=== PATIENT | male | born 1955 | race Caucasian/White ===

== ENCOUNTER 2016-09-08 13:13 | Inpatient (IN) | payer OTHER ==
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
[2016-09-08 14:57] LABS: BASOPHIL 0.8 % (0-2.0); EOSINOPHIL 4.4 % (0-4.5); MCH 27.4 pg (25.7-33.7); MCHC 32.4 g/dl (32.0-35.9); MEAN CELL VOLUME 84.4 fl (80-96); MEAN PLT VOLUME 7.7 fl (7.5-11.1); NEUTROPHILS 69.4 % (42.8-82.8); PLATELET COUNT 231 K/MM3 (134-434); RDW 14.5 % (11.9-15.9); WHITE BLOOD COUNT 7.8 K/mm3 (4.0-10.0)
--- NOTE | 2016-09-08 15:03 | EKG ---
Test Reason : Blood Pressure : / mmHG Vent. Rate : 082 BPM Atrial Rate : 082 BPM P-R Int : 184 ms QRS Dur : 090 ms QT Int : 390 ms P-R-T Axes : 076 000 042 degrees QTc Int : 455 ms NORMAL SINUS RHYTHM NONSPECIFIC T WAVE ABNORMALITY ABNORMAL ECG WHEN COMPARED WITH ECG OF 16-AUG-2015 14:34, NO SIGNIFICANT CHANGE WAS FOUND Confirmed by LEX SIEGEL MD ([id number]) on 09/08/2016 3:02:57 PM Referred By: Confirmed By:LEX SIEGEL MD
[2016-09-08 15:19] LABS: ALBUMIN 2.9 g/dl (3.4-5.0); ANION GAP 10 (8-16); BILIRUBIN,TOTAL 0.4 mg/dL (0.2-1.0); CALCIUM 8.4 mg/dL (8.5-10.1); CO2 29 mmol/L (21-32); COCKROFT - GAULT 139.99; CREATININE 0.9 mg/dL (0.7-1.3); MAGNESIUM 1.9 mg/dL (1.8-2.4); PHOSPHOROUS 4.5 mg/dL (2.5-4.9); SGOT/AST 43 U/L (15-37); SGPT/ALT 66 U/L (12-78); TOT PROT 5.4 g/dl (6.4-8.2)
[2016-09-08 15:23] LABS: ALK PHOS 87 U/L (45-117); TROPONIN I 0.03 ng/ml (0.00-0.05)
[2016-09-08 15:26] LABS: GLUCOSE,RANDOM 353 mg/dL (74-106)
[2016-09-08 15:27] LABS: INR 1.08 (0.82-1.09); PROTHROMBIN TIME (PATIENT) 11.9 SEC (9.98-11.88)
[2016-09-08 15:30] LABS: ACTIVATED PTT 31.8 SECONDS (26.9-34.4)
[2016-09-08] MEDS ORDERED: INSULIN REGULAR HUMAN 100 UNITS/ML *VIAL IVPUSH ONE (15:43)
[2016-09-08] MEDS ORDERED: INSULIN REGULAR HUMAN 100 UNITS/ML *VIAL ONE (15:59)
[2016-09-08] MEDS ORDERED: ASPIRIN 81 MG CHEWABLE TABLETS PO ONE (16:01)
[2016-09-08] MEDS ORDERED: ASPIRIN 81 MG CHEWABLE TABLETS ONE (16:17)
[2016-09-08] MEDS ORDERED: ACETAMINOPHEN 325 MG TABLET (FP) PO PRN (17:21)
[2016-09-08] MEDS ORDERED: ALPRAZolam 0.25 MG TABLET PO PRN (17:21)
[2016-09-08] MEDS ORDERED: MECLIZINE HCL 25 MG TABLET (FP) PO PRN (17:21)
[2016-09-08] MEDS: INSULIN SLIDING SCALE (NOVOLOG) 1 VIAL SQ SCH (18:35)
[2016-09-08] MEDS ORDERED: INSULIN (NOVOLOG) ASPART 100 UNITS/ML 10ML VIAL ONE (18:36)
[2016-09-08] MEDS ORDERED: ACETAMINOPHEN 325 MG TABLET (FP) ONE (18:38)
[2016-09-08] MEDS ORDERED: METHOCARBAMOL 500 MG TABLET ONE (20:31)
[2016-09-08] MEDS: METHOCARBAMOL 500 MG TABLET PO SCH ×2 (20:35→22:50)
[2016-09-08 21:00] LABS: TROPONIN I 0.04 ng/ml (0.00-0.05)
[2016-09-08] MEDS: MIRTAZAPINE 15 MG TABLET (FP) PO SCH (22:50)
[2016-09-08] MEDS: CARVEDILOL 12.5 MG TABLET (FP) PO SCH (22:50)
[2016-09-08] MEDS: SENNOSIDES 8.6MG TABLET (FP) PO SCH (22:50)
[2016-09-08] MEDS: METHADONE HCL 5 MG TABLET PO SCH (22:50)
[2016-09-08] MEDS: OLANZapine 5 MG TABLET PO SCH (22:50)
[2016-09-08] MEDS: ROSUVASTATIN CA 20 MG TABLET (FP) PO SCH (22:50)
[2016-09-08] MEDS: INSULIN DETEMIR 100 UNITS/ML MDV SQ SCH (22:58)
--- NOTE | 2016-09-08 23:39 | HP ---
Admitting History and Physical - Primary Care Physician PCP: Carlos Ybarra - Admission Chief Complaint: CHEST PAIN/UNCONTROLLED DM WITH HYPERGLYCEMIA/SEVERE ANXIETY AND DEPRESSION History of Present Illness: The patient is a 61 year old male with a significant past medical history of HTN , HLD, CAD, paroxysmal atrial fibrillation, CHF, COPD, anxiety disorder, former polysubstance abuse (alcohol, cocaine, marijuana) who presents to the Emergency Department with SOB. The patient was sent by PCP today. He reports that ambulating exacerbates his SOB. He states that his SOB is intermittent and usually lasts for several minutes before resolving. Patient reports that his episodes of SOB occur at rest and with exertion. He also reports his symptoms are persistently worsening. He reports associated lower extremity edema. He also reports that he had a last cardiac workup several weeks ago but does not know the results. He denies recent illnesses. He denies chest pain. He denies fever, chills, cough, vomiting, diarrhea. PCP: Dr. Carlos Ybarra History Source: Patient - Past Medical History Cardiovascular: Yes: CAD, HTN, Hyperlipdemia, [place] Gastrointestinal: Yes: Constipation Psych: Yes: Anxiety, Depression Musculoskeletal: Yes: Other (chronic left knee pain) Endocrine: Yes: Diabetes Mellitus - Past Surgical History Past Surgical History: Yes: Cholecystectomy - Smoking History Smoking history: Never smoked Have you smoked in the past 12 months: No Aproximately how many cigarettes per day: 0 If you are a former smoker, when did you quit?: 2011 - Alcohol/Substance Use Hx Alcohol Use: Yes (none x years) - Social History ADL: Independent Home Medications - Allergies Allergies/Adverse Reactions: Allergies Allergy/AdvReac Type Severity Reaction Status Date / Time tetracycline [Tetracycline] Allergy Intermediate chest pain Verified 09/08/16 13 :24 - Home Medications Home Medications: Ambulatory Orders Aspirin [Aspirin EC] 81 mg PO DAILY 08/16/15 Carvedilol [Coreg -] 12.5 mg PO BID 08/16/15 Duloxetine HCl [Cymbalta -] 60 mg PO DAILY 08/16/15 Ergocalciferol [Drisdol -] 50,000 unit PO Q7D@1000 08/16/15 Gabapentin 600 mg PO BID 08/16/15 Insulin Aspart Prot/Insuln Asp [Novolog Mix 70-30 Flexpen Syrn] 25 unit SQ BIDAC 08/16/15 Insulin Glargine,Hum.rec.anlog [Lantus Solostar PEN (NF)] 60 units SQ HS Losartan Potassium [Cozaar -] 50 mg PO DAILY 08/16/15 Mirtazapine [Remeron -] 30 mg PO HS 08/16/15 Olanzapine [Zyprexa -] 20 mg PO AM 08/16/15 Rosuvastatin Calcium [Crestor] 10 mg PO HS 08/16/15 Sennosides [Senna] 8.6 mg PO PRN 08/16/15 Docusate Sodium [Colace -] 100 mg PO BID 01/30/16 Methocarbamol [Robaxin -] 750 mg PO BID 01/30/16 Methadone [Dolophine -] 5 - 10 mg PO TID #120 tablet MDD 5 08/18/16 Alprazolam [Xanax] 0.25 mg PO BID 09/08/16 Insulin Pump/Infus. Set/Meter [Accu-Chek Combo System] 1 each MC AC 09/08/16 Meclizine HCl 25 mg PO DAILY 09/08/16 Family Disease History - Family Disease History Family Disease History: Heart Disease: Father, Mother, Respiratory: Mother Review of Systems - Review of Systems Constitutional: reports: Weakness Eyes: reports: No Symptoms HENT: reports: No Symptoms Cardiovascular: reports: Chest Pain, Palpitations, Shortness of Breath Respiratory: reports: No Symptoms Gastrointestinal: reports: No Symptoms Genitourinary: reports: No Symptoms Musculoskeletal: reports: No Symptoms Integumentary: reports: No Symptoms Neurological: reports: No Symptoms Endocrine: reports: Increased Thirst, Other Hematology/Lymphatic: reports: No Symptoms Psychiatric: reports: Altered Sleep Pattern, Anxiety, Depression Physical Examination Vital Signs: Vital Signs Temperature 97.7 F 09/08/16 18:00 Pulse Rate 80 09/08/16 18:00 Respiratory Rate 20 09/08/16 18:00 Blood Pressure 121/72 09/08/16 18:00 O2 Sat by Pulse Oximetry (%) 93 L 09/08/16 18:00 Constitutional: Yes: Moderate Distress Eyes: Yes: WNL HENT: Yes: WNL Neck: Yes: WNL Cardiovascular: Yes: WNL, Other Respiratory: Yes: WNL Gastrointestinal: Yes: WNL Renal/: Yes: WNL Musculoskeletal: Yes: WNL Extremities: Yes: WNL Edema: No Peripheral Pulses WNL: Yes Integumentary: Yes: WNL Wound/Incision: Yes: Clean/Dry Neurological: Yes: WNL ...Motor Strength: WNL Psychiatric: Yes: Agitated Imaging - Results Chest X-ray: Report Reviewed Problem List - Problems (1) Shortness of breath Code(s): R06.02 - SHORTNESS OF BREATH (2) Spell of dizziness Code(s): R42 - DIZZINESS AND GIDDINESS (4) Anxiety Code(s): F41.9 - ANXIETY DISORDER, UNSPECIFIED (5) Chronic pain Code(s): G89.29 - OTHER CHRONIC PAIN (6) DM Diabetes mellitus type 2 Code(s): E11.9 - TYPE 2 DIABETES MELLITUS WITHOUT COMPLICATIONS (7) Diabetes mellitus with insulin therapy Code(s): E11.9 - TYPE 2 DIABETES MELLITUS WITHOUT COMPLICATIONS Z79.4 - 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
[2016-09-09] MEDS ORDERED: CARVEDILOL 12.5 MG TABLET (FP) ONE (01:52)
[2016-09-09] MEDS ORDERED: OLANZapine 10 MG TABLET ONE (01:52)
[2016-09-09] MEDS ORDERED: METHADONE HCL 10 MG TABLET ONE (01:54)
[2016-09-09] MEDS: INSULIN SLIDING SCALE (NOVOLOG) 1 VIAL SQ SCH ×5 (02:04→23:01)
[2016-09-09] MEDS ORDERED: INSULIN DETEMIR 100 UNITS/ML MDV SQ ONE (02:32)
[2016-09-09] MEDS: INSULIN (NOVOLOG MIX 70/30) 100 UNITS/ML MDV SQ SCH ×2 (06:53→17:06)
[2016-09-09 07:16] VITALS: BMI 38.9
[2016-09-09 08:35] LABS: BASOPHIL 1.3 % (0-2.0); MCH 27.8 pg (25.7-33.7); MCHC 33.3 g/dl (32.0-35.9); MEAN CELL VOLUME 83.6 fl (80-96); MEAN PLT VOLUME 7.3 fl (7.5-11.1); NEUTROPHILS 68.9 % (42.8-82.8); PLATELET COUNT 234 K/MM3 (134-434); RDW 14.6 % (11.9-15.9); WHITE BLOOD COUNT 8.7 K/mm3 (4.0-10.0)
[2016-09-09 09:08] LABS: ANION GAP 7 (8-16); BILIRUBIN,TOTAL 0.4 mg/dL (0.2-1.0); CO2 32 mmol/L (21-32); COCKROFT - GAULT 156.61; CREATININE 0.8 mg/dL (0.7-1.3); GLUCOSE,RANDOM 225 mg/dL (74-106); SGOT/AST 42 U/L (15-37); SGPT/ALT 65 U/L (12-78); TOT PROT 5.7 g/dl (6.4-8.2)
[2016-09-09 09:11] LABS: ALK PHOS 89 U/L (45-117); TROPONIN I 0.03 ng/ml (0.00-0.05)
--- NOTE | 2016-09-09 09:15 | PN ---
Progress Note (short form) - Note Progress Note: IMP: Chronic systolic CHF secondary to ischemic CM with acute exacerbation CAD DM Palpitations REC: IV Lasix Tele Echo
[2016-09-09] MEDS ORDERED: PT OWN MED DRAWER 7, Y5N ONE ×2 (09:50→23:10)
[2016-09-09] MEDS ORDERED: DULoxetine HCL 30 MG CAPSULE.DR (FP) PO SCH (10:00)
[2016-09-09] MEDS: METHADONE HCL 5 MG TABLET PO SCH ×2 (10:11→22:58)
[2016-09-09] MEDS: LOSARTAN POTASSIUM 50 MG TABLET (FP) PO SCH (10:11)
[2016-09-09] MEDS: FUROSEMIDE 40 MG/4 ML INJECTABLE VIAL IVPUSH SCH (10:12)
[2016-09-09] MEDS: ASPIRIN COATED 81 MG TABLET.EC PO SCH (10:12)
[2016-09-09] MEDS: CARVEDILOL 12.5 MG TABLET (FP) PO SCH ×2 (10:12→22:59)
--- NOTE | 2016-09-09 10:57 | CONS ---
DATE OF CONSULTATION: 09/09/2016 REQUESTING PHYSICIAN: Carlos Ybarra MD REASON FOR CONSULTATION: Congestive heart failure. CHIEF COMPLAINT: Shortness of breath and palpitations. HISTORY OF PRESENT ILLNESS: The patient is a 61-year-old male, my office patient, with coronary artery disease and chronic ischemic cardiomyopathy with chronic systolic CHF and moderately reduced LV systolic function with ejection fraction of approximately 40% to 45%. Patient was admitted due to palpitations and increasing shortness of breath and bilateral lower extremity edema. He states that he has not been taking Lasix at home. He denies chest pain, syncope. He has had PND symptoms. He states that his weight may have been going up, but he has not been checking it recently. He denies fever, chills, or cough. PAST MEDICAL HISTORY: Includes coronary disease with a catheterization several years ago showing a totally occluded RPL, medical therapy, nuclear stress test February of 2015 with no significant ischemia. He also has chronic systolic CHF, methadone dependence, insulin-dependent diabetes, depression, and previous history of polysubstance abuse. ALLERGIES: He is allergic to TETRACYCLINE. ACTIVE MEDICATIONS: Currently include Tylenol 650 p.o. q.6 p.r.n., Xanax 0.25 p.o. q.8 p.r.n., aspirin 81 daily, carvedilol 12.5 b.i.d., Cymbalta 60 mg daily, Lasix 40 mg IV daily, Insulin both Levemir and NovoLog, Cozaar 50 mg daily, Antivert 25 p.o. t.i.d. p.r.n., methadone 5 mg p.o. b.i.d., Robaxin, Remeron, Zyprexa, Crestor 20 at bedtime. FAMILY HISTORY: Noncontributory. SOCIAL HISTORY: Former smoker with mild COPD. PHYSICAL EXAMINATION: Vital signs: Afebrile, temperature 97.7, pulse 78, blood pressure 128/82, O2 saturation 93% on room air, 97% on 2 L. Neck: No JVD. Heart: S1, S2, regular. Chest: Bibasilar rales. Abdomen: Mildly distended, nontender. Extremities: 1+ bilateral pitting edema. CHEST X-RAY: Cardiomegaly. No significant effusions. EKG: Sinus rhythm with non-specific ST changes. Telemetry has shown normal sinus rhythm. LABORATORIES: White count 8.7, hematocrit 39, platelets 234. INR 1.08. Potassium 4.2, sodium 140, BUN 11, creatinine 0.8, A1c 10.6, magnesium 1.9, AST 42, ALT 65, CK 93, 97, 73. Troponin negative x3 sets. BNP 213. IMPRESSION: 1. Chronic systolic congestive heart failure secondary to ischemic cardiomyopathy, moderate left ventricular dysfunction with mild exacerbation. 2. Palpitations. 3. Diabetes. 4. Methadone dependence. PLAN: 1. Continue telemetry to rule out arrhythmia. 2. Echocardiogram to reassess LV function. 3. IV Lasix. 4. Daily electrolytes, maintain potassium and magnesium at normal levels with repletion as needed. Will follow. NANETTE FLORES M.D. [id number]
[2016-09-09] MEDS: METHOCARBAMOL 500 MG TABLET PO SCH ×2 (11:41→22:58)
[2016-09-09] MEDS: Methylnaltrexone Bromide 12 MG/0.6 ML KIT SQ SCH (17:16)
--- NOTE | 2016-09-09 21:53 | PN ---
Progress Note, Physician Chief Complaint: AWAKE ALERT STILL SOB WITH CHEST PAIN ON AND OFF - Current Medication List Current Medications: Active Medications Acetaminophen (Tylenol -) 650 mg PO Q6H PRN PRN Reason: FEVER OR PAIN Alprazolam (Xanax -) 0.25 mg PO Q8H PRN PRN Reason: ANXIETY Aspirin (Ecotrin -) 81 mg PO DAILY [facility] Last Admin: 09/09/16 10:12 Dose: 81 mg Carvedilol (Coreg -) 12.5 mg PO BID [facility] Last Admin: 09/09/16 10:12 Dose: 12.5 mg Duloxetine HCl (Cymbalta -) 60 mg PO DAILY [facility] Last Admin: 09/09/16 10:12 Dose: 60 mg Furosemide (Lasix Injection -) 40 mg IVPUSH DAILY [facility] Last Admin: 09/09/16 10:12 Dose: 40 mg Insulin Aspart (Novolog Vial Sliding Scale -) 1 vial SQ ACHS [facility] PRN Reason: Protocol Last Admin: 09/09/16 16:56 Dose: Not Given Insulin Aspart (Novolog Mix 70/30 Vial) 30 units SQ BIDAC [facility] Last Admin: 09/09/16 17:06 Dose: 30 units Insulin Detemir (Levemir Vial) 60 units SQ HS [facility] Last Admin: 09/08/16 22:58 Dose: 60 unit Losartan Potassium (Cozaar -) 50 mg PO DAILY [facility] Last Admin: 09/09/16 10:11 Dose: 50 mg Meclizine HCl (Antivert -) 25 mg PO TID PRN PRN Reason: VERTIGO Methadone HCl (Dolophine -) 5 mg PO BID [facility] Last Admin: 09/09/16 10:11 Dose: 5 mg Methocarbamol (Robaxin -) 750 mg PO BID [facility] Last Admin: 09/09/16 11:41 Dose: 750 mg Methylnaltrexone [place] (Relistor -) 8 mg SQ DAILY [facility] Last Admin: 09/09/16 17:16 Dose: 8 mg Mirtazapine (Remeron -) 30 mg PO HS [facility] Last Admin: 09/08/16 22:50 Dose: 30 mg Olanzapine (Zyprexa -) 15 mg PO HS [facility] Last Admin: 09/08/16 22:50 Dose: 15 mg Rosuvastatin Calcium (Crestor -) 20 mg PO HS [facility] Last Admin: 09/08/16 22:50 Dose: 20 mg Senna (Senna -) 1 tab PO HS [facility] Last Admin: 09/08/16 22:50 Dose: 1 tab - Objective Vital Signs: Vital Signs Temperature 97.8 F 09/09/16 18:00 Pulse Rate 79 09/09/16 18:00 Respiratory Rate 18 09/09/16 18:00 Blood Pressure 120/62 09/09/16 18:00 O2 Sat by Pulse Oximetry (%) 94 L 09/09/16 09:00 Constitutional: Yes: Mild Distress Eyes: Yes: WNL HENT: Yes: WNL Neck: Yes: WNL Cardiovascular: Yes: WNL Respiratory: Yes: Rales Gastrointestinal: Yes: WNL ...Rectal Exam: Yes: WNL Genitourinary: Yes: WNL Musculoskeletal: Yes: Muscle Weakness Extremities: Yes: WNL Edema: Yes Edema: LLE: 1+, RLE: 1+ Peripheral Pulses WNL: Yes Integumentary: Yes: WNL Wound/Incision: Yes: Clean/Dry Neurological: Yes: WNL ...Motor Strength: WNL Psychiatric: Yes: Other Labs: CBC, BMP 09/09/16 08:20 09/09/16 08:20 INR, PTT INR 1.08 (0.82-1.09) 09/08/16 14:05 Problem List - Problems (1) Shortness of breath Code(s): R06.02 - SHORTNESS OF BREATH (2) Spell of dizziness Code(s): R42 - DIZZINESS AND GIDDINESS (4) Anxiety Code(s): F41.9 - ANXIETY DISORDER, UNSPECIFIED (5) Chronic pain Code(s): G89.29 - OTHER CHRONIC PAIN (6) DM Diabetes mellitus type 2 Code(s): E11.9 - TYPE 2 DIABETES MELLITUS WITHOUT COMPLICATIONS (7) Diabetes mellitus with insulin therapy Code(s): E11.9 - TYPE 2 DIABETES MELLITUS WITHOUT COMPLICATIONS Z79.4 - SPECIFICATION MANAGER (CURRENT) USE OF INSULIN (8) Obesity (BMI 30-39.9) Code(s): E66.9 - OBESITY, UNSPECIFIED (9) Uncontrolled blood glucose Code(s): R73.09 - OTHER ABNORMAL GLUCOSE Assessment/Plan TELEMETRY MONITORING ENDOCRINE AND CARDIOLOGY CONSULT DIETARY EVAL FOR NON-COMPLIANT DIABETIC PSYCHIATRY EVAL FOR SEVERE DEPRESSION AND ANXIETY SUPPORT AND EDUCATION FOR DM/CAD CHF DIASTOLIC VS SYSTOLIC FAILURE LASIX IV LIPID AND A1C PANEL
[2016-09-09] MEDS: OLANZapine 5 MG TABLET PO SCH (22:57)
[2016-09-09] MEDS: MIRTAZAPINE 15 MG TABLET (FP) PO SCH (22:58)
[2016-09-09] MEDS: ROSUVASTATIN CA 20 MG TABLET (FP) PO SCH (23:00)
[2016-09-09] MEDS: INSULIN DETEMIR 100 UNITS/ML MDV SQ SCH (23:00)
[2016-09-09] MEDS: SENNOSIDES 8.6MG TABLET (FP) PO SCH (23:01)
--- NOTE | 2016-09-10 00:21 | CONSULT ---
Consult Consult Specialty:: endocrine Referred by:: rachel garcia Reason for Consultation:: iddm uncontrolled - History of Present Illness Chief Complaint: high sugar levels History of Present Illness: 61 y male pmh iddm,htn,substance abuse,admitted with cp has history, hyperglycemia,diabetic nerve pain,labile blood sugars,blurred vision,headache , easily fatigued unable to lose weight ,difficulty sticking with diet and compliance to diabetic diet,denies hypoglycemia - History Source History Provided By: Patient - Past Medical History Cardio/Vascular: Yes: CAD, HTN, Hyperlipdemia, [place] Gastrointestinal: Yes: Constipation Psych: Yes: Anxiety, Depression Musculoskeletal: Yes: Other (chronic left knee pain) Endocrine: Yes: Diabetes Mellitus - Past Surgical History Past Surgical History: Yes: Cholecystectomy - Alcohol/Substance Use Hx Alcohol Use: No - Smoking History Smoking history: Former smoker Have you smoked in the past 12 months: No Aproximately how many cigarettes per day: 0 If you are a former smoker, when did you quit?: 2011 - Social History Usual Living Arrangement: With Parent ADL: Independent Home Medications - Allergies Allergies/Adverse Reactions: Allergies Allergy/AdvReac Type Severity Reaction Status Date / Time tetracycline [Tetracycline] Allergy Intermediate chest pain Verified 09/08/16 13 :24 - Home Medications Home Medications: Ambulatory Orders Aspirin [Aspirin EC] 81 mg PO DAILY 08/16/15 Carvedilol [Coreg -] 12.5 mg PO BID 08/16/15 Duloxetine HCl [Cymbalta -] 60 mg PO DAILY 08/16/15 Ergocalciferol [Drisdol -] 50,000 unit PO Q7D@1000 08/16/15 Gabapentin 600 mg PO BID 08/16/15 Insulin Aspart Prot/Insuln Asp [Novolog Mix 70-30 Flexpen Syrn] 25 unit SQ BIDAC 08/16/15 Insulin Glargine,Hum.rec.anlog [Lantus Solostar PEN (NF)] 60 units SQ HS Losartan Potassium [Cozaar -] 50 mg PO DAILY 08/16/15 Mirtazapine [Remeron -] 30 mg PO HS 08/16/15 Olanzapine [Zyprexa -] 20 mg PO AM 08/16/15 Rosuvastatin Calcium [Crestor] 10 mg PO HS 08/16/15 Sennosides [Senna] 8.6 mg PO PRN 08/16/15 Docusate Sodium [Colace -] 100 mg PO BID 01/30/16 Methocarbamol [Robaxin -] 750 mg PO BID 01/30/16 Methadone [Dolophine -] 5 - 10 mg PO TID #120 tablet MDD 5 08/18/16 Alprazolam [Xanax] 0.25 mg PO BID 09/08/16 Insulin Pump/Infus. Set/Meter [Accu-Chek Combo System] 1 each [facility] 09/08/16 Meclizine HCl 25 mg PO DAILY 09/08/16 Family Disease History - Family Disease History Family Disease History: Heart Disease: Father, Mother, Respiratory: Mother Review of Systems - Review of Systems Constitutional: reports: Lethargy, Weakness Eyes: reports: Blurred Vision HENT: reports: No Symptoms Neck: reports: No Symptoms Cardiovascular: reports: Palpitations, Shortness of Breath Respiratory: reports: Exercise Intolerance, SOB on Exertion Gastrointestinal: reports: No Symptoms Genitourinary: reports: No Symptoms Breasts: reports: No Symptoms Reported Musculoskeletal: reports: Muscle Pain, Muscle Cramps, Muscle Weakness Neurological: reports: Numbness, Weakness Endocrine: reports: Unexplained Weight Gain Psychiatric: reports: Anxiety Physical Exam Vital Signs: Vital Signs Temperature 97.6 F 09/09/16 22:54 Pulse Rate 83 09/09/16 22:54 Respiratory Rate 16 09/09/16 22:54 Blood Pressure 117/65 09/09/16 22:54 O2 Sat by Pulse Oximetry (%) 94 L 09/09/16 09:00 Constitutional: Yes: Anxious Eyes: Yes: EOM Intact HENT: Yes: Normocephalic Neck: Yes: Trachea Midline Cardiovascular: Yes: Regular Rate and Rhythm Respiratory: Yes: CTA Bilaterally Gastrointestinal: Yes: Normal Bowel Sounds ...Rectal Exam: Yes: Deferred Renal/: Yes: WNL Breast(s): Yes: WNL Musculoskeletal: Yes: Muscle Weakness Extremities: Yes: WNL Edema: Yes Edema: LLE: Trace, RLE: Trace Integumentary: Yes: WNL Neurological: Yes: Alert, Oriented Labs: CBC, BMP 09/09/16 08:20 09/09/16 08:20 Assessment/Plan Current Active Problems iddm neuropathy angina htn hyperlipidemia Shortness of breath (Acute) Uncontrolled blood glucose (Acute) Abnormal Lab Results 09/09/16 09/09/16 09/09/16 08:20 08:20 08:20 MPV 7.3 L Eosinophils % 5.0 H Anion Gap 7 L Random Glucose 225 H D Hemoglobin A1c % 10.6 H D AST 42 H Total Protein 5.7 L Albumin 3.0 L Laboratory Results - last 24 hr 09/08/16 09/09/16 09/09/16 18:32 05:02 08:20 WBC 8.7 RBC 4.71 Hgb 13.1 Hct 39.3 MCV 83.6 MCHC 33.3 RDW 14.6 Plt Count 234 MPV 7.3 L Neutrophils % 68.9 Lymphocytes % 17.6 Monocytes % 7.2 Eosinophils % 5.0 H Basophils % 1.3 Sodium Potassium Chloride Carbon Dioxide Anion Gap BUN Creatinine Creat Clearance w eGFR POC Glucometer > 400 262 Random Glucose Hemoglobin A1c % Calcium Total Bilirubin AST ALT Alkaline Phosphatase Creatine Kinase Troponin I Total Protein Albumin 09/09/16 09/09/16 09/09/16 08:20 08:20 11:26 WBC RBC Hgb Hct MCV MCHC RDW Plt Count MPV Neutrophils % Lymphocytes % Monocytes % Eosinophils % Basophils % Sodium 140 Potassium 4.2 Chloride 101 Carbon Dioxide 32 Anion Gap 7 L BUN 11 Creatinine 0.8 Creat Clearance w eGFR > 60 POC Glucometer 254 Random Glucose 225 H D Hemoglobin A1c % 10.6 H D Calcium 9.0 Total Bilirubin 0.4 AST 42 H ALT 65 Alkaline Phosphatase 89 Creatine Kinase 73 Troponin I 0.03 Total Protein 5.7 L Albumin 3.0 L 09/09/16 09/09/16 16:12 22:36 WBC RBC Hgb Hct MCV MCHC RDW Plt Count MPV Neutrophils % Lymphocytes % Monocytes % Eosinophils % Basophils % Sodium Potassium Chloride Carbon Dioxide Anion Gap BUN Creatinine Creat Clearance w eGFR POC Glucometer 197 314 Random Glucose Hemoglobin A1c % Calcium Total Bilirubin AST ALT Alkaline Phosphatase Creatine Kinase Troponin I Total Protein Albumin plan: Current Medications Generic Name Dose Route Start Last Admin Trade Name Freq PRN Reason Stop Dose Admin Acetaminophen 650 mg 09/08/16 17:21 Tylenol - PO Q6H PRN FEVER OR PAIN Alprazolam 0.25 mg 09/08/16 17:21 Xanax - PO Q8H PRN ANXIETY Aspirin 81 mg 09/09/16 10:00 09/09/16 10:12 Ecotrin - PO 81 mg DAILY [facility] Administration Carvedilol 12.5 mg 09/08/16 22:00 09/09/16 22:59 Coreg - PO 12.5 mg BID [facility] Administration Duloxetine HCl 60 mg 09/09/16 10:00 09/09/16 10:12 Cymbalta - PO 60 mg DAILY [facility] Administration Furosemide 40 mg 09/09/16 10:00 09/09/16 10:12 Lasix Injection - IVPUSH 40 mg DAILY [facility] Administration Insulin Aspart 1 vial 09/08/16 22:00 09/09/16 23:01 Novolog Vial Sliding Scale - SQ 6 units ACHS [facility] Administration Protocol Insulin Aspart 30 units 09/09/16 07:00 09/09/16 17:06 Novolog Mix 70/30 Vial SQ 30 units BIDAC [facility] Administration Insulin Detemir 60 units 09/08/16 22:00 09/09/16 23:00 Levemir Vial SQ 60 unit HS [facility] Administration Losartan Potassium 50 mg 09/09/16 10:00 09/09/16 10:11 Cozaar - PO 50 mg DAILY [facility] Administration Meclizine HCl 25 mg 09/08/16 17:21 Antivert - PO TID PRN [facility] Methadone HCl 5 mg 09/08/16 22:00 09/09/16 22:58 Dolophine - PO 5 mg BID [facility] Administration Methocarbamol 750 mg 09/08/16 22:00 09/09/16 22:58 Robaxin - PO 750 mg BID [facility] Administration Methylnaltrexone [place] 8 mg 09/09/16 16:45 09/09/16 17:16 Relistor - SQ 8 mg DAILY [facility] Administration Mirtazapine 30 mg 09/08/16 22:00 09/09/16 22:58 Remeron - PO 30 mg HS [facility] Administration Olanzapine 15 mg 09/08/16 22:00 09/09/16 22:57 Zyprexa - PO 15 mg HS [facility] Administration Rosuvastatin Calcium 20 mg 09/08/16 22:00 09/09/16 23:00 Crestor - PO 20 mg HS [facility] Administration Senna 1 tab 09/08/16 22:00 09/09/16 23:01 Senna - PO Not Given HS [facility] nutrition consult reinforce diet plan
[2016-09-10] MEDS: INSULIN SLIDING SCALE (NOVOLOG) 1 VIAL SQ SCH ×4 (06:22→22:16)
[2016-09-10] MEDS: INSULIN (NOVOLOG MIX 70/30) 100 UNITS/ML MDV SQ SCH ×2 (06:22→16:54)
[2016-09-10] MEDS ORDERED: INSULIN (NOVOLOG MIX 70/30) 100 UNITS/ML MDV SQ ONE (07:00)
[2016-09-10] MEDS ORDERED: INSULIN (NOVOLOG) ASPART 100 UNITS/ML 10ML VIAL ONE (07:01)
[2016-09-10 08:22] LABS: CALCIUM 9.2 mg/dL (8.5-10.1)
[2016-09-10 08:27] LABS: COCKROFT - GAULT 178.98; CREATININE 0.7 mg/dL (0.7-1.3); MAGNESIUM 1.9 mg/dL (1.8-2.4)
--- NOTE | 2016-09-10 08:41 | PN ---
Progress Note, Physician Chief Complaint: Tele: NSR w/ rare VPCs - Current Medication List Current Medications: Active Medications Acetaminophen (Tylenol -) 650 mg PO Q6H PRN PRN Reason: FEVER OR PAIN Alprazolam (Xanax -) 0.25 mg PO Q8H PRN PRN Reason: ANXIETY Aspirin (Ecotrin -) 81 mg PO DAILY [facility] Last Admin: 09/09/16 10:12 Dose: 81 mg Carvedilol (Coreg -) 12.5 mg PO BID [facility] Last Admin: 09/09/16 22:59 Dose: 12.5 mg Duloxetine HCl (Cymbalta -) 60 mg PO DAILY [facility] Last Admin: 09/09/16 10:12 Dose: 60 mg Furosemide (Lasix Injection -) 40 mg IVPUSH DAILY [facility] Last Admin: 09/09/16 10:12 Dose: 40 mg Insulin Aspart (Novolog Vial Sliding Scale -) 1 vial SQ ACHS [facility] PRN Reason: Protocol Last Admin: 09/10/16 06:22 Dose: 2 units Insulin Aspart (Novolog Mix 70/30 Vial) 30 units SQ BIDAC [facility] Last Admin: 09/10/16 06:22 Dose: 30 units Insulin Detemir (Levemir Vial) 60 units SQ HS [facility] Last Admin: 09/09/16 23:00 Dose: 60 unit Losartan Potassium (Cozaar -) 50 mg PO DAILY [facility] Last Admin: 09/09/16 10:11 Dose: 50 mg Meclizine HCl (Antivert -) 25 mg PO TID PRN PRN Reason: VERTIGO Methadone HCl (Dolophine -) 5 mg PO BID [facility] Last Admin: 09/09/16 22:58 Dose: 5 mg Methocarbamol (Robaxin -) 750 mg PO BID [facility] Last Admin: 09/09/16 22:58 Dose: 750 mg Methylnaltrexone [place] (Relistor -) 8 mg SQ DAILY [facility] Last Admin: 09/09/16 17:16 Dose: 8 mg Mirtazapine (Remeron -) 30 mg PO HS [facility] Last Admin: 09/09/16 22:58 Dose: 30 mg Olanzapine (Zyprexa -) 15 mg PO HS [facility] Last Admin: 09/09/16 22:57 Dose: 15 mg Rosuvastatin Calcium (Crestor -) 20 mg PO HS [facility] Last Admin: 09/09/16 23:00 Dose: 20 mg Senna (Senna -) 1 tab PO HS [facility] Last Admin: 09/09/16 23:01 Dose: Not Given - Objective Vital Signs: Vital Signs Temperature 97.7 F 09/10/16 06:00 Pulse Rate 75 09/10/16 06:00 Respiratory Rate 16 09/10/16 06:00 Blood Pressure 121/70 09/10/16 06:00 O2 Sat by Pulse Oximetry (%) 94 L 09/09/16 21:00 Constitutional: Yes: No Distress, Calm Eyes: Yes: Conjunctiva Clear Cardiovascular: Yes: Regular Rate and Rhythm Respiratory: Yes: CTA Bilaterally (no rales) Gastrointestinal: Yes: Soft, Abdomen, Obese Edema: No Neurological: Yes: Alert, Oriented ...Motor Strength: WNL Psychiatric: Yes: WNL Labs: CBC, BMP 09/09/16 08:20 09/10/16 07:00 INR, PTT INR 1.08 (0.82-1.09) 09/08/16 14:05 Laboratory Tests 09/09/16 09/10/16 08:20 07:00 WBC 8.7 Hgb 13.1 Plt Count 234 Potassium 4.4 Creatinine 0.7 - ....Imaging EKG: Image Reviewed Other: Image Reviewed (Echo TDS, could not assess LVEF) Assessment/Plan Chronic systolic CHF secondary to ischemic CM with acute exacerbation, now improved CAD DM Palpitations with no significant arrhythmias on telemetry REC: Can switch to PO Lasix Persantine MIBI today: expect either inferior ischemia or fixed inferior defect (has known T.O. RPL)-- if no other significant ischemic territories, can be discharged later today with close outpatient f/u.
--- NOTE | 2016-09-10 09:25 | CON.PSY ---
Psychiatry Consult Chief Complaint: IU have been deoressed for a long time. Nothing works for me. Symptoms: reports: Depressed Mood, Anhedonia - Previous Psychiatric Treatment Outpatient: Less than 6 mos ago Inpatient: One prior admission - Previous Substance Abuse Treatment Outpatient: More than 6 mos ago - Reason for Previous Treatment Reason for Previous Treatment: Major Depression, Alcohol Abuse, Heroin or Other Narcotics - Current Medications Current Medications: Active Medications Acetaminophen (Tylenol -) 650 mg PO Q6H PRN PRN Reason: FEVER OR PAIN Alprazolam (Xanax -) 0.25 mg PO Q8H PRN PRN Reason: ANXIETY Aspirin (Ecotrin -) 81 mg PO DAILY [facility] Last Admin: 09/09/16 10:12 Dose: 81 mg Carvedilol (Coreg -) 12.5 mg PO BID [facility] Last Admin: 09/09/16 22:59 Dose: 12.5 mg Duloxetine HCl (Cymbalta -) 60 mg PO DAILY [facility] Furosemide (Lasix Injection -) 40 mg IVPUSH DAILY [facility] Last Admin: 09/09/16 10:12 Dose: 40 mg Dipyridamole 50 mg/ Dextrose 50 mls @ 750 mls/hr IVPB ONCE ONE Stop: 09/10/16 10:03 Insulin Aspart (Novolog Vial Sliding Scale -) 1 vial SQ ACHS [facility] PRN Reason: Protocol Last Admin: 09/10/16 06:22 Dose: 2 units Insulin Aspart (Novolog Mix 70/30 Vial) 30 units SQ BIDAC [facility] Last Admin: 09/10/16 06:22 Dose: 30 units Insulin Detemir (Levemir Vial) 60 units SQ HS [facility] Last Admin: 09/09/16 23:00 Dose: 60 unit Losartan Potassium (Cozaar -) 50 mg PO DAILY [facility] Last Admin: 09/09/16 10:11 Dose: 50 mg Meclizine HCl (Antivert -) 25 mg PO TID PRN PRN Reason: VERTIGO Methadone HCl (Dolophine -) 5 mg PO BID [facility] Last Admin: 09/09/16 22:58 Dose: 5 mg Methocarbamol (Robaxin -) 750 mg PO BID [facility] Last Admin: 09/09/16 22:58 Dose: 750 mg Methylnaltrexone [place] (Relistor -) 8 mg SQ DAILY [facility] Last Admin: 09/09/16 17:16 Dose: 8 mg Mirtazapine (Remeron -) 30 mg PO [facility] Last Admin: 09/09/16 22:58 Dose: 30 mg Olanzapine (Zyprexa -) 15 mg PO [facility] Last Admin: 09/09/16 22:57 Dose: 15 mg Rosuvastatin Calcium (Crestor -) 20 mg PO [facility] Last Admin: 09/09/16 23:00 Dose: 20 mg Senna (Senna -) 1 tab PO [facility] Last Admin: 09/09/16 23:01 Dose: Not Given - Allergies Allergies: Allergies Allergy/AdvReac Type Severity Reaction Status Date / Time tetracycline [Tetracycline] Allergy Intermediate chest pain Verified 09/08/16 13 :24 - Current Living Status Usual Living Arrangement: With Parent - Current Mental Status Evaluation Appearance: Disheveled Attitude: Cooperative - Affect Affect: Constrictive Appropriateness: Appropriate to Content - Mood Mood: Depressed - Speech/Language Expressive: Coherent - Psychomotor Activity Psychomotor Activity: Slowed - Thought Process Thought Process: Intact - Thought Content Hallucinations: Absent Delusions: Absent - Self Perception Self Perception: No Impairment - Cognition Attention: Alert Orientation: Time Memory, Immediate Recall: Intact Memory, Short Term: 3/3 Memory, Remote with Promptin/3 - Concentration Serial Sevens Intact: No Simple Calculations Intact: No - Abstraction Proverb Interpretation: Intact Judgement: Intact - Insight Insight: Intact - Impulse Control Impulse Control: Good Control - Suicidal Ideation Suicidal Ideation: No - Homicidal Ideation Homicidal Ideation: No Assessment/Plan INCREASE [id number] 90 MG PO OD.
[2016-09-10] MEDS ORDERED: DULoxetine HCL 60 MG CAPSULE.DR PO SCH (10:00)
[2016-09-10] MEDS ORDERED: DULoxetine HCL 30 MG CAPSULE.DR (FP) PO ONE (10:00)
[2016-09-10] MEDS ORDERED: DIPYRIDAMOLE STRESS TEST 50 MG in DEXTROSE 5%-WATER - 40 ML IVPB ONE (10:00)
[2016-09-10] MEDS ORDERED: DULoxetine HCL 30 MG CAPSULE.DR (FP) PO SCH (10:00)
--- NOTE | 2016-09-10 11:10 | PN ---
Progress Note, Physician Chief Complaint: NUCLEAR STUDY TODAY DISCUSSED WITH CARDIOLOGY KNOWN EXISTING CAD - Current Medication List Current Medications: Active Medications Acetaminophen (Tylenol -) 650 mg PO Q6H PRN PRN Reason: FEVER OR PAIN Alprazolam (Xanax -) 0.25 mg PO Q8H PRN PRN Reason: ANXIETY Aspirin (Ecotrin -) 81 mg PO DAILY [facility] Last Admin: 09/09/16 10:12 Dose: 81 mg Carvedilol (Coreg -) 12.5 mg PO BID [facility] Last Admin: 09/09/16 22:59 Dose: 12.5 mg Duloxetine HCl (Cymbalta -) 90 mg PO DAILY [facility] Furosemide (Lasix Injection -) 40 mg IVPUSH DAILY [facility] Last Admin: 09/09/16 10:12 Dose: 40 mg Insulin Aspart (Novolog Vial Sliding Scale -) 1 vial SQ ACHS [facility] PRN Reason: Protocol Last Admin: 09/10/16 06:22 Dose: 2 units Insulin Aspart (Novolog Mix 70/30 Vial) 30 units SQ BIDAC [facility] Last Admin: 09/10/16 06:22 Dose: 30 units Insulin Detemir (Levemir Vial) 60 units SQ HS [facility] Last Admin: 09/09/16 23:00 Dose: 60 unit Losartan Potassium (Cozaar -) 50 mg PO DAILY [facility] Last Admin: 09/09/16 10:11 Dose: 50 mg Meclizine HCl (Antivert -) 25 mg PO TID PRN PRN Reason: VERTIGO Methadone HCl (Dolophine -) 5 mg PO BID [facility] Last Admin: 09/09/16 22:58 Dose: 5 mg Methocarbamol (Robaxin -) 750 mg PO BID [facility] Last Admin: 09/09/16 22:58 Dose: 750 mg Methylnaltrexone [place] (Relistor -) 8 mg SQ DAILY [facility] Last Admin: 09/09/16 17:16 Dose: 8 mg Mirtazapine (Remeron -) 30 mg PO HS [facility] Last Admin: 09/09/16 22:58 Dose: 30 mg Olanzapine (Zyprexa -) 15 mg PO HS [facility] Last Admin: 09/09/16 22:57 Dose: 15 mg Rosuvastatin Calcium (Crestor -) 20 mg PO HS [facility] Last Admin: 09/09/16 23:00 Dose: 20 mg Senna (Senna -) 1 tab PO HS [facility] Last Admin: 09/09/16 23:01 Dose: Not Given - Objective Vital Signs: Vital Signs Temperature 97.7 F 09/10/16 06:00 Pulse Rate 75 09/10/16 06:00 Respiratory Rate 16 09/10/16 06:00 Blood Pressure 121/70 09/10/16 06:00 O2 Sat by Pulse Oximetry (%) 94 L 09/09/16 21:00 Constitutional: Yes: Mild Distress Eyes: Yes: WNL HENT: Yes: WNL Neck: Yes: WNL Cardiovascular: Yes: Murmur Respiratory: Yes: WNL Gastrointestinal: Yes: WNL Genitourinary: Yes: WNL Musculoskeletal: Yes: Muscle Weakness Extremities: Yes: WNL Edema: Yes Edema: LLE: Trace, RLE: Trace Peripheral Pulses WNL: Yes Integumentary: Yes: WNL Wound/Incision: Yes: Clean/Dry Neurological: Yes: WNL ...Motor Strength: WNL Psychiatric: Yes: WNL, Agitated, Other Labs: CBC, BMP 09/09/16 08:20 09/10/16 07:00 INR, PTT INR 1.08 (0.82-1.09) 09/08/16 14:05 Problem List - Problems (1) Shortness of breath Code(s): R06.02 - SHORTNESS OF BREATH (2) Spell of dizziness Code(s): R42 - DIZZINESS AND GIDDINESS (4) Anxiety Code(s): F41.9 - ANXIETY DISORDER, UNSPECIFIED (5) Chronic pain Code(s): G89.29 - OTHER CHRONIC PAIN (6) DM Diabetes mellitus type 2 Code(s): E11.9 - TYPE 2 DIABETES MELLITUS WITHOUT COMPLICATIONS (7) Diabetes mellitus with insulin therapy Code(s): E11.9 - TYPE 2 DIABETES MELLITUS WITHOUT COMPLICATIONS 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
[2016-09-10] MEDS ORDERED: AMINOPHYLLINE 250 MG/10 ML VIAL ONE (12:39)
[2016-09-10] MEDS: ASPIRIN COATED 81 MG TABLET.EC PO SCH (13:27)
[2016-09-10] MEDS: METHOCARBAMOL 500 MG TABLET PO SCH ×2 (13:27→22:15)
[2016-09-10] MEDS: CARVEDILOL 12.5 MG TABLET (FP) PO SCH ×2 (13:27→22:16)
[2016-09-10] MEDS: METHADONE HCL 5 MG TABLET PO SCH ×2 (13:27→22:15)
[2016-09-10] MEDS: LOSARTAN POTASSIUM 50 MG TABLET (FP) PO SCH (13:27)
[2016-09-10] MEDS: FUROSEMIDE 40 MG/4 ML INJECTABLE VIAL IVPUSH SCH (13:28)
[2016-09-10] MEDS: Methylnaltrexone Bromide 12 MG/0.6 ML KIT SQ SCH (13:33)
[2016-09-10] MEDS ORDERED: PT OWN MED DRAWER 7, Y5N ONE ×2 (15:59→21:53)
[2016-09-10] MEDS: OLANZapine 5 MG TABLET PO SCH (22:14)
[2016-09-10] MEDS: MIRTAZAPINE 15 MG TABLET (FP) PO SCH (22:15)
[2016-09-10] MEDS: ROSUVASTATIN CA 20 MG TABLET (FP) PO SCH (22:15)
[2016-09-10] MEDS: INSULIN DETEMIR 100 UNITS/ML MDV SQ SCH (22:16)
[2016-09-10] MEDS: SENNOSIDES 8.6MG TABLET (FP) PO SCH (22:16)
[2016-09-10] MEDS ORDERED: INSULIN (NOVOLOG MIX 70/30) 100 UNITS/ML MDV SQ SCH (22:50)
[2016-09-11 06:14] VITALS: PULSE 67
[2016-09-11] MEDS: INSULIN SLIDING SCALE (NOVOLOG) 1 VIAL SQ SCH (06:19)
--- NOTE | 2016-09-11 08:06 | DS ---
Physical Examination Vital Signs: Vital Signs Temperature 97.8 F 09/11/16 06:00 Pulse Rate 67 09/11/16 06:00 Respiratory Rate 18 09/11/16 06:00 Blood Pressure 113/57 09/11/16 06:00 O2 Sat by Pulse Oximetry (%) 94 L 09/10/16 22:00 Constitutional: Yes: No Distress Eyes: Yes: WNL HENT: Yes: WNL Neck: Yes: WNL Cardiovascular: Yes: WNL Respiratory: Yes: WNL Gastrointestinal: Yes: WNL Renal/: Yes: WNL Musculoskeletal: Yes: WNL Extremities: Yes: WNL Edema: No Peripheral Pulses WNL: Yes Integumentary: Yes: WNL Wound/Incision: Yes: Clean/Dry ...Motor Strength: WNL Psychiatric: Yes: WNL Labs: CBC, BMP 09/09/16 08:20 09/10/16 07:00 Discharge Summary Reason For Visit: SHORTNESS OF BREATH Current Active Problems Shortness of breath (Acute) Uncontrolled blood glucose (Acute) Procedures: Principal: stress test Other Procedures: echo Hospital Course: admitted for acute decompensated chf, angina, worsening depression, stress test shows defect ischemia, monitor as outpatient with cardiology - Instructions Diet, Activity, Other Instructions: ada/strict bgm control discussed, Referrals: Carlos Ybarra MD [Primary Care Provider] - Disposition: VNS/HOME HEALTH CARE - Home Medications Comprehensive Discharge Medication List: Ambulatory Orders Aspirin [Aspirin EC] 81 mg PO DAILY 08/16/15 Carvedilol [Coreg -] 12.5 mg PO BID 08/16/15 Duloxetine HCl [Cymbalta -] 60 mg PO DAILY 08/16/15 Ergocalciferol [Drisdol -] 50,000 unit PO Q7D@1000 08/16/15 Gabapentin 600 mg PO BID 08/16/15 Insulin Aspart Prot/Insuln Asp [Novolog Mix 70-30 Flexpen Syrn] 25 unit SQ BIDAC 08/16/15 Insulin Glargine,Hum.rec.anlog [Lantus Solostar PEN (NF)] 60 units SQ HS Losartan Potassium [Cozaar -] 50 mg PO DAILY 08/16/15 Mirtazapine [Remeron -] 30 mg PO HS 08/16/15 Olanzapine [Zyprexa -] 20 mg PO AM 08/16/15 Rosuvastatin Calcium [Crestor] 10 mg PO HS 08/16/15 Sennosides [Senna] 8.6 mg PO PRN 08/16/15 Docusate Sodium [Colace -] 100 mg PO BID 01/30/16 Methocarbamol [Robaxin -] 750 mg PO BID 01/30/16 Methadone [Dolophine -] 5 - 10 mg PO TID #120 tablet [facility] 5 08/18/16 Alprazolam [Xanax] 0.25 mg PO BID 09/08/16 Insulin Pump/Infus. Set/Meter [Accu-Chek Combo System] 1 each [facility] 09/08/16 Meclizine HCl 25 mg PO DAILY 09/08/16
--- NOTE | 2016-09-11 09:12 | PN ---
Progress Note, Physician Chief Complaint: TELE: NSR w/ frequent APCs History of Present Illness: stress result noted - Current Medication List Current Medications: Active Medications Acetaminophen (Tylenol -) 650 mg PO Q6H PRN PRN Reason: FEVER OR PAIN Alprazolam (Xanax -) 0.25 mg PO Q8H PRN PRN Reason: ANXIETY Aspirin (Ecotrin -) 81 mg PO DAILY [facility] Last Admin: 09/10/16 13:27 Dose: 81 mg Carvedilol (Coreg -) 12.5 mg PO BID [facility] Last Admin: 09/10/16 22:16 Dose: 12.5 mg Duloxetine HCl (Cymbalta -) 90 mg PO DAILY [facility] Furosemide (Lasix Injection -) 40 mg IVPUSH DAILY [facility] Last Admin: 09/10/16 13:28 Dose: 40 mg Insulin Aspart (Novolog Vial Sliding Scale -) 1 vial SQ ACHS [facility] PRN Reason: Protocol Last Admin: 09/11/16 06:19 Dose: 2 units Insulin Aspart (Novolog Mix 70/30 Vial) 36 units SQ BIDAC [facility] Last Admin: 09/11/16 06:19 Dose: 36 units Insulin Detemir (Levemir Vial) 60 units SQ HS [facility] Last Admin: 09/10/16 22:16 Dose: 60 unit Losartan Potassium (Cozaar -) 50 mg PO DAILY [facility] Last Admin: 09/10/16 13:27 Dose: 50 mg Meclizine HCl (Antivert -) 25 mg PO TID PRN PRN Reason: VERTIGO Methadone HCl (Dolophine -) 5 mg PO BID [facility] Last Admin: 09/10/16 22:15 Dose: 5 mg Methocarbamol (Robaxin -) 750 mg PO BID [facility] Last Admin: 09/10/16 22:15 Dose: 750 mg Methylnaltrexone [place] (Relistor -) 8 mg SQ DAILY [facility] Last Admin: 09/10/16 13:33 Dose: Not Given Mirtazapine (Remeron -) 30 mg PO HS [facility] Last Admin: 09/10/16 22:15 Dose: 30 mg Olanzapine (Zyprexa -) 15 mg PO HS [facility] Last Admin: 09/10/16 22:14 Dose: 15 mg Rosuvastatin Calcium (Crestor -) 20 mg PO HS [facility] Last Admin: 09/10/16 22:15 Dose: 20 mg Senna (Senna -) 1 tab PO HS [facility] Last Admin: 09/10/16 22:16 Dose: 1 tab - Objective Vital Signs: Vital Signs Temperature 97.8 F 09/11/16 06:00 Pulse Rate 67 09/11/16 06:00 Respiratory Rate 18 09/11/16 06:00 Blood Pressure 113/57 09/11/16 06:00 O2 Sat by Pulse Oximetry (%) 94 L 09/10/16 22:00 Constitutional: Yes: No Distress Eyes: Yes: Conjunctiva Clear Cardiovascular: Yes: Regular Rate and Rhythm Respiratory: Yes: CTA Bilaterally Gastrointestinal: Yes: Soft, Abdomen, Obese Edema: No Neurological: Yes: Alert, Oriented Labs: CBC, BMP 09/09/16 08:20 09/10/16 07:00 INR, PTT INR 1.08 (0.82-1.09) 09/08/16 14:05 - ....Imaging EKG: Image Reviewed Assessment/Plan Assessment/Plan Chronic systolic CHF secondary to ischemic CM with acute exacerbation, now improved CAD DM Palpitations with no significant arrhythmias on telemetry REC: stress test shows mild inferior ischemia in territory where he has known, chronic total occlusion. Plan is for medical Rx. Would discharge on PO Lasix with close outpatient f/u with PMD and with me in 1- 2 weeks Above d/w patient.
[2016-09-11] MEDS ORDERED: PT OWN MED DRAWER 7, Y5N ONE (09:29)
[2016-09-11] MEDS: FUROSEMIDE 40 MG/4 ML INJECTABLE VIAL IVPUSH SCH (09:41)
[2016-09-11] MEDS: METHADONE HCL 5 MG TABLET PO SCH (09:45)
[2016-09-11] MEDS: LOSARTAN POTASSIUM 50 MG TABLET (FP) PO SCH (09:46)
[2016-09-11] MEDS: METHOCARBAMOL 500 MG TABLET PO SCH (09:46)
[2016-09-11] MEDS: CARVEDILOL 12.5 MG TABLET (FP) PO SCH (09:46)
[2016-09-11] MEDS: ASPIRIN COATED 81 MG TABLET.EC PO SCH (09:46)
[2016-09-11] MEDS: Methylnaltrexone Bromide 12 MG/0.6 ML KIT SQ SCH (09:47)
[2016-09-11] MEDS ORDERED: FUROSEMIDE 40 MG TABLET (FP) PO SCH (10:00)
[2016-09-11] MEDS ORDERED: DULoxetine HCL 30 MG CAPSULE.DR (FP) PO SCH (10:00)
[2016-09-11 10:20] VITALS: BP 115/66; TEMP 98
== END 2016-09-11 11:01 | disposition home health service (06) | DRG 194 ==
LOC: JER 13:13 → JERBED 16:03 → J4S 09-09 04:50
PROVIDERS: ADMIT Family Medicine; ATTEND Family Medicine
DX: I11.0 Hypertensive heart disease with heart failure (principal); I50.23 Acute on chronic systolic (congestive) heart failure; E78.5 Hyperlipidemia, unspecified; F41.9 Anxiety disorder, unspecified; I48.0 Paroxysmal atrial fibrillation; E11.65 Type 2 diabetes mellitus with hyperglycemia; Z96.41 Presence of insulin pump (external) (internal); F32.9 Major depressive disorder, single episode, unspecified; E66.9 Obesity, unspecified; Z68.39 Body mass index [BMI] 39.0-39.9, adult; Z71.3 Dietary counseling and surveillance; I25.5 Ischemic cardiomyopathy; Z87.891 Personal history of nicotine dependence; E11.40 Type 2 diabetes mellitus with diabetic neuropathy, unspecified; Z79.4 Long term (current) use of insulin; I25.119 Atherosclerotic heart disease of native coronary artery with unspecified angina pectoris; Z91.11 Patient's noncompliance with dietary regimen; Z98.61 Coronary angioplasty status; Z87.898 Personal history of other specified conditions
CPT/HCPCS: 36415; 71010-TC; 78452-TC; 80048; 80053; 82550; 83036; 83735; 83880; 84100; 84484; 85025; 85610; 85730; 93005; 93010; 93017; 93306-TC; 99285-25; A9502; J1245

== ENCOUNTER 2020-02-07 19:02 | Inpatient (IN) | payer OTHER ==
--- NOTE | 2020-02-07 19:30 | PDOC ---
Rapid Medical Evaluation Time Seen by Provider: 02/07/20 19:29 Medical Evaluation: Allergies Allergy/AdvReac Type Severity Reaction Status Date / Time tetracycline [Tetracycline] Allergy Intermediate chest pain Verified 09/08/16 13:24 02/07/20 19:29 I have performed a brief in-person evaluation of this patient The patient presents with a chief complaint of: worsening SOB x several weeks, ran out of his losartan 1 week ago but reports taking all other meds. No CP, LE edema, cough, n/v/f/c. H/o HTN, DM, CHF and COPD, not on oxygen Cards: Dr Max PMD: Dr Ybarra Pertinent physical exam findings:Tachy to 108, BP 154/106, NAD I have ordered the following:ekg, cxr, labs The patient will proceed to the ED for further evaluation 02/07/20 19:40 Discharge Disposition - Diagnosis SOB (shortness of breath) - Referrals - Patient Instructions - Post Discharge Activity
[2020-02-07 19:46] VITALS: BMI 39.1
--- OUTSIDE RECORDS SUMMARY | 2020-02-07 19:54 | XMS ---
:1955 Author Organization [facility] Support Name Relationship Address Phone NA Unavailable Unavailable Unavailable UE Unavailable Unavailable Unavailable MARTHA ALMA STACEY [address] [place] [id number] Re-disclosure Warning The records that you are about to access may contain information from federally- assisted alcohol or drug abuse programs. If such information is present, then the following federally mandated warning applies: This information has been disclosed to you from records protected by federal confidentiality rules (42 CFR part 2). The federal rules prohibit you from making any further disclosure of this information unless further disclosure is expressly permitted by the written consent of the person to whom it pertains or as otherwise permitted by 42 CFR part 2. A general authorization for the release of medical or other information is NOT sufficient for this purpose. The Federal rules restrict any use of the information to criminally investigate or prosecute any alcohol or drug abuse patient.The records that you are about to access may contain highly sensitive health information, the redisclosure of which is protected by Article 27-F of the [facility] Public Health law. If you continue you may haveaccess to information: Regarding HIV / AIDS; Provided by facilities licensed or operated by the [facility] Office of Mental Health; or Provided by the [facility] Office for People With Developmental Disabilities. If such information is present, then the following [facility] mandated warning applies: This information has been disclosed to you from confidential records which are protected by state law. State law prohibits you from making any further disclosure of this information without the specific written consent of the person to whom it pertains, or as otherwise permitted by law. Any unauthorized further disclosure in violation of state law may result in a fine or long-term sentence or both. A general authorization for the release of medical or other information is NOT sufficient authorization for further disclosure. Encounters Encounter Providers Location Date Indications Data Source(s ) 08/24/2016 12:00:00 [facility] Insurance Providers Payer name Policy type Policy ID Covered Covered green party's Policy P doni / Coverage green party ID relationship to Floyd Inf ormation type floyd SEBASTIEN [id number] [address] [facility] NON CAP
--- NOTE | 2020-02-07 21:15 | PDOC ---
History of Present Illness - General Chief Complaint: Shortness of Breath Stated Complaint: SHORTNESS OF BREATH Time Seen by Provider: 02/07/20 19:29 - History of Present Illness Initial Comments: Dank Roberts is a 64 y/o male with PMH significant for HTN, HLD, CAD, paroxysmal a-fib, CHF, COPD, anxiety, former polysubstance user (ETOH, marijuana, cocaine), presenting with shortness of breath. Reports that this started approximately 1 week ago. Reports that he breathes comfortably at rest but has worsening shortness of breath with minimal exertion. No chest pain. No back pain. No abdominal pain. No fever/chills. No lower extremity swelling. No urinary or stool symptoms. Past History - Medical History Allergies/Adverse Reactions: Allergies Allergy/AdvReac Type Severity Reaction Status Date / Time tetracycline [Tetracycline] Allergy Intermediate chest pain Verified 09/08/16 13:24 Home Medications: Ambulatory Orders Aspirin [Aspirin EC] 81 mg PO DAILY 08/16/15 Ergocalciferol [Vitamin D2] 50,000 unit PO Q7D@1000 08/16/15 Gabapentin 600 mg PO BID 08/16/15 Acetaminophen [Tylenol .Regular Strength -] 650 mg PO Q6H PRN #0 tablet 09/11/16 Carvedilol [Coreg -] 12.5 mg PO BID tablet 09/11/16 Losartan Potassium [Cozaar -] 50 mg PO DAILY tablet 09/11/16 Rosuvastatin [Crestor -] 20 mg PO HS tablet 09/11/16 Duloxetine HCl [Cymbalta -] 60 mg PO DAILY 01/02/17 Furosemide [Lasix -] 40 mg PO DAILY 01/02/17 Insulin Glargine,Hum.rec.anlog [Basaglar Kwikpen U-100] 0 unit SQ AM 01/02/17 Insulin Glargine,Hum.rec.anlog [Basaglar Kwikpen U-100] 80 unit SQ HS 01/02/17 Olanzapine [Zyprexa -] 10 mg PO HS 01/02/17 Anemia: No Asthma: No Cancer: No Cardiac Disorders: Yes ([place] 2004 , CAD) CVA: No COPD: Yes CHF: No Dementia: No Diabetes: Yes (on insulin pump) Dialysis: No GI Disorders: No Disorders: No HTN: Yes Hypercholesterolemia: Yes Liver Disease: No Psychiatric Problems: Yes (Anxiety) Seizures: No Thyroid Disease: No - Surgical History Abdominal Surgery: Yes (Hernia repair x3) Appendectomy: Yes Cardiac Surgery: Yes (CARDIAC CATH) Cholecystectomy: Yes GI Surgery: Yes (Cholicystectomy) Orthopedic Surgery: Yes (knee torn meniscus and ACL repair 2004, 2005) - Immunization History Immunization Up to Date: No - Psycho-Social/Smoking History Smoking Status: No Smoking History: Never smoked Have you smoked in the past 12 months: No Number of Cigarettes Smoked Daily: 0 If you are a former smoker, when did you quit?: 2011 'Breaking Loose' booklet given: 10/16/11 - Substance Abuse Hx (Audit-C & DAST Scrn) How often the patient has a drink containing alcohol: Never Score: In Men: 4 or > Positive; In Women: 3 or > Positive: 0 Screen Result (Pos requires Nsg. Audit-10AR): Negative Review of Systems - Review of Systems Comments:: GENERAL/CONSTITUTIONAL: No fever or chills. No weakness._ HEAD, EYES, EARS, NOSE AND THROAT: No change in vision. No change in hearing. No sore throat._ CARDIOVASCULAR: No chest pain. Reports shortness of breath. RESPIRATORY: Denies cough, hemoptysis_ GASTROINTESTINAL: No nausea, vomiting, diarrhea or constipation._ GENITOURINARY: No dysuria, frequency, or change in urination._ MUSCULOSKELETAL: No joint or muscle swelling or pain. No neck or back pain._ SKIN: No rash_ NEUROLOGIC: No headache, vertigo, loss of consciousness, or change in strength/sensation._ ENDOCRINE: No increased thirst. No abnormal weight change_ HEMATOLOGIC/LYMPHATIC: No anemia, easy bleeding, or history of blood clots._ ALLERGIC/IMMUNOLOGIC: No hives or skin allergy._ *Physical Exam - Vital Signs Last Vital Signs Temp Pulse Resp BP Pulse Ox 98.9 F 109 H 20 154/106 H 95 02/07/20 19:31 02/07/20 19:31 02/07/20 19:31 02/07/20 19:31 02/07/20 19:31 - Physical Exam GENERAL: Awake, alert, and oriented to person/place/time, in no acute distress_ HEAD: No signs of trauma, normocephalic, atraumatic _ EYES: PERRLA, EOMI, sclera anicteric, conjunctiva clear_ ENT: Hearing grossly normal, nares patent, oropharynx clear without exudates. No uvular deviation. Moist mucosa_ NECK: Normal ROM, supple, no lymphadenopathy, JVD, or masses_ LUNGS: No distress, speaks in full sentences. Minimal, diffuse wheezes in bilateral lung naranjo. No rales, rhonchi, crackles. HEART: Regular rate and rhythm, normal S1 and S2, no murmurs appreciated, peripheral pulses normal and equal bilaterally._ ABDOMEN: Soft, nontender, normoactive bowel sounds. No guarding, no rebound. No masses_ EXTREMITIES: Normal inspection, Normal range of motion. No lower extremity pitting edema bilaterally. No clubbing or cyanosis_ NEUROLOGICAL: Cranial nerves II through XII grossly intact. Normal speech, normal gait, no focal sensorimotor deficits _ SKIN: Warm, Dry, normal turgor, no rashes or lesions noted_ ED Treatment Course - LABORATORY CBC & Chemistry Diagram: 02/08/20 05:30 02/08/20 05:30 Medical Decision Making - Medical Decision Making 02/07/20 21:14 64M with multiple comorbidities presenting today with shortness of breath on minimal exertion over the past week. DDx includes COPD exacerbation vs less likely CHF exacerbation (given no crackles, BLE edema, volume overload) vs PNA. -cbc, cmp -ekg, trop, cxr -bnp -coags -ua, ucx 02/07/20 21:54 EKG shows 112 bpm, sinus tachycardia with 1st degree AV block, no axis deviation, NC 214, QTc 453, no ST elevation/depression. Prior EKG 08/2016 reviewed. 02/07/20 23:27 CXR negative for acute intrathoracic pathology. No significant interval change compared to prior. 02/08/20 01:08 Labs reviewed. Laboratory Last Values WBC 12.8 K/mm3 (4.0-10.0) H 02/07/20 22:10 RBC 5.42 M/mm3 (4.00-5.60) 02/07/20 22:10 Hgb 14.5 GM/dL (11.7-16.9) 02/07/20 22:10 Hct 44.6 % (35.4-49) 02/07/20 22:10 MCV 82.2 fl (80-96) 02/07/20 22:10 MCH 26.8 pg (25.7-33.7) 02/07/20 22:10 MCHC 32.6 g/dl (32.0-35.9) 02/07/20 22:10 RDW 15.7 % (11.9-15.9) 02/07/20 22:10 Plt Count 275 K/MM3 (134-434) 02/07/20 22:10 MPV 7.6 fl (7.5-11.1) 02/07/20 22:10 Absolute Neuts (auto) 10.4 K/mm3 (1.5-8.0) H 02/07/20 22:10 Neutrophils % 81.3 % (42.8-82.8) 02/07/20 22:10 Lymphocytes % 9.2 % (8-40) D 02/07/20 22:10 Monocytes % 5.2 % (3.8-10.2) 02/07/20 22:10 Eosinophils % 3.1 % (0-4.5) 02/07/20 22:10 Basophils % 1.2 % (0-2.0) 02/07/20 22:10 Nucleated RBC % 0 % (0-0) 02/07/20 22:10 PT with INR 11.90 SEC (9.7-13.0) 02/07/20 23:20 INR 1.01 (0.83-1.09) 02/07/20 23:20 PTT (Actin FS) 28.5 SECONDS (25.2-36.5) 02/07/20 23:20 Sodium 140 mmol/L (136-145) 02/07/20 22:10 Potassium 4.3 mmol/L (3.5-5.1) 02/07/20 22:10 Chloride 105 mmol/L (98-107) 02/07/20 22:10 Carbon Dioxide 28 mmol/L (21-32) 02/07/20 22:10 Anion Gap 7 MMOL/L (8-16) L 02/07/20 22:10 BUN 10.1 mg/dL (7-18) 02/07/20 22:10 Creatinine 0.9 mg/dL (0.55-1.3) 02/07/20 22:10 Est GFR (CKD-EPI)AfAm 104.98 02/07/20 22:10 Est GFR (CKD-EPI)NonAf 90.58 02/07/20 22:10 Random Glucose 197 mg/dL (74-106) H 02/07/20 22:10 Calcium 8.7 mg/dL (8.5-10.1) 02/07/20 22:10 Total Bilirubin 0.8 mg/dL (0.2-1) 02/07/20 22:10 AST 19 U/L (15-37) 02/07/20 22:10 ALT 40 U/L (13-61) 02/07/20 22:10 Alkaline Phosphatase 116 U/L (45-117) 02/07/20 22:10 Creatine Kinase 45 U/L (26-308) 02/07/20 22:10 Troponin I 0.05 ng/ml (0.00-0.05) 02/07/20 22:10 B-Natriuretic Peptide 544.0 pg/ml (5-125) H 02/07/20 22:10 Total Protein 6.3 g/dl (6.4-8.2) L 02/07/20 22:10 Albumin 3.4 g/dl (3.4-5.0) 02/07/20 22:10 Urine Color Dk yellow 02/07/20 23:13 Urine Appearance Clear 02/07/20 23:13 Urine pH 5.0 (5.0-8.0) 02/07/20 23:13 Ur Specific [place] 1.025 (1.010-1.035) 02/07/20 23:13 Urine Protein 2+ (NEGATIVE) H 02/07/20 23:13 Urine Glucose (UA) 3+ (NEGATIVE) H 02/07/20 23:13 Urine Ketones Negative (NEGATIVE) 02/07/20 23:13 Urine Blood Negative (NEGATIVE) 02/07/20 23:13 Urine Nitrite Negative (NEGATIVE) 02/07/20 23:13 Urine Bilirubin Negative (NEGATIVE) 02/07/20 23:13 Urine Urobilinogen 1.0 mg/dL (0.2-1.0) 02/07/20 23:13 Ur Leukocyte Esterase Negative (NEGATIVE) 02/07/20 23:13 Urine RBC (Auto) 8 /uL (0-23.9) 02/07/20 23:13 Urine Casts (Auto) 12 /uL (0-3.1) 02/07/20 23:13 U Epithel Cells (Auto) 34 /uL (0-25.1) 02/07/20 23:13 Urine Bacteria (Auto) 8 /uL (0-1359) 02/07/20 23:13 Pt reassessed. Reports that he still feels short of breath on exertion after MDI. Plan to admit for COPD vs CHF exacerbation. 02/08/20 01:51 D/w Dr. Nuñez who accepts the patient for admission. Discharge - Discharge Information Problems reviewed: Yes Clinical Impression/Diagnosis: SOB (shortness of breath), COPD exacerbation Condition: Stable - Admission Yes - Follow up/Referral - Patient Discharge Instructions - Post Discharge Activity
--- NOTE | 2020-02-07 22:21 | PDOC ---
Documentation entered by Trenton Hilton SCRIBE, acting as scribe for Suzan Ac MD. Suzan Ac MD: This documentation has been prepared by the Emre sales Angel, SCRIBE, under my direction and personally reviewed by me in its entirety. I confirm that the documentation accurately reflects all work, treatment, procedures, and medical decision making performed by me. Attending Attestation - Resident Resident Name: Salvatore Dumont - ED Attending Attestation I have performed the following: I have examined & evaluated the patient, The case was reviewed & discussed with the resident, I agree w/resident's findings & plan, Exceptions are as noted - HPI HPI: 02/07/20 22:27 The patient is a 64 year old obese male with a significant past medical history of HTN, congestive heart failure, chronic pain, coronary artery disease, IDDM, and hypercholesterolemia who presents to the ED with 2 weeks of SOB. The patient notes suffering from obstructive sleep apnea. The patient denies nausea, vomit ing, weight gain, chest pain or fever/chills. PCP: Competitive Shopper: 02/07/20 22:33 - Physicial Exam PE: 02/07/20 22:24 head ncat neck supple Neuro Alert and oriented x3 ,ambulatory Lungs: Decreased breath sounds. No rales or wheezing Abdomen: Protuberant non tender belly cvs Tachycardic Skin: No abscess or vesicles extremities no pitting edema 02/07/20 23:18 - Medical Decision Making 02/07/20 23:32 64 yo male p/w exertional dyspnea for several weeks troponin 0.05 bnp about 500 02/08/20 01:54 ADMIT for dypnea Discharge - Discharge Information Problems reviewed: Yes Clinical Impression/Diagnosis: SOB (shortness of breath), COPD exacerbation Condition: Stable - Follow up/Referral Referrals: Carlos Ybarra MD [Primary Care Provider] - - Patient Discharge Instructions - Post Discharge Activity
[2020-02-07 22:22] LABS: BASO % 1.2 % (0-2.0); EOS % 3.1 % (0-4.5); HEMATOCRIT 44.6 % (35.4-49); HEMOGLOBIN 14.5 GM/dL (11.7-16.9); LYMPH % 9.2 % (8-40); MCH 26.8 pg (25.7-33.7); MCHC 32.6 g/dl (32.0-35.9); MEAN CELL VOLUME 82.2 fl (80-96); MEAN PLT VOLUME 7.6 fl (7.5-11.1); MONO % 5.2 % (3.8-10.2); NEUT % 81.3 % (42.8-82.8); PLATELET COUNT 275 K/MM3 (134-434); RBC 5.42 M/mm3 (4.00-5.60); RDW 15.7 % (11.9-15.9); WHITE BLOOD COUNT 12.8 K/mm3 (4.0-10.0)
[2020-02-07 22:52] LABS: ALBUMIN 3.4 g/dl (3.4-5.0); BILIRUBIN,TOTAL 0.8 mg/dL (0.2-1); BLOOD UREA NITROGEN 10.1 mg/dL (7-18); CALCIUM 8.7 mg/dL (8.5-10.1); CREATININE 0.9 mg/dL (0.55-1.3); POTASSIUM 4.3 mmol/L (3.5-5.1); TOT PROT 6.3 g/dl (6.4-8.2)
[2020-02-07] MEDS ORDERED: ALBUTEROL SO4 HFA INHALER IH ONE ×2 (23:34→23:38)
[2020-02-07 23:52] LABS: INR 1.01 (0.83-1.09); PROTHROMBIN TIME (PATIENT) 11.9 SEC (9.7-13.0)
[2020-02-07 23:54] LABS: ACTIVATED PTT 28.5 SECONDS (25.2-36.5)
[2020-02-08 00:15] LABS: EPI CELLS 34 /uL (0-25.1); HYALINE CASTS 12 /uL (0-3.1); URINE APPEARANCE CLEAR; URINE BACTERIA 8 /uL (0-1359); URINE BILIRUBIN NEGATIVE (NEGATIVE); URINE COLOR DK YELLOW; URINE GLUCOSE (UA) 3+ (NEGATIVE); URINE KETONE NEGATIVE (NEGATIVE); URINE LEUK ESTERASE NEGATIVE (NEGATIVE); URINE NITRITE NEGATIVE (NEGATIVE); URINE PROTEIN 2+ (NEGATIVE); URINE RBC 8 /uL (0-23.9)
--- NOTE | 2020-02-08 01:46 | PN ---
Teaching Attending Note Name of Resident: Pari Nuñez ATTENDING PHYSICIAN STATEMENT I saw and evaluated the patient. I reviewed the resident's note and discussed the case with the resident. I agree with the resident's findings and plan as documented. SUBJECTIVE: Patient is a 61 year old man with a PMH of Insulin-treated DM, Anxiety disorder, Chronic pain syndrome, Hernia repair, Obstructive sleep apnea, Cholecystectomy, HTN, HLD, CAD, [place] (2003), Paroxysmal atrial fibrillation, HFrEF, COPD and Remote polysubstance abuse (alcohol, cocaine, marijuana) who presents to the ER with complaint of SOB for several weeks. SOB is worse with exertion. States he ran out of his Losartan 1 week ago but reports taking all other medications. Patient denies chest pain, abdominal pain, headache, palpitations, dizziness, fever, chills, nausea, vomiting, diarrhea, constipation, dysuria, frequency, urgency, melena, hematochezia or hematuria. Former smoker. Denies alcohol, tobacco or illicit drug use. No sick contacts or recent travels. Family history - father from CVA/[place] and mother has dementia and lives in a halfway. OBJECTIVE: Alert Vital Signs Period Temp Pulse Resp BP Sys/Irwin Pulse Ox Last 24 Hr 98.9 F 109 20 154/106 95 HEENT: No Jaundice, eye redness or discharge, PERRLA, EOMI. Normocephalic, atraumatic. External ears are normal and hearing is grossly intact. No nasal discharge. Neck: Supple, nontender. No palpable adenopathy or thyromegaly. No JVD Chest: Good effort. Diminished breath sounds. Clear to percussion. Heart: Regular. No S3, rub or murmur Abdomen: Not distended, soft, nontender and no HSM. No rebound or guarding. Normal bowel sounds. Ext: Peripheral pulses intact. No leg edema. Skin: Warm and dry. No petechiae, rash or ecchymosis. Neuro: Alert. Oriented x3. CN 2-12 grossly intact. Sensation grossly intact in all four extremities and DTR are symmetric. Psych: Appropriate mood and affect. Good insight. Home Medications Medication Instructions Recorded Aspirin [Aspirin EC] 81 mg PO DAILY 08/16/15 Ergocalciferol [Vitamin D2] 50,000 unit PO Q7D@1000 08/16/15 Gabapentin 600 mg PO BID 08/16/15 Olanzapine [Zyprexa -] 20 mg PO AM 08/16/15 Docusate Sodium [Colace -] 100 mg PO BID 01/30/16 Acetaminophen [Tylenol .Regular 650 mg PO Q6H PRN #0 tablet 09/11/16 Strength -] Carvedilol [Coreg -] 12.5 mg PO BID tablet 09/11/16 Losartan Potassium [Cozaar -] 50 mg PO DAILY tablet 09/11/16 Rosuvastatin [Crestor -] 20 mg PO HS tablet 09/11/16 Sennosides [Senna -] 1 tab PO HS tablet 09/11/16 Duloxetine HCl [Cymbalta -] 60 mg PO DAILY 01/02/17 Furosemide [Lasix -] 40 mg PO DAILY 01/02/17 Insulin Glargine,Hum.rec.anlog 44 unit SQ AM 01/02/17 [Basaglar Kwikpen U-100] Insulin Glargine,Hum.rec.anlog 74 unit SQ HS 01/02/17 [Basaglar Kwikpen U-100] Isosorbide Mononitrate [Isosorbide 30 mg PO DAILY 01/02/17 Mononitrate ER] Mirtazapine [Remeron -] 15 mg PO DAILY 01/02/17 Olanzapine [Zyprexa -] 5 mg PO HS 01/02/17 Buprenorphine/Naloxone [Suboxone 1 combo SL DAILY #7 packet MDD 1 04/22/17 2Mg/0.5MG Sl Film -] Abnormal Lab Results 02/07/20 02/07/20 02/07/20 22:10 22:10 23:13 WBC 12.8 H Absolute Neuts (auto) 10.4 H Anion Gap 7 L Random Glucose 197 H B-Natriuretic Peptide 544.0 H Total Protein 6.3 L Urine Protein 2+ H Urine Glucose (UA) 3+ H Current Medications Generic Name Dose Route Start Last Admin Trade Name Freq PRN Reason Stop Dose Admin Enoxaparin Sodium 40 mg 02/08/20 10:00 Lovenox - SQ DAILY ROGERS ASSESSMENT AND PLAN: 1. CHF exacerbation - Possibly with superimposed effects of obstructive sleep apnea/COPD. CXR shows cardiomegaly with increased interstitial markings. EKG shows sinus tachycardia at 112/minute, 1o AV block and QTc [address]-T wave changes. Initial troponin is negative. Will avoid drugs that may prolong QTc. Nuclear stress test from 09/16/2018 showed mild inferior ischemia with LVEF of 49%. ECHO from 09/09/2016 was described as technically difficult with grossly normal LV size but LVEF could not be evaluated. Stress test from 09/08/2016 showed moderately sized mild intensity inferior wall ischemia with LVEF of 46%. Will admit to telemetry, trend troponin, treat with IV Lasix, get ECHO, restrict dietary salt intake, monitor renal function, monitor and replete electrolytes, get daily weight and consult Cardiology/Pulmonary. Unclear why he is not on anticoagulation for paroxysmal Afib - his [id number] score is 4. Will treat with Duoneb PRN, nasal cannula oxygen PRN, Symbicort, Azithromycin 500 mg IV QD and monitor peak flow. Viral testing for COVID-19 ordered and patient placed on airborne, droplet and contact isolation. Will continue comprehensive care for all of patients comorbid conditions. 2. DM For now, we will hold the home diabetes drugs and implement sliding scale insulin regimen. Provide comprehensive diabetes care with patient teaching and counseling about the importance of adherence to prescribed diabetes regimen, euglycemia, eye care and foot care. 3. Obesity Counseled on the risks associated with obesity. Will provide patient all the necessary assistance, counseling and positive reinforcement to facilitate weight loss. Consult development eng. 4. Uncontrolled hypertension Will restart suitable outpatient antihypertensive drugs when clinically appropriate. Subsequently, will revise regimen to ensure [id number] excellent BP control. Patient counseled on the injurious effects of uncontrolled hypertension. Nonpharmacologic measures to control hypertension like weight loss, salt restriction and exercise stressed. Importance of adherence to treatment regimen and attainment of normotension emphasized. 5. DVT prophylaxis - Lovenox 40 mg SQ q 24 hours. 6. Advance directives - Full code
--- OUTSIDE RECORDS SUMMARY | 2020-02-08 02:22 | XMS ---
:1955 Author Organization [facility] Support Name Relationship Address Phone UE, UNEMPLOYED Unavailable Unavailable Unavailable FREDERICK [place] [address] NA Unavailable Unavailable Unavailable UE Unavailable Unavailable Unavailable ALMA THOMAS MOTHER [address] [place] [address] Re-disclosure Warning The records that you are [...] by Article 27-F of the [facility] Public Health law. If you continue you may haveaccess to information: Regarding HIV / AIDS; Provided by facilities licensed or operated by the [facility] Office of Mental Health; or Provided by the [facility] Office for People With Developmental Disabilities. If such information is present, then the following [facility] mandated warning applies: This information has been [...] law may result in a fine or senior living sentence or both. A general authorization for the release of medical or other information is NOT sufficient authorization for further disclosure. Encounters Encounter Providers Location Date Indications Data Source(s ) 08/24/2016 12:00:00 [facility] Insurance Providers Payer name Policy type Policy ID Covered Covered democrat's Policy P doni / Coverage democrat ID relationship to Cash Inf ormation type cash SEBASTIEN [id number] [facility] NON CAP
[2020-02-08] MEDS ORDERED: FUROSEMIDE 40 MG/4 ML INJECTABLE VIAL IVPUSH ONE (04:10)
[2020-02-08] MEDS ORDERED: ALBUTEROL SO4 2.5/IPRATROPIUM 0.5 INH SOL 3 ML VIAL.NEB. NEB PRN (05:03)
[2020-02-08] MEDS ORDERED: FUROSEMIDE 40 MG/4 ML INJECTABLE VIAL ONE (05:10)
--- NOTE | 2020-02-08 05:21 | HP ---
CHIEF COMPLAINT: I am so short of breath PCP: Dr. Ybarra HISTORY OF PRESENT ILLNESS: 64yo M with PMHx of HTN, HLD, CAD, afib (without AC), CHF, COPD, DM, and generalized anxiety disorder who presents with 2-3 weeks of worsening SOB on exertion. Symptoms started approx 2-3 weeks ago, where patient noticed that it became difficult to even walk to the bathroom or kitchen. He said that SOB on exertion was the only symptoms he noticed, denied orthopnea or paroxysmal nocturnal dyspnea. Endorsed mild "chest aches" in the L chest without radiation. Patient also endorsed sadness and depression, which was worsened by his mother being transferred into a [facility]. Denied NVD, constipation, dysuria, polyuria, chills, fevers, runny nose. Patient endorsed medication compliance but ran out of his losartan about a week ago. ER course was notable for: (1) BP 154/106, P 109, WBC 12.8, and BNP 544 (2) CXR showing generalized haziness (3) Chadsvasc score 4. 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 Home: lived with mother, now lives alone with cat since mother transferred to [facility] Allergies tetracycline [Tetracycline] Allergy (Intermediate, Verified 09/08/16 13:24) chest pain HOME MEDICATIONS: Home Medications Medication Instructions Recorded Aspirin [Aspirin EC] 81 mg PO DAILY 08/16/15 Ergocalciferol [Vitamin D2] 50,000 unit PO Q7D@1000 08/16/15 Gabapentin 600 mg PO BID 08/16/15 Olanzapine [Zyprexa -] 20 mg PO AM 08/16/15 Docusate Sodium [Colace -] 100 mg PO BID 01/30/16 Acetaminophen [Tylenol .Regular 650 mg PO Q6H PRN #0 tablet 09/11/16 Strength -] Carvedilol [Coreg -] 12.5 mg PO BID tablet 09/11/16 Losartan Potassium [Cozaar -] 50 mg PO DAILY tablet 09/11/16 Rosuvastatin [Crestor -] 20 mg PO HS tablet 09/11/16 Sennosides [Senna -] 1 tab PO HS tablet 09/11/16 Duloxetine HCl [Cymbalta -] 60 mg PO DAILY 01/02/17 Furosemide [Lasix -] 40 mg PO DAILY 01/02/17 Insulin Glargine,Hum.rec.anlog 44 unit SQ AM 01/02/17 [Basaglar Kwikpen U-100] Insulin Glargine,Hum.rec.anlog 74 unit SQ HS 01/02/17 [Basaglar Kwikpen U-100] Isosorbide Mononitrate [Isosorbide 30 mg PO DAILY 01/02/17 Mononitrate ER] Mirtazapine [Remeron -] 15 mg PO DAILY 01/02/17 Olanzapine [Zyprexa -] 5 mg PO HS 01/02/17 Buprenorphine/Naloxone [Suboxone 1 combo SL DAILY #7 packet MDD 1 04/22/17 2Mg/0.5MG Sl Film -] REVIEW OF SYSTEMS as per HPI PHYSICAL EXAMINATION Vital Signs - 24 hr 02/07/20 19:31 Temperature 98.9 F Pulse Rate 109 H Respiratory 20 Rate Blood Pressure 154/106 H O2 Sat by Pulse 95 Oximetry (%) GENERAL: M, appears stated age, obese body habitus, AAOx4 showing no signs of acute distress HEAD: Normal with no signs of trauma EYES: PERRL, direct and consensual pupillary reflexes intact bilaterally, extraocular movements intact bilaterally, white sclera EARS, NOSE, THROAT: dry mucous membranes. NECK: No lymphadenopathy noted LUNGS: CTAB. No wheezes appreciated HEART: irregularly irregular, normal S1 and S2 without murmur ABDOMEN: Soft, nontender, protuberant, normoactive bowel sounds EXTREMITIES: 2+ radial and dorsalis pedis pulses, warm to touch bilaterally, nontender to palpation, no peripheral edema appreciated, no active lesions or ulcers noted on feet bilaterally including interdigital web spaces NEUROLOGICAL: Cranial nerves II-XII grossly intact. Normal speech with sym metricalfacial movements. Sensation intact bilaterally PSYCHIATRIC: Cooperative and interactive, responds appropriately. Good eye contact. sad/depressed mood, euthymic affect not fully congruent with stated mood SKIN: no rashes or lesions noted Laboratory Results - last 24 hr 02/07/20 02/07/20 02/07/20 22:10 22:10 23:13 WBC 12.8 H RBC 5.42 Hgb 14.5 Hct 44.6 MCV 82.2 MCH 26.8 MCHC 32.6 RDW 15.7 Plt Count 275 MPV 7.6 Absolute Neuts (auto) 10.4 H Neutrophils % 81.3 Lymphocytes % 9.2 D Monocytes % 5.2 Eosinophils % 3.1 Basophils % 1.2 Nucleated RBC % 0 PT with INR INR PTT (Actin FS) Sodium 140 Potassium 4.3 Chloride 105 Carbon Dioxide 28 Anion Gap 7 L BUN 10.1 Creatinine 0.9 Est GFR (CKD-EPI)AfAm 104.98 Est GFR (CKD-EPI)NonAf 90.58 Random Glucose 197 H Calcium 8.7 Total Bilirubin 0.8 AST 19 ALT 40 Alkaline Phosphatase 116 Creatine Kinase 45 Troponin I 0.05 B-Natriuretic Peptide 544.0 H Total Protein 6.3 L Albumin 3.4 Urine Color Dk yellow Urine Appearance Clear Urine pH 5.0 Ur Specific [place] 1.025 Urine Protein 2+ H Urine Glucose (UA) 3+ H Urine Ketones Negative Urine Blood Negative Urine Nitrite Negative Urine Bilirubin Negative Urine Urobilinogen 1.0 Ur Leukocyte Esterase Negative Urine RBC (Auto) 8 Urine Casts (Auto) 12 U Epithel Cells (Auto) 34 Urine Bacteria (Auto) 8 ASSESSMENT/PLAN: 64yo M with PMHx of HTN, HLD, CAD, afib (without AC), CHF, COPD, DM, and generalized anxiety disorder who presents with 2-3 weeks of worsening SOB on exertion. Initial ED workup was remarkable for BP 154/106, P 109, WBC 12.8, and BNP 544. Patient admitted for further management of SOB. Chadsvasc score 4. #SOB likely due to CHF exacerbation - and/or COPD exacerbation, and/or obese body habitus > received 2 puffs albuterol without symptomatic relief > generalized haziness on CXR - gave 40 IV lasix to see if symptoms improve - cardio consult for today: [facility] cardiology [phone] - started PRN duonebs and ROGERS symbicort - Echo ordered - restarted home meds #Leukocytosis - etiology unclear: ?COVID, ?PNA > generalized haziness on CXR - started azithromycin - pulm consulted #DM - holding home DM meds - BGMs ACHS - ISS - ordered A1C #Atrial fibrillation - unsure why patient is not receiving anticoagulation #FEN - no standing fluids - replete lytes PRN - diabetic/sodium controlled diet #PPX - DVT: lovenox Family Medical History Family History: As Documented Visit type - Emergency Visit Emergency Visit: Yes ED Registration Date: 02/08/20 Care time: The patient presented to the Emergency Department on the above date and was hospitalized for further evaluation of their emergent condition. - New Patient This patient is new to me today: Yes Date on this admission: 02/08/20 - Critical Care Critical Care patient: No ATTENDING PHYSICIAN STATEMENT I saw and evaluated the patient. I reviewed the resident's note and discussed the case with the resident. I agree with the resident's findings and plan as documented. SUBJECTIVE: OBJECTIVE: ASSESSMENT AND PLAN:
[2020-02-08 06:36] LABS: URINE WBC 73.3 /uL (0-25.8)
[2020-02-08 07:30] LABS: BASO % 0.6 % (0-2.0); EOS % 4.1 % (0-4.5); HEMOGLOBIN 14.6 GM/dL (11.7-16.9); LYMPH % 15.2 % (8-40); MCH 26.6 pg (25.7-33.7); MCHC 32.5 g/dl (32.0-35.9); MEAN CELL VOLUME 81.9 fl (80-96); MEAN PLT VOLUME 8.3 fl (7.5-11.1); MONO % 7.3 % (3.8-10.2); NEUT % 72.8 % (42.8-82.8); PLATELET COUNT 303 K/MM3 (134-434); RDW 15.5 % (11.9-15.9); WHITE BLOOD COUNT 11.9 K/mm3 (4.0-10.0)
[2020-02-08 08:00] LABS: ALBUMIN 3.5 g/dl (3.4-5.0); BILIRUBIN,TOTAL 1.1 mg/dL (0.2-1); BLOOD UREA NITROGEN 9.7 mg/dL (7-18); CALCIUM 8.7 mg/dL (8.5-10.1); MAGNESIUM 2.1 mg/dL (1.8-2.4); PHOSPHOROUS 2.8 mg/dL (2.5-4.9); TOT PROT 6.5 g/dl (6.4-8.2)
[2020-02-08] MEDS: INSULIN SLIDING SCALE (NOVOLOG) 1 VIAL SQ SCH ×4 (08:00→21:19)
--- NOTE | 2020-02-08 09:04 | EKG ---
Test Reason : Blood Pressure : / mmHG Vent. Rate : 112 BPM Atrial Rate : 112 BPM P-R Int : 214 ms QRS Dur : 088 ms QT Int : 332 ms P-R-T Axes : 089 019 040 degrees QTc Int : 453 ms SINUS TACHYCARDIA WITH 1ST DEGREE A-V BLOCK OTHERWISE NORMAL ECG WHEN COMPARED WITH ECG OF 08-SEP-2016 13:43, ND INTERVAL HAS INCREASED Confirmed by MD ALAINA, JEREMI ([id number]) on 02/08/2020 9:04:11 AM Referred By: Confirmed By:JEREMI FOLEY MD
[2020-02-08] MEDS ORDERED: PT OWN MED DRAWER 7, Y5N ONE (10:15)
[2020-02-08] MEDS ORDERED: CARVEDILOL 12.5 MG TABLET (FP) ONE (10:19)
[2020-02-08] MEDS ORDERED: LOSARTAN POTASSIUM 50 MG TABLET (FP) ONE (10:19)
[2020-02-08] MEDS ORDERED: ASPIRIN COATED 81 MG TABLET.EC ONE (10:19)
[2020-02-08] MEDS ORDERED: DULoxetine HCL 30 MG CAPSULE.DR PO ONE (10:20)
[2020-02-08] MEDS ORDERED: GABAPENTIN 100 MG CAPSULE ONE (10:20)
[2020-02-08] MEDS ORDERED: AZITHROMYCIN IVPB 500 MG/250 ML BAG IVPB ONE (10:20)
[2020-02-08] MEDS ORDERED: ENOXAPARIN NA (PORCINE) 40 MG/0.4 ML DISP.SYRIN SQ ONE (10:20)
[2020-02-08] MEDS: BUDESONIDE/FORMETEROL FUMARATE 80/4.5 mcg INHALER IH SCH ×2 (10:34→22:10)
[2020-02-08] MEDS: AZITHROMYCIN IVPB 250 MG in DEXTROSE 5%-WATER - 250 ML IVPB SCH (10:34)
[2020-02-08] MEDS: GABAPENTIN 300 MG CAPSULE PO SCH ×2 (10:36→21:16)
[2020-02-08] MEDS: ENOXAPARIN NA (PORCINE) 40 MG/0.4 ML DISP.SYRIN SQ SCH (10:36)
[2020-02-08] MEDS: DULoxetine HCL 30 MG CAPSULE.DR PO SCH (10:37)
[2020-02-08] MEDS: CARVEDILOL 12.5 MG TABLET (FP) PO SCH ×2 (10:37→21:48)
[2020-02-08] MEDS: LOSARTAN POTASSIUM 50 MG TABLET (FP) PO SCH (10:37)
[2020-02-08] MEDS: ASPIRIN COATED 81 MG TABLET.EC PO SCH (10:45)
--- NOTE | 2020-02-08 11:45 | ECHO ---
Name: SKIP THOMAS Exam:Adult Echocardiogram Study Date: 02/08/2020 08:56 AM Age: 64 yrs Reason For Study: SOB Height: 67 in Weight: 250 lb BSA: 2.2 m2 MMode/2D Measurements & Calculations IVSd: 1.2 cm Ao root diam: 2.8 cm LVIDd: 4.5 cm LA dimension: 4.0 cm LVIDs: 3.6 cm LVPWd: 1.0 cm EDV(Teich): 90.9 ml LVOT diam: 2.1 cm ESV(Teich): 53.6 ml LAV (MOD-bp): 75.2 ml Doppler Measurements & Calculations MV E max octaviano: 134.0 cm/sec Ao V2 max: 153.7 cm/sec MV A max octaviano: 56.0 cm/sec Ao max P.4 mmHg MV E/A: 2.4 MV dec time: 0.11 sec SULTANA(V,D): 1.6 cm2 LV V1 max P.0 mmHg MR max octaviano: 492.2 cm/sec LV V1 max: 70.7 cm/sec MR max P.0 mmHg TR max octaviano: 157.0 cm/sec PA V2 max: 111.6 cm/sec TR max P.9 mmHg PA max P.0 mmHg Med Peak E' Octaviano: 3.3 cm/sec Med E/e': 41.1 Lat Peak E' Octaviano: 3.6 cm/sec Lat E/e': 37.3 Procedure The study was technically limited with all images being suboptimal in quality. A two-dimensional iqbal sthoracic echocardiogram with color flow and Doppler was performed in limited views only. Left Ventricle The left ventricle is grossly normal size. Left ventricular systolic function is moderately reduced. Ejection Fraction = 35-40%. The transmitral spectral Doppler flow pattern is suggestive of impaired LV relaxat ion. Right Ventricle The right ventricle is grossly normal size. There is normal right ventricular wall thickness. Atria The left atrium is mildly dilated. Right atrium not well visualized. Mitral Valve There is mild to moderate mitral annular calcification. Calcified mitral apparatus. There is mild xavi ral regurgitation. Tricuspid Valve The tricuspid valve is not well visualized. There was insufficient TR detected to calculate RV systol ic pressure. Aortic Valve There is moderate aortic sclerosis.;. Mild valvular aortic stenosis. The calculated aortic valve area using the continuity equation is 1.6 cm2. Pulmonic Valve The pulmonic valve is not well visualized. Great Vessels The aortic root is not well visualized. Pericardium/Pleura Trivial pericardial effusion. Interpretation Summary The study was technically limited with all images being suboptimal in quality. A two-dimensional iqbal sthoracic echocardiogram with color flow and Doppler was performed in limited views only. The left ventricle is grossly normal size. Left ventricular systolic function is moderately reduced. Ejection Fraction = 35-40%. The right ventricle is grossly normal size. There is normal right ventricular wall thickness. The left atrium is mildly dilated. Right atrium not well visualized. There is mild to moderate mitral annular calcification. Calcified mitral apparatus. There is mild xvai ral regurgitation. There is moderate aortic sclerosis.; Mild valvular aortic stenosis. The calculated aortic valve area using the continuity equation is 1.6 cm2. Trivial pericardial effusion. MD Luma Bains 02/08/2020 11:45 AM
--- NOTE | 2020-02-08 12:35 | CON.PULM ---
Consult Consult Specialty:: PULMONARY Referred by:: Dr Ybarra Reason for Consultation:: shortness of breath - History of Present Illness Chief Complaint: shortness of breath History of Present Illness: 64yo male with h/o HTN, DM, hyperlipidemia, CAD, LV systolic dysfunction, atrial fibrillation, COPD, former smoker, morbid obesity who was admitted with worsening shortness of breath x 2 weeks. Denies cough but with some wheezing. Severely reduced exercise tolerance compared to his normal. Denies leg swelling, orthopnea, PND. Sleeps on 1 pillow. He is a former smoker, quit 7 years ago. Smoked 2 PPD prior to that. Does not have any inhalers or home O2. - History Source History Provided By: Patient, Medical Record Limitations to Obtaining History: No Limitations - Past Medical History Cardio/Vascular: Yes: CAD, HTN, Hyperlipdemia, [place] Gastrointestinal: Yes: Constipation Psych: Yes: Anxiety, Depression Musculoskeletal: Yes: Other (chronic left knee pain) Endocrine: Yes: Diabetes Mellitus - Past Surgical History Past Surgical History: Yes: Cholecystectomy - Alcohol/Substance Use Hx Alcohol Use: Yes (none x 4 years) - Smoking History Smoking history: Never smoked Have you smoked in the past 12 months: No Aproximately how many cigarettes per day: 0 If you are a former smoker, when did you quit?: 2011 - Social History Usual Living Arrangement: With Parent ADL: Independent Home Medications - Allergies Allergies/Adverse Reactions: Allergies Allergy/AdvReac Type Severity Reaction Status Date / Time tetracycline [Tetracycline] Allergy Intermediate chest pain Verified 09/08/16 13:24 - Home Medications Home Medications: Ambulatory Orders Aspirin [Aspirin EC] 81 mg PO DAILY 08/16/15 Ergocalciferol [Vitamin D2] 50,000 unit PO Q7D@1000 08/16/15 Gabapentin 600 mg PO BID 08/16/15 Acetaminophen [Tylenol .Regular Strength -] 650 mg PO Q6H PRN #0 tablet 09/11/16 Carvedilol [Coreg -] 12.5 mg PO BID tablet 09/11/16 Losartan Potassium [Cozaar -] 50 mg PO DAILY tablet 09/11/16 Rosuvastatin [Crestor -] 20 mg PO HS tablet 09/11/16 Duloxetine HCl [Cymbalta -] 60 mg PO DAILY 01/02/17 Furosemide [Lasix -] 40 mg PO DAILY 08/11/17 Insulin Glargine,Hum.rec.anlog [Basaglar Kwikpen U-100] 0 unit SQ AM 01/02/17 Insulin Glargine,Hum.rec.anlog [Basaglar Kwikpen U-100] 80 unit SQ HS 01/02/17 Olanzapine [Zyprexa -] 10 mg PO HS 01/02/17 Review of Systems - Review of Systems Constitutional: reports: Night Sweats, Weakness. denies: Chills, Fever Eyes: denies: Recent Change in Vision HENT: denies: Nasal Congestion, Throat Pain Neck: denies: Stiffness, Tenderness Cardiovascular: reports: Shortness of Breath. denies: Chest Pain, Edema Respiratory: reports: Exercise Intolerance, SOB on Exertion, Wheezing. denies: Cough, Hemoptysis, Orthopnea Gastrointestinal: denies: Abdominal Pain, Nausea, Vomiting Genitourinary: denies: Dysuria, Hematuria Neurological: denies: Dizziness, Headache Endocrine: denies: Unexplained Weight Loss Physical Exam Vital Sings: Vital Signs Temperature 98 F 02/08/20 08:05 Pulse Rate 108 H 02/08/20 08:05 Respiratory Rate 19 02/08/20 08:05 Blood Pressure 135/93 02/08/20 08:05 O2 Sat by Pulse Oximetry (%) 96 02/08/20 08:05 Constitutional: Yes: Calm Eyes: Yes: Conjunctiva Clear, EOM Intact HENT: Yes: Atraumatic, Normocephalic Neck: Yes: Supple, Trachea Midline Cardiovascular: Yes: Regular Rate and Rhythm Respiratory: Yes: Poor Air Entry. No: Rhonchi, Wheezes ...Clubbing: No Gastrointestinal: Yes: Normal Bowel Sounds, Soft. No: Tenderness Edema: No Neurological: Yes: Alert, Oriented Labs: CBC, BMP 02/08/20 05:30 02/08/20 05:30 Imaging - Results Chest X-ray: Report Reviewed, Image Reviewed (mild pulmonary vascular congestion) Assessment/Plan r/o Acute COPD Exacerbation LV Systolic Dysfunction CAD Atrial Fibrillation HTN DM Hyperlipidemia Morbid Obesity Likely ELSY - empiric medrol - inhaled bronchodilators - O2 to keep SpO2 >90% - lasix - monitor urine output, creatinine - rate control - anticoagulation - will need outpt PFTs and NPSG Thank you for this consult Samy Anne MD
[2020-02-08] MEDS ORDERED: methylPREDNISolone NA SUCC 40 MG/1 ML VIAL ONE (14:46)
[2020-02-08] MEDS: methylPREDNISolone NA SUCC 40 MG/1 ML VIAL IVPUSH SCH ×2 (14:59→17:14)
[2020-02-08] MEDS: ROSUVASTATIN CA 20 MG TABLET (FP) PO SCH (21:48)
[2020-02-09] MEDS: methylPREDNISolone NA SUCC 40 MG/1 ML VIAL IVPUSH SCH ×3 (01:47→17:28)
[2020-02-09] MEDS: INSULIN SLIDING SCALE (NOVOLOG) 1 VIAL SQ SCH ×4 (06:19→21:20)
--- NOTE | 2020-02-09 08:46 | PN ---
Progress Note, Physician - Current Medication List Current Medications: Active Medications Albuterol/Ipratropium (Duoneb -) 1 amp NEB Q4H PRN PRN Reason: SHORTNESS OF BREATH Aspirin (Ecotrin -) 81 mg PO DAILY [facility] Last Admin: 02/08/20 10:45 Dose: 81 mg Documented by: Budesonide/Formoterol Fumarate (Symbicort 80/4.5mcg -) 2 puff IH BID [facility] Last Admin: 02/08/20 22:10 Dose: 2 puff Documented by: Carvedilol (Coreg -) 12.5 mg PO BID [facility] Last Admin: 02/08/20 21:48 Dose: 12.5 mg Documented by: Duloxetine HCl (Cymbalta -) 60 mg PO DAILY [facility] Last Admin: 02/08/20 10:37 Dose: 60 mg Documented by: Enoxaparin Sodium (Lovenox -) 40 mg SQ DAILY [facility] Last Admin: 02/08/20 10:36 Dose: 40 mg Documented by: Gabapentin (Neurontin -) 600 mg PO BID [facility] Last Admin: 02/08/20 21:16 Dose: 600 mg Documented by: Azithromycin 250 mg/ Dextrose 250 mls @ 250 mls/hr IVPB DAILY [facility] Last Admin: 02/08/20 10:34 Dose: 250 mls/hr Documented by: Insulin Aspart (Novolog Vial Sliding Scale -) 1 vial SQ ACHS [facility]; Protocol Last Admin: 02/09/20 06:19 Dose: 6 units Documented by: Losartan Potassium (Cozaar -) 50 mg PO DAILY [facility] Last Admin: 02/08/20 10:37 Dose: 50 mg Documented by: Methylprednisolone Sodium Succinate (Solu-Medrol -) 40 mg IVPUSH Q8H-IV [facility] Last Admin: 02/09/20 01:47 Dose: 40 mg Documented by: Rosuvastatin Calcium (Crestor -) 20 mg PO HS [facility] Last Admin: 02/08/20 21:48 Dose: 20 mg Documented by: - Objective Vital Signs: Vital Signs Temperature 98.3 F 02/09/20 06:00 Pulse Rate 108 H 02/09/20 06:00 Respiratory Rate 02/09/20 06:00 Blood Pressure 112/72 02/09/20 06:00 O2 Sat by Pulse Oximetry (%) 93 L 02/09/20 06:00 Cardiovascular: Yes: S1, S2 Respiratory: Yes: Regular, Rales Gastrointestinal: Yes: Normal Bowel Sounds, Soft Edema: No Labs: CBC, BMP 02/08/20 05:30 02/08/20 05:30 INR, PTT INR 1.01 (0.83-1.09) 02/07/20 23:20 Problem List - Problems (1) CHF (congestive heart failure) Assessment/Plan: - 40 IV lasix daily - CT noted--effusion - Echo ordered - restarted home meds Code(s): I50.9 - HEART FAILURE, UNSPECIFIED (2) COPD exacerbation Assessment/Plan: - IV steroids started by pulm - started PRN duonebs and ROGERS symbicort Code(s): J44.1 - CHRONIC OBSTRUCTIVE PULMONARY DISEASE W (ACUTE) EXACERBATION (4) Leukocytosis Assessment/Plan: CT noted - ID consult - on azithromycin - pulm consulted Code(s): D72.829 - ELEVATED WHITE BLOOD CELL COUNT, UNSPECIFIED (5) Tachycardia Assessment/Plan: on coreg cardio ??h/o afib--review and await cardio opinion Code(s): R00.0 - TACHYCARDIA, UNSPECIFIED (6) DM Diabetes mellitus type 2 Assessment/Plan: - holding home DM meds - BGMs ACHS - ISS - A1C 9.1 - Endo Code(s): E11.9 - TYPE 2 DIABETES MELLITUS WITHOUT COMPLICATIONS
[2020-02-09 09:49] LABS: BASO % 0.4 % (0-2.0); HEMATOCRIT 42.8 % (35.4-49); HEMOGLOBIN 13.6 GM/dL (11.7-16.9); LYMPH % 5.7 % (8-40); MCH 26.4 pg (25.7-33.7); MCHC 31.9 g/dl (32.0-35.9); MEAN CELL VOLUME 82.8 fl (80-96); MEAN PLT VOLUME 7.9 fl (7.5-11.1); MONO % 1.8 % (3.8-10.2); NEUT % 92.1 % (42.8-82.8); PLATELET COUNT 272 K/MM3 (134-434); RBC 5.16 M/mm3 (4.00-5.60); RDW 15.5 % (11.9-15.9); WHITE BLOOD COUNT 13.9 K/mm3 (4.0-10.0)
[2020-02-09] MEDS ORDERED: FUROSEMIDE 40 MG/4 ML INJECTABLE VIAL IVPUSH SCH (10:00)
[2020-02-09 10:19] LABS: BLOOD UREA NITROGEN 16.1 mg/dL (7-18); CALCIUM 9.1 mg/dL (8.5-10.1); CREATININE 0.9 mg/dL (0.55-1.3); POTASSIUM 4.1 mmol/L (3.5-5.1)
[2020-02-09] MEDS: AZITHROMYCIN IVPB 250 MG in DEXTROSE 5%-WATER - 250 ML IVPB SCH (10:35)
[2020-02-09] MEDS: GABAPENTIN 300 MG CAPSULE PO SCH ×2 (10:37→21:14)
[2020-02-09] MEDS: ENOXAPARIN NA (PORCINE) 40 MG/0.4 ML DISP.SYRIN SQ SCH (10:37)
[2020-02-09] MEDS: LOSARTAN POTASSIUM 50 MG TABLET (FP) PO SCH (10:37)
[2020-02-09] MEDS: ASPIRIN COATED 81 MG TABLET.EC PO SCH (10:37)
[2020-02-09] MEDS: CARVEDILOL 12.5 MG TABLET (FP) PO SCH ×2 (10:38→21:14)
[2020-02-09] MEDS: BUDESONIDE/FORMETEROL FUMARATE 80/4.5 mcg INHALER IH SCH ×2 (10:39→21:25)
[2020-02-09 11:04] LABS: ANISOCYTOSIS 1+; MACROCYTOSIS 0; PLATELET ESTIMATE NORMAL
--- NOTE | 2020-02-09 12:41 | CON.CARD ---
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 Past few weeks noticed gradually worsening hyman. No cp palps dizzy loc pnd orthopnea le edema. Sees dr norris for cardio. pmh: per hpi psh: cath social: ex tob fam: no premature cad, scd ros: per hpi; all others nl meds: Home Medications Medication Instructions Recorded Aspirin [Aspirin EC] 81 mg PO DAILY 08/16/15 Ergocalciferol [Vitamin D2] 50,000 unit PO Q7D@1000 08/16/15 Gabapentin 600 mg PO BID 08/16/15 Acetaminophen [Tylenol .Regular 650 mg PO Q6H PRN #0 tablet 09/11/16 Strength -] Carvedilol [Coreg -] 12.5 mg PO BID tablet 09/11/16 Losartan Potassium [Cozaar -] 50 mg PO DAILY tablet 09/11/16 Rosuvastatin [Crestor -] 20 mg PO HS tablet 09/11/16 Duloxetine HCl [Cymbalta -] 60 mg PO DAILY 01/02/17 Furosemide [Lasix -] 40 mg PO DAILY 01/02/17 Insulin Glargine,Hum.rec.anlog 0 unit SQ AM 01/02/17 [Basaglar Kwikpen U-100] Insulin Glargine,Hum.rec.anlog 80 unit SQ HS 01/02/17 [Basaglar Kwikpen U-100] Olanzapine [Zyprexa -] 10 mg PO HS 01/02/17 pe: Vital Signs Period Temp Pulse Resp BP Sys/Irwin Pulse Ox Last 24 Hr 97.4 F-98.5 F 82-111 16-20 105-144/62-98 92-95 nad no jvd rrr s1s2 no mrg cta bl nl eff aao3 no le e/c/c abd nt nd pos bs no jaundice diaphoresis pos dp pt no carotid bruits Laboratory Last Values WBC 13.9 K/mm3 (4.0-10.0) H 02/09/20 09:20 RBC 5.16 M/mm3 (4.00-5.60) 02/09/20 09:20 Hgb 13.6 GM/dL (11.7-16.9) 02/09/20 09:20 Hct 42.8 % (35.4-49) 02/09/20 09:20 MCV 82.8 fl (80-96) 02/09/20 09:20 MCH 26.4 pg (25.7-33.7) 02/09/20 09:20 MCHC 31.9 g/dl (32.0-35.9) L 02/09/20 09:20 RDW 15.5 % (11.9-15.9) 02/09/20 09:20 Plt Count 272 K/MM3 (134-434) 02/09/20 09:20 MPV 7.9 fl (7.5-11.1) 02/09/20 09:20 Absolute Neuts (auto) 12.8 K/mm3 (1.5-8.0) H 02/09/20 09:20 Neutrophils % 92.1 % (42.8-82.8) H D 02/09/20 09:20 Neutrophils % (Manual) 96.9 % (42.8-82.8) H 02/09/20 09:20 Band Neutrophils % 0.0 % 02/09/20 09:20 Lymphocytes % 5.7 % (8-40) L D 02/09/20 09:20 Lymphocytes % (Manual) 3.1 % (8-40) L 02/09/20 09:20 Monocytes % 1.8 % (3.8-10.2) L 02/09/20 09:20 Monocytes % (Manual) 0 % (3.8-10.2) L 02/09/20 09:20 Eosinophils % 0.0 % (0-4.5) D 02/09/20 09:20 Eosinophils % (Manual) 0.0 % (0-4.5) 02/09/20 09:20 Basophils % 0.4 % (0-2.0) 02/09/20 09:20 Basophils % (Manual) 0.0 % (0-2.0) 02/09/20 09:20 Myelocytes % (Man) 0 % (0-2) 02/09/20 09:20 Promyelocytes % (Man) 0 % (0-2) 02/09/20 09:20 Blast Cells % (Manual) 0 % (0-0) 02/09/20 09:20 Nucleated RBC % 0 % (0-0) 02/09/20 09:20 Metamyelocytes 0 % (0-2) 02/09/20 09:20 Hypochromia 0 02/09/20 09:20 Platelet Estimate Normal 02/09/20 09:20 Polychromasia 0 02/09/20 09:20 Poikilocytosis 0 02/09/20 09:20 Anisocytosis 1+ 02/09/20 09:20 Microcytosis 1+ 02/09/20 09:20 Macrocytosis 0 02/09/20 09:20 PT with INR 11.90 SEC (9.7-13.0) 02/07/20 23:20 INR 1.01 (0.83-1.09) 02/07/20 23:20 PTT (Actin FS) 28.5 SECONDS (25.2-36.5) 02/07/20 23:20 Sodium 134 mmol/L (136-145) L 02/09/20 09:20 Potassium 4.1 mmol/L (3.5-5.1) 02/09/20 09:20 Chloride 99 mmol/L (98-107) 02/09/20 09:20 Carbon Dioxide 24 mmol/L (21-32) 02/09/20 09:20 Anion Gap 10 MMOL/L (8-16) 02/09/20 09:20 BUN 16.1 mg/dL (7-18) 02/09/20 09:20 Creatinine 0.9 mg/dL (0.55-1.3) 02/09/20 09:20 Est GFR (CKD-EPI)AfAm 104.98 02/09/20 09:20 Est GFR (CKD-EPI)NonAf 90.58 02/09/20 09:20 POC Glucometer 284 UNITS (80-120) 02/09/20 06:18 Random Glucose 362 mg/dL (74-106) H 02/09/20 09:20 Hemoglobin A1c % 9.7 % (4.2-6.3) H 02/08/20 05:30 Calcium 9.1 mg/dL (8.5-10.1) 02/09/20 09:20 Phosphorus 2.8 mg/dL (2.5-4.9) 02/08/20 05:30 Magnesium 2.1 mg/dL (1.8-2.4) 02/08/20 05:30 Total Bilirubin 1.1 mg/dL (0.2-1) H 02/08/20 05:30 AST 19 U/L (15-37) 02/08/20 05:30 ALT 43 U/L (13-61) 02/08/20 05:30 Alkaline Phosphatase 124 U/L (45-117) H 02/08/20 05:30 Creatine Kinase 45 U/L (26-308) 02/07/20 22:10 Troponin I 0.05 ng/ml (0.00-0.05) 02/07/20 22:10 B-Natriuretic Peptide 544.0 pg/ml (5-125) H 02/07/20 22:10 Total Protein 6.5 g/dl (6.4-8.2) 02/08/20 05:30 Albumin 3.5 g/dl (3.4-5.0) 02/08/20 05:30 Urine Color Dk yellow 02/07/20 23:13 Urine Appearance Clear 02/07/20 23:13 Urine pH 5.0 (5.0-8.0) 02/07/20 23:13 Ur Specific Standard 1.025 (1.010-1.035) 02/07/20 23:13 Urine Protein 2+ (NEGATIVE) H 02/07/20 23:13 Urine Glucose (UA) 3+ (NEGATIVE) H 02/07/20 23:13 Urine Ketones Negative (NEGATIVE) 02/07/20 23:13 Urine Blood Negative (NEGATIVE) 02/07/20 23:13 Urine Nitrite Negative (NEGATIVE) 02/07/20 23:13 Urine Bilirubin Negative (NEGATIVE) 02/07/20 23:13 Urine Urobilinogen 1.0 mg/dL (0.2-1.0) 02/07/20 23:13 Ur Leukocyte Esterase Negative (NEGATIVE) 02/07/20 23:13 Urine WBC (Auto) 73.3 /uL (0-25.8) 02/07/20 23:13 Urine RBC (Auto) 8 /uL (0-23.9) 02/07/20 23:13 Urine Casts (Auto) 12 /uL (0-3.1) 02/07/20 23:13 U Pathogenic Cast Auto None seen /lpf (NEGATIVE) 02/07/20 23:13 U Epithel Cells (Auto) 34 /uL (0-25.1) 02/07/20 23:13 U Sm Round Cell (Auto) None seen 02/07/20 23:13 Urine Bacteria (Auto) 8 /uL (0-1359) 02/07/20 23:13 COVID-19 (SELAM) Not detected (Not Detected) 02/08/20 02:05 ecg: sinus tach, 1st avb nl qtc no ischemic changes ct chest: trace effs a/p: 64 m hx 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 sob, acute on chronic syst chf, copd, pna: -mild vol overload, cont iv lasix, daily wt/chem7 -also copd and pna contributing, cont abx/steroids, pulm following -no signs acs -echo here with stable findings, lvef mod reduced. -cont coreg, cozaar cad: -stable, no signs acs -recent mibi 08/2018 showed stable, chronic finding of mild inf ischemia 2/2 to known final inspector shuttle-->cont med rx with bb, statin, asa. hld: -cont statin
--- NOTE | 2020-02-09 12:52 | PN ---
Progress Note (short form) - Note Progress Note: Still with cough and RODAS. No fever. No hmeoptysis. No acute events overnight. Intake & Output 02/06/20 02/07/20 02/08/20 02/09/20 23:59 23:59 23:59 23:59 Intake Total 270 220 Output Total 1100 Balance -830 220 Weight 250 lb 250 lb Last Vital Signs Temp Pulse Resp BP Pulse Ox 98.5 F 108 H 19 144/74 95 02/09/20 10:00 02/09/20 10:00 02/09/20 10:00 02/09/20 10:00 02/09/20 10:00 Active Medications Albuterol/Ipratropium (Duoneb -) 1 amp NEB Q4H PRN PRN Reason: SHORTNESS OF BREATH Aspirin (Ecotrin -) 81 mg PO DAILY [facility] Last Admin: 02/09/20 10:37 Dose: 81 mg Documented by: Budesonide/Formoterol Fumarate (Symbicort 80/4.5mcg -) 2 puff IH BID [facility] Last Admin: 02/09/20 10:39 Dose: 2 puff Documented by: Carvedilol (Coreg -) 12.5 mg PO BID [facility] Last Admin: 02/09/20 10:38 Dose: 12.5 mg Documented by: Duloxetine HCl (Cymbalta -) 60 mg PO DAILY [facility] Last Admin: 02/08/20 10:37 Dose: 60 mg Documented by: Enoxaparin Sodium (Lovenox -) 40 mg SQ DAILY [facility] Last Admin: 02/09/20 10:37 Dose: 40 mg Documented by: Furosemide (Lasix Injection -) 40 mg IVPUSH DAILY [facility] Last Admin: 02/09/20 10:36 Dose: 40 mg Documented by: Gabapentin (Neurontin -) 600 mg PO BID [facility] Last Admin: 02/09/20 10:37 Dose: 600 mg Documented by: Azithromycin 250 mg/ Dextrose 250 mls @ 250 mls/hr IVPB DAILY [facility] Last Admin: 02/09/20 10:35 Dose: 250 mls/hr Documented by: Insulin Aspart (Novolog Vial Sliding Scale -) 1 vial SQ ACHS [facility]; Protocol Last Admin: 02/09/20 12:25 Dose: 12 units Documented by: Losartan Potassium (Cozaar -) 50 mg PO DAILY [facility] Last Admin: 02/09/20 10:37 Dose: 50 mg Documented by: Methylprednisolone Sodium Succinate (Solu-Medrol -) 40 mg IVPUSH Q8H-IV [facility] Last Admin: 02/09/20 10:38 Dose: 40 mg Documented by: Rosuvastatin Calcium (Crestor -) 20 mg PO HS [facility] Last Admin: 02/08/20 21:48 Dose: 20 mg Documented by: Constitutional: Yes: Calm Eyes: Yes: Conjunctiva Clear, EOM Intact HENT: Yes: Atraumatic, Normocephalic Neck: Yes: Supple, Trachea Midline Cardiovascular: Yes: Regular Rate and Rhythm Respiratory: Yes: Poor Air Entry. No: Rhonchi, Wheezes ...Clubbing: No Gastrointestinal: Yes: Normal Bowel Sounds, Soft. No: Tenderness Edema: No Neurological: Yes: Alert, Oriented Labs: Laboratory Results - last 24 hr 02/08/20 02/08/20 02/08/20 02:05 05:30 17:05 WBC RBC Hgb Hct MCV MCH MCHC RDW Plt Count MPV Absolute Neuts (auto) Neutrophils % Neutrophils % (Manual) Band Neutrophils % Lymphocytes % Lymphocytes % (Manual) Monocytes % Monocytes % (Manual) Eosinophils % Eosinophils % (Manual) Basophils % Basophils % (Manual) Myelocytes % (Man) Promyelocytes % (Man) Blast Cells % (Manual) Nucleated RBC % Metamyelocytes Hypochromia Platelet Estimate Polychromasia Poikilocytosis Anisocytosis Microcytosis Macrocytosis Sodium Potassium Chloride Carbon Dioxide Anion Gap BUN Creatinine Est GFR (CKD-EPI)AfAm Est GFR (CKD-EPI)NonAf POC Glucometer 271 Random Glucose Hemoglobin A1c % 9.7 H Calcium COVID-19 ([facility]) Not detected 02/08/20 02/08/20 02/09/20 20:03 21:17 06:18 WBC RBC Hgb Hct MCV MCH MCHC RDW Plt Count MPV Absolute Neuts (auto) Neutrophils % Neutrophils % (Manual) Band Neutrophils % Lymphocytes % Lymphocytes % (Manual) Monocytes % Monocytes % (Manual) Eosinophils % Eosinophils % (Manual) Basophils % Basophils % (Manual) Myelocytes % (Man) Promyelocytes % (Man) Blast Cells % (Manual) Nucleated RBC % Metamyelocytes Hypochromia Platelet Estimate Polychromasia Poikilocytosis Anisocytosis Microcytosis Macrocytosis Sodium Potassium Chloride Carbon Dioxide Anion Gap BUN Creatinine Est GFR (CKD-EPI)AfAm Est GFR (CKD-EPI)NonAf POC Glucometer 356 321 284 Random Glucose Hemoglobin A1c % Calcium COVID-19 ([facility]) 02/09/20 02/09/20 09:20 09:20 WBC 13.9 H RBC 5.16 Hgb 13.6 Hct 42.8 MCV 82.8 MCH 26.4 MCHC 31.9 L RDW 15.5 Plt Count 272 MPV 7.9 Absolute Neuts (auto) 12.8 H Neutrophils % 92.1 H D Neutrophils % (Manual) 96.9 H Band Neutrophils % 0.0 Lymphocytes % 5.7 L D Lymphocytes % (Manual) 3.1 L Monocytes % 1.8 L Monocytes % (Manual) 0 L Eosinophils % 0.0 D Eosinophils % (Manual) 0.0 Basophils % 0.4 Basophils % (Manual) 0.0 Myelocytes % (Man) 0 Promyelocytes % (Man) 0 Blast Cells % (Manual) 0 Nucleated RBC % 0 Metamyelocytes 0 Hypochromia 0 Platelet Estimate Normal Polychromasia 0 Poikilocytosis 0 Anisocytosis 1+ Microcytosis 1+ Macrocytosis 0 Sodium 134 L Potassium 4.1 Chloride 99 Carbon Dioxide 24 Anion Gap 10 BUN 16.1 Creatinine 0.9 Est GFR (CKD-EPI)AfAm 104.98 Est GFR (CKD-EPI)NonAf 90.58 POC Glucometer Random Glucose 362 H Hemoglobin A1c % Calcium 9.1 COVID-19 ([facility]) Imaging - Results Chest X-ray: Report Reviewed, Image Reviewed (mild pulmonary vascular congestion) Assessment/Plan Suspected Acute COPD Exacerbation LV Systolic Dysfunction CAD Atrial Fibrillation HTN DM Hyperlipidemia Morbid Obesity Likely ELSY - Empiric medrol - inhaled bronchodilators - O2 to keep SpO2 >90% - lasix - monitor urine output, creatinine - rate control - anticoagulation - will need outpt PFTs and NPSG Dr Garcia ELSY Screen - ELSY History Previously diagnosed with Sleep Apnea: No If Yes, currently using CPAP to treat your ELSY: No - SNORING Do you snore loudly (enough to be heard thru closed doors)?: Yes - TIRED Do you often feel tired, fatigued, or sleepy during daytime?: Yes - OBSERVED Has anyone observed you stop breathing during your sleep?: No - BLOOD PRESSURE Do you have or are being treated for high blood pressure?: Yes - BMI Answer Y if weight exceeds amount listed for your height: Yes .: HEIGHT & WEIGHT (lbs): 4'10" 167lbs; 4'" 175 lbs; 5'0" 179lbs;. 5'1" 185lbs; 5'2" 191lbs; 5'3" 197lbs;. 5'4" 204lbs; 5'5" 210lbs; 56" 216lbs;. 57" 223lbs; 58" 230lbs; 59" 237lbs;. 510" 243lbs; 511" 250lbs; 6' 258lbs;. 6'1" 265lbs; 6'2" 272lbs; 6'3" 279lbs;. 6'4" 287lbs; 6'5" 295lbs - AGE Is your age over 50 yrs old?: Yes - NECK CIRCUMFERENCE Neck Circumference 40cm: Yes - GENDER Male: Yes - SCORE Total Score: 7 Score Interpretation: High Risk of ELSY .: Interpretation: Score 0-2: Low Risk ELSY. Score 3-4: Intermediate Risk ELSY. Score 5-8: High Risk ELSY
[2020-02-09] MEDS: DULoxetine HCL 30 MG CAPSULE.DR PO SCH ×2 (13:25→23:28)
[2020-02-09] MEDS ORDERED: INSULIN (NOVOLOG) ASPART 100 UNITS/ML 10ML VIAL ONE (17:10)
[2020-02-09] MEDS ORDERED: PT OWN MED DRAWER 7, Y5N ONE ×2 (21:00→22:11)
[2020-02-09] MEDS: ROSUVASTATIN CA 20 MG TABLET (FP) PO SCH (21:14)
[2020-02-09] MEDS ORDERED: INSULIN (LEVEMIR) 100 UNITS/ML UNITS SQ SCH ×2 (22:00→23:01)
--- NOTE | 2020-02-09 22:57 | CONSULT ---
Consult Consult Specialty:: Endocrine Referred by:: Carlos Ybarra MD Reason for Consultation:: Diabetes mellitus type 2 - History of Present Illness Chief Complaint: high sugars History of Present Illness: 64yo M with PMHx of DMT2,diabetic neuropahty,CVD,HTN, HLD, afib (without AC), CHF, COPD, presented with 2-3 weeks of worsening SOB on exertion. He said that SOB on exertion was the only symptoms he noticed associated with family problems,feels difficulty with stress,cogh and wheezing,has no cp nausea or vomiting,has not had low sugars despite taking insulin 3 times a day. - Past Medical History Cardio/Vascular: Yes: CAD, HTN, Hyperlipdemia, [place] Gastrointestinal: Yes: Constipation Psych: Yes: Anxiety, Depression Musculoskeletal: Yes: Other (chronic left knee pain) Endocrine: Yes: Diabetes Mellitus - Past Surgical History Past Surgical History: Yes: Cholecystectomy - Alcohol/Substance Use Hx Alcohol Use: Yes (none x 4 years) - Smoking History Smoking history: Never smoked Have you smoked in the past 12 months: No Aproximately how many cigarettes per day: 0 If you are a former smoker, when did you quit?: 2011 - Social History Usual Living Arrangement: With Parent ADL: Independent Home Medications - Allergies Allergies/Adverse Reactions: Allergies Allergy/AdvReac Type Severity Reaction Status Date / Time tetracycline [Tetracycline] Allergy Intermediate chest pain Verified 09/08/16 13:24 - Home Medications Home Medications: Ambulatory Orders Aspirin [Aspirin EC] 81 mg PO DAILY 08/16/15 Ergocalciferol [Vitamin D2] 50,000 unit PO Q7D@1000 08/16/15 Gabapentin 600 mg PO BID 08/16/15 Acetaminophen [Tylenol .Regular Strength -] 650 mg PO Q6H PRN #0 tablet 09/11/16 Carvedilol [Coreg -] 12.5 mg PO BID tablet 09/11/16 Losartan Potassium [Cozaar -] 50 mg PO DAILY tablet 09/11/16 Rosuvastatin [Crestor -] 20 mg PO HS tablet 09/11/16 Duloxetine HCl [Cymbalta -] 60 mg PO DAILY 01/02/17 Furosemide [Lasix -] 40 mg PO DAILY 01/02/17 Insulin Glargine,Hum.rec.anlog [Basaglwilian Umana U-100] 0 unit SQ AM 01/02/17 Insulin Glargine,Hum.rec.anlog [Eliaaglwilian Umana U-100] 80 unit SQ HS 01/02/17 Olanzapine [Zyprexa -] 10 mg PO HS 01/02/17 Review of Systems - Review of Systems Constitutional: reports: Malaise Eyes: reports: No Symptoms HENT: reports: Nasal Congestion Neck: reports: No Symptoms Cardiovascular: reports: Shortness of Breath Respiratory: reports: Exercise Intolerance, SOB, SOB on Exertion Gastrointestinal: reports: No Symptoms Genitourinary: reports: Frequency Breasts: reports: No Symptoms Reported Musculoskeletal: reports: Muscle Cramps, Muscle Weakness Integumentary: reports: No Symptoms Neurological: reports: Weakness Endocrine: reports: Unexplained Weight Gain Physical Exam Vital Signs: Vital Signs Temperature 97.6 F 02/09/20 20:40 Pulse Rate 104 H 02/09/20 20:40 Respiratory Rate 02/09/20 20:40 Blood Pressure 151/72 02/09/20 20:40 O2 Sat by Pulse Oximetry (%) 98 02/09/20 20:40 Constitutional: Yes: Anxious Eyes: Yes: WNL HENT: Yes: Normocephalic Neck: Yes: Trachea Midline Labs: CBC, BMP 02/09/20 09:20 02/09/20 13:40 Problem List - Problems (1) Type 2 diabetes mellitus with diabetic neuropathic arthropathy Problems reviewed: Yes Code(s): E11.610 - TYPE 2 DIABETES MELLITUS W DIABETIC NEUROPATHIC ARTHROPATHY (2) COPD exacerbation Problems reviewed: Yes Code(s): J44.1 - CHRONIC OBSTRUCTIVE PULMONARY DISEASE W (ACUTE) EXACERBATION (3) Shortness of breath Problems reviewed: Yes Code(s): R06.02 - SHORTNESS OF BREATH (4) Tachycardia Code(s): R00.0 - TACHYCARDIA, UNSPECIFIED Assessment/Plan Current Active Problem dmt2 CHF (congestive heart failure) (Acute) COPD exacerbation (Acute) Leukocytosis (Acute) Shortness of breath (Acute) Tachycardia (Acute) Abnormal Lab Results 02/09/20 02/09/20 02/09/20 09:20 09:20 13:40 WBC 13.9 H MCHC 31.9 L Absolute Neuts (auto) 12.8 H Neutrophils % 92.1 H D Neutrophils % (Manual) 96.9 H Lymphocytes % 5.7 L D Lymphocytes % (Manual) 3.1 L Monocytes % 1.8 L Monocytes % (Manual) 0 L Sodium 134 L Random Glucose 362 H 458 H* Laboratory Results - last 24 hr 02/08/20 02/09/20 02/09/20 02:05 06:18 09:20 WBC 13.9 H RBC 5.16 Hgb 13.6 Hct 42.8 MCV 82.8 MCH 26.4 MCHC 31.9 L RDW 15.5 Plt Count 272 MPV 7.9 Absolute Neuts (auto) 12.8 H Neutrophils % 92.1 H D Neutrophils % (Manual) 96.9 H Band Neutrophils % 0.0 Lymphocytes % 5.7 L D Lymphocytes % (Manual) 3.1 L Monocytes % 1.8 L Monocytes % (Manual) 0 L Eosinophils % 0.0 D Eosinophils % (Manual) 0.0 Basophils % 0.4 Basophils % (Manual) 0.0 Myelocytes % (Man) 0 Promyelocytes % (Man) 0 Blast Cells % (Manual) 0 Nucleated RBC % 0 Metamyelocytes 0 Hypochromia 0 Platelet Estimate Normal Polychromasia 0 Poikilocytosis 0 Anisocytosis 1+ Microcytosis 1+ Macrocytosis 0 Sodium Potassium Chloride Carbon Dioxide Anion Gap BUN Creatinine Est GFR (CKD-EPI)AfAm Est GFR (CKD-EPI)NonAf POC Glucometer 284 Random Glucose Calcium COVID-19 ([facility]) Not detected 02/09/20 02/09/20 02/09/20 09:20 11:52 13:40 WBC RBC Hgb Hct MCV MCH MCHC RDW Plt Count MPV Absolute Neuts (auto) Neutrophils % Neutrophils % (Manual) Band Neutrophils % Lymphocytes % Lymphocytes % (Manual) Monocytes % Monocytes % (Manual) Eosinophils % Eosinophils % (Manual) Basophils % Basophils % (Manual) Myelocytes % (Man) Promyelocytes % (Man) Blast Cells % (Manual) Nucleated RBC % Metamyelocytes Hypochromia Platelet Estimate Polychromasia Poikilocytosis Anisocytosis Microcytosis Macrocytosis Sodium 134 L Potassium 4.1 Chloride 99 Carbon Dioxide 24 Anion Gap 10 BUN 16.1 Creatinine 0.9 Est GFR (CKD-EPI)AfAm 104.98 Est GFR (CKD-EPI)NonAf 90.58 POC Glucometer 462 Random Glucose 362 H 458 H* Calcium 9.1 COVID-19 ([facility]) 02/09/20 02/09/20 16:52 21:12 WBC RBC Hgb Hct MCV MCH MCHC RDW Plt Count MPV Absolute Neuts (auto) Neutrophils % Neutrophils % (Manual) Band Neutrophils % Lymphocytes % Lymphocytes % (Manual) Monocytes % Monocytes % (Manual) Eosinophils % Eosinophils % (Manual) Basophils % Basophils % (Manual) Myelocytes % (Man) Promyelocytes % (Man) Blast Cells % (Manual) Nucleated RBC % Metamyelocytes Hypochromia Platelet Estimate Polychromasia Poikilocytosis Anisocytosis Microcytosis Macrocytosis Sodium Potassium Chloride Carbon Dioxide Anion Gap BUN Creatinine Est GFR (CKD-EPI)AfAm Est GFR (CKD-EPI)NonAf POC Glucometer 389 409 Random Glucose Calcium COVID-19 ([facility]) plan: psych consultation cymbalta 60mg daily bgm achs novolog scale Laboratory Tests 09/08/16 09/09/16 09/09/16 23:08 05:02 08:20 POC Glucometer 285.49758 262 Random Glucose 225 H D Hemoglobin A1c % 09/09/16 09/09/16 09/09/16 11:26 16:12 22:36 POC Glucometer 254 197 314 Random Glucose Hemoglobin A1c % 02/08/20 05:30 POC Glucometer Random Glucose Hemoglobin A1c % 9.7 H levemir 40 bid scale titration insulin doses
[2020-02-09] MEDS ORDERED: DULoxetine HCL 60 MG CAPSULE.DR PO ONE (23:31)
[2020-02-10] MEDS: methylPREDNISolone NA SUCC 40 MG/1 ML VIAL IVPUSH SCH (01:14)
[2020-02-10] MEDS ORDERED: INSULIN (NOVOLOG) ASPART 100 UNITS/ML 10ML VIAL ONE (04:45)
--- NOTE | 2020-02-10 05:50 | PN ---
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 Past few weeks noticed gradually worsening hyman. No cp palps dizzy loc pnd orthopnea le edema. pmh: per hpi psh: cath social: ex tob fam: no premature cad, scd - Current Medication List Current Medications: Active Medications Albuterol/Ipratropium (Duoneb -) 1 amp NEB Q4H PRN PRN Reason: SHORTNESS OF BREATH Aspirin (Ecotrin -) 81 mg PO DAILY [facility] Last Admin: 02/09/20 10:37 Dose: 81 mg Documented by: Budesonide/Formoterol Fumarate (Symbicort 80/4.5mcg -) 2 puff IH BID [facility] Last Admin: 02/09/20 21:25 Dose: 2 puff Documented by: Carvedilol (Coreg -) 12.5 mg PO BID [facility] Last Admin: 02/09/20 21:14 Dose: 12.5 mg Documented by: Duloxetine HCl (Cymbalta -) 60 mg PO DAILY [facility] Last Admin: 02/09/20 23:28 Dose: 60 mg Documented by: Enoxaparin Sodium (Lovenox -) 40 mg SQ DAILY [facility] Last Admin: 02/09/20 10:37 Dose: 40 mg Documented by: Furosemide (Lasix Injection -) 40 mg IVPUSH DAILY [facility] Last Admin: 02/09/20 10:36 Dose: 40 mg Documented by: Gabapentin (Neurontin -) 600 mg PO BID [facility] Last Admin: 02/09/20 21:14 Dose: 600 mg Documented by: Azithromycin 250 mg/ Dextrose 250 mls @ 250 mls/hr IVPB DAILY [facility] Last Admin: 02/09/20 10:35 Dose: 250 mls/hr Documented by: Insulin Aspart (Novolog Vial Sliding Scale -) 1 vial SQ ACHS [facility]; Protocol Insulin Detemir (Levemir Vial) 40 units SQ BID [facility] Losartan Potassium (Cozaar -) 50 mg PO DAILY [facility] Last Admin: 02/09/20 10:37 Dose: 50 mg Documented by: Methylprednisolone Sodium Succinate (Solu-Medrol -) 40 mg IVPUSH Q8H-IV [facility] Last Admin: 02/10/20 01:14 Dose: 40 mg Documented by: Rosuvastatin Calcium (Crestor -) 20 mg PO HS [facility] Last Admin: 02/09/20 21:14 Dose: 20 mg Documented by: - Objective Vital Signs: Vital Signs Temperature 98.5 F 02/09/20 22:00 Pulse Rate 105 H 02/09/20 22:00 Respiratory Rate 20 02/09/20 22:00 Blood Pressure 115/76 02/09/20 22:00 O2 Sat by Pulse Oximetry (%) 94 L 02/09/20 22:00 Constitutional: Yes: Calm Cardiovascular: Yes: Tachycardia Respiratory: Yes: CTA Bilaterally (non rales or wheezing) Gastrointestinal: Yes: Soft, Abdomen, Obese Edema: No Neurological: Yes: Alert, Oriented ...Motor Strength: WNL Labs: CBC, BMP 02/09/20 09:20 02/09/20 13:40 INR, PTT INR 1.01 (0.83-1.09) 02/07/20 23:20 Laboratory Tests 02/07/20 02/10/20 02/10/20 22:10 06:30 06:30 WBC 19.7 H Hgb 14.3 Plt Count 319 Sodium 137 Potassium 4.2 Creatinine 1.1 B-Natriuretic Peptide 544.0 H Assessment/Plan ecg: sinus tach, 1st avb nl qtc no ischemic changes ct chest: trace effs a/p: 64 m hx 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 sob, acute on chronic syst chf, copd, pna: -mild vol overload, cont iv lasix, daily wt/chem7 -also copd and pna contributing, cont abx/steroids, pulm following -no signs acs -echo here with stable findings, lvef mod reduced. -cont coreg, cozaar cad: -stable, no signs acs -recent mibi 08/2018 showed stable, chronic finding of mild inf ischemia 2/2 to known in processing instructor-->cont med rx with bb, statin, asa. hld: -cont statin Tachycardia: -Repeat 12 lead ECG
[2020-02-10] MEDS: INSULIN SLIDING SCALE (NOVOLOG) 1 VIAL SQ SCH ×4 (06:12→21:34)
[2020-02-10] MEDS ORDERED: INSULIN SLIDING SCALE (NOVOLOG) 1 VIAL SQ SCH (07:00)
[2020-02-10 07:18] LABS: BASO % 0.2 % (0-2.0); HEMATOCRIT 43.7 % (35.4-49); HEMOGLOBIN 14.3 GM/dL (11.7-16.9); LYMPH % 5.4 % (8-40); MCH 26.9 pg (25.7-33.7); MCHC 32.7 g/dl (32.0-35.9); MEAN CELL VOLUME 82.4 fl (80-96); MEAN PLT VOLUME 8.1 fl (7.5-11.1); NEUT % 92.4 % (42.8-82.8); PLATELET COUNT 319 K/MM3 (134-434); RDW 15.7 % (11.9-15.9); WHITE BLOOD COUNT 19.7 K/mm3 (4.0-10.0)
[2020-02-10 07:47] LABS: BLOOD UREA NITROGEN 25.4 mg/dL (7-18); CALCIUM 9.3 mg/dL (8.5-10.1); CREATININE 1.1 mg/dL (0.55-1.3); POTASSIUM 4.2 mmol/L (3.5-5.1)
--- NOTE | 2020-02-10 07:52 | PN ---
Progress Note, Physician - Current Medication List Current Medications: Active Medications Albuterol/Ipratropium (Duoneb -) 1 amp NEB Q4H PRN PRN Reason: SHORTNESS OF BREATH Aspirin (Ecotrin -) 81 mg PO DAILY [facility] Last Admin: 02/09/20 10:37 Dose: 81 mg Documented by: Budesonide/Formoterol Fumarate (Symbicort 80/4.5mcg -) 2 puff IH BID [facility] Last Admin: 02/09/20 21:25 Dose: 2 puff Documented by: Carvedilol (Coreg -) 12.5 mg PO BID [facility] Last Admin: 02/09/20 21:14 Dose: 12.5 mg Documented by: Duloxetine HCl (Cymbalta -) 60 mg PO BID [facility] Enoxaparin Sodium (Lovenox -) 40 mg SQ DAILY [facility] Last Admin: 02/09/20 10:37 Dose: 40 mg Documented by: Gabapentin (Neurontin -) 600 mg PO BID [facility] Last Admin: 02/09/20 21:14 Dose: 600 mg Documented by: Azithromycin 250 mg/ Dextrose 250 mls @ 250 mls/hr IVPB DAILY [facility] Last Admin: 02/09/20 10:35 Dose: 250 mls/hr Documented by: Insulin Aspart (Novolog Vial Sliding Scale -) 1 vial SQ ACHS [facility]; Protocol Last Admin: 02/10/20 06:12 Dose: 10 units Documented by: Insulin Detemir (Levemir Vial) 40 units SQ BID [facility] Losartan Potassium (Cozaar -) 50 mg PO DAILY [facility] Last Admin: 02/09/20 10:37 Dose: 50 mg Documented by: Prednisone (Deltasone -) 60 mg PO DAILY [facility] Rosuvastatin Calcium (Crestor -) 20 mg PO HS [facility] Last Admin: 02/09/20 21:14 Dose: 20 mg Documented by: - Objective Vital Signs: Vital Signs Temperature 97.1 F L 02/10/20 06:00 Pulse Rate 107 H 02/10/20 06:00 Respiratory Rate 20 02/10/20 06:00 Blood Pressure 114/60 02/10/20 06:00 O2 Sat by Pulse Oximetry (%) 93 L 02/10/20 06:00 Cardiovascular: Yes: Tachycardia, Pulse Irregular, S1, S2 Respiratory: Yes: Regular, CTA Bilaterally Gastrointestinal: Yes: Normal Bowel Sounds, Soft Labs: CBC, BMP 02/10/20 06:30 02/10/20 06:30 INR, PTT INR 1.01 (0.83-1.09) 02/07/20 23:20 Problem List - Problems (1) CHF (congestive heart failure) Assessment/Plan: - 40 IV lasix daily--to PO - CT noted--effusion - Echo ordered - restarted home meds -EF 35-40% Code(s): I50.9 - HEART FAILURE, UNSPECIFIED Qualifiers: Heart failure type: systolic (2) COPD exacerbation Assessment/Plan: - IV steroids started by pulm--to po - started PRN duonebs and [facility] symbicort Code(s): J44.1 - CHRONIC OBSTRUCTIVE PULMONARY DISEASE W (ACUTE) EXACERBATION (3) coronary artery disease Assessment/Plan: stable same meds (4) Leukocytosis Assessment/Plan: -CT noted - ID consult - on azithromycin - pulm consulted Code(s): D72.829 - ELEVATED WHITE BLOOD CELL COUNT, UNSPECIFIED (5) Tachycardia Assessment/Plan: on coreg cardio ekg now ??h/o afib--review and await cardio opinion Code(s): R00.0 - TACHYCARDIA, UNSPECIFIED (6) DM Diabetes mellitus type 2 Assessment/Plan: - holding home DM meds - BGMs ACHS - ISS - A1C 9.1 - Endo Code(s): E11.9 - TYPE 2 DIABETES MELLITUS WITHOUT COMPLICATIONS
[2020-02-10] MEDS ORDERED: PT OWN MED DRAWER 7, Y5N ONE (08:58)
[2020-02-10] MEDS: AZITHROMYCIN IVPB 250 MG in DEXTROSE 5%-WATER - 250 ML IVPB SCH (09:32)
[2020-02-10] MEDS: DULoxetine HCL 30 MG CAPSULE.DR PO SCH ×2 (09:32→21:31)
[2020-02-10] MEDS: predniSONE 20 MG TABLET (UD) PO SCH (09:32)
[2020-02-10] MEDS: CARVEDILOL 12.5 MG TABLET (FP) PO SCH ×2 (09:33→21:31)
[2020-02-10] MEDS: GABAPENTIN 300 MG CAPSULE PO SCH ×2 (09:33→21:31)
[2020-02-10] MEDS: LOSARTAN POTASSIUM 50 MG TABLET (FP) PO SCH (09:33)
[2020-02-10] MEDS: ASPIRIN COATED 81 MG TABLET.EC PO SCH (09:33)
[2020-02-10] MEDS: ENOXAPARIN NA (PORCINE) 40 MG/0.4 ML DISP.SYRIN SQ SCH (09:33)
[2020-02-10] MEDS: BUDESONIDE/FORMETEROL FUMARATE 80/4.5 mcg INHALER IH SCH ×2 (09:34→21:34)
[2020-02-10 10:14] LABS: ANISOCYTOSIS 2+; MACROCYTOSIS 0; PLATELET ESTIMATE NORMAL; TEAR DROP CELLS 1+
[2020-02-10] MEDS: INSULIN (LEVEMIR) 100 UNITS/ML UNITS SQ SCH ×2 (10:54→21:35)
[2020-02-10] MEDS: FUROSEMIDE 40 MG TABLET (FP) PO SCH (12:12)
--- NOTE | 2020-02-10 12:30 | EKG ---
Test Reason : Blood Pressure : / mmHG Vent. Rate : 114 BPM Atrial Rate : 098 BPM P-R Int : 000 ms QRS Dur : 094 ms QT Int : 366 ms P-R-T Axes : 000 -09 -09 degrees QTc Int : 504 ms ATRIAL FIBRILLATION WITH RAPID VENTRICULAR RESPONSE CANNOT RULE OUT INFERIOR INFARCT , AGE UNDETERMINED ABNORMAL ECG WHEN COMPARED WITH ECG OF 07-FEB-2020 21:42, ATRIAL FIBRILLATION HAS REPLACED SINUS RHYTHM MINIMAL CRITERIA FOR INFERIOR INFARCT ARE NOW PRESENT ST NO LONGER ELEVATED IN INFERIOR LEADS NONSPECIFIC T WAVE ABNORMALITY, WORSE IN INFERIOR LEADS Confirmed by NANETTE FOLRES MD ([id number]) on 02/10/2020 12:29:48 PM Referred By: RENO BAR DR Confirmed By:NANETTE FLORES MD
--- NOTE | 2020-02-10 13:00 | PN ---
Progress Note (short form) - Note Progress Note: PULMONARY AWAKE/ALERT/FEELS IMPROVED FROM ADMISSION VSS/AFEBRILE Constitutional: Yes: Calm Eyes: Yes: Conjunctiva Clear, EOM Intact HENT: Yes: Atraumatic, Normocephalic Neck: Yes: Supple, Trachea Midline Cardiovascular: Yes: Regular Rate and Rhythm Respiratory: Yes: Poor Air Entry. No: Rhonchi, Wheezes ...Clubbing: No Gastrointestinal: Yes: Normal Bowel Sounds, Soft. No: Tenderness Edema: No Neurological: Yes: Alert, Oriented Labs/Cxr/meds/notes reviewed Acute COPD Exacerbation LV Systolic Dysfunction CAD Atrial Fibrillation HTN DM Hyperlipidemia Morbid Obesity Likely ELSY - medrol - inhaled bronchodilators - O2 to keep SpO2 >90% - lasix - monitor urine output, creatinine - rate control - anticoagulation - was dxed with osas but refuses PAP Desiree CHANG MD
[2020-02-10] MEDS: APIXABAN 5 MG TABLET PO SCH ×2 (13:36→21:31)
[2020-02-10] MEDS: PANTOPRAZOLE 40 MG TABLET PO SCH (13:36)
[2020-02-10] MEDS: ROSUVASTATIN CA 20 MG TABLET (FP) PO SCH (21:31)
[2020-02-11] MEDS: INSULIN SLIDING SCALE (NOVOLOG) 1 VIAL SQ SCH ×4 (06:12→21:55)
[2020-02-11] MEDS: dilTIAZem HCL 30 MG TABLET PO SCH ×2 (07:27→11:33)
[2020-02-11] MEDS: dilTIAZem HCL 25 MG/5 ML - 5 ML VIAL IVPUSH PRN (08:47)
[2020-02-11] MEDS: CARVEDILOL 12.5 MG TABLET (FP) PO SCH ×2 (09:54→21:52)
[2020-02-11] MEDS: PANTOPRAZOLE 40 MG TABLET PO SCH (09:54)
[2020-02-11] MEDS: FUROSEMIDE 40 MG TABLET (FP) PO SCH (09:54)
[2020-02-11] MEDS: ASPIRIN COATED 81 MG TABLET.EC PO SCH (09:54)
[2020-02-11] MEDS: DULoxetine HCL 30 MG CAPSULE.DR PO SCH ×2 (09:54→21:52)
[2020-02-11] MEDS: predniSONE 20 MG TABLET (UD) PO SCH (09:55)
[2020-02-11] MEDS: APIXABAN 5 MG TABLET PO SCH ×2 (09:55→21:52)
[2020-02-11] MEDS: GABAPENTIN 300 MG CAPSULE PO SCH ×2 (09:55→21:53)
[2020-02-11] MEDS: BUDESONIDE/FORMETEROL FUMARATE 80/4.5 mcg INHALER IH SCH ×2 (09:55→21:56)
[2020-02-11] MEDS: LOSARTAN POTASSIUM 50 MG TABLET (FP) PO SCH (09:56)
[2020-02-11] MEDS: INSULIN (LEVEMIR) 100 UNITS/ML UNITS SQ SCH ×2 (11:29→21:54)
[2020-02-11] MEDS: AZITHROMYCIN IVPB 250 MG in DEXTROSE 5%-WATER - 250 ML IVPB SCH (11:30)
--- NOTE | 2020-02-11 11:45 | PN ---
Progress Note (short form) - Note Progress Note: PULMONARY SPEAKING ON PHONE APPEARS STABLE VSS/AFEBRILE Constitutional: Yes: Calm Eyes: Yes: Conjunctiva Clear, EOM Intact HENT: Yes: Atraumatic, Normocephalic Neck: Yes: Supple, Trachea Midline Cardiovascular: Yes: Regular Rate and Rhythm Respiratory: Yes: Poor Air Entry. No: Rhonchi, Wheezes ...Clubbing: No Gastrointestinal: Yes: Normal Bowel Sounds, Soft. No: Tenderness Edema: No Neurological: Yes: Alert, Oriented Labs/Cxr/meds/notes reviewed Acute COPD Exacerbation resolving LV Systolic Dysfunction CAD Atrial Fibrillation HTN DM Hyperlipidemia Morbid Obesity Likely ELSY - prednisone to be tapered - inhaled bronchodilators - O2 to keep SpO2 >90% - lasix - monitor urine output, creatinine - rate control - anticoagulation - was dxed with osas but refuses PAP Desiree CHANG MD
--- NOTE | 2020-02-11 12:29 | PN ---
Progress Note (short form) - Note Progress Note: cc: sob s: no chest pain, palps, dizziness, dyspnea. transferred to telemetry yesterday for tachycardia former smoker Current Medications Generic Name Dose Route Start Last Admin Trade Name Paul PRN Reason Stop Dose Admin Albuterol/Ipratropium 1 amp 02/08/20 05:03 Duoneb - NEB Q4H PRN SHORTNESS OF BREATH Apixaban 5 mg 02/10/20 12:30 02/11/20 09:55 Eliquis - PO 5 mg BID ROGERS Administration Aspirin 81 mg 02/08/20 10:00 02/11/20 09:54 Ecotrin - PO 81 mg DAILY ROGERS Administration Budesonide/Formoterol Fumarate 2 puff 02/08/20 10:00 02/11/20 09:55 Symbicort 80/4.5mcg - IH 2 puff BID [facility]ERS Administration Carvedilol 12.5 mg 02/08/20 10:00 02/11/20 09:54 Coreg - PO 12.5 mg BID R[facility]ERS Administration Diltiazem HCl 10 mg 02/11/20 07:21 02/11/20 08:47 Cardizem Injection - IVPUSH 10 mg Q4H PRN Administration HR >150 Diltiazem HCl 60 mg 02/11/20 12:25 Cardizem - PO Q6HPO [facility] Duloxetine HCl 60 mg 02/10/20 10:00 02/11/20 09:54 Cymbalta - PO 60 mg BID [facility] Administration Furosemide 40 mg 02/10/20 11:45 02/11/20 09:54 Lasix - PO 40 mg DAILY [facility]ERS Administration Gabapentin 600 mg 02/08/20 10:00 02/11/20 09:55 Neurontin - PO 600 mg BID [facility] Administration Azithromycin 250 mg/ Dextrose 250 mls @ 250 mls/hr 02/08/20 10:00 02/11/20 11:30 IVPB 250 mls/hr DAILY [facility] Administration Insulin Aspart 1 vial 02/10/20 07:00 02/11/20 11:30 Novolog Vial Sliding Scale - SQ 12 units ACHS R[facility]ERS Administration Protocol Insulin Detemir 40 units 02/09/20 23:05 02/11/20 11:29 Levemir Vial SQ 40 units BID [facility] Administration Losartan Potassium 50 mg 02/08/20 10:00 02/11/20 09:56 Cozaar - PO 50 mg DAILY [facility] Administration Pantoprazole Sodium 40 mg 02/10/20 12:30 02/11/20 09:54 Protonix - PO 40 mg DAILY R[facility]ERS Administration Prednisone 40 mg 02/12/20 10:00 Deltasone - PO DAILY ROGERS Rosuvastatin Calcium 20 mg 02/08/20 22:00 02/10/20 21:31 Crestor - PO 20 mg HS [facility]OGERS Administration Vital Signs Period Temp Pulse Resp BP Sys/Irwin Pulse Ox Last 24 Hr 97.3 F-98.2 F 82-117 19-20 106-144/63-77 92-100 Constitutional: Yes: Calm Cardiovascular: Yes: rrr, nl s1, s2 Respiratory: Yes: CTA Bilaterally (non rales or wheezing) Gastrointestinal: Yes: Soft, Abdomen, Obese Edema: No Neurological: Yes: Alert, Oriented no jaundice, diaphoresis not agitated ecg: sinus tach, 1st avb nl qtc no ischemic changes ct chest: trace effs tele: sinus rhythm with frequent episodes of afib with RVR 150s-170s a/p: 64 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 sob, acute on chronic syst chf, copd, pna: - diuresed with IV lasix, appears euvolemic now on PO lasix 40 mg daily -also copd and pna contributing, cont abx/steroids, pulm following -no signs acs -echo here with stable findings, lvef mod reduced. 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 hld: -cont statin afib - episodes RVR, transferred to telemetry - per patient this is not a new diagnosis - was told he had a fast heart rate many years ago but was not on AC - cont eliquis - cont cardizem, increase to 60 mg Q6H
--- NOTE | 2020-02-11 12:59 | PN ---
Progress Note, Physician - Current Medication List Current Medications: Active Medications Albuterol/Ipratropium (Duoneb -) 1 amp NEB Q4H PRN PRN Reason: SHORTNESS OF BREATH Apixaban (Eliquis -) 5 mg PO BID [facility] Last Admin: 02/11/20 09:55 Dose: 5 mg Documented by: Aspirin (Ecotrin -) 81 mg PO DAILY [facility] Last Admin: 02/11/20 09:54 Dose: 81 mg Documented by: Budesonide/Formoterol Fumarate (Symbicort 80/4.5mcg -) 2 puff IH BID [facility] Last Admin: 02/11/20 09:55 Dose: 2 puff Documented by: Carvedilol (Coreg -) 12.5 mg PO BID [facility] Last Admin: 02/11/20 09:54 Dose: 12.5 mg Documented by: Diltiazem HCl (Cardizem Injection -) 10 mg IVPUSH Q4H PRN PRN Reason: HR >150 Last Admin: 02/11/20 08:47 Dose: 10 mg Documented by: Diltiazem HCl (Cardizem -) 60 mg PO Q6HPO [facility] Duloxetine HCl (Cymbalta -) 60 mg PO BID [facility] Last Admin: 02/11/20 09:54 Dose: 60 mg Documented by: Furosemide (Lasix -) 40 mg PO DAILY [facility] Last Admin: 02/11/20 09:54 Dose: 40 mg Documented by: Gabapentin (Neurontin -) 600 mg PO BID [facility] Last Admin: 02/11/20 09:55 Dose: 600 mg Documented by: Azithromycin 250 mg/ Dextrose 250 mls @ 250 mls/hr IVPB DAILY [facility] Last Admin: 02/11/20 11:30 Dose: 250 mls/hr Documented by: Insulin Aspart (Novolog Vial Sliding Scale -) 1 vial SQ ACHS [facility]; Protocol Last Admin: 02/11/20 11:30 Dose: 12 units Documented by: Insulin Detemir (Levemir Vial) 40 units SQ BID [facility] Last Admin: 02/11/20 11:29 Dose: 40 units Documented by: Losartan Potassium (Cozaar -) 50 mg PO DAILY [facility] Last Admin: 02/11/20 09:56 Dose: 50 mg Documented by: Pantoprazole Sodium (Protonix -) 40 mg PO DAILY [facility] Last Admin: 02/11/20 09:54 Dose: 40 mg Documented by: Prednisone (Deltasone -) 40 mg PO DAILY [facility] Rosuvastatin Calcium (Crestor -) 20 mg PO HS [facility] Last Admin: 02/10/20 21:31 Dose: 20 mg Documented by: - Objective Vital Signs: Vital Signs Temperature 97.3 F L 02/11/20 10:00 Pulse Rate 110 H 02/11/20 10:00 Respiratory Rate 20 02/11/20 10:00 Blood Pressure 106/63 02/11/20 10:00 O2 Sat by Pulse Oximetry (%) 100 02/11/20 09:00 Cardiovascular: Yes: S1, S2 Respiratory: Yes: Regular, CTA Bilaterally Gastrointestinal: Yes: Normal Bowel Sounds, Soft. No: Tenderness Labs: CBC, BMP 02/10/20 06:30 02/10/20 06:30 INR, PTT INR 1.01 (0.83-1.09) 02/07/20 23:20 Problem List - Problems (1) CHF (congestive heart failure) Assessment/Plan: - 40 IV lasix daily--to PO - CT noted--effusion - Echo ordered - restarted home meds -EF 35-40% Code(s): I50.9 - HEART FAILURE, UNSPECIFIED Qualifiers: Heart failure type: systolic (2) COPD exacerbation Assessment/Plan: - IV steroids started by pulm--to po - started PRN duonebs and ROGERS symbicort Code(s): J44.1 - CHRONIC OBSTRUCTIVE PULMONARY DISEASE W (ACUTE) EXACERBATION (3) coronary artery disease Assessment/Plan: stable same meds (4) Leukocytosis Assessment/Plan: -CT noted - ID consult - on azithromycin - pulm consulted Code(s): D72.829 - ELEVATED WHITE BLOOD CELL COUNT, UNSPECIFIED (5) Tachycardia Assessment/Plan: on coreg cardio ekg noted Code(s): R00.0 - TACHYCARDIA, UNSPECIFIED (6) DM Diabetes mellitus type 2 Assessment/Plan: - holding home DM meds - BGMs ACHS - ISS - A1C 9.1 - Endo Code(s): E11.9 - TYPE 2 DIABETES MELLITUS WITHOUT COMPLICATIONS (7) Afib Assessment/Plan: Orders 02/10/20 12:30 Apixaban [Eliquis -] 5 mg PO BID Carvedilol [Coreg -] 12.5 mg PO BID Diltiazem [Cardizem -] 60 mg PO Q6HPO Code(s): I48.91 - UNSPECIFIED ATRIAL FIBRILLATION
[2020-02-11] MEDS ORDERED: INSULIN (LEVEMIR) 100 UNITS/ML UNITS SQ SCH (13:01)
--- NOTE | 2020-02-11 14:28 | PN ---
Progress Note (short form) - Note Progress Note: high sugars remain likely steroid stress and dyspnea Current Active Problems Afib (Acute) CHF (congestive heart failure) (Acute) COPD exacerbation (Acute) Leukocytosis (Acute) Shortness of breath (Acute) Tachycardia (Acute) Type 2 diabetes mellitus with diabetic neuropathic arthropathy (Acute) Laboratory Results - last 24 hr 02/10/20 02/10/20 02/11/20 17:01 21:28 06:07 POC Glucometer 392 301 199 02/11/20 11:24 POC Glucometer 315 plan: \bgm achs novolog scale levemir dose 50units bid nutrition diet and follow up cgms sensor Problem List - Problems (1) Type 2 diabetes mellitus with diabetic neuropathic arthropathy Problems reviewed: Yes Code(s): E11.610 - TYPE 2 DIABETES MELLITUS W DIABETIC NEUROPATHIC ARTHROPATHY (2) COPD exacerbation Problems reviewed: Yes Code(s): J44.1 - CHRONIC OBSTRUCTIVE PULMONARY DISEASE W (ACUTE) EXACERBATION (3) Shortness of breath Problems reviewed: Yes Code(s): R06.02 - SHORTNESS OF BREATH (4) Tachycardia Problems reviewed: Yes Code(s): R00.0 - TACHYCARDIA, UNSPECIFIED
[2020-02-11] MEDS: dilTIAZem HCL 60 MG TABLET PO SCH ×2 (17:14→23:50)
[2020-02-11] MEDS ORDERED: INSULIN (NOVOLOG) ASPART 100 UNITS/ML 10ML VIAL ONE (21:09)
[2020-02-11] MEDS: ROSUVASTATIN CA 20 MG TABLET (FP) PO SCH (21:52)
[2020-02-12] MEDS: INSULIN SLIDING SCALE (NOVOLOG) 1 VIAL SQ SCH ×4 (06:39→21:34)
[2020-02-12] MEDS: dilTIAZem HCL 60 MG TABLET PO SCH (06:39)
[2020-02-12 06:40] LABS: EOS % 0.1 % (0-4.5); WHITE BLOOD COUNT 15.6 K/mm3 (4.0-10.0)
[2020-02-12 07:08] LABS: ALBUMIN 3.3 g/dl (3.4-5.0); BILIRUBIN,TOTAL 0.7 mg/dL (0.2-1); BLOOD UREA NITROGEN 27.4 mg/dL (7-18); CALCIUM 8.4 mg/dL (8.5-10.1); CREATININE 1.1 mg/dL (0.55-1.3); POTASSIUM 4.3 mmol/L (3.5-5.1)
[2020-02-12 07:49] LABS: BASO % 0.2 % (0-2.0); HEMATOCRIT 43.1 % (35.4-49); LYMPH % 11.9 % (8-40); MCH 26.9 pg (25.7-33.7); MCHC 32.5 g/dl (32.0-35.9); MEAN CELL VOLUME 82.8 fl (80-96); MEAN PLT VOLUME 8.3 fl (7.5-11.1); MONO % 8.9 % (3.8-10.2); NEUT % 78.9 % (42.8-82.8); PLATELET COUNT 315 K/MM3 (134-434); RBC 5.21 M/mm3 (4.00-5.60); RDW 15.4 % (11.9-15.9)
[2020-02-12] MEDS ORDERED: PT OWN MED DRAWER 7, Y5N ONE (09:53)
[2020-02-12] MEDS ORDERED: predniSONE 20 MG TABLET (UD) PO SCH (10:00)
[2020-02-12] MEDS: predniSONE 20 MG TABLET (UD) PO SCH (10:12)
[2020-02-12] MEDS: ASPIRIN COATED 81 MG TABLET.EC PO SCH (10:12)
[2020-02-12] MEDS: DULoxetine HCL 30 MG CAPSULE.DR PO SCH ×2 (10:12→21:08)
[2020-02-12] MEDS: APIXABAN 5 MG TABLET PO SCH ×2 (10:13→21:09)
[2020-02-12] MEDS: LOSARTAN POTASSIUM 50 MG TABLET (FP) PO SCH (10:13)
[2020-02-12] MEDS: CARVEDILOL 12.5 MG TABLET (FP) PO SCH ×2 (10:13→21:09)
[2020-02-12] MEDS: GABAPENTIN 300 MG CAPSULE PO SCH ×2 (10:13→21:08)
[2020-02-12] MEDS: FUROSEMIDE 40 MG TABLET (FP) PO SCH (10:13)
[2020-02-12] MEDS: PANTOPRAZOLE 40 MG TABLET PO SCH (10:13)
[2020-02-12] MEDS: AZITHROMYCIN IVPB 250 MG in DEXTROSE 5%-WATER - 250 ML IVPB SCH (10:13)
[2020-02-12] MEDS ORDERED: INSULIN (LEVEMIR) 100 UNITS/ML UNITS SQ ONE ×2 (10:15→11:10)
[2020-02-12] MEDS: INSULIN (LEVEMIR) 100 UNITS/ML UNITS SQ SCH ×2 (10:16→21:33)
[2020-02-12] MEDS ORDERED: INSULIN (NOVOLOG) ASPART 100 UNITS/ML 10ML VIAL ONE ×2 (10:16→20:51)
[2020-02-12] MEDS: BUDESONIDE/FORMETEROL FUMARATE 80/4.5 mcg INHALER IH SCH ×2 (10:23→21:15)
--- NOTE | 2020-02-12 11:51 | PN ---
Progress Note (short form) - Note Progress Note: cc: sob s: no chest pain, palps, dizziness, dyspnea. Current Medications Generic Name Dose Route Start Last Admin Trade Name Freq PRN Reason Stop Dose Admin Albuterol/Ipratropium 1 amp 02/08/20 05:03 Duoneb - NEB Q4H PRN SHORTNESS OF BREATH Apixaban 5 mg 02/10/20 12:30 02/12/20 10:13 Eliquis - PO 5 mg BID [facility] Administration Aspirin 81 mg 02/08/20 10:00 02/12/20 10:12 Ecotrin - PO 81 mg DAILY [facility] Administration Budesonide/Formoterol Fumarate 2 puff 02/08/20 10:00 02/12/20 10:23 Symbicort 80/4.5mcg - IH 2 puff BID [facility] Administration Carvedilol 12.5 mg 02/08/20 10:00 02/12/20 10:13 Coreg - PO 12.5 mg BID [facility] Administration Diltiazem HCl 10 mg 02/11/20 07:21 02/11/20 08:47 Cardizem Injection - IVPUSH 10 mg Q4H PRN Administration HR >150 Diltiazem HCl 240 mg 02/12/20 12:00 Cardizem Cd - PO DAILY [facility] Duloxetine HCl 60 mg 02/10/20 10:00 02/12/20 10:12 Cymbalta - PO 60 mg BID [facility] Administration Furosemide 40 mg 02/10/20 11:45 02/12/20 10:13 Lasix - PO 40 mg DAILY [facility] Administration Gabapentin 600 mg 02/08/20 10:00 02/12/20 10:13 Neurontin - PO 600 mg BID [facility] Administration Azithromycin 250 mg/ Dextrose 250 mls @ 250 mls/hr 02/08/20 10:00 02/12/20 10:13 IVPB 250 mls/hr DAILY [facility] Administration Insulin Aspart 1 vial 02/11/20 16:30 02/12/20 10:17 Novolog Vial Sliding Scale - SQ 15 units ACHS [facility]ERS Administration Protocol Insulin Detemir 50 units 02/11/20 22:00 02/12/20 10:16 Levemir Vial SQ 50 units BID [facility] Administration Losartan Potassium 50 mg 02/08/20 10:00 02/12/20 10:13 Cozaar - PO 50 mg DAILY [facility] Administration Pantoprazole Sodium 40 mg 02/10/20 12:30 02/12/20 10:13 Protonix - PO 40 mg DAILY [facility] Administration Prednisone 20 mg 02/12/20 10:00 02/12/20 10:12 Deltasone - PO 20 mg DAILY [facility] Administration Rosuvastatin Calcium 20 mg 02/08/20 22:00 02/11/20 21:52 Crestor - PO 20 mg HS [facility] Administration Vital Signs Period Temp Pulse Resp BP Sys/Irwin Pulse Ox Last 24 Hr 97.6 F-98 F 63-77 20-20 95-113/50-62 96-96 Constitutional: Yes: Calm Cardiovascular: Yes: rrr, nl s1, s2 Respiratory: Yes: CTA Bilaterally (non rales or wheezing) Gastrointestinal: Yes: Soft, Abdomen, Obese Edema: No Neurological: Yes: Alert, Oriented no jaundice, diaphoresis not agitated ecg: sinus tach, 1st avb nl qtc no ischemic changes ct chest: trace effs tele: sinus, PACs a/p: 64 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 sob, acute on chronic syst chf, copd, pna: - diuresed with IV lasix, appears euvolemic now on PO lasix 40 mg daily -also copd and pna contributing, cont abx/steroids, pulm following -no signs acs -echo here with stable findings, lvef mod reduced. -cont coreg, cozaar cad: -stable, no signs acs -recent mibi 08/2018 showed stable, chronic finding of mild inf ischemia 2/2 to known director emergency-->cont med rx with bb, statin, asa. hld: -cont statin afib - episodes RVR, transferred to telemetry - per patient this is not a new diagnosis - was told he had a fast heart rate many years ago but was not on AC - cont eliquis - now in sinus on cardizem, carvedilol - change cardizem to CD 240 mg daily
--- NOTE | 2020-02-12 12:09 | PN ---
Progress Note (short form) - Note Progress Note: PULMONARY APPEARS STABLE VSS/AFEBRILE Constitutional: Yes: Calm Eyes: Yes: Conjunctiva Clear, EOM Intact HENT: Yes: Atraumatic, Normocephalic Neck: Yes: Supple, Trachea Midline Cardiovascular: Yes: Regular Rate and Rhythm Respiratory: Yes: Poor Air Entry. No: Rhonchi, Wheezes ...Clubbing: No Gastrointestinal: Yes: Normal Bowel Sounds, Soft. No: Tenderness Edema: No Neurological: Yes: Alert, Oriented Labs/Cxr/meds/notes reviewed Acute COPD Exacerbation resolving LV Systolic Dysfunction CAD Atrial Fibrillation HTN DM Hyperlipidemia Morbid Obesity Likely ELSY - prednisone to be tapered - inhaled bronchodilators - O2 to keep SpO2 >90% - lasix - monitor urine output, creatinine - rate control - anticoagulation - was dxed with osas but refuses PAP Desiree CHANG MD
--- NOTE | 2020-02-12 12:10 | PN ---
Progress Note, Physician - Current Medication List Current Medications: Active Medications Albuterol/Ipratropium (Duoneb -) 1 amp NEB Q4H PRN PRN Reason: SHORTNESS OF BREATH Apixaban (Eliquis -) 5 mg PO BID [facility] Last Admin: 02/12/20 10:13 Dose: 5 mg Documented by: Aspirin (Ecotrin -) 81 mg PO DAILY [facility] Last Admin: 02/12/20 10:12 Dose: 81 mg Documented by: Budesonide/Formoterol Fumarate (Symbicort 80/4.5mcg -) 2 puff IH BID [facility] Last Admin: 02/12/20 10:23 Dose: 2 puff Documented by: Carvedilol (Coreg -) 12.5 mg PO BID [facility] Last Admin: 02/12/20 10:13 Dose: 12.5 mg Documented by: Diltiazem HCl (Cardizem Injection -) 10 mg IVPUSH Q4H PRN PRN Reason: HR >150 Last Admin: 02/11/20 08:47 Dose: 10 mg Documented by: Diltiazem HCl (Cardizem Cd -) 240 mg PO DAILY [facility] Duloxetine HCl (Cymbalta -) 60 mg PO BID [facility] Last Admin: 02/12/20 10:12 Dose: 60 mg Documented by: Furosemide (Lasix -) 40 mg PO DAILY [facility] Last Admin: 02/12/20 10:13 Dose: 40 mg Documented by: Gabapentin (Neurontin -) 600 mg PO BID [facility] Last Admin: 02/12/20 10:13 Dose: 600 mg Documented by: Azithromycin 250 mg/ Dextrose 250 mls @ 250 mls/hr IVPB DAILY [facility] Last Admin: 02/12/20 10:13 Dose: 250 mls/hr Documented by: Insulin Aspart (Novolog Vial Sliding Scale -) 1 vial SQ ACHS [facility]; Protocol Last Admin: 02/12/20 10:17 Dose: 15 units Documented by: Insulin Detemir (Levemir Vial) 50 units SQ BID [facility] Last Admin: 02/12/20 10:16 Dose: 50 units Documented by: Losartan Potassium (Cozaar -) 50 mg PO DAILY [facility] Last Admin: 02/12/20 10:13 Dose: 50 mg Documented by: Pantoprazole Sodium (Protonix -) 40 mg PO DAILY [facility] Last Admin: 02/12/20 10:13 Dose: 40 mg Documented by: Prednisone (Deltasone -) 20 mg PO DAILY [facility] Last Admin: 02/12/20 10:12 Dose: 20 mg Documented by: Rosuvastatin Calcium (Crestor -) 20 mg PO HS [facility] Last Admin: 02/11/20 21:52 Dose: 20 mg Documented by: - Objective Vital Signs: Vital Signs Temperature 97.7 F 02/12/20 06:58 Pulse Rate 63 02/12/20 06:58 Respiratory Rate 20 02/12/20 06:58 Blood Pressure 106/62 02/12/20 06:58 O2 Sat by Pulse Oximetry (%) 96 02/11/20 23:00 Cardiovascular: Yes: Regular Rate and Rhythm Respiratory: Yes: Regular, CTA Bilaterally Gastrointestinal: Yes: Normal Bowel Sounds, Soft Labs: CBC, BMP 02/12/20 05:50 02/12/20 05:50 INR, PTT INR 1.01 (0.83-1.09) 02/07/20 23:20 Problem List - Problems (1) CHF (congestive heart failure) Assessment/Plan: - 40 IV lasix daily--to PO - CT noted--effusion - Echo ordered - restarted home meds -EF 35-40% Code(s): I50.9 - HEART FAILURE, UNSPECIFIED (2) COPD exacerbation Assessment/Plan: - IV steroids started by pulm--to po - started PRN duonebs and ROGERS symbicort Code(s): J44.1 - CHRONIC OBSTRUCTIVE PULMONARY DISEASE W (ACUTE) EXACERBATION (3) coronary artery disease Assessment/Plan: stable same meds (4) Leukocytosis Assessment/Plan: -CT noted - ID consult - on azithromycin - pulm consulted Code(s): D72.829 - ELEVATED WHITE BLOOD CELL COUNT, UNSPECIFIED (5) DM Diabetes mellitus type 2 Assessment/Plan: - holding home DM meds - BGMs ACHS - ISS - A1C 9.1 - Endo Code(s): E11.9 - TYPE 2 DIABETES MELLITUS WITHOUT COMPLICATIONS (6) Afib Assessment/Plan: Orders 02/10/20 12:30 Apixaban [Eliquis -] 5 mg PO BID Carvedilol [Coreg -] 12.5 mg PO BID Diltiazem [Cardizem -] 60 mg PO Q6HPO --240 qd Code(s): I48.91 - UNSPECIFIED ATRIAL FIBRILLATION
[2020-02-12] MEDS: TRIAMCINOLONE ACET 0.1% CREAM 15 GM TUBE TP SCH (14:17)
[2020-02-12] MEDS: ROSUVASTATIN CA 20 MG TABLET (FP) PO SCH (21:10)
[2020-02-13] MEDS: dilTIAZem HCL 25 MG/5 ML - 5 ML VIAL IVPUSH PRN (02:21)
[2020-02-13] MEDS ORDERED: INSULIN (NOVOLOG) ASPART 100 UNITS/ML 10ML VIAL ONE (06:17)
[2020-02-13] MEDS: INSULIN SLIDING SCALE (NOVOLOG) 1 VIAL SQ SCH ×4 (06:18→21:28)
[2020-02-13] MEDS ORDERED: PT OWN MED DRAWER 7, Y5N ONE (09:46)
[2020-02-13] MEDS: FUROSEMIDE 40 MG TABLET (FP) PO SCH (09:48)
[2020-02-13] MEDS: BUDESONIDE/FORMETEROL FUMARATE 80/4.5 mcg INHALER IH SCH (09:48)
[2020-02-13] MEDS: AZITHROMYCIN IVPB 250 MG in DEXTROSE 5%-WATER - 250 ML IVPB SCH (09:48)
[2020-02-13] MEDS: PANTOPRAZOLE 40 MG TABLET PO SCH (09:49)
[2020-02-13] MEDS: CARVEDILOL 12.5 MG TABLET (FP) PO SCH ×2 (09:49→21:28)
[2020-02-13] MEDS: ASPIRIN COATED 81 MG TABLET.EC PO SCH (09:49)
[2020-02-13] MEDS: predniSONE 20 MG TABLET (UD) PO SCH (09:49)
[2020-02-13] MEDS: APIXABAN 5 MG TABLET PO SCH ×2 (09:49→21:28)
[2020-02-13] MEDS: DULoxetine HCL 30 MG CAPSULE.DR PO SCH ×2 (09:49→21:28)
[2020-02-13] MEDS: LOSARTAN POTASSIUM 50 MG TABLET (FP) PO SCH (09:49)
[2020-02-13] MEDS: TRIAMCINOLONE ACET 0.1% CREAM 15 GM TUBE TP SCH (09:50)
[2020-02-13] MEDS: GABAPENTIN 300 MG CAPSULE PO SCH ×2 (09:50→21:28)
--- NOTE | 2020-02-13 11:09 | PN ---
Progress Note (short form) - Note Progress Note: cc: sob s: no chest pain, dizziness, dyspnea. overnight had palps with afib/rvr, in sr now Current Medications Generic Name Dose Route Start Last Admin Trade Name Paul PRN Reason Stop Dose Admin Apixaban 5 mg 02/10/20 12:30 02/13/20 09:49 Eliquis - PO 5 mg BID [facility] Administration Aspirin 81 mg 02/08/20 10:00 02/13/20 09:49 Ecotrin - PO 81 mg DAILY [facility] Administration Budesonide/Formoterol Fumarate 2 puff 02/08/20 10:00 02/13/20 09:48 Symbicort 80/4.5mcg - IH 2 puff BID [facility] Administration Carvedilol 12.5 mg 02/08/20 10:00 02/13/20 09:49 Coreg - PO 12.5 mg BID [facility] Administration Diltiazem HCl 10 mg 02/11/20 07:21 02/13/20 02:21 Cardizem Injection - IVPUSH 10 mg Q4H PRN Administration HR >150 Diltiazem HCl 240 mg 02/12/20 12:00 02/13/20 09:50 Cardizem Cd - PO 240 mg DAILY [facility] Administration Duloxetine HCl 60 mg 02/10/20 10:00 02/13/20 09:49 Cymbalta - PO 60 mg BID [facility] Administration Furosemide 40 mg 02/10/20 11:45 02/13/20 09:48 Lasix - PO 40 mg DAILY [facility] Administration Gabapentin 600 mg 02/08/20 10:00 02/13/20 09:50 Neurontin - PO 600 mg BID [facility] Administration Azithromycin 250 mg/ Dextrose 250 mls @ 250 mls/hr 02/08/20 10:00 02/13/20 09:48 IVPB 250 mls/hr DAILY [facility] Administration Insulin Aspart 1 vial 02/11/20 16:30 02/13/20 06:18 Novolog Vial Sliding Scale - SQ 17 units ACHS [facility] Administration Protocol Insulin Detemir 50 units 02/11/20 22:00 02/12/20 21:33 Levemir Vial SQ 50 units BID [facility] Administration Losartan Potassium 50 mg 02/08/20 10:00 02/13/20 09:49 Cozaar - PO 50 mg DAILY [facility] Administration Pantoprazole Sodium 40 mg 02/10/20 12:30 09/21/20 09:49 Protonix - PO 40 mg DAILY [facility] Administration Prednisone 20 mg 02/12/20 10:00 02/13/20 09:49 Deltasone - PO 20 mg DAILY [facility] Administration Rosuvastatin Calcium 20 mg 02/08/20 22:00 02/12/20 21:10 Crestor - PO 20 mg HS [facility] Administration Triamcinolone Acetonide 1 applic 02/12/20 12:15 02/13/20 09:50 Aristocort 0.1% Cream - TP 1 applic DAILY [facility] Administration Vital Signs Period Temp Pulse Resp BP Sys/Irwin Pulse Ox Last 24 Hr 97.3 F-98.3 F 63-101 18-20 112-135/46-80 96-98 Constitutional: Yes: Calm Cardiovascular: Yes: rrr, nl s1, s2 Respiratory: Yes: CTA Bilaterally (non rales or wheezing) Gastrointestinal: Yes: Soft, Abdomen, Obese Edema: No Neurological: Yes: Alert, Oriented no jaundice, diaphoresis not agitated CBC, BMP 02/12/20 05:50 02/12/20 05:50 ecg: sinus tach, 1st avb nl qtc no ischemic changes ct chest: trace effs tele: afib rvr overnight, in sr now a/p: 64 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 sob, acute on chronic syst chf, copd, pna: - diuresed with IV lasix, appears euvolemic now on PO lasix 40 mg daily -also copd and pna contributing, cont abx/steroids, pulm following -no signs acs -echo here with stable findings, lvef mod reduced. 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 hld: -cont statin afib - episodes RVR, transferred to telemetry - per patient this is not a new diagnosis - was told he had a fast heart rate many years ago but was not on AC - cont eliquis - now in sinus on cardizem, carvedilol, continue tele for now
[2020-02-13] MEDS: INSULIN (LEVEMIR) 100 UNITS/ML UNITS SQ SCH ×2 (11:52→21:29)
--- NOTE | 2020-02-13 12:20 | PN ---
Progress Note (short form) - Note Progress Note: PULMONARY States breathing improving. Concerned about tachycardia. Vital Signs Period Temp Pulse Resp BP Sys/Irwin Pulse Ox Last 24 Hr 97.3 F-98.3 F 63-101 18-20 112-135/46-80 96-98 Gen: NAD at rest Heart: RRR Lung: decreased breath sounds at the bases Abd: soft, nontender Ext: no edema CBC, BMP 02/12/20 05:50 02/12/20 05:50 Active Medications Apixaban (Eliquis -) 5 mg PO BID [facility] Last Admin: 02/13/20 09:49 Dose: 5 mg Documented by: Aspirin (Ecotrin -) 81 mg PO DAILY [facility] Last Admin: 02/13/20 09:49 Dose: 81 mg Documented by: Budesonide/Formoterol Fumarate (Symbicort 80/4.5mcg -) 2 puff IH BID [facility] Last Admin: 02/13/20 09:48 Dose: 2 puff Documented by: Carvedilol (Coreg -) 12.5 mg PO BID [facility] Last Admin: 02/13/20 09:49 Dose: 12.5 mg Documented by: Diltiazem HCl (Cardizem Injection -) 10 mg IVPUSH Q4H PRN PRN Reason: HR >150 Last Admin: 02/13/20 02:21 Dose: 10 mg Documented by: Diltiazem HCl (Cardizem Cd -) 240 mg PO DAILY [facility] Last Admin: 02/13/20 09:50 Dose: 240 mg Documented by: Duloxetine HCl (Cymbalta -) 60 mg PO BID [facility] Last Admin: 02/13/20 09:49 Dose: 60 mg Documented by: Furosemide (Lasix -) 40 mg PO DAILY [facility] Last Admin: 02/13/20 09:48 Dose: 40 mg Documented by: Gabapentin (Neurontin -) 600 mg PO BID [facility] Last Admin: 02/13/20 09:50 Dose: 600 mg Documented by: Azithromycin 250 mg/ Dextrose 250 mls @ 250 mls/hr IVPB DAILY [facility] Last Admin: 02/13/20 09:48 Dose: 250 mls/hr Documented by: Insulin Aspart (Novolog Vial Sliding Scale -) 1 vial SQ ACHS [facility]; Protocol Last Admin: 02/13/20 11:52 Dose: 12 units Documented by: Insulin Detemir (Levemir Vial) 50 units SQ BID [facility] Last Admin: 02/13/20 11:52 Dose: 50 units Documented by: Losartan Potassium (Cozaar -) 50 mg PO DAILY [facility] Last Admin: 02/13/20 09:49 Dose: 50 mg Documented by: Pantoprazole Sodium (Protonix -) 40 mg PO DAILY [facility] Last Admin: 02/13/20 09:49 Dose: 40 mg Documented by: Prednisone (Deltasone -) 20 mg PO DAILY [facility] Last Admin: 02/13/20 09:49 Dose: 20 mg Documented by: Rosuvastatin Calcium (Crestor -) 20 mg PO HS [facility] Last Admin: 02/12/20 21:10 Dose: 20 mg Documented by: Triamcinolone Acetonide (Aristocort 0.1% Cream -) 1 applic TP DAILY [facility] Last Admin: 02/13/20 09:50 Dose: 1 applic Documented by: A/P Acute COPD Exacerbation resolving LV Systolic Dysfunction CAD Paroxysmal Atrial Fibrillation HTN DM Hyperlipidemia Morbid Obesity Likely ELSY - prednisone taper - hold beta agonists until heart rate controlled - O2 to keep SpO2 >90% - lasix - monitor urine output, creatinine - rate control - continue anticoagulation
--- NOTE | 2020-02-13 14:47 | PN ---
Progress Note, Physician Chief Complaint: EVENTS AND NOTES REVIEWED [facility] ON TELEMETRY OVERNIGHT DENIES CHEST PAIN - Current Medication List Current Medications: Active Medications Apixaban (Eliquis -) 5 mg PO BID [facility] Last Admin: 02/13/20 09:49 Dose: 5 mg Documented by: Aspirin (Ecotrin -) 81 mg PO DAILY [facility] Last Admin: 02/13/20 09:49 Dose: 81 mg Documented by: Carvedilol (Coreg -) 12.5 mg PO BID [facility] Last Admin: 02/13/20 09:49 Dose: 12.5 mg Documented by: Diltiazem HCl (Cardizem Injection -) 10 mg IVPUSH Q4H PRN PRN Reason: HR >150 Last Admin: 02/13/20 02:21 Dose: 10 mg Documented by: Diltiazem HCl (Cardizem Cd -) 240 mg PO DAILY [facility] Last Admin: 02/13/20 09:50 Dose: 240 mg Documented by: Duloxetine HCl (Cymbalta -) 60 mg PO BID [facility] Last Admin: 02/13/20 09:49 Dose: 60 mg Documented by: Furosemide (Lasix -) 40 mg PO DAILY [facility] Last Admin: 02/13/20 09:48 Dose: 40 mg Documented by: Gabapentin (Neurontin -) 600 mg PO BID [facility] Last Admin: 02/13/20 09:50 Dose: 600 mg Documented by: Azithromycin 250 mg/ Dextrose 250 mls @ 250 mls/hr IVPB DAILY [facility] Last Admin: 02/13/20 09:48 Dose: 250 mls/hr Documented by: Insulin Aspart (Novolog Vial Sliding Scale -) 1 vial SQ ACHS [facility]; Protocol Last Admin: 02/13/20 11:52 Dose: 12 units Documented by: Insulin Detemir (Levemir Vial) 50 units SQ BID [facility] Last Admin: 02/13/20 11:52 Dose: 50 units Documented by: Losartan Potassium (Cozaar -) 50 mg PO DAILY [facility] Last Admin: 02/13/20 09:49 Dose: 50 mg Documented by: Mometasone Furoate (Asmanex 220mcg -) 2 puff IH BID [facility] Pantoprazole Sodium (Protonix -) 40 mg PO DAILY [facility] Last Admin: 02/13/20 09:49 Dose: 40 mg Documented by: Prednisone (Deltasone -) 20 mg PO DAILY [facility] Last Admin: 02/13/20 09:49 Dose: 20 mg Documented by: Rosuvastatin Calcium (Crestor -) 20 mg PO HS [facility] Last Admin: 02/12/20 21:10 Dose: 20 mg Documented by: Triamcinolone Acetonide (Aristocort 0.1% Cream -) 1 applic TP DAILY [facility] Last Admin: 02/13/20 09:50 Dose: 1 applic Documented by: - Objective Vital Signs: Vital Signs Temperature 97.3 F L 02/13/20 10:00 Pulse Rate 99 H 02/13/20 10:00 Respiratory Rate 02/13/20 10:00 Blood Pressure 135/75 02/13/20 10:00 O2 Sat by Pulse Oximetry (%) 96 02/13/20 10:00 Constitutional: Yes: Mild Distress Cardiovascular: Yes: Pulse Irregular Respiratory: Yes: WNL Gastrointestinal: Yes: Abdomen, Obese Genitourinary: Yes: WNL Edema: Yes Peripheral Pulses WNL: Yes Integumentary: Yes: WNL Neurological: Yes: Paresthesia, Pre-Existing Deficit Psychiatric: Yes: Other Labs: CBC, BMP 02/12/20 05:50 02/12/20 05:50 INR, PTT INR 1.01 (0.83-1.09) 02/07/20 23:20 Problem List - Problems (1) Bipolar disorder Code(s): F31.9 - BIPOLAR DISORDER, UNSPECIFIED (2) Afib Code(s): I48.91 - UNSPECIFIED ATRIAL FIBRILLATION (3) CHF (congestive heart failure) Code(s): I50.9 - HEART FAILURE, UNSPECIFIED Qualifiers: Heart failure type: systolic (4) COPD exacerbation Code(s): J44.1 - CHRONIC OBSTRUCTIVE PULMONARY DISEASE W (ACUTE) EXACERBATION (5) Type 2 diabetes mellitus with diabetic neuropathic arthropathy Code(s): E11.610 - TYPE 2 DIABETES MELLITUS W DIABETIC NEUROPATHIC ARTHROPATHY (6) Obesity (BMI 30-39.9) Code(s): E66.9 - OBESITY, UNSPECIFIED (7) Osteoarthritis of multiple joints Code(s): M15.9 - POLYOSTEOARTHRITIS, UNSPECIFIED (8) Uncontrolled blood glucose Code(s): R73.09 - OTHER ABNORMAL GLUCOSE Assessment/Plan WELL KNOWN TO OUR SERVICE NON-COMPLIANT DIABTEIC WITH VERY POOR LIFESTYLE AND DIET. SPOKE MULTIPLE TIMES WITH HIM AND HIS THERAPIST AND PATIENT DOES NOT FOLLOW UP AND HAS POOR DIETARY HABITS. ON TELEMETRY WITH [facility] EVAL APPRECIATED OOB TO CHAIR SHOULD BE ON AC ENDOCRINE AND NUTRITION CONSULTS ORDERED [facility]EN[facility] GIVEN CHECK LABS
[2020-02-13] MEDS: ROSUVASTATIN CA 20 MG TABLET (FP) PO SCH (21:28)
[2020-02-13] MEDS: MOMETASONE FUROATE 220 MCG/IH INHALER IH SCH (21:30)
[2020-02-13] MEDS ORDERED: MAGNESIUM HYDROX 2400MG/30ML ORAL SUSPENSION 30 ML CUP PO PRN (22:04)
[2020-02-13] MEDS: DOCUSATE SODIUM 100 MG CAPSULE (FP) PO SCH (22:24)
[2020-02-14] MEDS: INSULIN (LEVEMIR) 100 UNITS/ML UNITS SQ SCH ×2 (06:15→21:36)
[2020-02-14] MEDS: INSULIN SLIDING SCALE (NOVOLOG) 1 VIAL SQ SCH ×4 (06:15→21:39)
[2020-02-14] MEDS: DOCUSATE SODIUM 100 MG CAPSULE (FP) PO SCH ×3 (06:15→21:24)
--- NOTE | 2020-02-14 07:37 | PN ---
Progress Note, Physician History of Present Illness: pulmonary awake,feeling better,less dyspeic - Current Medication List Current Medications: Active Medications Apixaban (Eliquis -) 5 mg PO BID [facility] Last Admin: 02/13/20 21:28 Dose: 5 mg Documented by: Aspirin (Ecotrin -) 81 mg PO DAILY [facility] Last Admin: 02/13/20 09:49 Dose: 81 mg Documented by: Carvedilol (Coreg -) 12.5 mg PO BID [facility] Last Admin: 02/13/20 21:28 Dose: 12.5 mg Documented by: Diltiazem HCl (Cardizem Injection -) 10 mg IVPUSH Q4H PRN PRN Reason: HR >150 Last Admin: 02/13/20 02:21 Dose: 10 mg Documented by: Diltiazem HCl (Cardizem Cd -) 240 mg PO DAILY [facility] Last Admin: 02/13/20 09:50 Dose: 240 mg Documented by: Docusate Sodium (Colace -) 100 mg PO TID [facility] Last Admin: 02/14/20 06:15 Dose: 100 mg Documented by: Duloxetine HCl (Cymbalta -) 60 mg PO BID [facility] Last Admin: 02/13/20 21:28 Dose: 60 mg Documented by: Furosemide (Lasix -) 40 mg PO DAILY [facility] Last Admin: 02/13/20 09:48 Dose: 40 mg Documented by: Gabapentin (Neurontin -) 600 mg PO BID [facility] Last Admin: 02/13/20 21:28 Dose: 600 mg Documented by: Azithromycin 250 mg/ Dextrose 250 mls @ 250 mls/hr IVPB DAILY [facility] Last Admin: 02/13/20 09:48 Dose: 250 mls/hr Documented by: Insulin Aspart (Novolog Vial Sliding Scale -) 1 vial SQ ACHS [facility]; Protocol Last Admin: 02/14/20 06:15 Dose: Not Given Documented by: Insulin Detemir (Levemir Vial) 60 units SQ BID@0700,2200 [facility] Last Admin: 02/14/20 06:15 Dose: 60 units Documented by: Losartan Potassium (Cozaar -) 50 mg PO DAILY [facility] Last Admin: 02/13/20 09:49 Dose: 50 mg Documented by: Magnesium Hydroxide (Milk Of Magnesia -) 30 ml PO PRN PRN PRN Reason: CONSTIPATION Last Admin: 02/14/20 02:27 Dose: 30 ml Documented by: Mometasone Furoate (Asmanex 220mcg -) 2 puff IH BID [facility] Last Admin: 02/13/20 21:30 Dose: 2 inhaler Documented by: Pantoprazole Sodium (Protonix -) 40 mg PO DAILY [facility] Last Admin: 02/13/20 09:49 Dose: 40 mg Documented by: Prednisone (Deltasone -) 20 mg PO DAILY [facility] Last Admin: 02/13/20 09:49 Dose: 20 mg Documented by: Rosuvastatin Calcium (Crestor -) 20 mg PO HS [facility] Last Admin: 02/13/20 21:28 Dose: 20 mg Documented by: Senna (Senna -) 1 tab PO [facility] Triamcinolone Acetonide (Aristocort 0.1% Cream -) 1 applic TP DAILY [facility] Last Admin: 02/13/20 09:50 Dose: 1 applic Documented by: - Objective Vital Signs: Vital Signs Temperature 98.2 F 02/14/20 01:00 Pulse Rate 84 02/14/20 05:00 Respiratory Rate 20 02/14/20 05:00 Blood Pressure 125/63 02/14/20 05:00 O2 Sat by Pulse Oximetry (%) 94 L 02/13/20 21:00 Constitutional: Yes: Calm, Obese Eyes: Yes: WNL HENT: Yes: WNL Neck: Yes: WNL Cardiovascular: Yes: Regular Rate and Rhythm, S1, S2 Respiratory: Yes: Diminished Gastrointestinal: Yes: Normal Bowel Sounds, Soft Extremities: Yes: WNL Edema: No Labs: CBC, BMP Assessment/Plan A/P Acute COPD Exacerbation resolving LV Systolic Dysfunction CAD Paroxysmal Atrial Fibrillation HTN DM Hyperlipidemia Morbid Obesity Likely ELSY - prednisone taper - hold beta agonists until heart rate controlled - O2 to keep SpO2 >90% - lasix - monitor urine output, creatinine - rate control - continue anticoagulation DR ELIZALDE
--- NOTE | 2020-02-14 07:59 | PN ---
Progress Note, Physician Chief Complaint: AWAKE ALERT EVENTS ON TELEMETRY REVIEWED + ARRYTHMIAS - Current Medication List Current Medications: Active Medications Apixaban (Eliquis -) 5 mg PO BID [facility] Last Admin: 02/13/20 21:28 Dose: 5 mg Documented by: Aspirin (Ecotrin -) 81 mg PO DAILY [facility] Last Admin: 02/13/20 09:49 Dose: 81 mg Documented by: Carvedilol (Coreg -) 12.5 mg PO BID [facility] Last Admin: 02/13/20 21:28 Dose: 12.5 mg Documented by: Diltiazem HCl (Cardizem Injection -) 10 mg IVPUSH Q4H PRN PRN Reason: HR >150 Last Admin: 02/13/20 02:21 Dose: 10 mg Documented by: Diltiazem HCl (Cardizem Cd -) 240 mg PO DAILY [facility] Last Admin: 02/13/20 09:50 Dose: 240 mg Documented by: Docusate Sodium (Colace -) 100 mg PO TID [facility] Last Admin: 02/14/20 06:15 Dose: 100 mg Documented by: Duloxetine HCl (Cymbalta -) 60 mg PO BID [facility] Last Admin: 02/13/20 21:28 Dose: 60 mg Documented by: Furosemide (Lasix -) 40 mg PO DAILY [facility] Last Admin: 02/13/20 09:48 Dose: 40 mg Documented by: Gabapentin (Neurontin -) 600 mg PO BID [facility] Last Admin: 02/13/20 21:28 Dose: 600 mg Documented by: Azithromycin 250 mg/ Dextrose 250 mls @ 250 mls/hr IVPB DAILY [facility] Last Admin: 02/13/20 09:48 Dose: 250 mls/hr Documented by: Insulin Aspart (Novolog Vial Sliding Scale -) 1 vial SQ [facility]; Protocol Last Admin: 02/14/20 06:15 Dose: Not Given Documented by: Insulin Detemir (Levemir Vial) 60 units SQ BID@0700,2200 [facility] Last Admin: 02/14/20 06:15 Dose: 60 units Documented by: Losartan Potassium (Cozaar -) 50 mg PO DAILY [facility] Last Admin: 02/13/20 09:49 Dose: 50 mg Documented by: Magnesium Hydroxide (Milk Of Magnesia -) 30 ml PO PRN PRN PRN Reason: CONSTIPATION Last Admin: 02/14/20 02:27 Dose: 30 ml Documented by: Mometasone Furoate (Asmanex 220mcg -) 2 puff IH BID [facility] Last Admin: 02/13/20 21:30 Dose: 2 inhaler Documented by: Pantoprazole Sodium (Protonix -) 40 mg PO DAILY [facility] Last Admin: 02/13/20 09:49 Dose: 40 mg Documented by: Prednisone (Deltasone -) 20 mg PO DAILY [facility] Last Admin: 02/13/20 09:49 Dose: 20 mg Documented by: Rosuvastatin Calcium (Crestor -) 20 mg PO HS [facility] Last Admin: 02/13/20 21:28 Dose: 20 mg Documented by: Senna (Senna -) 1 tab PO [facility] Triamcinolone Acetonide (Aristocort 0.1% Cream -) 1 applic TP DAILY [facility] Last Admin: 02/13/20 09:50 Dose: 1 applic Documented by: - Objective Vital Signs: Vital Signs Temperature 98.2 F 02/14/20 01:00 Pulse Rate 84 02/14/20 05:00 Respiratory Rate 20 02/14/20 05:00 Blood Pressure 125/63 02/14/20 05:00 O2 Sat by Pulse Oximetry (%) 94 L 02/13/20 21:00 Constitutional: Yes: Mild Distress Cardiovascular: Yes: Pulse Irregular Respiratory: Yes: Diminished Gastrointestinal: Yes: Soft, Abdomen, Obese Genitourinary: Yes: WNL Musculoskeletal: Yes: WNL Psychiatric: Yes: Other Labs: CBC, BMP 02/12/20 05:50 02/12/20 05:50 INR, PTT INR 1.01 (0.83-1.09) 02/07/20 23:20 Problem List - Problems (1) Bipolar disorder Code(s): F31.9 - BIPOLAR DISORDER, UNSPECIFIED (2) Afib Code(s): I48.91 - UNSPECIFIED ATRIAL FIBRILLATION (3) CHF (congestive heart failure) Code(s): I50.9 - HEART FAILURE, UNSPECIFIED Qualifiers: Heart failure type: systolic (4) COPD exacerbation Code(s): J44.1 - CHRONIC OBSTRUCTIVE PULMONARY DISEASE W (ACUTE) EXACERBATION (5) Type 2 diabetes mellitus with diabetic neuropathic arthropathy Code(s): E11.610 - TYPE 2 DIABETES MELLITUS W DIABETIC NEUROPATHIC ARTHROPATHY (6) Obesity (BMI 30-39.9) Code(s): E66.9 - OBESITY, UNSPECIFIED (7) Osteoarthritis of multiple joints Code(s): M15.9 - POLYOSTEOARTHRITIS, UNSPECIFIED (8) Uncontrolled blood glucose Code(s): R73.09 - OTHER ABNORMAL GLUCOSE Assessment/Plan WELL KNOWN TO OUR SERVICE NON-COMPLIANT DIABETIC WITH VERY POOR LIFESTYLE AND DIET. SPOKE MULTIPLE TIMES WITH HIM AND HIS THERAPIST AND PATIENT DOES NOT FOLLOW UP AND HAS POOR DIETARY HABITS. ON TELEMETRY WITH [facility] EVAL APPRECIATED OOB TO CHAIR SHOULD BE ON AC ENDOCRINE AND NUTRITION CONSULTS ORDERED [facility]EN[facility] GIVEN CHECK LABS
[2020-02-14 09:22] LABS: HEMATOCRIT 45.5 % (35.4-49); MCH 27.4 pg (25.7-33.7); MCHC 32.9 g/dl (32.0-35.9); MEAN CELL VOLUME 83.4 fl (80-96); MEAN PLT VOLUME 8.5 fl (7.5-11.1); PLATELET COUNT 321 K/MM3 (134-434); RBC 5.45 M/mm3 (4.00-5.60); RDW 15.9 % (11.9-15.9); WHITE BLOOD COUNT 17.5 K/mm3 (4.0-10.0)
[2020-02-14 09:54] LABS: ALBUMIN 3.1 g/dl (3.4-5.0); BILIRUBIN,TOTAL 0.6 mg/dL (0.2-1); BLOOD UREA NITROGEN 23.3 mg/dL (7-18); CALCIUM 8.7 mg/dL (8.5-10.1); MAGNESIUM 2.2 mg/dL (1.8-2.4); POTASSIUM 4.1 mmol/L (3.5-5.1); TOT PROT 5.7 g/dl (6.4-8.2)
[2020-02-14] MEDS: DULoxetine HCL 30 MG CAPSULE.DR PO SCH ×2 (10:02→21:25)
[2020-02-14] MEDS: CARVEDILOL 12.5 MG TABLET (FP) PO SCH (10:04)
[2020-02-14] MEDS: GABAPENTIN 300 MG CAPSULE PO SCH ×2 (10:04→21:26)
[2020-02-14] MEDS: LOSARTAN POTASSIUM 50 MG TABLET (FP) PO SCH (10:04)
[2020-02-14] MEDS: ASPIRIN COATED 81 MG TABLET.EC PO SCH (10:06)
[2020-02-14] MEDS: PANTOPRAZOLE 40 MG TABLET PO SCH (10:06)
[2020-02-14] MEDS: predniSONE 20 MG TABLET (UD) PO SCH (10:06)
[2020-02-14] MEDS: FUROSEMIDE 40 MG TABLET (FP) PO SCH (10:06)
[2020-02-14] MEDS: APIXABAN 5 MG TABLET PO SCH ×2 (10:06→21:25)
[2020-02-14] MEDS: MOMETASONE FUROATE 220 MCG/IH INHALER IH SCH ×2 (10:11→21:35)
[2020-02-14] MEDS: TRIAMCINOLONE ACET 0.1% CREAM 15 GM TUBE TP SCH (10:12)
[2020-02-14] MEDS: AZITHROMYCIN IVPB 250 MG in DEXTROSE 5%-WATER - 250 ML IVPB SCH (10:22)
[2020-02-14] MEDS ORDERED: INSULIN (NOVOLOG) ASPART 100 UNITS/ML 10ML VIAL ONE (11:23)
--- NOTE | 2020-02-14 11:39 | PN ---
Progress Note (short form) - Note Progress Note: cc: sob s: no chest pain, dizziness, dyspnea, palps Current Medications Generic Name Dose Route Start Last Admin Trade Name Freq PRN Reason Stop Dose Admin Apixaban 5 mg 02/10/20 12:30 02/14/20 10:06 Eliquis - PO 5 mg BID [facility] Administration Aspirin 81 mg 02/08/20 10:00 02/14/20 10:06 Ecotrin - PO 81 mg DAILY [facility] Administration Carvedilol 25 mg 02/14/20 11:35 Coreg - PO BID [facility] Carvedilol 12.5 mg 02/14/20 11:36 Coreg - PO 02/14/20 11:37 ONCE ONE Diltiazem HCl 10 mg 02/11/20 07:21 02/13/20 02:21 Cardizem Injection - IVPUSH 10 mg Q4H PRN Administration HR >150 Diltiazem HCl 240 mg 02/12/20 12:00 02/14/20 10:02 Cardizem Cd - PO 240 mg DAILY [facility] Administration Docusate Sodium 100 mg 02/13/20 22:15 02/14/20 06:15 Colace - PO 100 mg TID [facility] Administration Duloxetine HCl 60 mg 02/10/20 10:00 02/14/20 10:02 Cymbalta - PO 60 mg BID [facility] Administration Furosemide 40 mg 02/10/20 11:45 02/14/20 10:06 Lasix - PO 40 mg DAILY [facility] Administration Gabapentin 600 mg 02/08/20 10:00 02/14/20 10:04 Neurontin - PO 600 mg BID [facility] Administration Azithromycin 250 mg/ Dextrose 250 mls @ 250 mls/hr 02/08/20 10:00 02/14/20 10:22 IVPB Not Given DAILY [facility] Insulin Aspart 1 vial 02/11/20 16:30 02/14/20 11:25 Novolog Vial Sliding Scale - SQ 12 units ACHS [facility] Administration Protocol Insulin Detemir 60 units 02/13/20 22:00 02/14/20 06:15 Levemir Vial SQ 60 units BID@0700,2200 [facility] Administration Losartan Potassium 50 mg 02/08/20 10:00 02/14/20 10:04 Cozaar - PO 50 mg DAILY [facility] Administration Magnesium Hydroxide 30 ml 02/13/20 22:04 02/14/20 02:27 Milk Of Magnesia - PO 30 ml PRN PRN Administration CONSTIPATION Mometasone Furoate 2 puff 02/13/20 22:00 02/14/20 10:11 Asmanex 220mcg - IH 2 inhaler BID [facility] Administration Pantoprazole Sodium 40 mg 02/10/20 12:30 02/14/20 10:06 Protonix - PO 40 mg DAILY [facility] Administration Prednisone 20 mg 02/12/20 10:00 02/14/20 10:06 Deltasone - PO 20 mg DAILY [facility] Administration Rosuvastatin Calcium 20 mg 02/08/20 22:00 02/13/20 21:28 Crestor - PO 20 mg HS [facility] Administration Senna 1 tab 02/14/20 22:00 Senna - PO HS [facility] Triamcinolone Acetonide 1 applic 02/12/20 12:15 02/14/20 10:12 Aristocort 0.1% Cream - TP Not Given DAILY [facility] Vital Signs Period Temp Pulse Resp BP Sys/Irwin Pulse Ox Last 24 Hr 97.3 F-98.2 F 76-107 18-20 125-139/62-91 94-94 Constitutional: Yes: Calm Cardiovascular: Yes: rrr, nl s1, s2 Respiratory: Yes: CTA Bilaterally (non rales or wheezing) Gastrointestinal: Yes: Soft, Abdomen, Obese Edema: No Neurological: Yes: Alert, Oriented no jaundice, diaphoresis not agitated ecg: sinus tach, 1st avb nl qtc no ischemic changes ct chest: trace effs tele: afib rvr episodes overnight and this AM, mostly in sinus rhythm a/p: 64 m 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 sob, acute on chronic syst chf, copd, pna: - diuresed with IV lasix, appears euvolemic now on PO lasix 40 mg daily -also copd and pna contributing, cont abx/steroids, pulm following -no signs acs -echo here with stable findings, lvef mod reduced. 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 hld: -cont statin afib - episodes RVR, transferred to telemetry - per patient this is not a new diagnosis - was told he had a fast heart rate many years ago but was not on AC - cont eliquis - mostly in sinus with several episodes afib with RVR - cont cardizem, increase carvedilol to 25 mg BID - monitor on tele
[2020-02-14] MEDS: dilTIAZem HCL 25 MG/5 ML - 5 ML VIAL IVPUSH PRN (13:14)
[2020-02-14] MEDS ORDERED: CARVEDILOL 25 MG TABLET (FP) PO ONE (13:15)
[2020-02-14] MEDS: ROSUVASTATIN CA 20 MG TABLET (FP) PO SCH (21:24)
[2020-02-14] MEDS ORDERED: SENNOSIDES 8.6MG TABLET (FP) PO SCH (22:00)
[2020-02-15] MEDS: DOCUSATE SODIUM 100 MG CAPSULE (FP) PO SCH ×2 (06:53→13:27)
[2020-02-15] MEDS: INSULIN (LEVEMIR) 100 UNITS/ML UNITS SQ SCH (07:27)
[2020-02-15] MEDS: INSULIN SLIDING SCALE (NOVOLOG) 1 VIAL SQ SCH ×2 (07:29→11:16)
--- NOTE | 2020-02-15 07:39 | PN ---
Progress Note, Physician History of Present Illness: PULMONARY ALERT,COMFORATABLE,-SOB,-CP - Current Medication List Current Medications: Active Medications Apixaban (Eliquis -) 5 mg PO BID [facility] Last Admin: 02/14/20 21:25 Dose: 5 mg Documented by: Aspirin (Ecotrin -) 81 mg PO DAILY [facility] Last Admin: 02/14/20 10:06 Dose: 81 mg Documented by: Carvedilol (Coreg -) 25 mg PO BID [facility] Diltiazem HCl (Cardizem Injection -) 10 mg IVPUSH Q4H PRN PRN Reason: HR >150 Last Admin: 02/14/20 13:14 Dose: 10 mg Documented by: Diltiazem HCl (Cardizem Cd -) 240 mg PO DAILY [facility] Last Admin: 02/14/20 10:02 Dose: 240 mg Documented by: Docusate Sodium (Colace -) 100 mg PO TID [facility] Last Admin: 02/15/20 06:53 Dose: 100 mg Documented by: Duloxetine HCl (Cymbalta -) 60 mg PO BID [facility] Last Admin: 02/14/20 21:25 Dose: 60 mg Documented by: Furosemide (Lasix -) 40 mg PO DAILY [facility] Last Admin: 02/14/20 10:06 Dose: 40 mg Documented by: Gabapentin (Neurontin -) 600 mg PO BID [facility] Last Admin: 02/14/20 21:26 Dose: 600 mg Documented by: Azithromycin 250 mg/ Dextrose 250 mls @ 250 mls/hr IVPB DAILY [facility] Last Admin: 02/14/20 10:22 Dose: Not Given Documented by: Insulin Aspart (Novolog Vial Sliding Scale -) 1 vial SQ ACHS [facility]; Protocol Last Admin: 02/15/20 07:29 Dose: 10 units Documented by: Insulin Detemir (Levemir Vial) 60 units SQ BID@0700,2200 [facility] Last Admin: 02/15/20 07:27 Dose: 60 units Documented by: Losartan Potassium (Cozaar -) 50 mg PO DAILY [facility] Last Admin: 02/14/20 10:04 Dose: 50 mg Documented by: Magnesium Hydroxide (Milk Of Magnesia -) 30 ml PO PRN PRN PRN Reason: CONSTIPATION Last Admin: 02/14/20 02:27 Dose: 30 ml Documented by: Mometasone Furoate (Asmanex 220mcg -) 2 puff IH BID [facility] Last Admin: 02/14/20 21:35 Dose: 2 inhaler Documented by: Pantoprazole Sodium (Protonix -) 40 mg PO DAILY [facility] Last Admin: 02/14/20 10:06 Dose: 40 mg Documented by: Prednisone (Deltasone -) 20 mg PO DAILY [facility] Last Admin: 02/14/20 10:06 Dose: 20 mg Documented by: Rosuvastatin Calcium (Crestor -) 20 mg PO [facility] Last Admin: 02/14/20 21:24 Dose: 20 mg Documented by: Senna (Senna -) 1 tab PO [facility] Last Admin: 02/14/20 21:26 Dose: 1 tab Documented by: Triamcinolone Acetonide (Aristocort 0.1% Cream -) 1 applic TP DAILY [facility] Last Admin: 02/14/20 10:12 Dose: Not Given Documented by: - Objective Vital Signs: Vital Signs Temperature 97.9 F 02/15/20 06:00 Pulse Rate 62 02/15/20 06:00 Respiratory Rate 20 02/15/20 06:00 Blood Pressure 121/78 02/15/20 06:00 O2 Sat by Pulse Oximetry (%) 96 02/15/20 06:00 Constitutional: Yes: Well Nourished, Calm, Obese Eyes: Yes: WNL HENT: Yes: WNL Neck: Yes: WNL Cardiovascular: Yes: Pulse Irregular, S1, S2 Respiratory: Yes: Diminished Gastrointestinal: Yes: Normal Bowel Sounds, Abdomen, Obese Extremities: Yes: WNL Edema: No Labs: CBC, BMP Assessment/Plan A/P Acute COPD Exacerbation improved LV Systolic Dysfunction CAD Paroxysmal Atrial Fibrillation HTN DM Hyperlipidemia Morbid Obesity Likely ELSY - prednisone - O2 to keep SpO2 >90% - lasix - monitor urine output, creatinine - anticoagulation DR ELIZALDE
[2020-02-15 08:44] VITALS: BP 124/72; PULSE 98; TEMP 97.8
[2020-02-15] MEDS: TRIAMCINOLONE ACET 0.1% CREAM 15 GM TUBE TP SCH (09:57)
[2020-02-15] MEDS: MOMETASONE FUROATE 220 MCG/IH INHALER IH SCH (09:57)
[2020-02-15] MEDS: DULoxetine HCL 30 MG CAPSULE.DR PO SCH (09:58)
[2020-02-15] MEDS: APIXABAN 5 MG TABLET PO SCH (09:58)
[2020-02-15] MEDS: GABAPENTIN 300 MG CAPSULE PO SCH (09:59)
[2020-02-15] MEDS: predniSONE 20 MG TABLET (UD) PO SCH (09:59)
[2020-02-15] MEDS: FUROSEMIDE 40 MG TABLET (FP) PO SCH (09:59)
[2020-02-15] MEDS: PANTOPRAZOLE 40 MG TABLET PO SCH (09:59)
[2020-02-15] MEDS: LOSARTAN POTASSIUM 50 MG TABLET (FP) PO SCH (09:59)
[2020-02-15] MEDS: ASPIRIN COATED 81 MG TABLET.EC PO SCH (09:59)
[2020-02-15] MEDS ORDERED: CARVEDILOL 25 MG TABLET (FP) PO SCH (10:00)
--- NOTE | 2020-02-15 11:21 | DS ---
Physical Examination Vital Signs: Vital Signs Temperature 97.8 F 02/15/20 08:44 Pulse Rate 98 H 02/15/20 08:44 Respiratory Rate 20 02/15/20 08:44 Blood Pressure 124/72 02/15/20 08:44 O2 Sat by Pulse Oximetry (%) 94 L 02/15/20 08:44 Constitutional: Yes: No Distress Cardiovascular: Yes: Pulse Irregular Respiratory: Yes: CTA Bilaterally Gastrointestinal: Yes: Soft, Abdomen, Obese Musculoskeletal: Yes: WNL Edema: Yes Edema: LLE: Trace, RLE: Trace Wound/Incision: Yes: Clean/Dry Neurological: Yes: Numbness, Paresthesia, Pre-Existing Deficit Psychiatric: Yes: Other Labs: CBC, BMP 02/14/20 08:47 02/14/20 08:47 Discharge Summary Problems reviewed: Yes Reason For Visit: SHORTNESS OF BREATH, ACUTE EXACERBATION OF CHRONIC Current Active Problems Afib (Acute) Bipolar disorder (Acute) CHF (congestive heart failure) (Acute) COPD exacerbation (Acute) Leukocytosis (Acute) Shortness of breath (Acute) Tachycardia (Acute) Type 2 diabetes mellitus with diabetic neuropathic arthropathy (Acute) Procedures: Principal: CARDIAC WORKUP Hospital Course: ADMITTED WITH CARDIAC ARRYTHMIA, WORKUP COMPLETED, CAN DC AND F/U OUTPATIENT Condition: Stable - Instructions Diet, Activity, Other Instructions: SEE DR YBARRA IN 1 WEEK Referrals: Cralos Ybarra MD [Primary Care Provider] - Disposition: HOME - Home Medications Comprehensive Discharge Medication List: Ambulatory Orders Aspirin [Aspirin EC] 81 mg PO DAILY 08/16/15 Ergocalciferol [Vitamin D2] 50,000 unit PO Q7D@1000 08/16/15 Gabapentin 600 mg PO BID 08/16/15 Acetaminophen [Tylenol .Regular Strength -] 650 mg PO Q6H PRN #0 tablet 09/11/16 Carvedilol [Coreg -] 12.5 mg PO BID tablet 09/11/16 Losartan Potassium [Cozaar -] 50 mg PO DAILY tablet 09/11/16 Rosuvastatin [Crestor -] 20 mg PO HS tablet 09/11/16 Duloxetine HCl [Cymbalta -] 60 mg PO DAILY 01/02/17 Furosemide [Lasix -] 40 mg PO DAILY 01/02/17 Insulin Glargine,Hum.rec.anlog [Basaglar Kwikpen U-100] 0 unit SQ AM 01/02/17 Insulin Glargine,Hum.rec.anlog [Basaglar Kwikpen U-100] 80 unit SQ HS 01/02/17 Olanzapine [Zyprexa -] 10 mg PO HS 01/02/17 Apixaban [Eliquis -] 5 mg PO BID #60 tablet 02/15/20 Carvedilol [Coreg -] 25 mg PO BID #60 tablet 02/15/20 Diltiazem Cd [Cardizem Cd -] 240 mg PO DAILY #30 cap.cd.24h 02/15/20 Docusate Sodium [Colace -] 100 mg PO TID capsule 02/15/20 Duloxetine HCl [Cymbalta -] 60 mg PO BID #60 capsule.dr 02/15/20 Furosemide [Lasix -] 40 mg PO DAILY tablet 02/15/20 Gabapentin [Neurontin -] 600 mg PO BID #60 capsule 02/15/20 Insulin Sliding Scale [Novolog Vial Sliding Scale -] 1 vial SQ ACHS units 02/15/20 Mometasone Furoate [Asmanex 220Mcg -] 2 puff IH BID #1 inhaler 02/15/20 Pantoprazole Sodium [Protonix -] 40 mg PO DAILY #30 tablet.ec 02/15/20 Sennosides [Senna -] 1 tab PO HS tablet 02/15/20 Triamcinolone 0.1% Cream [Aristocort 0.1% Cream -] 1 applic TP DAILY #90 applic 02/15/20 predniSONE [Deltasone -] See Taper PO DAILY #20 tablet 02/15/20
--- NOTE | 2020-02-15 12:33 | PN ---
Progress Note (short form) - Note Progress Note: cc: sob s: no chest pain, dizziness, dyspnea, palps Current Medications Generic Name Dose Route Start Last Admin Trade Name Freq PRN Reason Stop Dose Admin Apixaban 5 mg 02/10/20 12:30 02/15/20 09:58 Eliquis - PO 5 mg BID ROGERS Administration Aspirin 81 mg 02/08/20 10:00 02/15/20 09:59 Ecotrin - PO 81 mg DAILY ROGERS Administration Carvedilol 25 mg 02/15/20 10:00 02/15/20 09:59 Coreg - PO 25 mg BID ROGERS Administration Diltiazem HCl 10 mg 02/11/20 07:21 02/14/20 13:14 Cardizem Injection - IVPUSH 10 mg Q4H PRN Administration HR >150 Diltiazem HCl 240 mg 02/12/20 12:00 02/15/20 09:59 Cardizem Cd - PO 240 mg DAILY ROGERS Administration Docusate Sodium 100 mg 02/13/20 22:15 02/15/20 06:53 Colace - PO 100 mg TID ROGERS Administration Duloxetine HCl 60 mg 02/10/20 10:00 02/15/20 09:58 Cymbalta - PO 60 mg BID ROGERS Administration Furosemide 40 mg 02/10/20 11:45 02/15/20 09:59 Lasix - PO 40 mg DAILY ROGERS Administration Gabapentin 600 mg 02/08/20 10:00 02/15/20 09:59 Neurontin - PO 600 mg BID ROGERS Administration Insulin Aspart 1 vial 02/11/20 16:30 02/15/20 11:16 Novolog Vial Sliding Scale - SQ 15 units ACHS ROGERS Administration Protocol Insulin Detemir 60 units 02/13/20 22:00 02/15/20 07:27 Levemir Vial SQ 60 units BID@0700,2200 ROGERS Administration Losartan Potassium 50 mg 02/08/20 10:00 02/15/20 09:59 Cozaar - PO 50 mg DAILY ROGERS Administration Magnesium Hydroxide 30 ml 02/13/20 22:04 02/14/20 02:27 Milk Of Magnesia - PO 30 ml PRN PRN Administration CONSTIPATION Mometasone Furoate 2 puff 02/13/20 22:00 02/15/20 09:57 Asmanex 220mcg - IH 2 inhaler BID ROGERS Administration Pantoprazole Sodium 40 mg 02/10/20 12:30 02/15/20 09:59 Protonix - PO 40 mg DAILY ROGERS Administration Prednisone 20 mg 02/12/20 10:00 02/15/20 09:59 Deltasone - PO 20 mg DAILY ROGERS Administration Rosuvastatin Calcium 20 mg 02/08/20 22:00 02/14/20 21:24 Crestor - PO 20 mg HS ROGERS Administration Senna 1 tab 02/14/20 22:00 02/14/20 21:26 Senna - PO 1 tab HS ROGERS Administration Triamcinolone Acetonide 1 applic 02/12/20 12:15 02/15/20 09:57 Aristocort 0.1% Cream - TP 1 applic DAILY ROGERS Administration Vital Signs Period Temp Pulse Resp BP Sys/Irwin Pulse Ox Last 24 Hr 97.8 F-98.1 F 62-98 20-20 102-124/50-78 92-97 Constitutional: Yes: Calm Cardiovascular: Yes: rrr, nl s1, s2 Respiratory: Yes: CTA Bilaterally (non rales or wheezing) Gastrointestinal: Yes: Soft, Abdomen, Obese Edema: No Neurological: Yes: Alert, Oriented no jaundice, diaphoresis not agitated ecg: sinus tach, 1st avb nl qtc no ischemic changes ct chest: trace effs tele: afib rvr episode yesterday afternoon -> sinus a/p: 64 m hx cad (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 sob, acute on chronic syst chf, copd, pna: - diuresed with IV lasix, appears euvolemic now on PO lasix 40 mg daily -also copd and pna contributing, cont abx/steroids, pulm following -no signs acs -echo here with stable findings, lvef mod reduced. -cont coreg, cozaar cad: -stable, no signs acs -recent mibi 08/2018 showed stable, chronic finding of mild inf ischemia 2/2 to known medical center director-->cont med rx with bb, statin, asa. hld: -cont statin afib - episodes RVR, transferred to telemetry - per patient this is not a new diagnosis - was told he had a fast heart rate many years ago but was not on AC - cont eliquis - mostly in sinus with several episodes afib with RVR - cont cardizem, increased carvedilol to 25 mg BID stable for dc from cardiac perspective
== END 2020-02-15 13:27 | disposition home or self-care (01) | DRG 194 ==
LOC: JER 19:02 → JERBED 02-08 01:52 → J6WEST-2 02-08 15:22 → J7W 02-09 15:13 → J4W 02-10 15:29
PROVIDERS: ADMIT Internal Medicine; ATTEND Family Medicine
DX: I11.0 Hypertensive heart disease with heart failure (principal); G47.33 Obstructive sleep apnea (adult) (pediatric); Z68.37 Body mass index [BMI] 37.0-37.9, adult; I51.7 Cardiomegaly; D72.829 Elevated white blood cell count, unspecified; J18.9 Pneumonia, unspecified organism; I50.23 Acute on chronic systolic (congestive) heart failure; J44.1 Chronic obstructive pulmonary disease with (acute) exacerbation; E66.01 Morbid (severe) obesity due to excess calories; I25.10 Atherosclerotic heart disease of native coronary artery without angina pectoris; F31.9 Bipolar disorder, unspecified; R00.0 Tachycardia, unspecified; E11.610 Type 2 diabetes mellitus with diabetic neuropathic arthropathy; I48.0 Paroxysmal atrial fibrillation; E78.5 Hyperlipidemia, unspecified
CPT/HCPCS: 36415; 71045-TC-FY; 71250-TC; 80048; 80053; 81003; 82550; 82947; 82962; 83036; 83735; 83880; 84100; 84484; 85025; 85027; 85610; 85730; 93005; 93010; 93306-TC; 99285-25; U0003

== ENCOUNTER 2020-02-16 09:55 | Inpatient (IN) | payer OTHER ==
--- OUTSIDE RECORDS SUMMARY | 2020-02-16 10:17 | XMS ---
:1955 Author Organization [facility] Support Name Relationship Address Phone AMY THOMAS UNKNOWN [address] [place] [address] UE, UNEMPLOYED Unavailable Unavailable Unavailable FR[place] [address] NA Unavailable Unavailable Unavailable UE Unavailable Unavailable Unavailable ALMA THOMAS MOTHER [address] [place] [address] AMY THOMAS Other [address] [place] [address] Re-disclosure Warning The records that you are [...] is protected by Article 27-F of the [facility] Public Health law. If you continue you may haveaccess to information: Regarding HIV / AIDS; Provided by facilities licensed or operated by the [facility] Office of Mental Health; or Provided by the [facility] Office for People With Developmental Disabilities. If such information is present, then the following [facility] mandated warning applies: This information has been [...] Date Indications Data Source(s ) 08/24/2016 12:00:00 [facility] EDT Center Insurance Providers Payer name Policy type Policy ID Covered Covered democrat's Policy P doni / Coverage democrat ID relationship to Cash Inf ormation type cash SEBASTIEN [id number] HEALTH NON CAP Results ID Date Data Source [id number] 02/08/2020 02:05:00 AM EDT [facility] Name Value Range Interpretation Description Data Sup porting Code Source(s) Document(s ) SARS [facility] coronavirus 2 RNA This lab was ordered by [facility] and reported by [facility]. Procedure
[2020-02-16] MEDS ORDERED: dilTIAZem HCL 50 MG/10 ML - 10 ML VIAL IVPUSH ONE ×2 (10:25→10:28)
[2020-02-16] MEDS ORDERED: dilTIAZem HCL 125 MG/25 ML - 25 ML VIAL ONE ×2 (10:35→10:41)
[2020-02-16 10:42] LABS: BASO % 0.3 % (0-2.0); EOS % 1.3 % (0-4.5); HEMATOCRIT 45.7 % (35.4-49); HEMOGLOBIN 15.3 GM/dL (11.7-16.9); LYMPH % 15.2 % (8-40); MCH 27.6 pg (25.7-33.7); MCHC 33.5 g/dl (32.0-35.9); MEAN CELL VOLUME 82.4 fl (80-96); MEAN PLT VOLUME 8.3 fl (7.5-11.1); MONO % 9.3 % (3.8-10.2); NEUT % 73.9 % (42.8-82.8); PLATELET COUNT 283 K/MM3 (134-434); RBC 5.55 M/mm3 (4.00-5.60); RDW 15.4 % (11.9-15.9); WHITE BLOOD COUNT 17.7 K/mm3 (4.0-10.0)
[2020-02-16] MEDS ORDERED: SODIUM CHLORIDE 0.9% 1000 ML INFUS.BAG IV ONE (10:49)
[2020-02-16] MEDS ORDERED: dilTIAZem HCL 60 MG TABLET PO ONE (10:50)
[2020-02-16] MEDS ORDERED: dilTIAZem HCL 60 MG TABLET ONE (10:53)
[2020-02-16 11:17] LABS: ALBUMIN 3.2 g/dl (3.4-5.0); BILIRUBIN,TOTAL 0.6 mg/dL (0.2-1); BLOOD UREA NITROGEN 25.6 mg/dL (7-18); CALCIUM 9.3 mg/dL (8.5-10.1); CREATININE 1.2 mg/dL (0.55-1.3); MAGNESIUM 2.2 mg/dL (1.8-2.4); POTASSIUM 3.8 mmol/L (3.5-5.1)
--- NOTE | 2020-02-16 11:29 | PDOC ---
History of Present Illness - General Chief Complaint: Irregular Heart Beat Stated Complaint: PALPITATIONS Time Seen by Provider: 02/16/20 10:21 - History of Present Illness Initial Comments: 02/16/20 11:28 64yo M with PMH significant for HTN, HLD, CAD, paroxysmal a-fib, CHF, COPD, anxiety, former polysubstance user (ETOH, marijuana, cocaine), presenting one day after hospital discharge with a rapid heart rate and palpitations since last night. Patient states he was waiting for the visiting nurse to give him his meds, so has not taken anything for the a-fib since discharge. Reports SOB. Denies chest pain. ROS otherwise negative PMH/PSH: as above Home Medications Medication Instructions Recorded Aspirin [Aspirin EC] 81 mg PO DAILY 08/16/15 Ergocalciferol [Vitamin D2] 50,000 unit PO Q7D@1000 08/16/15 Gabapentin 600 mg PO BID 08/16/15 Acetaminophen [Tylenol .Regular 650 mg PO Q6H PRN #0 tablet 09/11/16 Strength -] Carvedilol [Coreg -] 12.5 mg PO BID tablet 09/11/16 Losartan Potassium [Cozaar -] 50 mg PO DAILY tablet 09/11/16 Rosuvastatin [Crestor -] 20 mg PO HS tablet 09/11/16 Duloxetine HCl [Cymbalta -] 60 mg PO DAILY 01/02/17 Furosemide [Lasix -] 40 mg PO DAILY 01/02/17 Insulin Glargine,Hum.rec.anlog 0 unit SQ AM 01/02/17 [Basaglar Kwikpen U-100] Insulin Glargine,Hum.rec.anlog 80 unit SQ HS 01/02/17 [Basaglar Kwikpen U-100] Olanzapine [Zyprexa -] 10 mg PO HS 01/02/17 Apixaban [Eliquis -] 5 mg PO BID #60 tablet 02/15/20 Carvedilol [Coreg -] 25 mg PO BID #60 tablet 02/15/20 Diltiazem Cd [Cardizem Cd -] 240 mg PO DAILY #30 cap.cd.24h 02/15/20 Docusate Sodium [Colace -] 100 mg PO TID capsule 02/15/20 Duloxetine HCl [Cymbalta -] 60 mg PO BID #60 capsule.dr 02/15/20 Insulin Sliding Scale [Novolog 1 vial SQ ACHS units 02/15/20 Vial Sliding Scale -] Mometasone Furoate [Asmanex 220Mcg 2 puff IH BID #1 inhaler 02/15/20 -] Pantoprazole Sodium [Protonix -] 40 mg PO DAILY #30 tablet.ec 02/15/20 Sennosides [Senna -] 1 tab PO HS tablet 02/15/20 Triamcinolone 0.1% Cream 1 applic TP DAILY #90 applic 02/15/20 [Aristocort 0.1% Cream -] predniSONE [Deltasone -] See Taper PO DAILY #20 tablet 02/15/20 Allergies Allergy/AdvReac Type Severity Reaction Status Date / Time tetracycline [Tetracycline] Allergy Intermediate chest pain Verified 02/16/20 11:38 ROS GENERAL/CONSTITUTIONAL: No fever or chills. No weakness. HEAD, EYES, EARS, NOSE AND THROAT: No change in vision. No ear pain or discharge. No sore throat. CARDIOVASCULAR: palpitations and shortness of breath RESPIRATORY: No cough, wheezing, or hemoptysis. GASTROINTESTINAL: No nausea, vomiting, diarrhea or constipation. GENITOURINARY: No dysuria, frequency, or change in urination. MUSCULOSKELETAL: No joint or muscle swelling or pain. No neck or back pain. SKIN: No rash NEUROLOGIC: No headache, vertigo, loss of consciousness, or change in strength/sensation. ENDOCRINE: No increased thirst. No abnormal weight change HEMATOLOGIC/LYMPHATIC: No anemia, easy bleeding, or history of blood clots. ALLERGIC/IMMUNOLOGIC: No hives or skin allergy. PE GENERAL: Awake, alert, and fully oriented, in no acute distress HEAD: No signs of trauma, normocephalic, atraumatic EYES: PERRLA, EOMI, sclera anicteric, conjunctiva clear ENT: Auricles normal inspection, hearing grossly normal, nares patent, o ropharynx clear without exudates. Moist mucosa NECK: Normal ROM, supple, no lymphadenopathy, JVD, or masses LUNGS: No distress, speaks full sentences, clear to auscultation bilaterally HEART: irregularly irregular tachycardia, normal S1 and S2, no murmurs, rubs or gallops, peripheral pulses normal and equal bilaterally. ABDOMEN: Soft, nontender, normoactive bowel sounds. No guarding, no rebound. No masses EXTREMITIES : Normal inspection, Normal range of motion, no edema. No clubbing or cyanosis. NEUROLOGICAL: Normal speech, no focal sensorimotor deficits SKIN: Warm, Dry, normal turgor, no rashes or lesions noted Vital Signs - 24 hr 02/16/20 02/16/20 02/16/20 10:19 10:30 10:51 Pulse Rate 141 H Pulse Rate [ 156 H 103 H Apical] Respiratory 20 24 H Rate Blood Pressure 137/73 Blood Pressure 125/76 [Right Arm] O2 Sat by Pulse 100 99 Oximetry (%) MDM: 64yo M with PMH significant for HTN, HLD, CAD, paroxysmal a-fib, CHF, COPD, anxiety, former polysubstance user (ETOH, marijuana, cocaine), presenting one day after hospital discharge with a rapid heart rate and palpitations since last night. Patient states he was waiting for the visiting nurse to give him his meds, so has not taken anything for the a-fib since discharge. Patient was in rapid a-fib to the 150s on the monitor. Once cycle of BP showed 101/60s, so given 500ml NS in addition to 10mg diltiazem IV followed by another 10mg diltiazem IV. Patient's HR dropped to 100s, so given 60mg PO diltiazem. Likely in a-fib secondary to not taking medication. DDx also includes ACS, metabolic derangement. -EKG -CBC, CMP, cardiac enzymes 02/16/20 11:44 EKG: a-fib with RVR, rate 103, normal axis, QTc 466, no ischemic changes Labs: WBC 17.7 without shift, BUN CR 25.6/1.2. glucose 323, trop negative x1 Admit to tele for a-fib with RVR, likely secondary to patient not taking his medication Signed out to admitting attending Past History - Medical History Allergies/Adverse Reactions: Allergies Allergy/AdvReac Type Severity Reaction Status Date / Time tetracycline [Tetracycline] Allergy Intermediate chest pain Verified 02/16/20 11:38 Home Medications: Ambulatory Orders Aspirin [Aspirin EC] 81 mg PO DAILY 08/16/15 Ergocalciferol [Vitamin D2] 50,000 unit PO Q7D@1000 08/16/15 Gabapentin 600 mg PO BID 08/16/15 Acetaminophen [Tylenol .Regular Strength -] 650 mg PO Q6H PRN #0 tablet 09/11/16 Carvedilol [Coreg -] 12.5 mg PO BID tablet 09/11/16 Losartan Potassium [Cozaar -] 50 mg PO DAILY tablet 09/11/16 Rosuvastatin [Crestor -] 20 mg PO HS tablet 09/11/16 Duloxetine HCl [Cymbalta -] 60 mg PO DAILY 01/02/17 Furosemide [Lasix -] 40 mg PO DAILY 01/02/17 Insulin Glargine,Hum.rec.anlog [Basaglar Kwikpen U-100] 0 unit SQ AM 01/02/17 Insulin Glargine,Hum.rec.anlog [Basaglar Kwikpen U-100] 80 unit SQ HS 01/02/17 Olanzapine [Zyprexa -] 10 mg PO HS 01/02/17 Apixaban [Eliquis -] 5 mg PO BID #60 tablet 02/15/20 Carvedilol [Coreg -] 25 mg PO BID #60 tablet 02/15/20 Diltiazem Cd [Cardizem Cd -] 240 mg PO DAILY #30 cap.cd.24h 02/15/20 Docusate Sodium [Colace -] 100 mg PO TID capsule 02/15/20 Duloxetine HCl [Cymbalta -] 60 mg PO BID #60 capsule. 02/15/20 Insulin Sliding Scale [Novolog Vial Sliding Scale -] 1 vial SQ ACHS units 02/15/20 Mometasone Furoate [Asmanex 220Mcg -] 2 puff IH BID #1 inhaler 02/15/20 Pantoprazole Sodium [Protonix -] 40 mg PO DAILY #30 tablet.ec 02/15/20 Sennosides [Senna -] 1 tab PO HS tablet 02/15/20 Triamcinolone 0.1% Cream [Aristocort 0.1% Cream -] 1 applic TP DAILY #90 applic 02/15/20 predniSONE [Deltasone -] See Taper PO DAILY #20 tablet 02/15/20 Anemia: No Asthma: No Cancer: No Cardiac Disorders: Yes (AK 2004 , CAD) CVA: No COPD: Yes CHF: No Dementia: No Diabetes: Yes (on insulin pump) Dialysis: No GI Disorders: No Disorders: No HTN: Yes Hypercholesterolemia: Yes Liver Disease: No Psychiatric Problems: Yes (Anxiety) Seizures: No Thyroid Disease: No - Surgical History Abdominal Surgery: Yes (Hernia repair x3) Appendectomy: Yes Cardiac Surgery: Yes (CARDIAC CATH) Cholecystectomy: Yes GI Surgery: Yes (Cholicystectomy) Orthopedic Surgery: Yes (knee torn meniscus and ACL repair 2004, 2005) - Immunization History Immunization Up to Date: No - Psycho-Social/Smoking History Smoking Status: No Smoking History: Unknown if ever smoked Have you smoked in the past 12 months: No Number of Cigarettes Smoked Daily: 0 If you are a former smoker, when did you quit?: 2011 Information on smoking cessation initiated: No 'Breaking Loose' booklet given: 10/16/11 - Substance Abuse Hx (Audit-C & DAST Scrn) How often the patient has a drink containing alcohol: Never Score: In Men: 4 or > Positive; In Women: 3 or > Positive: 0 Screen Result (Pos requires Nsg. Audit-10AR): Negative In the last yr the pt used illegal drug/Rx for NonMed reason: No Score: Yes response is considered Positive: 0 Screen Result (Positive result requires Nsg. DAST-10): Negative *Physical Exam - Vital Signs Last Vital Signs Temp Pulse Resp BP Pulse Ox 103 H 24 H 125/76 99 02/16/20 10:51 02/16/20 10:51 02/16/20 10:51 02/16/20 10:51 ED Treatment Course - LABORATORY CBC & Chemistry Diagram: 02/16/20 10:30 02/16/20 10:30 - ADDITIONAL ORDERS Additional order review: Laboratory Results 02/16/20 02/16/20 10:30 10:30 PT with INR Cancelled INR Cancelled PTT (Actin FS) Cancelled Sodium 137 Potassium 3.8 Chloride 101 Carbon Dioxide 26 Anion Gap 10 BUN 25.6 H Creatinine 1.2 Est GFR (CKD-EPI)AfAm 74.14 Est GFR (CKD-EPI)NonAf 63.97 Random Glucose 323 H Calcium 9.3 Magnesium 2.2 Total Bilirubin 0.6 ALT 39 Alkaline Phosphatase 103 Total Protein 6.0 L Albumin 3.2 L 02/16/20 10:30 RBC 5.55 MCV 82.4 MCHC 33.5 RDW 15.4 MPV 8.3 Neutrophils % 73.9 Lymphocytes % 15.2 D Monocytes % 9.3 Eosinophils % 1.3 D Basophils % 0.3 - Medications Given in the ED: ED Medications Discontinued Medications Generic Name Dose Route Start Last Admin Trade Name Paul PRN Reason Stop Dose Admin Diltiazem HCl 15 mg 02/16/20 10:25 02/16/20 11:20 Cardizem Injection - IVPUSH 02/16/20 10:26 Not Given ONCE ONE Diltiazem HCl 20 mg 02/16/20 10:28 02/16/20 10:50 Cardizem Injection - IVPUSH 02/16/20 10:29 20 mg ONCE ONE Administration Diltiazem HCl 60 mg 02/16/20 10:50 02/16/20 10:55 Cardizem - PO 02/16/20 10:51 60 mg ONCE ONE Administration Sodium Chloride 500 ml 02/16/20 10:49 02/16/20 10:52 Normal Saline - IV 02/16/20 10:50 500 ml ONCE ONE Administration Discharge - Discharge Information Problems reviewed: Yes Clinical Impression/Diagnosis: Atrial fibrillation with RVR Condition: Fair - Follow up/Referral - Patient Discharge Instructions - Post Discharge Activity
--- NOTE | 2020-02-16 13:30 | PDOC ---
Documentation entered by Jose Doyle SCRIBE, acting as scribe for Shireen Arroyo MD. Shireen Arroyo MD: This documentation has been prepared by the [employer] inJose SCRIBE, under my direction and personally reviewed by me in its entirety. I confirm that the documentation accurately reflects all work, treatment, procedures, and medical decision making performed by me. Attending Attestation - Resident Resident Name: RosaliaJarrett - ED Attending Attestation I have performed the following: I have examined & evaluated the patient, The case was reviewed & discussed with the resident, I agree w/resident's findings & plan, Exceptions are as noted - HPI HPI: 02/16/20 11:58 The patient is a 64 year old male with a significant past medical history of paroxysmal a-fib, CAD, D,M, CHF, COPD, HTN, HLD, and anxiety who presents to the emergency department for evaluation of palpitations and shortness of breath that began last night. The patient reports he was waiting for visiting nurse services to give him his medications, so he has not had any since his discharge yesterday. He was admitted to the hospital 02/07/2020-02/16/2020 for cardiac arrhythmia and two weeks of shortness of breath. Allergies: tetracycline Social Hx: The patient reports prior alcohol, marijuana, and cocaine use. PCP: Dr. Ybarra Dispatch Supervisor: - Physicial Exam PE: 02/16/20 13:26 Agree with resident exam. Patient is alert and oriented x 3 and in no acute distress. CV: irregularly irregular, tachycardic, no murmurs. - Critical Care Time Total Critical Care Time: 30 Critical Care Statement: The care of this patient involved high complexity decision making to prevent further life threatening deterioration of the patient's condition and/or to evaluate & treat vital organ system(s) failure or risk of failure. - Medical Decision Making 02/16/20 13:28 patient presents to the ED complaining of palpitations and shortness of breath. HR 160s on arrival. Recently admitted for A fib, started on medications which he did not take when discharged yesterday because he "didn't know how to take them". Feels improved after rate control with cardizem in the ED. Given his shortness of breath, his failure of outpatient therapy and high heart rate, will admit to medicine for continued monitoring. Discharge - Discharge Information Problems reviewed: Yes Clinical Impression/Diagnosis: Atrial fibrillation with RVR Condition: Fair Disposition: LONG-TERM FACILITY - Follow up/Referral - Patient Discharge Instructions - Post Discharge Activity
[2020-02-16 13:40] LABS: INR 1.06 (0.83-1.09); PROTHROMBIN TIME (PATIENT) 12.5 SEC (9.7-13.0)
[2020-02-16 13:43] VITALS: BMI 39.1
[2020-02-16 13:43] LABS: ACTIVATED PTT 27.7 SECONDS (25.2-36.5)
[2020-02-16] MEDS ORDERED: PNEUMOC 13-VAL CONJ-DIP CRM/PF 0.5 ML DISP.SYRIN IM ONE (13:47)
[2020-02-16] MEDS ORDERED: ACETAMINOPHEN 325 MG TABLET (FP) PO PRN (14:13)
--- NOTE | 2020-02-16 16:12 | CON.CARD ---
Cardiology Consult (text) - Consultation Consultation Note: cc: palps hpi: 64 m hx cad (remote cath showing director nicu rpl, left for med rx), ICM/syst chf (mod red lvef), hld, pafib, here with palps. Discharged yesterday after admit for chf/copd/afib. At home felt palps (racing) again so came to ER. No cp sob dizzy loc pnd orthopnea le edema. Sees dr norris for cardio. pmh: per hpi psh: cath social: ex tob fam: no premature cad, scd ros: per hpi; all others nl meds: Home Medications Medication Instructions Recorded Aspirin [Aspirin EC] 81 mg PO DAILY 08/16/15 Ergocalciferol [Vitamin D2] 50,000 unit PO Q7D@1000 08/16/15 Gabapentin 600 mg PO BID 08/16/15 Acetaminophen [Tylenol .Regular 650 mg PO Q6H PRN #0 tablet 09/11/16 Strength -] Carvedilol [Coreg -] 12.5 mg PO BID tablet 09/11/16 Losartan Potassium [Cozaar -] 50 mg PO DAILY tablet 09/11/16 Rosuvastatin [Crestor -] 20 mg PO HS tablet 09/11/16 Duloxetine HCl [Cymbalta -] 60 mg PO DAILY 01/02/17 Furosemide [Lasix -] 40 mg PO DAILY 01/02/17 Insulin Glargine,Hum.rec.anlog 0 unit SQ AM 01/02/17 [Basaglar Kwikpen U-100] Insulin Glargine,Hum.rec.anlog 80 unit SQ HS 01/02/17 [Basaglar Kwikpen U-100] Olanzapine [Zyprexa -] 10 mg PO HS 01/02/17 Apixaban [Eliquis -] 5 mg PO BID #60 tablet 02/15/20 Carvedilol [Coreg -] 25 mg PO BID #60 tablet 02/15/20 Diltiazem Cd [Cardizem Cd -] 240 mg PO DAILY #30 cap.cd.24h 02/15/20 Docusate Sodium [Colace -] 100 mg PO TID capsule 02/15/20 Duloxetine HCl [Cymbalta -] 60 mg PO BID #60 bryan. 02/15/20 Insulin Sliding Scale [Novolog 1 vial SQ ACHS units 02/15/20 Vial Sliding Scale -] Mometasone Furoate [Asmanex 220Mcg 2 puff IH BID #1 inhaler 02/15/20 -] Pantoprazole Sodium [Protonix -] 40 mg PO DAILY #30 tablet.ec 02/15/20 Sennosides [Senna -] 1 tab PO HS tablet 02/15/20 Triamcinolone 0.1% Cream 1 applic TP DAILY #90 applic 02/15/20 [Aristocort 0.1% Cream -] predniSONE [Deltasone -] See Taper PO DAILY #20 tablet 02/15/20 Vital Signs Period Temp Pulse Resp BP Sys/Irwin Pulse Ox Last 24 Hr 97.4 F-97.4 F 103-156 19-24 125-137/71-82 96-100 nad no jvd rrr s1s2 no mrg cta bl nl eff aao3 no le e/c/c abd nt nd pos bs no jaundice diaphoresis pos dp pt no carotid bruits Laboratory Last Values WBC 17.7 K/mm3 (4.0-10.0) H 02/16/20 10:30 RBC 5.55 M/mm3 (4.00-5.60) 02/16/20 10:30 Hgb 15.3 GM/dL (11.7-16.9) 02/16/20 10:30 Hct 45.7 % (35.4-49) 02/16/20 10:30 MCV 82.4 fl (80-96) 02/16/20 10:30 MCH 27.6 pg (25.7-33.7) 02/16/20 10:30 MCHC 33.5 g/dl (32.0-35.9) 02/16/20 10:30 RDW 15.4 % (11.9-15.9) 02/16/20 10:30 Plt Count 283 K/MM3 (134-434) 02/16/20 10:30 MPV 8.3 fl (7.5-11.1) 02/16/20 10:30 Absolute Neuts (auto) 13.1 K/mm3 (1.5-8.0) H 02/16/20 10:30 Neutrophils % 73.9 % (42.8-82.8) 02/16/20 10:30 Lymphocytes % 15.2 % (8-40) D 02/16/20 10:30 Monocytes % 9.3 % (3.8-10.2) 02/16/20 10:30 Eosinophils % 1.3 % (0-4.5) D 02/16/20 10:30 Basophils % 0.3 % (0-2.0) 02/16/20 10:30 Nucleated RBC % 0 % (0-0) 02/16/20 10:30 PT with INR 12.50 SEC (9.7-13.0) 02/16/20 13:15 INR 1.06 (0.83-1.09) 02/16/20 13:15 PTT (Actin FS) 27.7 SECONDS (25.2-36.5) 02/16/20 13:15 Sodium 137 mmol/L (136-145) 02/16/20 10:30 Potassium 3.8 mmol/L (3.5-5.1) 02/16/20 10:30 Chloride 101 mmol/L (98-107) 02/16/20 10:30 Carbon Dioxide 26 mmol/L (21-32) 02/16/20 10:30 Anion Gap 10 MMOL/L (8-16) 02/16/20 10:30 BUN 25.6 mg/dL (7-18) H 02/16/20 10:30 Creatinine 1.2 mg/dL (0.55-1.3) 02/16/20 10:30 Est GFR (CKD-EPI)AfAm 74.14 02/16/20 10:30 Est GFR (CKD-EPI)NonAf 63.97 02/16/20 10:30 Random Glucose 323 mg/dL (74-106) H 02/16/20 10:30 Calcium 9.3 mg/dL (8.5-10.1) 02/16/20 10:30 Magnesium 2.2 mg/dL (1.8-2.4) 02/16/20 10:30 Total Bilirubin 0.6 mg/dL (0.2-1) 02/16/20 10:30 AST 16 U/L (15-37) 02/16/20 10:30 ALT 39 U/L (13-61) 02/16/20 10:30 Alkaline Phosphatase 103 U/L (45-117) 02/16/20 10:30 Creatine Kinase 49 U/L (26-308) 02/16/20 10:30 Troponin I 0.04 ng/ml (0.00-0.05) 02/16/20 10:30 Total Protein 6.0 g/dl (6.4-8.2) L 02/16/20 10:30 Albumin 3.2 g/dl (3.4-5.0) L 02/16/20 10:30 ecg reviewed, no sig change prior tele: afib rvr earlier, now in sr a/p: 64 m hx cad (remote cath showing director nicu rpl, left for med rx), ICM/syst chf (mod red lvef), hld, pafib, here with palps. chronic syst chf: -vol stable, cont lasix 40 po qd -no signs acs -echo here with stable findings, lvef mod reduced. -cont coreg, cozaar cad: -stable, no signs acs -recent mibi 08/2018 showed stable, chronic finding of mild inf ischemia 2/2 to known director nicu-->cont med rx with bb, statin, asa. hld: -cont statin pafib - in and out of afib/sr here - cont dilt and coreg, will increase dilt from 240 qd to 180 bid, monitor on tele - cont elinaif
[2020-02-16] MEDS ORDERED: INSULIN SLIDING SCALE (NOVOLOG) 1 VIAL SQ SCH (16:30)
[2020-02-16] MEDS: DOCUSATE SODIUM 100 MG CAPSULE (FP) PO SCH (21:32)
[2020-02-16] MEDS: CARVEDILOL 25 MG TABLET (FP) PO SCH (21:32)
[2020-02-16] MEDS: ROSUVASTATIN CA 20 MG TABLET (FP) PO SCH (21:32)
[2020-02-16] MEDS: APIXABAN 5 MG TABLET PO SCH (21:33)
[2020-02-16] MEDS: SENNOSIDES 8.6MG TABLET (FP) PO SCH (21:33)
[2020-02-16] MEDS: DULoxetine HCL 30 MG CAPSULE.DR PO SCH (21:33)
[2020-02-16] MEDS: OLANZapine 5 MG TABLET PO SCH (21:33)
[2020-02-16] MEDS: GABAPENTIN 300 MG CAPSULE PO SCH (21:33)
[2020-02-16] MEDS: INSULIN SLIDING SCALE (NOVOLOG) 1 VIAL SQ SCH (21:34)
[2020-02-16] MEDS ORDERED: PATIENT'S OWN MEDICATION (NON-FORMULARY) (Insulin Glargine,Hum.Rec.Anlog [Basaglar Kwikpen SQ SCH (22:00)
[2020-02-16] MEDS: MOMETASONE FUROATE 220 MCG/IH INHALER IH SCH (22:00)
[2020-02-16] MEDS ORDERED: MOMETASONE FUROATE 220 MCG/IH INHALER IH SCH (22:00)
[2020-02-17] MEDS ORDERED: MELATONIN 5 MG TABLETS PO ONE (00:32)
[2020-02-17] MEDS: MOMETASONE FUROATE 220 MCG/IH INHALER IH SCH ×2 (01:00→21:27)
--- NOTE | 2020-02-17 05:55 | PN ---
Progress Note, Physician Chief Complaint: feeling better but not ambulating TELE AF 90s No cp/sob/palps at rest History of Present Illness: AF w/ RVR Cardiomyopathy COPD Former smoker - Current Medication List Current Medications: Active Medications Acetaminophen (Tylenol -) 650 mg PO Q6H PRN PRN Reason: FEVER Apixaban (Eliquis -) 5 mg PO BID [facility] Last Admin: 02/16/20 21:33 Dose: 5 mg Documented by: Aspirin (Ecotrin -) 81 mg PO DAILY [facility] Carvedilol (Coreg -) 25 mg PO BID [facility] Last Admin: 02/16/20 21:32 Dose: 25 mg Documented by: Diltiazem HCl (Cardizem Cd -) 180 mg PO BID [facility] Last Admin: 02/16/20 21:32 Dose: 180 mg Documented by: Docusate Sodium (Colace -) 100 mg PO TID [facility] Last Admin: 02/16/20 21:32 Dose: 100 mg Documented by: Duloxetine HCl (Cymbalta -) 60 mg PO BID [facility] Last Admin: 02/16/20 21:33 Dose: 60 mg Documented by: Furosemide (Lasix -) 40 mg PO DAILY [facility] Gabapentin (Neurontin -) 600 mg PO BID [facility] Last Admin: 02/16/20 21:33 Dose: 600 mg Documented by: Insulin Aspart (Novolog Vial Sliding Scale -) 1 vial SQ [facility]; Protocol Last Admin: 02/16/20 21:34 Dose: 4 units Documented by: Losartan Potassium (Cozaar -) 50 mg PO DAILY [facility] Mometasone Furoate (Asmanex 220mcg -) 2 puff IH [facility] Last Admin: 02/17/20 01:00 Dose: 2 puff Documented by: Non-Formulary Medication (Insulin Glargine,Hum.Rec.Anlog [Basaglar Kwikpen U- 100]) 80 unit SQ HS [facility] Olanzapine (Zyprexa -) 10 mg PO [facility] Last Admin: 02/16/20 21:33 Dose: 10 mg Documented by: Pantoprazole Sodium (Protonix -) 40 mg PO DAILY [facility] Pneumococcal 13-Valent Conj Vacc (Prevnar 13 Syringe -) 0.5 ml IM .ONCE ONE Stop: 02/16/20 13:48 Prednisone (Deltasone -) 10 mg PO DAILY [facility] Rosuvastatin Calcium (Crestor -) 20 mg PO HS [facility] Last Admin: 02/16/20 21:32 Dose: 20 mg Documented by: Shelley (Senna -) 1 tab PO HS [facility] Last Admin: 02/16/20 21:33 Dose: 1 tab Documented by: - Objective Vital Signs: Vital Signs Temperature 97.7 F 02/16/20 21:25 Pulse Rate 102 H 02/16/20 21:25 Respiratory Rate 16 02/16/20 21:25 Blood Pressure 138/66 02/16/20 21:25 O2 Sat by Pulse Oximetry (%) 96 02/16/20 21:25 Constitutional: Yes: No Distress, Calm Eyes: Yes: Conjunctiva Clear, EOM Intact HENT: Yes: Atraumatic, Normocephalic Neck: Yes: Supple, Trachea Midline Cardiovascular: Yes: Pulse Irregular Respiratory: Yes: CTA Bilaterally, Other (no wheeze or rales) Gastrointestinal: Yes: Soft (NT) Edema: No Peripheral Pulses WNL: Yes Neurological: Yes: Alert, Oriented ...Motor Strength: WNL Psychiatric: Yes: WNL Labs: CBC, BMP 02/16/20 10:30 02/16/20 10:30 INR, PTT INR 1.06 (0.83-1.09) 02/16/20 13:15 Laboratory Tests 02/16/20 02/16/20 02/17/20 10:30 15:45 06:02 WBC 12.3 H Hgb 14.4 Plt Count 235 Sodium Potassium Creatinine Troponin I 0.04 0.05 02/17/20 06:02 WBC Hgb Plt Count Sodium 138 Potassium 4.1 Creatinine 0.8 Troponin I 0.04 - ....Imaging EKG: Image Reviewed Assessment/Plan a/p: 64 m hx cad (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 chronic syst chf: -vol stable, cont lasix 40 po qd -no signs acs -echo here with stable findings, lvef mod reduced. -cont coreg, cozaar cad: -stable, no signs acs -recent mibi 08/2018 showed stable, chronic finding of mild inf ischemia 2/2 to known circulation director-->cont med rx with bb, statin, asa. hld: -cont statin pafib: not well controlled on admit - in and out of afib/sr here - cont dilt and coreg, will increase dilt from 240 qd to 180 bid, monitor on tele; dilt being used here as adjunct rate control therapy - cont eliquis
[2020-02-17] MEDS: DOCUSATE SODIUM 100 MG CAPSULE (FP) PO SCH ×3 (06:16→21:12)
[2020-02-17] MEDS: INSULIN SLIDING SCALE (NOVOLOG) 1 VIAL SQ SCH ×4 (06:16→21:27)
[2020-02-17 06:41] LABS: BASO % 0.4 % (0-2.0); HEMATOCRIT 44.2 % (35.4-49); HEMOGLOBIN 14.4 GM/dL (11.7-16.9); LYMPH % 14.9 % (8-40); MCH 26.8 pg (25.7-33.7); MCHC 32.5 g/dl (32.0-35.9); MEAN CELL VOLUME 82.4 fl (80-96); MEAN PLT VOLUME 8.2 fl (7.5-11.1); MONO % 6.2 % (3.8-10.2); NEUT % 74.5 % (42.8-82.8); PLATELET COUNT 235 K/MM3 (134-434); RBC 5.36 M/mm3 (4.00-5.60); RDW 15.7 % (11.9-15.9); WHITE BLOOD COUNT 12.3 K/mm3 (4.0-10.0)
[2020-02-17 06:59] LABS: ALBUMIN 2.9 g/dl (3.4-5.0); BILIRUBIN,TOTAL 0.7 mg/dL (0.2-1); BLOOD UREA NITROGEN 24.8 mg/dL (7-18); CALCIUM 8.5 mg/dL (8.5-10.1); CREATININE 0.8 mg/dL (0.55-1.3); POTASSIUM 4.1 mmol/L (3.5-5.1); TOT PROT 5.4 g/dl (6.4-8.2)
--- NOTE | 2020-02-17 07:14 | HP ---
Admitting History and Physical - Primary Care Physician PCP: Carlos Ybarra - Admission Chief Complaint: PALPITATIONS SHORTNESS OF BREATH History of Present Illness: HISTORY OF NON-COMPLIANCE TO MEDICATIONS AND LIFESTYLE, DM, HTN, LIPIDEMIA, BIPOLAR,OBESITY. HERE WITH 1 DAY OF PALPIATIONS, CHEST PAIN, SHORTNESS OF BREATH History Source: Patient - Past Medical History Cardiovascular: Yes: CAD, HTN, Hyperlipdemia, [place] Gastrointestinal: Yes: Constipation Psych: Yes: Anxiety, Depression Musculoskeletal: Yes: Other (chronic left knee pain) Endocrine: Yes: Diabetes Mellitus - Past Surgical History Past Surgical History: Yes: Cholecystectomy - Smoking History Smoking history: Unknown if ever smoked Have you smoked in the past 12 months: No Aproximately how many cigarettes per day: 0 If you are a former smoker, when did you quit?: 2011 - Alcohol/Substance Use Hx Alcohol Use: Yes (none x 4 years) - Social History ADL: Independent Home Medications - Allergies Allergies/Adverse Reactions: Allergies Allergy/AdvReac Type Severity Reaction Status Date / Time tetracycline [Tetracycline] Allergy Intermediate chest pain Verified 02/16/20 11:38 - Home Medications Home Medications: Ambulatory Orders Aspirin [Aspirin EC] 81 mg PO DAILY 08/16/15 Ergocalciferol [Vitamin D2] 50,000 unit PO Q7D@1000 08/16/15 Gabapentin 600 mg PO BID 08/16/15 Acetaminophen [Tylenol .Regular Strength -] 650 mg PO Q6H PRN #0 tablet 09/11/16 Carvedilol [Coreg -] 12.5 mg PO BID tablet 09/11/16 Losartan Potassium [Cozaar -] 50 mg PO DAILY tablet 09/11/16 Rosuvastatin [Crestor -] 20 mg PO HS tablet 09/11/16 Duloxetine HCl [Cymbalta -] 60 mg PO DAILY 01/02/17 Furosemide [Lasix -] 40 mg PO DAILY 01/02/17 Insulin Glargine,Hum.rec.anlog [Basaglar Kwikpen U-100] 0 unit SQ AM 01/02/17 Insulin Glargine,Hum.rec.anlog [Basaglar Kwikpen U-100] 80 unit SQ HS 01/02/17 Olanzapine [Zyprexa -] 10 mg PO HS 01/02/17 Apixaban [Eliquis -] 5 mg PO BID #60 tablet 02/15/20 Carvedilol [Coreg -] 25 mg PO BID #60 tablet 02/15/20 Diltiazem Cd [Cardizem Cd -] 240 mg PO DAILY #30 cap.cd.24h 02/15/20 Docusate Sodium [Colace -] 100 mg PO TID capsule 02/15/20 Duloxetine HCl [Cymbalta -] 60 mg PO BID #60 capsule. 02/15/20 Insulin Sliding Scale [Novolog Vial Sliding Scale -] 1 vial SQ ACHS units 02/15/20 Mometasone Furoate [Asmanex 220Mcg -] 2 puff IH BID #1 inhaler 02/15/20 Pantoprazole Sodium [Protonix -] 40 mg PO DAILY #30 tablet.ec 02/15/20 Sennosides [Senna -] 1 tab PO HS tablet 02/15/20 Triamcinolone 0.1% Cream [Aristocort 0.1% Cream -] 1 applic TP DAILY #90 applic 02/15/20 predniSONE [Deltasone -] See Taper PO DAILY #20 tablet 02/15/20 Review of Systems - Review of Systems Constitutional: reports: Weakness Cardiovascular: reports: Chest Pain, Palpitations Respiratory: reports: Cough, SOB Gastrointestinal: reports: Abdominal Pain Neurological: reports: Numbness, Parasthesia, Unsteady Gait Psychiatric: reports: Anxiety Physical Examination Vital Signs: Vital Signs Temperature 97.9 F 02/17/20 06:00 Pulse Rate 94 H 02/17/20 06:00 Respiratory Rate 16 02/17/20 06:00 Blood Pressure 136/88 02/17/20 06:00 O2 Sat by Pulse Oximetry (%) 96 02/17/20 06:00 Constitutional: Yes: Moderate Distress Cardiovascular: Yes: Pulse Irregular Respiratory: Yes: Diminished Gastrointestinal: Yes: Abdomen, Obese Musculoskeletal: Yes: Muscle Weakness Edema: Yes Neurological: Yes: Numbness, Paresthesia, Unsteady Gait Psychiatric: Yes: Other Labs: CBC, BMP 02/17/20 06:02 Imaging - Results Chest X-ray: Report Reviewed Problem List - Problems (1) Atrial fibrillation with RVR Code(s): I48.91 - UNSPECIFIED ATRIAL FIBRILLATION (2) Bipolar disorder Code(s): F31.9 - BIPOLAR DISORDER, UNSPECIFIED (3) CHF (congestive heart failure) Code(s): I50.9 - HEART FAILURE, UNSPECIFIED Qualifiers: Heart failure type: systolic (4) COPD exacerbation Code(s): J44.1 - CHRONIC OBSTRUCTIVE PULMONARY DISEASE W (ACUTE) EXACERBATION (5) Shortness of breath Code(s): R06.02 - SHORTNESS OF BREATH (6) Tachycardia Code(s): R00.0 - TACHYCARDIA, UNSPECIFIED (7) Numbness of feet Code(s): R20.0 - ANESTHESIA OF SKIN (8) Obesity (BMI 30-39.9) Code(s): E66.9 - OBESITY, UNSPECIFIED (9) Osteoarthritis of multiple joints Code(s): M15.9 - POLYOSTEOARTHRITIS, UNSPECIFIED (10) Spell of dizziness Code(s): R42 - DIZZINESS AND GIDDINESS (11) Uncontrolled blood glucose Code(s): R73.09 - OTHER ABNORMAL GLUCOSE Assessment/Plan MONITOR ON TELEMETRY CARDIOLOGY F/U ANXIETY CONTROL PSYCH EVAL OOB TO CHAIR WITH PT SNF PLACEMENT BGM CONTROL/DM EDUCATION
[2020-02-17] MEDS ORDERED: INSULIN SLIDING SCALE (NOVOLOG) 1 VIAL SQ ONE (07:48)
[2020-02-17] MEDS ORDERED: PT OWN MED DRAWER 7, Y5N ONE (09:27)
[2020-02-17] MEDS: FUROSEMIDE 40 MG TABLET (FP) PO SCH (09:32)
[2020-02-17] MEDS: CARVEDILOL 25 MG TABLET (FP) PO SCH ×2 (09:32→21:12)
[2020-02-17] MEDS: ASPIRIN COATED 81 MG TABLET.EC PO SCH (09:32)
[2020-02-17] MEDS: predniSONE 10 MG TABLET (UD) PO SCH (09:32)
[2020-02-17] MEDS: APIXABAN 5 MG TABLET PO SCH ×2 (09:32→21:12)
[2020-02-17] MEDS: PANTOPRAZOLE 40 MG TABLET PO SCH (09:32)
[2020-02-17] MEDS: LOSARTAN POTASSIUM 50 MG TABLET PO SCH (09:33)
[2020-02-17] MEDS: GABAPENTIN 300 MG CAPSULE PO SCH ×2 (09:33→21:12)
[2020-02-17] MEDS: DULoxetine HCL 30 MG CAPSULE.DR PO SCH ×2 (10:00→21:11)
--- NOTE | 2020-02-17 10:33 | EKG ---
Test Reason : Blood Pressure : / mmHG Vent. Rate : 104 BPM Atrial Rate : 340 BPM P-R Int : 000 ms QRS Dur : 092 ms QT Int : 374 ms P-R-T Axes : 000 001 049 degrees QTc Int : 491 ms ATRIAL FIBRILLATION WITH RAPID VENTRICULAR RESPONSE ABNORMAL ECG WHEN COMPARED WITH ECG OF 16-FEB-2020 10:04, NO SIGNIFICANT CHANGE WAS FOUND Confirmed by NANETTE FLORES MD ([id number]) on 02/17/2020 10:33:10 AM Referred By: DR BOJORQUEZ Confirmed By:NANETTE FLORES MD
--- NOTE | 2020-02-17 10:42 | EKG ---
Test Reason : Blood Pressure : / mmHG Vent. Rate : 103 BPM Atrial Rate : 115 BPM P-R Int : 000 ms QRS Dur : 094 ms QT Int : 356 ms P-R-T Axes : 000 002 036 degrees QTc Int : 466 ms ATRIAL FIBRILLATION WITH RAPID VENTRICULAR RESPONSE ABNORMAL ECG WHEN COMPARED WITH ECG OF 10-FEB-2020 09:48, MINIMAL CRITERIA FOR INFERIOR INFARCT ARE NO LONGER PRESENT NONSPECIFIC T WAVE ABNORMALITY, IMPROVED IN INFERIOR LEADS NONSPECIFIC T WAVE ABNORMALITY NO LONGER EVIDENT IN LATERAL LEADS Confirmed by NANETTE FLORES MD ([id number]) on 02/17/2020 10:41:47 AM Referred By: Confirmed By:NANETTE FLORES MD
--- NOTE | 2020-02-17 12:47 | CON.PULM ---
Consult Consult Specialty:: PULMONARY Referred by:: DANNIE Reason for Consultation:: SOB - History of Present Illness Chief Complaint: SOB History of Present Illness: 64yo M with PMH significant for HTN, HLD, CAD, paroxysmal a-fib, CHF, COPD, anxiety, former polysubstance user (ETOH, marijuana, cocaine), presenting one day after hospital discharge with a rapid heart rate and palpitations since last night. Patient states he was waiting for the visiting nurse to give him his meds, so has not taken anything for the a-fib since discharge. Reports SOB. Denies chest pain. 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 Cardio/Vascular: Yes: AFIB, CAD, HTN, Hyperlipdemia, [place] Pulmonary: Yes: COPD Gastrointestinal: Yes: Constipation Psych: Yes: Anxiety, Depression Musculoskeletal: Yes: Other (chronic left knee pain) Endocrine: Yes: Diabetes Mellitus - Past Surgical History Past Surgical History: Yes: Cholecystectomy - Alcohol/Substance Use Hx Alcohol Use: Yes (none x 4 years) - Smoking History Smoking history: Unknown if ever smoked Have you smoked in the past 12 months: No Aproximately how many cigarettes per day: 0 If you are a former smoker, when did you quit?: 2011 - Social History Usual Living Arrangement: With Parent ADL: Independent Home Medications - Allergies Allergies/Adverse Reactions: Allergies Allergy/AdvReac Type Severity Reaction Status Date / Time tetracycline [Tetracycline] Allergy Intermediate chest pain Verified 02/16/20 11:38 - Home Medications Home Medications: Ambulatory Orders Aspirin [Aspirin EC] 81 mg PO DAILY 08/16/15 Ergocalciferol [Vitamin D2] 50,000 unit PO Q7D@1000 08/16/15 Gabapentin 600 mg PO BID 08/16/15 Acetaminophen [Tylenol .Regular Strength -] 650 mg PO Q6H PRN #0 tablet 09/11/16 Carvedilol [Coreg -] 12.5 mg PO BID tablet 09/11/16 Losartan Potassium [Cozaar -] 50 mg PO DAILY tablet 09/11/16 Rosuvastatin [Crestor -] 20 mg PO HS tablet 09/11/16 Duloxetine HCl [Cymbalta -] 60 mg PO DAILY 01/02/17 Furosemide [Lasix -] 40 mg PO DAILY 01/02/17 Insulin Glargine,Hum.rec.anlog [Basaglar Kwikpen U-100] 0 unit SQ AM 01/02/17 Insulin Glargine,Hum.rec.anlog [Basaglar Kwikpen U-100] 80 unit SQ HS 01/02/17 Olanzapine [Zyprexa -] 10 mg PO HS 01/02/17 Apixaban [Eliquis -] 5 mg PO BID #60 tablet 02/15/20 Carvedilol [Coreg -] 25 mg PO BID #60 tablet 02/15/20 Diltiazem Cd [Cardizem Cd -] 240 mg PO DAILY #30 cap.cd.24h 02/15/20 Docusate Sodium [Colace -] 100 mg PO TID capsule 02/15/20 Duloxetine HCl [Cymbalta -] 60 mg PO BID #60 capsule.dr 02/15/20 Insulin Sliding Scale [Novolog Vial Sliding Scale -] 1 vial SQ ACHS units 02/15/20 Mometasone Furoate [Asmanex 220Mcg -] 2 puff IH BID #1 inhaler 02/15/20 Pantoprazole Sodium [Protonix -] 40 mg PO DAILY #30 tablet.ec 02/15/20 Sennosides [Senna -] 1 tab PO HS tablet 02/15/20 Triamcinolone 0.1% Cream [Aristocort 0.1% Cream -] 1 applic TP DAILY #90 applic 02/15/20 predniSONE [Deltasone -] See Taper PO DAILY #20 tablet 02/15/20 Family Medical History Family History: Unremarkable Review of Systems - Review of Systems Constitutional: denies: Fever Eyes: denies: Blurred Vision HENT: denies: Difficult Swallowing Neck: denies: Decreased ROM Cardiovascular: reports: Edema, Palpitations, Shortness of Breath. denies: Chest Pain Respiratory: reports: Exercise Intolerance, Orthopnea, SOB on Exertion. denies: Cough, Hemoptysis, Wheezing Gastrointestinal: denies: Abdominal Pain Genitourinary: denies: Burning Physical Exam Vital Sings: Vital Signs Temperature 98.4 F 02/17/20 10:00 Pulse Rate 96 H 02/17/20 10:00 Respiratory Rate 18 02/17/20 10:00 Blood Pressure 117/79 02/17/20 10:00 O2 Sat by Pulse Oximetry (%) 98 02/17/20 10:00 Constitutional: Yes: Calm Eyes: Yes: EOM Intact HENT: Yes: Normocephalic Neck: Yes: Trachea Midline Cardiovascular: Yes: Pulse Irregular, S1, S2 Respiratory: Yes: Diminished Gastrointestinal: Yes: Normal Bowel Sounds, Abdomen, Obese Extremities: Yes: WNL Edema: LLE: Trace, RLE: Trace Neurological: Yes: Alert Labs: CBC, BMP 02/17/20 06:02 02/17/20 06:02 REST REVIEWED Imaging - Results Chest X-ray: Report Reviewed, Image Reviewed EKG: Report Reviewed, Image Reviewed Problem List - Problems (1) Atrial fibrillation with RVR Code(s): I48.91 - UNSPECIFIED ATRIAL FIBRILLATION (2) Bipolar disorder Code(s): F31.9 - BIPOLAR DISORDER, UNSPECIFIED (3) CHF (congestive heart failure) Code(s): I50.9 - HEART FAILURE, UNSPECIFIED Qualifiers: Heart failure type: systolic (4) COPD exacerbation Code(s): J44.1 - CHRONIC OBSTRUCTIVE PULMONARY DISEASE W (ACUTE) EXACERBATION (5) Shortness of breath Code(s): R06.02 - SHORTNESS OF BREATH (6) Tachycardia Code(s): R00.0 - TACHYCARDIA, UNSPECIFIED Assessment/Plan AF W RVR CHRONIC SYSTOLIC HF COPD NOT IN EXACERBATION BIPLOAR DISORDER RATE CONTROL CONTINUE ASMANEX O2 PRNS LAST PSG 2012: MILD OSAS WOULD REPEAT PSG OUTPATIENT CONSIDER AUTO PAP HS WHILE HOSPITALIZED WILL FOLLOW Desiree CHANG MD
[2020-02-17] MEDS: ROSUVASTATIN CA 20 MG TABLET (FP) PO SCH (21:12)
[2020-02-17] MEDS: SENNOSIDES 8.6MG TABLET (FP) PO SCH (21:12)
[2020-02-17] MEDS: OLANZapine 5 MG TABLET PO SCH (21:12)
[2020-02-18] MEDS: MELATONIN 5 MG TABLETS PO PRN ×2 (00:44→21:19)
--- NOTE | 2020-02-18 00:45 | CONSULT ---
Consult Consult Specialty:: Endocrine Referred by:: Dr.Ammir Ybarra Reason for Consultation:: DMT2 uncontrolled - History of Present Illness Chief Complaint: high sugars History of Present Illness: 64yo M with PMH DMT2,diabetic neuropthy,HTN, HLD, CAD, paroxysmal a-fib, CHF, COPD, anxiety,presenting for palpitation and anxiety,dyspnea weakness and difficulty breathing.has frequent episodes of panic attacks,with elevated blood sugars.he takes high dose insulin feels always hungry and has tough time controlling sugars,denies fever cough or vomiting. 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 Cardio/Vascular: Yes: AFIB, CAD, HTN, Hyperlipdemia, [place] Pulmonary: Yes: COPD Gastrointestinal: Yes: Constipation Psych: Yes: Anxiety, Depression Musculoskeletal: Yes: Other (chronic left knee pain) Endocrine: Yes: Diabetes Mellitus - Past Surgical History Past Surgical History: Yes: Cholecystectomy - Alcohol/Substance Use Hx Alcohol Use: Yes (none x 4 years) - Smoking History Smoking history: Unknown if ever smoked Have you smoked in the past 12 months: No Aproximately how many cigarettes per day: 0 If you are a former smoker, when did you quit?: 2011 - Social History Usual Living Arrangement: With Parent ADL: Independent Home Medications - Allergies Allergies/Adverse Reactions: Allergies Allergy/AdvReac Type Severity Reaction Status Date / Time tetracycline [Tetracycline] Allergy Intermediate chest pain Verified 02/16/20 11:38 - Home Medications Home Medications: Ambulatory Orders Aspirin [Aspirin EC] 81 mg PO DAILY 08/16/15 Ergocalciferol [Vitamin D2] 50,000 unit PO Q7D@1000 08/16/15 Gabapentin 600 mg PO BID 08/16/15 Acetaminophen [Tylenol .Regular Strength -] 650 mg PO Q6H PRN #0 tablet 09/11/16 Carvedilol [Coreg -] 12.5 mg PO BID tablet 09/11/16 Losartan Potassium [Cozaar -] 50 mg PO DAILY tablet 09/11/16 Rosuvastatin [Crestor -] 20 mg PO HS tablet 09/11/16 Duloxetine HCl [Cymbalta -] 60 mg PO DAILY 01/02/17 Furosemide [Lasix -] 40 mg PO DAILY 01/02/17 Insulin Glargine,Hum.rec.anlog [Basaglar Kwikpen U-100] 0 unit SQ AM 01/02/17 Insulin Glargine,Hum.rec.anlog [Basaglar Kwikpen U-100] 80 unit SQ HS 01/02/17 Olanzapine [Zyprexa -] 10 mg PO HS 01/02/17 Apixaban [Eliquis -] 5 mg PO BID #60 tablet 02/15/20 Carvedilol [Coreg -] 25 mg PO BID #60 tablet 02/15/20 Diltiazem Cd [Cardizem Cd -] 240 mg PO DAILY #30 cap.cd.24h 02/15/20 Docusate Sodium [Colace -] 100 mg PO TID capsule 02/15/20 Duloxetine HCl [Cymbalta -] 60 mg PO BID #60 capsule.dr 02/15/20 Insulin Sliding Scale [Novolog Vial Sliding Scale -] 1 vial SQ ACHS units 02/15/20 Mometasone Furoate [Asmanex 220Mcg -] 2 puff IH BID #1 inhaler 02/15/20 Pantoprazole Sodium [Protonix -] 40 mg PO DAILY #30 tablet.ec 02/15/20 Sennosides [Senna -] 1 tab PO HS tablet 02/15/20 Triamcinolone 0.1% Cream [Aristocort 0.1% Cream -] 1 applic TP DAILY #90 applic 02/15/20 predniSONE [Deltasone -] See Taper PO DAILY #20 tablet 02/15/20 Family Medical History Family History: Unremarkable Review of Systems - Review of Systems Constitutional: reports: Lethargy, Loss of Appetite Eyes: reports: Blurred Vision HENT: reports: No Symptoms Neck: reports: No Symptoms Cardiovascular: reports: Palpitations, Shortness of Breath Respiratory: reports: Exercise Intolerance, Orthopnea, SOB, SOB on Exertion Gastrointestinal: reports: Nausea Genitourinary: reports: No Symptoms Integumentary: reports: No Symptoms Neurological: reports: Numbness Endocrine: reports: Unexplained Weight Gain Physical Exam Vital Signs: Vital Signs Temperature 97.9 F 02/17/20 21:28 Pulse Rate 80 02/17/20 21:28 Respiratory Rate 18 02/17/20 21:28 Blood Pressure 143/81 02/17/20 21:28 O2 Sat by Pulse Oximetry (%) 93 L 02/17/20 21:28 Labs: CBC, BMP 02/17/20 06:02 02/17/20 06:02 Problem List - Problems (1) Atrial fibrillation with RVR Problems reviewed: Yes Code(s): I48.91 - UNSPECIFIED ATRIAL FIBRILLATION (2) Afib Problems reviewed: Yes Code(s): I48.91 - UNSPECIFIED ATRIAL FIBRILLATION (3) Tachycardia Problems reviewed: Yes Code(s): R00.0 - TACHYCARDIA, UNSPECIFIED Assessment/Plan Current Active Problems DMT2 uncontrolled copd chf anxiety disorder hypertension \hld hypercholesterolemia metabolic syndrome Atrial fibrillation with RVR (Acute) Abnormal Lab Results 02/17/20 02/17/20 06:02 06:02 WBC 12.3 H Absolute Neuts (auto) 9.1 H BUN 24.8 H Random Glucose 253 H AST 9 L Total Protein 5.4 L Albumin 2.9 L Laboratory Results - last 24 hr 02/16/20 02/17/20 02/17/20 11:15 06:02 06:02 WBC 12.3 H RBC 5.36 Hgb 14.4 Hct 44.2 MCV 82.4 MCH 26.8 MCHC 32.5 RDW 15.7 Plt Count 235 MPV 8.2 Absolute Neuts (auto) 9.1 H Neutrophils % 74.5 Lymphocytes % 14.9 Monocytes % 6.2 Eosinophils % 4.0 D Basophils % 0.4 Nucleated RBC % 0 Sodium 138 Potassium 4.1 Chloride 103 Carbon Dioxide 27 Anion Gap 8 BUN 24.8 H Creatinine 0.8 Est GFR (CKD-EPI)AfAm 110.19 Est GFR (CKD-EPI)NonAf 95.07 POC Glucometer Random Glucose 253 H Calcium 8.5 Total Bilirubin 0.7 AST 9 L ALT 30 Alkaline Phosphatase 93 Creatine Kinase 39 Troponin I 0.04 Total Protein 5.4 L Albumin 2.9 L COVID-19 ([facility]) Not detected 02/17/20 02/17/20 02/17/20 06:14 11:26 16:33 WBC RBC Hgb Hct MCV MCH MCHC RDW Plt Count MPV Absolute Neuts (auto) Neutrophils % Lymphocytes % Monocytes % Eosinophils % Basophils % Nucleated RBC % Sodium Potassium Chloride Carbon Dioxide Anion Gap BUN Creatinine Est GFR (CKD-EPI)AfAm Est GFR (CKD-EPI)NonAf POC Glucometer 230 305 396 Random Glucose Calcium Total Bilirubin AST ALT Alkaline Phosphatase Creatine Kinase Troponin I Total Protein Albumin COVID-19 ([facility]) 02/17/20 21:18 WBC RBC Hgb Hct MCV MCH MCHC RDW Plt Count MPV Absolute Neuts (auto) Neutrophils % Lymphocytes % Monocytes % Eosinophils % Basophils % Nucleated RBC % Sodium Potassium Chloride Carbon Dioxide Anion Gap BUN Creatinine Est GFR (CKD-EPI)AfAm Est GFR (CKD-EPI)NonAf POC Glucometer 365 Random Glucose Calcium Total Bilirubin AST ALT Alkaline Phosphatase Creatine Kinase Troponin I Total Protein Albumin COVID-19 ([facility]) plan: bgm qid novolog scale diet nutrition levemir/glargine 80units hs may need titration to bid glargine
[2020-02-18] MEDS: DOCUSATE SODIUM 100 MG CAPSULE (FP) PO SCH ×3 (06:28→21:21)
[2020-02-18] MEDS: INSULIN SLIDING SCALE (NOVOLOG) 1 VIAL SQ SCH ×4 (06:31→22:53)
--- NOTE | 2020-02-18 06:31 | PN ---
Progress Note, Physician Chief Complaint: TELE: NSR, APCs, 1st degree AV block and atrial tach episodes, self limited. PAF Denies CP/SOB, dizziness. Has not walked. History of Present Illness: Ischemic CM PAF Chronci systolic CHF Former smoker - Current Medication List Current Medications: Active Medications Acetaminophen (Tylenol -) 650 mg PO Q6H PRN PRN Reason: FEVER Apixaban (Eliquis -) 5 mg PO BID [facility] Last Admin: 02/17/20 21:12 Dose: 5 mg Documented by: Aspirin (Ecotrin -) 81 mg PO DAILY [facility] Last Admin: 02/17/20 09:32 Dose: 81 mg Documented by: Carvedilol (Coreg -) 25 mg PO BID [facility] Last Admin: 02/17/20 21:12 Dose: 25 mg Documented by: Diltiazem HCl (Cardizem Cd -) 180 mg PO BID [facility] Last Admin: 02/17/20 21:11 Dose: 180 mg Documented by: Docusate Sodium (Colace -) 100 mg PO TID [facility] Last Admin: 02/17/20 21:12 Dose: 100 mg Documented by: Duloxetine HCl (Cymbalta -) 60 mg PO BID [facility] Last Admin: 02/17/20 21:11 Dose: 60 mg Documented by: Furosemide (Lasix -) 40 mg PO DAILY [facility] Last Admin: 02/17/20 09:32 Dose: 40 mg Documented by: Gabapentin (Neurontin -) 600 mg PO BID [facility] Last Admin: 02/17/20 21:12 Dose: 600 mg Documented by: Insulin Aspart (Novolog Vial Sliding Scale -) 1 vial SQ [facility]; Protocol Losartan Potassium (Cozaar -) 50 mg PO DAILY [facility] Last Admin: 02/17/20 09:33 Dose: 50 mg Documented by: Melatonin (Melatonin) 5 mg PO HS PRN PRN Reason: INSOMNIA Last Admin: 02/18/20 00:44 Dose: 5 mg Documented by: Mometasone Furoate (Asmanex 220mcg -) 2 puff IH [facility] Last Admin: 02/17/20 21:27 Dose: 2 puff Documented by: Non-Formulary Medication (Insulin Glargine,Hum.Rec.Anlog [Basaglar Kwikpen U- 100]) 80 unit SQ [facility] Olanzapine (Zyprexa -) 10 mg PO [facility] Last Admin: 02/17/20 21:12 Dose: 10 mg Documented by: Pantoprazole Sodium (Protonix -) 40 mg PO DAILY [facility] Last Admin: 02/17/20 09:32 Dose: 40 mg Documented by: Prednisone (Deltasone -) 10 mg PO DAILY [facility] Last Admin: 02/17/20 09:32 Dose: 10 mg Documented by: Rosuvastatin Calcium (Crestor -) 20 mg PO [facility] Last Admin: 02/17/20 21:12 Dose: 20 mg Documented by: Senna (Senna -) 1 tab PO [facility] Last Admin: 02/17/20 21:12 Dose: 1 tab Documented by: - Objective Vital Signs: Vital Signs Temperature 97.8 F 02/18/20 02:00 Pulse Rate 79 02/18/20 02:00 Respiratory Rate 18 02/18/20 02:00 Blood Pressure 122/75 02/18/20 02:00 O2 Sat by Pulse Oximetry (%) 97 02/18/20 02:00 Constitutional: Yes: No Distress, Calm Eyes: Yes: Conjunctiva Clear, EOM Intact HENT: Yes: Atraumatic, Normocephalic Neck: Yes: Supple, Trachea Midline Cardiovascular: Yes: Pulse Irregular Respiratory: Yes: CTA Bilaterally (decreased breath sounds but no active wheezing or rales) Gastrointestinal: Yes: Soft (nt) Edema: No Neurological: Yes: Alert, Oriented ...Motor Strength: WNL Labs: CBC, BMP 02/17/20 06:02 02/17/20 06:02 INR, PTT INR 1.06 (0.83-1.09) 02/16/20 13:15 Laboratory Tests 02/17/20 06:02 WBC 12.3 H Hgb 14.4 Plt Count 235 - ....Imaging EKG: Image Reviewed Assessment/Plan Assessment/Plan a/p: 64 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 chronic syst chf: -vol stable, cont lasix 40 po qd -no signs acs -echo here with stable findings, lvef mod reduced. 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 hld: -cont statin pafib: not well controlled on admit - in and out of afib/sr here - cont dilt and coreg, and titrated dose of diltiazem 180 bid, monitor on tele; dilt being used here as adjunct rate control therapy -Ambulate to assess heart rate with activity - cont elielishais
--- NOTE | 2020-02-18 07:08 | PN ---
Progress Note, Physician History of Present Illness: pulmonary alert,comfortable,-sob,-cp - Current Medication List Current Medications: Active Medications Acetaminophen (Tylenol -) 650 mg PO Q6H PRN PRN Reason: FEVER Apixaban (Eliquis -) 5 mg PO BID [facility] Last Admin: 02/17/20 21:12 Dose: 5 mg Documented by: Aspirin (Ecotrin -) 81 mg PO DAILY [facility] Last Admin: 02/17/20 09:32 Dose: 81 mg Documented by: Carvedilol (Coreg -) 25 mg PO BID [facility] Last Admin: 02/17/20 21:12 Dose: 25 mg Documented by: Diltiazem HCl (Cardizem Cd -) 180 mg PO BID [facility] Last Admin: 02/17/20 21:11 Dose: 180 mg Documented by: Docusate Sodium (Colace -) 100 mg PO TID [facility] Last Admin: 02/18/20 06:28 Dose: 100 mg Documented by: Duloxetine HCl (Cymbalta -) 60 mg PO BID [facility] Last Admin: 02/17/20 21:11 Dose: 60 mg Documented by: Furosemide (Lasix -) 40 mg PO DAILY [facility] Last Admin: 02/17/20 09:32 Dose: 40 mg Documented by: Gabapentin (Neurontin -) 600 mg PO BID [facility] Last Admin: 02/17/20 21:12 Dose: 600 mg Documented by: Insulin Aspart (Novolog Vial Sliding Scale -) 1 vial SQ [facility]; Protocol Last Admin: 02/18/20 06:31 Dose: 9 units Documented by: Losartan Potassium (Cozaar -) 50 mg PO DAILY [facility] Last Admin: 02/17/20 09:33 Dose: 50 mg Documented by: Melatonin (Melatonin) 5 mg PO HS PRN PRN Reason: INSOMNIA Last Admin: 02/18/20 00:44 Dose: 5 mg Documented by: Mometasone Furoate (Asmanex 220mcg -) 2 puff IH [facility] Last Admin: 02/17/20 21:27 Dose: 2 puff Documented by: Non-Formulary Medication (Insulin Glargine,Hum.Rec.Anlog [Basaglar Kwikpen U- 100]) 80 unit SQ [facility] Olanzapine (Zyprexa -) 10 mg PO [facility] Last Admin: 02/17/20 21:12 Dose: 10 mg Documented by: Pantoprazole Sodium (Protonix -) 40 mg PO DAILY [facility] Last Admin: 02/17/20 09:32 Dose: 40 mg Documented by: Prednisone (Deltasone -) 10 mg PO DAILY [facility] Last Admin: 02/17/20 09:32 Dose: 10 mg Documented by: Rosuvastatin Calcium (Crestor -) 20 mg PO HS [facility] Last Admin: 02/17/20 21:12 Dose: 20 mg Documented by: Senna (Senna -) 1 tab PO [facility] Last Admin: 02/17/20 21:12 Dose: 1 tab Documented by: - Objective Vital Signs: Vital Signs Temperature 97.9 F 02/18/20 06:00 Pulse Rate 102 H 02/18/20 06:00 Respiratory Rate 18 02/18/20 06:00 Blood Pressure 138/76 02/18/20 06:00 O2 Sat by Pulse Oximetry (%) 95 02/18/20 06:00 Constitutional: Yes: Calm, Obese Eyes: Yes: WNL HENT: Yes: WNL Neck: Yes: WNL Cardiovascular: Yes: Pulse Irregular, S1, S2 Respiratory: Yes: Rales (few bibasailr rales) Gastrointestinal: Yes: Normal Bowel Sounds, Soft Extremities: Yes: WNL Edema: Yes Labs: CBC, BMP 02/17/20 06:02 Assessment/Plan Problem List - Problems (1) Atrial fibrillation with RVR Code(s): I48.91 - UNSPECIFIED ATRIAL FIBRILLATION (2) Bipolar disorder Code(s): F31.9 - BIPOLAR DISORDER, UNSPECIFIED (3) CHF (congestive heart failure) Code(s): I50.9 - HEART FAILURE, UNSPECIFIED Qualifiers: Heart failure type: systolic (4) COPD exacerbation Code(s): J44.1 - CHRONIC OBSTRUCTIVE PULMONARY DISEASE W (ACUTE) EXACERBATION (5) Shortness of breath Code(s): R06.02 - SHORTNESS OF BREATH (6) Tachycardia Code(s): R00.0 - TACHYCARDIA, UNSPECIFIED Assessment/Plan AF W RVR CHRONIC SYSTOLIC HF COPD NOT IN EXACERBATION BIPOLAR DISORDER MILD OSAS RATE CONTROL PER CARDIOLOGY CARDIZEM CONTINUE ASMANEX O2 PRNS LASIX AC WOULD REPEAT PSG OUTPATIENT CONSIDER AUTO PAP HS WHILE HOSPITALIZED DR ELIZALDE
--- NOTE | 2020-02-18 09:52 | PN ---
Progress Note, Physician Chief Complaint: Afib SOB History of Present Illness: Previous notes and events reviewed Alert and oriented, NAD Complains of palpitations associated with SOB Complains of SOB with walking Denies chest pain Downtrend in WBC noted to 17.7~12.3 - Current Medication List Current Medications: Active Medications Acetaminophen (Tylenol -) 650 mg PO Q6H PRN PRN Reason: FEVER Apixaban (Eliquis -) 5 mg PO BID [facility] Last Admin: 02/17/20 21:12 Dose: 5 mg Documented by: Aspirin (Ecotrin -) 81 mg PO DAILY [facility] Last Admin: 02/17/20 09:32 Dose: 81 mg Documented by: Carvedilol (Coreg -) 25 mg PO BID [facility] Last Admin: 02/17/20 21:12 Dose: 25 mg Documented by: Diltiazem HCl (Cardizem Cd -) 180 mg PO BID [facility] Last Admin: 02/17/20 21:11 Dose: 180 mg Documented by: Docusate Sodium (Colace -) 100 mg PO TID [facility] Last Admin: 02/18/20 06:28 Dose: 100 mg Documented by: Duloxetine HCl (Cymbalta -) 60 mg PO BID [facility] Last Admin: 02/17/20 21:11 Dose: 60 mg Documented by: Furosemide (Lasix -) 40 mg PO DAILY [facility] Last Admin: 02/17/20 09:32 Dose: 40 mg Documented by: Gabapentin (Neurontin -) 600 mg PO BID [facility] Last Admin: 02/17/20 21:12 Dose: 600 mg Documented by: Insulin Aspart (Novolog Vial Sliding Scale -) 1 vial SQ [facility]; Protocol Last Admin: 02/18/20 06:31 Dose: 9 units Documented by: Losartan Potassium (Cozaar -) 50 mg PO DAILY [facility] Last Admin: 02/17/20 09:33 Dose: 50 mg Documented by: Melatonin (Melatonin) 5 mg PO HS PRN PRN Reason: INSOMNIA Last Admin: 02/18/20 00:44 Dose: 5 mg Documented by: Mometasone Furoate (Asmanex 220mcg -) 2 puff IH HS [facility] Last Admin: 02/17/20 21:27 Dose: 2 puff Documented by: Non-Formulary Medication (Insulin Glargine,Hum.Rec.Anlog [Basaglar Kwikpen U- 100]) 80 unit SQ [facility] Olanzapine (Zyprexa -) 10 mg PO [facility] Last Admin: 02/17/20 21:12 Dose: 10 mg Documented by: Pantoprazole Sodium (Protonix -) 40 mg PO DAILY [facility] Last Admin: 02/17/20 09:32 Dose: 40 mg Documented by: Prednisone (Deltasone -) 10 mg PO DAILY [facility] Last Admin: 02/17/20 09:32 Dose: 10 mg Documented by: Rosuvastatin Calcium (Crestor -) 20 mg PO [facility] Last Admin: 02/17/20 21:12 Dose: 20 mg Documented by: Senna (Senna -) 1 tab PO [facility] Last Admin: 02/17/20 21:12 Dose: 1 tab Documented by: - Objective Vital Signs: Vital Signs Temperature 97.9 F 02/18/20 06:00 Pulse Rate 102 H 02/18/20 06:00 Respiratory Rate 18 02/18/20 06:00 Blood Pressure 138/76 02/18/20 06:00 O2 Sat by Pulse Oximetry (%) 95 02/18/20 06:00 Constitutional: Yes: No Distress, Calm, Obese Eyes: Yes: Conjunctiva Clear HENT: Yes: Atraumatic Cardiovascular: Yes: Pulse Irregular Respiratory: Yes: Regular, Diminished Gastrointestinal: Yes: Normal Bowel Sounds, Soft, Abdomen, Obese, Other (nontender) Musculoskeletal: Yes: WNL Extremities: Yes: WNL Edema: No Neurological: Yes: Alert, Oriented Psychiatric: Yes: Alert, Oriented Labs: CBC, BMP 02/17/20 06:02 02/17/20 06:02 INR, PTT INR 1.06 (0.83-1.09) 02/16/20 13:15 Problem List - Problems (1) Atrial fibrillation with RVR Assessment/Plan: Cardiology on board Cardiac monitoring Eliquis 5mg BID Diltiazem 180 BID Code(s): I48.91 - UNSPECIFIED ATRIAL FIBRILLATION (2) Bipolar disorder Assessment/Plan: Cont Zyprexa and Cymbalta Code(s): F31.9 - BIPOLAR DISORDER, UNSPECIFIED (3) CHF (congestive heart failure) Assessment/Plan: Cardiology on board Lasix 40mg QD Echo 02/08/20 shows EF 35-40%, L ventricular systolic function moderately reduced, trivial pericardial effusion Code(s): I50.9 - HEART FAILURE, UNSPECIFIED Qualifiers: Heart failure type: systolic (4) COPD exacerbation Assessment/Plan: Pulmonary on board CXR shows large heart, no acute chest pathology Keep SpO2 >90% Asmanex Prednisone Code(s): J44.1 - CHRONIC OBSTRUCTIVE PULMONARY DISEASE W (ACUTE) EXACERBATION (5) Shortness of breath Assessment/Plan: Pulmonary on board CXR shows large heart, no acute chest pathology Keep SpO2 >90% Asmanex Prednisone COVID 19 PCR neg x 1 Code(s): R06.02 - SHORTNESS OF BREATH (6) DM Diabetes mellitus type 2 Assessment/Plan: Endocrinology on board BGM ACHS ISS Diabetic diet Insulin Glargine 80U SQ HS Code(s): E11.9 - TYPE 2 DIABETES MELLITUS WITHOUT COMPLICATIONS (7) coronary artery disease Assessment/Plan: Cardiology on board Cont with Rosuvastatin Assessment/Plan see problem list
[2020-02-18] MEDS: DULoxetine HCL 30 MG CAPSULE.DR PO SCH ×2 (10:54→21:19)
[2020-02-18] MEDS: CARVEDILOL 25 MG TABLET (FP) PO SCH ×2 (10:54→21:22)
[2020-02-18] MEDS: ASPIRIN COATED 81 MG TABLET.EC PO SCH (10:55)
[2020-02-18] MEDS: predniSONE 10 MG TABLET (UD) PO SCH (10:55)
[2020-02-18] MEDS: LOSARTAN POTASSIUM 50 MG TABLET PO SCH (10:55)
[2020-02-18] MEDS: GABAPENTIN 300 MG CAPSULE PO SCH ×2 (10:55→21:23)
[2020-02-18] MEDS: APIXABAN 5 MG TABLET PO SCH ×2 (10:55→21:19)
[2020-02-18] MEDS: PANTOPRAZOLE 40 MG TABLET PO SCH (10:55)
[2020-02-18] MEDS: FUROSEMIDE 40 MG TABLET (FP) PO SCH (10:55)
--- NOTE | 2020-02-18 21:11 | PN ---
Progress Note (short form) - Note Progress Note: appetite improved sugars elevated diet non compliant Laboratory Results - last 24 hr 02/17/20 02/18/20 02/18/20 21:18 17:48 19:10 POC Glucometer [id number] plan: levemir 40units am levemir 80units hs novolog 70/30 bid 15 units novolog scale dose titration Problem List - Problems (1) Atrial fibrillation with RVR Code(s): I48.91 - UNSPECIFIED ATRIAL FIBRILLATION (2) Afib Code(s): I48.91 - UNSPECIFIED ATRIAL FIBRILLATION (3) Tachycardia Code(s): R00.0 - TACHYCARDIA, UNSPECIFIED
[2020-02-18] MEDS: MOMETASONE FUROATE 220 MCG/IH INHALER IH SCH (21:21)
[2020-02-18] MEDS: ROSUVASTATIN CA 20 MG TABLET (FP) PO SCH (21:22)
[2020-02-18] MEDS: SENNOSIDES 8.6MG TABLET (FP) PO SCH (21:23)
[2020-02-18] MEDS: INSULIN (LEVEMIR) 100 UNITS/ML UNITS SQ SCH (22:50)
[2020-02-18] MEDS: OLANZapine 5 MG TABLET PO SCH (22:52)
--- NOTE | 2020-02-19 06:48 | PN ---
Progress Note, Physician Chief Complaint: TELE: AF, 90-105; Paroxysmal AF. Periods of Atach as well Ambulated yesterday, rate to low 100s Denies CP, SOB, palps - Current Medication List Current Medications: Active Medications Acetaminophen (Tylenol -) 650 mg PO Q6H PRN PRN Reason: FEVER Apixaban (Eliquis -) 5 mg PO BID [facility] Last Admin: 02/18/20 21:19 Dose: 5 mg Documented by: Aspirin (Ecotrin -) 81 mg PO DAILY [facility] Last Admin: 02/18/20 10:55 Dose: 81 mg Documented by: Carvedilol (Coreg -) 25 mg PO BID [facility] Last Admin: 02/18/20 21:22 Dose: 25 mg Documented by: Diltiazem HCl (Cardizem Cd -) 180 mg PO BID [facility] Last Admin: 02/18/20 21:20 Dose: 180 mg Documented by: Docusate Sodium (Colace -) 100 mg PO TID [facility] Last Admin: 02/18/20 21:21 Dose: 100 mg Documented by: Duloxetine HCl (Cymbalta -) 60 mg PO BID [facility] Last Admin: 02/18/20 21:19 Dose: 60 mg Documented by: Furosemide (Lasix -) 40 mg PO DAILY [facility] Last Admin: 02/18/20 10:55 Dose: 40 mg Documented by: Gabapentin (Neurontin -) 600 mg PO BID [facility] Last Admin: 02/18/20 21:23 Dose: 600 mg Documented by: Insulin Aspart (Novolog Vial Sliding Scale -) 1 vial SQ ACHS [facility]; Protocol Last Admin: 02/18/20 22:53 Dose: 18 units Documented by: Insulin Aspart (Novolog Mix 70/30 Vial) 15 units SQ BIDAC [facility] Insulin Detemir (Levemir Vial) 40 units SQ AM [facility] Insulin Detemir (Levemir Vial) 80 units SQ HS [facility] Last Admin: 02/18/20 22:50 Dose: 80 units Documented by: Losartan Potassium (Cozaar -) 50 mg PO DAILY [facility] Last Admin: 02/18/20 10:55 Dose: 50 mg Documented by: Melatonin (Melatonin) 5 mg PO HS PRN PRN Reason: INSOMNIA Last Admin: 02/18/20 21:19 Dose: 5 mg Documented by: Mometasone Furoate (Asmanex 220mcg -) 2 puff IH [facility] Last Admin: 02/18/20 21:21 Dose: 2 puff Documented by: Olanzapine (Zyprexa -) 10 mg PO [facility] Last Admin: 02/18/20 22:52 Dose: 10 mg Documented by: Pantoprazole Sodium (Protonix -) 40 mg PO DAILY [facility] Last Admin: 02/18/20 10:55 Dose: 40 mg Documented by: Prednisone (Deltasone -) 10 mg PO DAILY [facility] Last Admin: 02/18/20 10:55 Dose: 10 mg Documented by: Rosuvastatin Calcium (Crestor -) 20 mg PO [facility] Last Admin: 02/18/20 21:22 Dose: 20 mg Documented by: Senna (Senna -) 1 tab PO [facility] Last Admin: 02/18/20 21:23 Dose: 1 tab Documented by: - Objective Vital Signs: Vital Signs Temperature 98.3 F 02/19/20 05:30 Pulse Rate 89 02/19/20 05:30 Respiratory Rate 18 02/19/20 05:30 Blood Pressure 130/74 02/19/20 05:30 O2 Sat by Pulse Oximetry (%) 66 L 02/19/20 05:30 Constitutional: Yes: No Distress, Calm Eyes: Yes: Conjunctiva Clear Cardiovascular: Yes: Pulse Irregular Respiratory: Yes: CTA Bilaterally (no rales) Gastrointestinal: Yes: Soft, Abdomen, Obese (nt) Edema: No Neurological: Yes: Alert, Oriented ...Motor Strength: WNL Labs: INR, PTT INR 1.06 (0.83-1.09) 02/16/20 13:15 Laboratory Tests 02/19/20 02/19/20 06:33 06:33 WBC 13.7 H Hgb 14.4 Plt Count 277 Sodium 137 Potassium 3.6 BUN 20.5 H Creatinine 0.9 - ....Imaging EKG: Image Reviewed Assessment/Plan Assessment/Plan a/p: 64 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 chronic syst chf: -vol stable, cont lasix 40 po qd -no signs acs -echo here with stable findings, lvef mod reduced. 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 hld: -cont statin pafib: not well controlled on admit now improved. - in and out of afib/sr here - cont dilt and coreg, and titrated dose of diltiazem 180 bid, monitor on tele; dilt being used here as adjunct rate control therapy -Walked frances yesterday with RN, rate low 100s, improved. - cont eliquis -Discharge planning for tomorrow. -Will need cardiology f/u with me in 1 week post dc: [phone]
[2020-02-19] MEDS: DOCUSATE SODIUM 100 MG CAPSULE (FP) PO SCH ×3 (06:59→23:12)
[2020-02-19] MEDS: INSULIN SLIDING SCALE (NOVOLOG) 1 VIAL SQ SCH ×4 (07:01→23:19)
[2020-02-19 07:12] LABS: HEMATOCRIT 43.7 % (35.4-49); HEMOGLOBIN 14.4 GM/dL (11.7-16.9); MCH 26.9 pg (25.7-33.7); MCHC 32.9 g/dl (32.0-35.9); MEAN CELL VOLUME 81.6 fl (80-96); MEAN PLT VOLUME 8.4 fl (7.5-11.1); PLATELET COUNT 277 K/MM3 (134-434); RBC 5.36 M/mm3 (4.00-5.60); RDW 15.1 % (11.9-15.9); WHITE BLOOD COUNT 13.7 K/mm3 (4.0-10.0)
[2020-02-19 07:35] LABS: ALBUMIN 3.2 g/dl (3.4-5.0); BILIRUBIN,TOTAL 0.5 mg/dL (0.2-1); BLOOD UREA NITROGEN 20.5 mg/dL (7-18); CALCIUM 8.7 mg/dL (8.5-10.1); CREATININE 0.9 mg/dL (0.55-1.3); POTASSIUM 3.6 mmol/L (3.5-5.1); TOT PROT 5.8 g/dl (6.4-8.2)
[2020-02-19] MEDS: INSULIN (LEVEMIR) 100 UNITS/ML UNITS SQ SCH ×2 (08:32→23:18)
[2020-02-19] MEDS: INSULIN (NOVOLOG MIX 70/30) 100 UNITS/ML MDV SQ SCH ×2 (08:36→17:51)
--- NOTE | 2020-02-19 09:12 | PN ---
Progress Note, Physician Chief Complaint: Afib SOB History of Present Illness: Previous notes and events reviewed Alert and oriented, NAD Complains of palpitations on exertion associated with SOB Complains of SOB with walking-says he can walk to the nurses station before feeling SOB Denies chest pain noted with elevated BS-as per RN patient has been ordered double trays for breakfast - Current Medication List Current Medications: Active Medications Acetaminophen (Tylenol -) 650 mg PO Q6H PRN PRN Reason: FEVER Apixaban (Eliquis -) 5 mg PO BID [facility] Last Admin: 02/18/20 21:19 Dose: 5 mg Documented by: Aspirin (Ecotrin -) 81 mg PO DAILY [facility] Last Admin: 02/18/20 10:55 Dose: 81 mg Documented by: Carvedilol (Coreg -) 25 mg PO BID [facility] Last Admin: 02/18/20 21:22 Dose: 25 mg Documented by: Diltiazem HCl (Cardizem Cd -) 180 mg PO BID [facility] Last Admin: 02/18/20 21:20 Dose: 180 mg Documented by: Docusate Sodium (Colace -) 100 mg PO TID [facility] Last Admin: 02/19/20 06:59 Dose: 100 mg Documented by: Duloxetine HCl (Cymbalta -) 60 mg PO BID [facility] Last Admin: 02/18/20 21:19 Dose: 60 mg Documented by: Furosemide (Lasix -) 40 mg PO DAILY [facility] Last Admin: 02/18/20 10:55 Dose: 40 mg Documented by: Gabapentin (Neurontin -) 600 mg PO BID [facility] Last Admin: 02/18/20 21:23 Dose: 600 mg Documented by: Insulin Aspart (Novolog Vial Sliding Scale -) 1 vial SQ [facility]; Protocol Last Admin: 02/19/20 07:01 Dose: 12 units Documented by: Insulin Aspart (Novolog Mix 70/30 Vial) 15 units SQ BIDAC [facility] Last Admin: 02/19/20 08:36 Dose: 15 units Documented by: Insulin Detemir (Levemir Vial) 40 units SQ AM [facility] Last Admin: 02/19/20 08:32 Dose: 40 units Documented by: Insulin Detemir (Levemir Vial) 80 units SQ HS [facility] Last Admin: 02/18/20 22:50 Dose: 80 units Documented by: Losartan Potassium (Cozaar -) 50 mg PO DAILY [facility] Last Admin: 02/18/20 10:55 Dose: 50 mg Documented by: Melatonin (Melatonin) 5 mg PO HS PRN PRN Reason: INSOMNIA Last Admin: 02/18/20 21:19 Dose: 5 mg Documented by: Mometasone Furoate (Asmanex 220mcg -) 2 puff IH [facility] Last Admin: 02/18/20 21:21 Dose: 2 puff Documented by: Olanzapine (Zyprexa -) 10 mg PO [facility] Last Admin: 02/18/20 22:52 Dose: 10 mg Documented by: Pantoprazole Sodium (Protonix -) 40 mg PO DAILY [facility] Last Admin: 02/18/20 10:55 Dose: 40 mg Documented by: Prednisone (Deltasone -) 10 mg PO DAILY [facility] Last Admin: 02/18/20 10:55 Dose: 10 mg Documented by: Rosuvastatin Calcium (Crestor -) 20 mg PO [facility] Last Admin: 02/18/20 21:22 Dose: 20 mg Documented by: Senna (Senna -) 1 tab PO [facility] Last Admin: 02/18/20 21:23 Dose: 1 tab Documented by: - Objective Vital Signs: Vital Signs Temperature 98.3 F 02/19/20 05:30 Pulse Rate 89 02/19/20 05:30 Respiratory Rate 18 02/19/20 05:30 Blood Pressure 130/74 02/19/20 05:30 O2 Sat by Pulse Oximetry (%) 66 L 02/19/20 05:30 Constitutional: Yes: No Distress, Calm, Obese Eyes: Yes: Conjunctiva Clear HENT: Yes: Atraumatic Cardiovascular: Yes: Pulse Irregular Respiratory: Yes: Regular, Diminished Gastrointestinal: Yes: Normal Bowel Sounds, Soft, Abdomen, Obese, Other (nontender) Musculoskeletal: Yes: WNL Extremities: Yes: WNL Edema: No Neurological: Yes: Alert, Oriented Psychiatric: Yes: Alert, Oriented Labs: CBC, BMP 02/19/20 06:33 02/19/20 06:33 INR, PTT INR 1.06 (0.83-1.09) 02/16/20 13:15 Problem List - Problems (1) Atrial fibrillation with RVR Assessment/Plan: Cardiology on board Cardiac monitoring Eliquis 5mg BID Diltiazem 180 BID Code(s): I48.91 - UNSPECIFIED ATRIAL FIBRILLATION (2) Bipolar disorder Assessment/Plan: Cont Zyprexa and Cymbalta Code(s): F31.9 - BIPOLAR DISORDER, UNSPECIFIED (3) CHF (congestive heart failure) Assessment/Plan: Cardiology on board Lasix 40mg QD Echo 02/08/20 shows EF 35-40%, L ventricular systolic function moderately reduced, trivial pericardial effusion Code(s): I50.9 - HEART FAILURE, UNSPECIFIED Qualifiers: Heart failure type: systolic (4) COPD exacerbation Assessment/Plan: Pulmonary on board CXR shows large heart, no acute chest pathology Keep SpO2 >90% Asmanex Prednisone Covid-19 PCR neg x 1 Code(s): J44.1 - CHRONIC OBSTRUCTIVE PULMONARY DISEASE W (ACUTE) EXACERBATION (5) Shortness of breath Assessment/Plan: Pulmonary on board CXR shows large heart, no acute chest pathology Keep SpO2 >90% Asmanex Prednisone COVID 19 PCR neg x 1 leukocytosis 2/2 steroid use Code(s): R06.02 - SHORTNESS OF BREATH (6) DM Diabetes mellitus type 2 Assessment/Plan: Endocrinology on board BGM ACHS ISS Diabetic diet noted with change in med regimen: Levemir 40U SQ AM and Levemir 80U SQ HS, Novolog 70/30 15U SQ BIDAC Code(s): E11.9 - TYPE 2 DIABETES MELLITUS WITHOUT COMPLICATIONS (7) coronary artery disease Assessment/Plan: Cardiology on board Cont with Rosuvastatin Assessment/Plan see problem list
[2020-02-19] MEDS: PANTOPRAZOLE 40 MG TABLET PO SCH (10:43)
[2020-02-19] MEDS: CARVEDILOL 25 MG TABLET (FP) PO SCH ×2 (10:44→23:12)
[2020-02-19] MEDS: FUROSEMIDE 40 MG TABLET (FP) PO SCH (10:44)
[2020-02-19] MEDS: DULoxetine HCL 30 MG CAPSULE.DR PO SCH ×2 (10:44→23:12)
[2020-02-19] MEDS: APIXABAN 5 MG TABLET PO SCH ×2 (10:44→23:12)
[2020-02-19] MEDS: LOSARTAN POTASSIUM 50 MG TABLET PO SCH (10:44)
[2020-02-19] MEDS: GABAPENTIN 300 MG CAPSULE PO SCH ×2 (10:44→23:12)
[2020-02-19] MEDS: predniSONE 10 MG TABLET (UD) PO SCH (10:44)
[2020-02-19] MEDS: ASPIRIN COATED 81 MG TABLET.EC PO SCH (10:44)
--- NOTE | 2020-02-19 11:31 | PN ---
Progress Note (short form) - Note Progress Note: PULMONARY States breathing better but not at baseline. No cough or wheezing. Vital Signs Period Temp Pulse Resp BP Sys/Irwin Pulse Ox Last 24 Hr 97.6 F-98.7 F 63-109 18-20 99-130/41-74 66-95 Gen: NAD at rest Heart: RRR Lung: decreased breath sounds at the bases Abd: soft, nontender Ext: no edema CBC, BMP 02/19/20 06:33 02/19/20 06:33 Active Medications Acetaminophen (Tylenol -) 650 mg PO Q6H PRN PRN Reason: FEVER Apixaban (Eliquis -) 5 mg PO BID [facility] Last Admin: 02/19/20 10:44 Dose: 5 mg Documented by: Aspirin (Ecotrin -) 81 mg PO DAILY [facility] Last Admin: 02/19/20 10:44 Dose: 81 mg Documented by: Carvedilol (Coreg -) 25 mg PO BID [facility] Last Admin: 02/19/20 10:44 Dose: 25 mg Documented by: Diltiazem HCl (Cardizem Cd -) 180 mg PO BID [facility] Last Admin: 02/19/20 10:43 Dose: 180 mg Documented by: Docusate Sodium (Colace -) 100 mg PO TID [facility] Last Admin: 02/19/20 06:59 Dose: 100 mg Documented by: Duloxetine HCl (Cymbalta -) 60 mg PO BID [facility] Last Admin: 02/19/20 10:44 Dose: 60 mg Documented by: Furosemide (Lasix -) 40 mg PO DAILY [facility] Last Admin: 02/19/20 10:44 Dose: 40 mg Documented by: Gabapentin (Neurontin -) 600 mg PO BID [facility] Last Admin: 02/19/20 10:44 Dose: 600 mg Documented by: Insulin Aspart (Novolog Vial Sliding Scale -) 1 vial SQ ACHS [facility]; Protocol Last Admin: 02/19/20 07:01 Dose: 12 units Documented by: Insulin Aspart (Novolog Mix 70/30 Vial) 15 units SQ BIDAC [facility] Last Admin: 02/19/20 08:36 Dose: 15 units Documented by: Insulin Detemir (Levemir Vial) 40 units SQ AM [facility] Last Admin: 02/19/20 08:32 Dose: 40 units Documented by: Insulin Detemir (Levemir Vial) 80 units SQ HS [facility] Last Admin: 02/18/20 22:50 Dose: 80 units Documented by: Losartan Potassium (Cozaar -) 50 mg PO DAILY [facility] Last Admin: 02/19/20 10:44 Dose: 50 mg Documented by: Melatonin (Melatonin) 5 mg PO HS PRN PRN Reason: INSOMNIA Last Admin: 02/18/20 21:19 Dose: 5 mg Documented by: Mometasone Furoate (Asmanex 220mcg -) 2 puff IH [facility] Last Admin: 02/18/20 21:21 Dose: 2 puff Documented by: Olanzapine (Zyprexa -) 10 mg PO [facility] Last Admin: 02/18/20 22:52 Dose: 10 mg Documented by: Pantoprazole Sodium (Protonix -) 40 mg PO DAILY [facility] Last Admin: 02/19/20 10:43 Dose: 40 mg Documented by: Prednisone (Deltasone -) 10 mg PO DAILY [facility] Last Admin: 02/19/20 10:44 Dose: 10 mg Documented by: Rosuvastatin Calcium (Crestor -) 20 mg PO [facility] Last Admin: 02/18/20 21:22 Dose: 20 mg Documented by: Senna (Senna -) 1 tab PO [facility] Last Admin: 02/18/20 21:23 Dose: 1 tab Documented by: A/P Paroxysmal Atrial Fibrillation with RVR LV Systolic Dysfunction COPD Bipolar Disorder ELSY - rate control - continue anticoagulation - lasix - monitor urine output, creatinine - inhaled bronchodilators/corticosteroids - O2 as needed
[2020-02-19] MEDS ORDERED: PT OWN MED DRAWER 7, Y5N ONE (23:04)
[2020-02-19] MEDS: SENNOSIDES 8.6MG TABLET (FP) PO SCH (23:12)
[2020-02-19] MEDS: MOMETASONE FUROATE 220 MCG/IH INHALER IH SCH (23:12)
[2020-02-19] MEDS: ROSUVASTATIN CA 20 MG TABLET (FP) PO SCH (23:12)
[2020-02-19] MEDS: OLANZapine 5 MG TABLET PO SCH (23:47)
[2020-02-20] MEDS ORDERED: INSULIN (LEVEMIR) 100 UNITS/ML UNITS SQ ONE (07:21)
[2020-02-20] MEDS ORDERED: INSULIN (NOVOLOG) ASPART 100 UNITS/ML 10ML VIAL ONE (07:22)
[2020-02-20] MEDS: DOCUSATE SODIUM 100 MG CAPSULE (FP) PO SCH ×2 (07:24→13:58)
[2020-02-20] MEDS: INSULIN (LEVEMIR) 100 UNITS/ML UNITS SQ SCH (07:24)
[2020-02-20] MEDS: INSULIN (NOVOLOG MIX 70/30) 100 UNITS/ML MDV SQ SCH ×2 (07:25→16:28)
[2020-02-20] MEDS: INSULIN SLIDING SCALE (NOVOLOG) 1 VIAL SQ SCH ×3 (07:26→17:00)
[2020-02-20 07:34] LABS: MCHC 32.6 g/dl (32.0-35.9); MEAN CELL VOLUME 82.9 fl (80-96); MEAN PLT VOLUME 8.4 fl (7.5-11.1); PLATELET COUNT 276 K/MM3 (134-434); RBC 5.19 M/mm3 (4.00-5.60); RDW 15.3 % (11.9-15.9); WHITE BLOOD COUNT 13.9 K/mm3 (4.0-10.0)
[2020-02-20 07:54] LABS: BLOOD UREA NITROGEN 21.4 mg/dL (7-18); CALCIUM 8.7 mg/dL (8.5-10.1); CREATININE 0.9 mg/dL (0.55-1.3); POTASSIUM 3.9 mmol/L (3.5-5.1)
[2020-02-20 07:55] LABS: BILIRUBIN,TOTAL 0.5 mg/dL (0.2-1); TOT PROT 5.6 g/dl (6.4-8.2)
--- NOTE | 2020-02-20 08:05 | DS ---
Physical Examination Vital Signs: Vital Signs Temperature 97.5 F L 02/20/20 02:00 Pulse Rate 58 L 02/20/20 06:00 Respiratory Rate 18 02/20/20 06:00 Blood Pressure 113/68 02/20/20 06:00 O2 Sat by Pulse Oximetry (%) 90 L 02/20/20 02:00 Findings/Remarks: ASLEEP COMFORTABLE CLEARED BY CARDIOLOGY FOR DISCHARGE Constitutional: Yes: No Distress Cardiovascular: Yes: Pulse Irregular Respiratory: Yes: WNL Gastrointestinal: Yes: Soft, Abdomen, Obese Musculoskeletal: Yes: Muscle Weakness Edema: Yes Integumentary: Yes: Venous Stasis Changes Wound/Incision: Yes: Open to air Neurological: Yes: Numbness, Paresthesia, Pre-Existing Deficit ...Motor Strength: LLE, RLE Psychiatric: Yes: Other Labs: CBC, BMP 02/20/20 06:25 Discharge Summary Problems reviewed: Yes Reason For Visit: ANXIETY SHORTNESS OF BREATH ATRIAL FIBRILATION Current Active Problems Atrial fibrillation with RVR (Acute) Procedures: Principal: CXR/LABS Hospital Course: ADMITTED FOR DIZZINESS, NON-COMPLIANCE TO MEDS AND LIFESTYLE IS POOR. UNABLE TO AMBULATE MORE THAN 5 FT WITHOUT BEING SHORT OF BREATH AND DIZZY. MEDICATIONS ADJUSTED MONITORED ON TELEMETRY Goals: FOLLOW UP AT SNF FOR PHYSICAL THERAPY AND MONITOR MEDICATIONS, BLOOD GLUCOSE, CARDIAC MEDS. Condition: Fair - Instructions Diet, Activity, Other Instructions: LOW SODIUM, DIABETIC DIET PT FOR UNSTEADY GAIT F/U AFTER SNF PLACEMENT Referrals: Carlos Ybarra MD [Primary Care Provider] - Disposition: ALF FACILITY - Home Medications Comprehensive Discharge Medication List: Ambulatory Orders Aspirin [Aspirin EC] 81 mg PO DAILY 08/16/15 Ergocalciferol [Vitamin D2] 50,000 unit PO Q7D@1000 08/16/15 Gabapentin 600 mg PO BID 08/16/15 Acetaminophen [Tylenol .Regular Strength -] 650 mg PO Q6H PRN #0 tablet 09/11/16 Carvedilol [Coreg -] 12.5 mg PO BID tablet 09/11/16 Losartan Potassium [Cozaar -] 50 mg PO DAILY tablet 09/11/16 Rosuvastatin [Crestor -] 20 mg PO HS tablet 09/11/16 Duloxetine HCl [Cymbalta -] 60 mg PO DAILY 01/02/17 Furosemide [Lasix -] 40 mg PO DAILY 01/02/17 Insulin Glargine,Hum.rec.anlog [Basaglar Kwikpen U-100] 0 unit SQ AM 01/02/17 Insulin Glargine,Hum.rec.anlog [Basaglar Kwikpen U-100] 80 unit SQ HS 01/02/17 Olanzapine [Zyprexa -] 10 mg PO HS 01/02/17 Apixaban [Eliquis -] 5 mg PO BID #60 tablet 02/15/20 Carvedilol [Coreg -] 25 mg PO BID #60 tablet 02/15/20 Diltiazem Cd [Cardizem Cd -] 240 mg PO DAILY #30 cap.cd.24h 02/15/20 Docusate Sodium [Colace -] 100 mg PO TID capsule 02/15/20 Duloxetine HCl [Cymbalta -] 60 mg PO BID #60 capsule. 02/15/20 Insulin Sliding Scale [Novolog Vial Sliding Scale -] 1 vial SQ ACHS units 02/15/20 Mometasone Furoate [Asmanex 220Mcg -] 2 puff IH BID #1 inhaler 02/15/20 Pantoprazole Sodium [Protonix -] 40 mg PO DAILY #30 tablet.ec 02/15/20 Sennosides [Senna -] 1 tab PO HS tablet 02/15/20 Triamcinolone 0.1% Cream [Aristocort 0.1% Cream -] 1 applic TP DAILY #90 applic 02/15/20 predniSONE [Deltasone -] See Taper PO DAILY #20 tablet 02/15/20
[2020-02-20] MEDS: DULoxetine HCL 30 MG CAPSULE.DR PO SCH (09:56)
[2020-02-20] MEDS: APIXABAN 5 MG TABLET PO SCH (09:57)
[2020-02-20] MEDS: ASPIRIN COATED 81 MG TABLET.EC PO SCH (09:57)
[2020-02-20] MEDS: FUROSEMIDE 40 MG TABLET (FP) PO SCH (09:57)
[2020-02-20] MEDS: CARVEDILOL 25 MG TABLET (FP) PO SCH (09:57)
[2020-02-20] MEDS: LOSARTAN POTASSIUM 50 MG TABLET PO SCH (09:57)
[2020-02-20] MEDS: PANTOPRAZOLE 40 MG TABLET PO SCH (09:57)
[2020-02-20] MEDS: predniSONE 10 MG TABLET (UD) PO SCH (09:57)
[2020-02-20] MEDS: GABAPENTIN 300 MG CAPSULE PO SCH (09:58)
--- NOTE | 2020-02-20 10:43 | PN ---
Progress Note (short form) - Note Progress Note: Chief Complaint: palps tele: sr Denies CP, SOB, palps dizzy Current Medications Generic Name Dose Route Start Last Admin Trade Name Paul PRN Reason Stop Dose Admin Acetaminophen 650 mg 02/16/20 14:13 Tylenol - PO Q6H PRN FEVER Apixaban 5 mg 02/16/20 22:00 02/20/20 09:57 Eliquis - PO 5 mg BID [facility] Administration Aspirin 81 mg 02/17/20 10:00 02/20/20 09:57 Ecotrin - PO 81 mg DAILY [facility] Administration Carvedilol 25 mg 02/16/20 22:00 02/20/20 09:57 Coreg - PO 25 mg BID [facility] Administration Diltiazem HCl 180 mg 02/16/20 22:00 02/20/20 09:56 Cardizem Cd - PO 180 mg BID [facility] Administration Docusate Sodium 100 mg 02/16/20 22:00 02/20/20 07:24 Colace - PO 100 mg TID [facility] Administration Duloxetine HCl 60 mg 02/16/20 22:00 02/20/20 09:56 Cymbalta - PO 60 mg BID [facility] Administration Furosemide 40 mg 02/17/20 10:00 02/20/20 09:57 Lasix - PO 40 mg DAILY [facility] Administration Gabapentin 600 mg 02/16/20 22:00 02/20/20 09:58 Neurontin - PO 600 mg BID [facility] Administration Insulin Aspart 1 vial 02/18/20 22:00 02/20/20 07:26 Novolog Vial Sliding Scale - SQ 9 units ACHS [facility] Administration Protocol Insulin Aspart 15 units 02/19/20 07:00 02/20/20 07:25 Novolog Mix 70/30 Vial SQ 15 units BIDAC [facility] Administration Insulin Detemir 40 units 02/19/20 07:00 02/20/20 07:24 Levemir Vial SQ 40 units AM [facility] Administration Insulin Detemir 80 units 02/18/20 22:00 02/19/20 23:18 Levemir Vial SQ 80 units HS [facility] Administration Losartan Potassium 50 mg 02/17/20 10:00 02/20/20 09:57 Cozaar - PO 50 mg DAILY [facility] Administration Melatonin 5 mg 02/18/20 00:20 02/18/20 21:19 Melatonin PO 5 mg HS PRN Administration INSOMNIA Mometasone Furoate 2 puff 02/16/20 22:00 02/19/20 23:12 Asmanex 220mcg - IH Not Given HS [facility] Olanzapine 10 mg 02/16/20 22:00 02/19/20 23:47 Zyprexa - PO 10 mg HS [facility] Administration Pantoprazole Sodium 40 mg 02/17/20 10:00 02/20/20 09:57 Protonix - PO 40 mg DAILY [facility] Administration Prednisone 10 mg 02/17/20 10:00 02/20/20 09:57 Deltasone - PO 10 mg DAILY [facility] Administration Rosuvastatin Calcium 20 mg 02/16/20 22:00 02/19/20 23:12 Crestor - PO 20 mg HS [facility] Administration Senna 1 tab 02/16/20 22:00 02/19/20 23:12 Senna - PO 1 tab HS [facility] Administration Vital Signs Period Temp Pulse Resp BP Sys/Irwin Pulse Ox Last 24 Hr 97.5 F-98.2 F 58-74 18-20 101-125/60-70 90-96 Constitutional: Yes: No Distress, Calm Eyes: Yes: Conjunctiva Clear Cardiovascular: Yes: rrr s1s no mrg Respiratory: Yes: CTA Bilaterally (no rales) nl eff Gastrointestinal: Yes: Soft, Abdomen, Obese (nt) Edema: No Neurological: Yes: Alert, Oriented no jaundice diaphoresis Labs: CBC, BMP 02/20/20 06:25 02/20/20 06:25 Assessment/Plan a/p: 64 m hx 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 chronic syst chf: -vol stable, cont lasix 40 po qd -no signs acs -echo here with stable findings, lvef mod reduced. 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 hld: -cont statin pafib: not well controlled on admit now improved. - in and out of afib/sr here - cont dilt and coreg, and titrated dose of diltiazem 180 bid, monitor on tele; dilt being used here as adjunct rate control therapy -hr improved now, cont current meds -outpt cardio f/u
--- NOTE | 2020-02-20 11:48 | PN ---
Progress Note (short form) - Note Progress Note: PULMONARY States breathing better. No cough or wheezing. Vital Signs Period Temp Pulse Resp BP Sys/Irwin Pulse Ox Last 24 Hr 97.5 F-98.5 F 58-74 18-20 101-127/56-70 90-96 Gen: NAD at rest Heart: RRR Lung: decreased breath sounds at the bases Abd: soft, nontender Ext: no edema CBC, BMP 02/20/20 06:25 02/20/20 06:25 Active Medications Acetaminophen (Tylenol -) 650 mg PO Q6H PRN PRN Reason: FEVER Apixaban (Eliquis -) 5 mg PO BID [facility] Last Admin: 02/20/20 09:57 Dose: 5 mg Documented by: Aspirin (Ecotrin -) 81 mg PO DAILY [facility] Last Admin: 02/20/20 09:57 Dose: 81 mg Documented by: Carvedilol (Coreg -) 25 mg PO BID [facility] Last Admin: 02/20/20 09:57 Dose: 25 mg Documented by: Diltiazem HCl (Cardizem Cd -) 180 mg PO BID [facility] Last Admin: 02/20/20 09:56 Dose: 180 mg Documented by: Docusate Sodium (Colace -) 100 mg PO TID [facility] Last Admin: 02/20/20 07:24 Dose: 100 mg Documented by: Duloxetine HCl (Cymbalta -) 60 mg PO BID [facility] Last Admin: 02/20/20 09:56 Dose: 60 mg Documented by: Furosemide (Lasix -) 40 mg PO DAILY [facility] Last Admin: 02/20/20 09:57 Dose: 40 mg Documented by: Gabapentin (Neurontin -) 600 mg PO BID [facility] Last Admin: 02/20/20 09:58 Dose: 600 mg Documented by: Insulin Aspart (Novolog Vial Sliding Scale -) 1 vial SQ ACHS [facility]; Protocol Last Admin: 02/20/20 07:26 Dose: 9 units Documented by: Insulin Aspart (Novolog Mix 70/30 Vial) 15 units SQ BIDAC [facility] Last Admin: 02/20/20 07:25 Dose: 15 units Documented by: Insulin Detemir (Levemir Vial) 40 units SQ AM [facility] Last Admin: 02/20/20 07:24 Dose: 40 units Documented by: Insulin Detemir (Levemir Vial) 80 units SQ HS [facility] Last Admin: 02/19/20 23:18 Dose: 80 units Documented by: Losartan Potassium (Cozaar -) 50 mg PO DAILY [facility] Last Admin: 02/20/20 09:57 Dose: 50 mg Documented by: Melatonin (Melatonin) 5 mg PO HS PRN PRN Reason: INSOMNIA Last Admin: 02/18/20 21:19 Dose: 5 mg Documented by: Mometasone Furoate (Asmanex 220mcg -) 2 puff IH [facility] Last Admin: 02/19/20 23:12 Dose: Not Given Documented by: Olanzapine (Zyprexa -) 10 mg PO [facility] Last Admin: 02/19/20 23:47 Dose: 10 mg Documented by: Pantoprazole Sodium (Protonix -) 40 mg PO DAILY [facility] Last Admin: 02/20/20 09:57 Dose: 40 mg Documented by: Prednisone (Deltasone -) 10 mg PO DAILY [facility] Last Admin: 02/20/20 09:57 Dose: 10 mg Documented by: Rosuvastatin Calcium (Crestor -) 20 mg PO [facility] Last Admin: 02/19/20 23:12 Dose: 20 mg Documented by: Senna (Senna -) 1 tab PO [facility] Last Admin: 02/19/20 23:12 Dose: 1 tab Documented by: A/P Paroxysmal Atrial Fibrillation with RVR LV Systolic Dysfunction COPD Bipolar Disorder ELSY - rate control - continue anticoagulation - lasix - monitor urine output, creatinine - inhaled bronchodilators/corticosteroids - O2 as needed
[2020-02-20 17:38] VITALS: BP 129/74; PULSE 60; TEMP 97.6
== END 2020-02-20 20:02 | DRG 201 ==
LOC: JER 09:55 → JERBED 12:36 → J4S 13:26 → J4W 02-19 17:35
PROVIDERS: ADMIT Family Medicine; ATTEND Family Medicine
DX: I48.0 Paroxysmal atrial fibrillation (principal); I25.10 Atherosclerotic heart disease of native coronary artery without angina pectoris; E11.9 Type 2 diabetes mellitus without complications; F31.9 Bipolar disorder, unspecified; I47.1 Supraventricular tachycardia; G47.33 Obstructive sleep apnea (adult) (pediatric); I50.22 Chronic systolic (congestive) heart failure; E78.5 Hyperlipidemia, unspecified; R42 Dizziness and giddiness; Z91.14 Patient's other noncompliance with medication regimen; J44.9 Chronic obstructive pulmonary disease, unspecified; I25.5 Ischemic cardiomyopathy; F41.8 Other specified anxiety disorders
CPT/HCPCS: 36415; 71045-TC-FY; 80053; 82550; 82962; 83735; 84484; 85025; 85027; 85610; 85730; 93005; 93010; 97116-GP; 97161-GP; 99291; U0003

== ENCOUNTER 2021-07-04 15:32 | Inpatient (IN) | payer OTHER ==
[2021-07-04 17:59] LABS: BASO % 0.6 % (0-2.0); EOS % 2.1 % (0-4.5); HEMATOCRIT 36.7 % (35.4-49); LYMPH % 7.2 % (8-40); MCH 26.2 pg (25.7-33.7); MCHC 32.7 g/dl (32.0-35.9); MEAN CELL VOLUME 80.1 fl (80-96); MEAN PLT VOLUME 7.2 fl (7.5-11.1); MONO % 6.1 % (3.8-10.2); PLATELET COUNT 323 10^3/uL (134-434); RBC 4.58 M/mm3 (4.00-5.60); RDW 15.3 % (11.9-15.9); WHITE BLOOD COUNT 11.1 K/mm3 (4.0-10.0)
[2021-07-04 18:11] LABS: ALBUMIN 2.5 g/dl (3.4-5.0); BLOOD UREA NITROGEN 9.4 mg/dL (7-18); CALCIUM 8.4 mg/dL (8.5-10.1)
[2021-07-04 18:14] LABS: CREATININE 0.9 mg/dL (0.55-1.3)
[2021-07-04 18:16] LABS: BILIRUBIN,TOTAL 0.7 mg/dL (0.2-1); TOT PROT 5.7 g/dl (6.4-8.2)
[2021-07-04 18:20] LABS: N-TERMINAL BNP 1306.9 pg/ml (5-125)
[2021-07-04 20:06] LABS: EPI CELLS 6 /uL (0-25.1); HYALINE CASTS 1 /uL (0-3.1); PH,URINE 5.5 (5.0-8.0); URINE APPEARANCE TURBID; URINE BACTERIA >9,000 /uL (0-1359); URINE BILIRUBIN NEGATIVE (NEGATIVE); URINE COLOR DK YELLOW; URINE GLUCOSE (UA) NEGATIVE (NEGATIVE); URINE KETONE 1+ (NEGATIVE); URINE LEUK ESTERASE 3+ (NEGATIVE); URINE NITRITE NEGATIVE (NEGATIVE); URINE PROTEIN 1+ (NEGATIVE); URINE RBC 46 /uL (0-23.9); URINE WBC 4691 /uL (0-25.8)
[2021-07-04] MEDS ORDERED: CEFTRIAXONE 1,000 MG in DEXTROSE 5%-WATER - 50 ML IVPB ONE (20:12)
[2021-07-04] MEDS ORDERED: POLYETHYLENE GLYCOL (HEALTHYLAX) 3350 17 GM PACKET PO PRN (21:37)
[2021-07-04] MEDS ORDERED: ACETAMINOPHEN 325 MG TABLET (FP) PO PRN (21:37)
[2021-07-05] MEDS ORDERED: CYCLOBENZAPRINE HCL 10 MG TABLET (FP) PO ONE (00:31)
[2021-07-05] MEDS ORDERED: GABAPENTIN 300 MG CAPSULE PO ONE (00:31)
[2021-07-05] MEDS ORDERED: CARVEDILOL 12.5 MG TABLET (FP) PO ONE (00:33)
[2021-07-05] MEDS ORDERED: APIXABAN 5 MG TABLET ONE ×2 (00:34→23:53)
[2021-07-05] MEDS ORDERED: MELATONIN 5 MG TABLETS PO ONE (00:34)
[2021-07-05] MEDS ORDERED: GABAPENTIN 100 MG CAPSULE ONE ×2 (00:35→10:12)
[2021-07-05] MEDS: valACYclovir HCL 500 MG TABLET (FP) PO SCH ×3 (07:00→23:30)
[2021-07-05] MEDS ORDERED: CARVEDILOL 12.5 MG TABLET (FP) ONE ×2 (08:08→23:53)
[2021-07-05] MEDS ORDERED: buPROPion HCL 100 MG TABLET ONE (08:08)
[2021-07-05] MEDS ORDERED: DULoxetine HCL 30 MG CAPSULE.DR PO ONE ×2 (08:08→23:54)
[2021-07-05] MEDS ORDERED: TAMSULOSIN HCL 0.4 MG CAP ONE (08:08)
[2021-07-05] MEDS ORDERED: valACYclovir HCL 500 MG TABLET (FP) ONE ×3 (08:08→23:53)
[2021-07-05 08:14] LABS: BLOOD UREA NITROGEN 11.3 mg/dL (7-18); CALCIUM 8.6 mg/dL (8.5-10.1)
[2021-07-05 08:18] LABS: CREATININE 0.8 mg/dL (0.55-1.3)
[2021-07-05] MEDS ORDERED: TAMSULOSIN HCL 0.4 MG CAP PO SCH (08:30)
[2021-07-05 08:44] LABS: BASO % 0.5 % (0-2.0); EOS % 2.5 % (0-4.5); HEMATOCRIT 34.7 % (35.4-49); HEMOGLOBIN 11.3 GM/dL (11.7-16.9); LYMPH % 8.4 % (8-40); MCH 26.4 pg (25.7-33.7); MCHC 32.5 g/dl (32.0-35.9); MEAN CELL VOLUME 81.4 fl (80-96); MEAN PLT VOLUME 7.3 fl (7.5-11.1); MONO % 6.7 % (3.8-10.2); NEUT % 81.9 % (42.8-82.8); PLATELET COUNT 318 10^3/uL (134-434); RBC 4.27 M/mm3 (4.00-5.60); RDW 15.1 % (11.9-15.9); WHITE BLOOD COUNT 11.8 K/mm3 (4.0-10.0)
[2021-07-05] MEDS: CARVEDILOL 25 MG TABLET (FP) PO SCH ×2 (09:31→23:30)
[2021-07-05] MEDS: APIXABAN 5 MG TABLET PO SCH ×2 (09:31→23:30)
[2021-07-05] MEDS: DULoxetine HCL 30 MG CAPSULE.DR PO SCH ×2 (09:31→23:30)
[2021-07-05] MEDS ORDERED: FUROSEMIDE 20 MG TABLET (FP) PO SCH (10:00)
[2021-07-05] MEDS ORDERED: LOSARTAN POTASSIUM 50 MG TABLET PO SCH (10:00)
[2021-07-05] MEDS ORDERED: FUROSEMIDE 40 MG/4 ML INJECTABLE VIAL IVPUSH ONE (10:10)
[2021-07-05] MEDS: GABAPENTIN 300 MG CAPSULE PO SCH (10:25)
[2021-07-05 10:39] LABS: MAGNESIUM 2.3 mg/dL (1.8-2.4)
[2021-07-05 11:46] LABS: INR 1.42 (0.83-1.09); PROTHROMBIN TIME (PATIENT) 16.4 SEC (9.7-13.0)
[2021-07-05] MEDS ORDERED: OLANZapine 7.5 MG TABLET PO SCH (22:00)
[2021-07-05] MEDS ORDERED: CEFTRIAXONE 1 GM in DEXTROSE 5%-WATER - 50 ML IVPB SCH (22:00)
[2021-07-05] MEDS ORDERED: ATORVASTATIN CA 10 MG TABLET (FP) PO SCH (22:00)
[2021-07-05] MEDS ORDERED: CYCLOBENZAPRINE HCL 5 MG TABLET PO SCH (22:00)
[2021-07-05] MEDS ORDERED: ATORVASTATIN CA 10 MG TABLET (FP) ONE (23:54)
[2021-07-05] MEDS ORDERED: CYCLOBENZAPRINE HCL 10 MG TABLET (FP) ONE (23:54)
[2021-07-05] MEDS ORDERED: OLANZapine 10 MG TABLET ONE (23:54)
[2021-07-05] MEDS ORDERED: CEFTRIAXONE 1 GM/50 ML BAG ONE (23:54)
[2021-07-06] MEDS: GABAPENTIN 300 MG CAPSULE PO SCH ×3 (00:38→21:42)
[2021-07-06 01:27] VITALS: BMI 36.2
[2021-07-06] MEDS ORDERED: POLYETHYLENE GLYCOL (HEALTHYLAX) 3350 17 GM PACKET PO PRN (01:40)
[2021-07-06] MEDS ORDERED: ACETAMINOPHEN 325 MG TABLET (FP) PO PRN (01:40)
[2021-07-06] MEDS: MELATONIN 5 MG TABLETS PO PRN (02:00)
[2021-07-06] MEDS: valACYclovir HCL 500 MG TABLET (FP) PO SCH ×3 (05:39→21:42)
[2021-07-06] MEDS: INSULIN SLIDING SCALE (NOVOLOG) 1 VIAL SQ SCH ×5 (06:03→21:43)
[2021-07-06] MEDS: LOSARTAN POTASSIUM 50 MG TABLET PO SCH (09:16)
[2021-07-06] MEDS: DULoxetine HCL 30 MG CAPSULE.DR PO SCH ×2 (09:16→21:42)
[2021-07-06] MEDS: APIXABAN 5 MG TABLET PO SCH ×2 (09:16→21:42)
[2021-07-06] MEDS: TAMSULOSIN HCL 0.4 MG CAP PO SCH (09:16)
[2021-07-06] MEDS: CARVEDILOL 12.5 MG TABLET (FP) PO SCH ×2 (09:17→21:42)
[2021-07-06 11:21] LABS: BLOOD UREA NITROGEN 12.6 mg/dL (7-18)
[2021-07-06 11:26] LABS: CALCIUM 8.6 mg/dL (8.5-10.1)
[2021-07-06 11:30] LABS: CREATININE 0.9 mg/dL (0.55-1.3)
[2021-07-06] MEDS ORDERED: INSULIN (NOVOLOG) ASPART 100 UNITS/ML 10ML VIAL ONE (11:38)
[2021-07-06] MEDS: FUROSEMIDE 40 MG/4 ML INJECTABLE VIAL IVPUSH SCH (12:25)
[2021-07-06] MEDS ORDERED: cefTRIAXone SODIUM 1 GM VIAL ONE (21:39)
[2021-07-06] MEDS ORDERED: DEXTROSE 5%-WATER - 50 ML IVPB ONE (21:40)
[2021-07-06] MEDS: ATORVASTATIN CA 10 MG TABLET (FP) PO SCH (21:42)
[2021-07-06] MEDS: CYCLOBENZAPRINE HCL 5 MG TABLET PO SCH (21:42)
[2021-07-06] MEDS: CEFTRIAXONE 1 GM in DEXTROSE 5%-WATER - 50 ML IVPB SCH (21:43)
[2021-07-06] MEDS: OLANZapine 5 MG TABLET PO SCH (21:43)
[2021-07-07] MEDS: valACYclovir HCL 500 MG TABLET (FP) PO SCH (05:15)
[2021-07-07] MEDS: INSULIN SLIDING SCALE (NOVOLOG) 1 VIAL SQ SCH ×4 (06:01→21:54)
[2021-07-07] MEDS: TAMSULOSIN HCL 0.4 MG CAP PO SCH (09:04)
[2021-07-07] MEDS: GABAPENTIN 300 MG CAPSULE PO SCH ×2 (09:04→22:00)
[2021-07-07] MEDS: DULoxetine HCL 30 MG CAPSULE.DR PO SCH ×2 (09:05→22:00)
[2021-07-07] MEDS: LOSARTAN POTASSIUM 50 MG TABLET PO SCH (09:05)
[2021-07-07] MEDS: CARVEDILOL 12.5 MG TABLET (FP) PO SCH ×2 (09:05→22:00)
[2021-07-07] MEDS: APIXABAN 5 MG TABLET PO SCH ×2 (09:05→22:00)
[2021-07-07] MEDS: FUROSEMIDE 40 MG/4 ML INJECTABLE VIAL IVPUSH SCH (09:06)
[2021-07-07] MEDS ORDERED: INSULIN (NOVOLOG) ASPART 100 UNITS/ML 10ML VIAL ONE (10:41)
[2021-07-07 12:04] LABS: BLOOD UREA NITROGEN 12.6 mg/dL (7-18)
[2021-07-07 12:05] LABS: CALCIUM 8.6 mg/dL (8.5-10.1)
[2021-07-07 12:07] LABS: CREATININE 0.9 mg/dL (0.55-1.3)
[2021-07-07] MEDS ORDERED: cefTRIAXone SODIUM 1 GM VIAL ONE (21:07)
[2021-07-07] MEDS ORDERED: DEXTROSE 5%-WATER - 50 ML IVPB ONE (21:07)
[2021-07-07] MEDS: ATORVASTATIN CA 10 MG TABLET (FP) PO SCH (22:00)
[2021-07-07] MEDS: CYCLOBENZAPRINE HCL 5 MG TABLET PO SCH (22:00)
[2021-07-07] MEDS: OLANZapine 5 MG TABLET PO SCH (22:01)
[2021-07-07] MEDS: CEFTRIAXONE 1 GM in DEXTROSE 5%-WATER - 50 ML IVPB SCH (22:01)
[2021-07-07] MEDS: MELATONIN 5 MG TABLETS PO PRN (23:26)
[2021-07-08] MEDS ORDERED: diphenhydrAMINE HCL 25 MG CAPSULE (FP) PO ONE (02:24)
[2021-07-08] MEDS: INSULIN SLIDING SCALE (NOVOLOG) 1 VIAL SQ SCH ×3 (06:36→16:33)
[2021-07-08] MEDS: TAMSULOSIN HCL 0.4 MG CAP PO SCH (09:24)
[2021-07-08 09:30] LABS: BASO % 0.8 % (0-2.0); EOS % 5.6 % (0-4.5); HEMATOCRIT 40.8 % (35.4-49); LYMPH % 13.3 % (8-40); MCH 25.7 pg (25.7-33.7); MCHC 31.8 g/dl (32.0-35.9); MEAN CELL VOLUME 80.9 fl (80-96); MEAN PLT VOLUME 7.4 fl (7.5-11.1); MONO % 8.2 % (3.8-10.2); NEUT % 72.1 % (42.8-82.8); PLATELET COUNT 467 10^3/uL (134-434); RBC 5.04 M/mm3 (4.00-5.60); RDW 15.3 % (11.9-15.9); WHITE BLOOD COUNT 7.7 K/mm3 (4.0-10.0)
[2021-07-08 09:52] LABS: BLOOD UREA NITROGEN 12.4 mg/dL (7-18); CALCIUM 9.2 mg/dL (8.5-10.1)
[2021-07-08 09:55] LABS: CREATININE 0.9 mg/dL (0.55-1.3)
[2021-07-08] MEDS: LOSARTAN POTASSIUM 50 MG TABLET PO SCH (10:02)
[2021-07-08] MEDS: APIXABAN 5 MG TABLET PO SCH (10:02)
[2021-07-08] MEDS: DULoxetine HCL 30 MG CAPSULE.DR PO SCH (10:02)
[2021-07-08] MEDS: GABAPENTIN 300 MG CAPSULE PO SCH (10:02)
[2021-07-08] MEDS: FUROSEMIDE 40 MG/4 ML INJECTABLE VIAL IVPUSH SCH (10:02)
[2021-07-08] MEDS: CARVEDILOL 12.5 MG TABLET (FP) PO SCH (10:02)
[2021-07-08 14:25] VITALS: BP 134/73; PULSE 98; TEMP 97.4
[2021-07-08] MEDS ORDERED: CEFUROXIME AXETIL 500 MG TABLET PO SCH (17:30)
== END 2021-07-08 18:26 | disposition home or self-care (01) | DRG 689 ==
LOC: JER 15:32 → JERBED 20:15 → J6S 07-06 00:36 → OBSVTOIN 07-07 09:57
PROVIDERS: ADMIT Internal Medicine; ATTEND Family Medicine
DX: N39.0 Urinary tract infection, site not specified (principal); I50.23 Acute on chronic systolic (congestive) heart failure; J44.9 Chronic obstructive pulmonary disease, unspecified; I25.10 Atherosclerotic heart disease of native coronary artery without angina pectoris; I25.2 Old myocardial infarction; E78.00 Pure hypercholesterolemia, unspecified; N40.0 Benign prostatic hyperplasia without lower urinary tract symptoms; B96.20 Unspecified Escherichia coli [E. coli] as the cause of diseases classified elsewhere; I11.0 Hypertensive heart disease with heart failure; D72.829 Elevated white blood cell count, unspecified; E11.610 Type 2 diabetes mellitus with diabetic neuropathic arthropathy; K59.00 Constipation, unspecified; E11.65 Type 2 diabetes mellitus with hyperglycemia; F31.9 Bipolar disorder, unspecified; I48.0 Paroxysmal atrial fibrillation; I45.10 Unspecified right bundle-branch block; F41.8 Other specified anxiety disorders; Z98.61 Coronary angioplasty status; R80.9 Proteinuria, unspecified; W18.30XA Fall on same level, unspecified, initial encounter; Y92.009 Unspecified place in unspecified non-institutional (private) residence as the place of occurrence of the external cause
CPT/HCPCS: 36415; 70450-TC; 71045-TC-FY; 72125-TC; 80048; 80053; 81003; 82550; 82962; 83036; 83735; 83880; 84443; 84484; 85025; 85610; 85730; 87086; 87186; 93005; 93010; 93306-TC; 99285-25; C9803; G0378; U0003; U0005

== ENCOUNTER 2021-07-11 11:29 | Observation (INO) | payer OTHER ==
[2021-07-11] MEDS ORDERED: ACETAMINOPHEN 325 MG TABLET (FP) PO PRN (12:18)
[2021-07-11 13:47] LABS: BASO % 1.2 % (0-2.0); EOS % 3.2 % (0-4.5); HEMATOCRIT 39.6 % (35.4-49); HEMOGLOBIN 12.6 GM/dL (11.7-16.9); LYMPH % 12.5 % (8-40); MCH 25.6 pg (25.7-33.7); MCHC 31.9 g/dl (32.0-35.9); MEAN CELL VOLUME 80.4 fl (80-96); MEAN PLT VOLUME 7.7 fl (7.5-11.1); MONO % 7.6 % (3.8-10.2); NEUT % 75.5 % (42.8-82.8); PLATELET COUNT 491 10^3/uL (134-434); RBC 4.92 M/mm3 (4.00-5.60); RDW 15.8 % (11.9-15.9); WHITE BLOOD COUNT 9.4 K/mm3 (4.0-10.0)
[2021-07-11 14:11] LABS: CHLORIDE 98 mmol/L (98-107); SODIUM 134 mmol/L (136-145)
[2021-07-11 14:13] LABS: ALBUMIN 2.9 g/dl (3.4-5.0); ANION GAP 8 MMOL/L (8-16); BLOOD UREA NITROGEN 11.7 mg/dL (7-18); CALCIUM 8.8 mg/dL (8.5-10.1); CO2 28 mmol/L (21-32)
[2021-07-11 14:16] LABS: SGPT/ALT 39 U/L (13-61)
[2021-07-11 14:18] LABS: BILIRUBIN,TOTAL 0.3 mg/dL (0.2-1); TOT PROT 5.9 g/dl (6.4-8.2)
[2021-07-11 14:19] LABS: ALK PHOS 121 U/L (45-117)
[2021-07-11 14:20] LABS: SGOT/AST 17 U/L (15-37)
[2021-07-11 14:21] LABS: GLUCOSE,RANDOM 402 mg/dL (74-106); N-TERMINAL BNP 185.4 pg/ml (5-125)
[2021-07-11 14:43] LABS: EPI CELLS 0 /uL (0-25.1); HYALINE CASTS 0 /uL (0-3.1); URINE APPEARANCE CLEAR; URINE BACTERIA 0 /uL (0-1359); URINE BILIRUBIN NEGATIVE (NEGATIVE); URINE COLOR YELLOW; URINE GLUCOSE (UA) 3+ (NEGATIVE); URINE KETONE NEGATIVE (NEGATIVE); URINE LEUK ESTERASE NEGATIVE (NEGATIVE); URINE NITRITE NEGATIVE (NEGATIVE); URINE PROTEIN NEGATIVE (NEGATIVE); URINE RBC 5 /uL (0-23.9); URINE UROBILINOGEN 0.2 mg/dL (0.2-1.0); URINE WBC 2 /uL (0-25.8)
[2021-07-11] MEDS ORDERED: INSULIN (NOVOLOG) ASPART 100 UNITS/ML 10ML VIAL SQ ONE (15:02)
[2021-07-11] MEDS: GABAPENTIN 300 MG CAPSULE PO SCH ×2 (15:03→21:31)
[2021-07-11] MEDS ORDERED: SODIUM CHLORIDE 0.9% 500 ML INFUS.BAG IV ONE (15:03)
[2021-07-11] MEDS: INSULIN SLIDING SCALE (NOVOLOG) 1 VIAL SQ SCH ×2 (17:52→21:44)
[2021-07-11 18:28] VITALS: BMI 35.2
[2021-07-11] MEDS ORDERED: FLU VACC QS2021-22(6MOS UP)/PF 60 MCG/0.5 ML SYRINGE IM ONE (19:00)
[2021-07-11] MEDS: APIXABAN 5 MG TABLET PO SCH (21:31)
[2021-07-11] MEDS: ROSUVASTATIN CA 20 MG TABLET PO SCH (21:31)
[2021-07-11] MEDS: NYSTATIN POWDER 100,000 UNITS/GM - 15 GM TOPICAL POWDER TP SCH (21:32)
[2021-07-11] MEDS: MINERAL OIL/PET HY-PHL TOPICAL OINTMENT 454 GM JAR TP SCH (21:32)
[2021-07-11] MEDS: INSULIN (LEVEMIR) 100 UNITS/ML UNITS SQ SCH (21:42)
[2021-07-11] MEDS ORDERED: OLANZapine 10 MG TABLET PO SCH (22:00)
[2021-07-12] MEDS: INSULIN SLIDING SCALE (NOVOLOG) 1 VIAL SQ SCH ×4 (06:47→21:11)
[2021-07-12] MEDS: GABAPENTIN 300 MG CAPSULE PO SCH ×3 (06:48→21:11)
[2021-07-12] MEDS: TAMSULOSIN HCL 0.4 MG CAP PO SCH (08:37)
[2021-07-12 09:49] LABS: HEMATOCRIT 38.4 % (35.4-49); HEMOGLOBIN 12.2 GM/dL (11.7-16.9); MCH 25.6 pg (25.7-33.7); MCHC 31.9 g/dl (32.0-35.9); MEAN CELL VOLUME 80.4 fl (80-96); MEAN PLT VOLUME 7.6 fl (7.5-11.1); PLATELET COUNT 486 10^3/uL (134-434); RBC 4.77 M/mm3 (4.00-5.60); RDW 15.5 % (11.9-15.9); WHITE BLOOD COUNT 9.5 K/mm3 (4.0-10.0)
[2021-07-12 10:05] LABS: ALBUMIN 2.8 g/dl (3.4-5.0); BLOOD UREA NITROGEN 12.1 mg/dL (7-18); CALCIUM 8.5 mg/dL (8.5-10.1)
[2021-07-12 10:08] LABS: CREATININE 0.9 mg/dL (0.55-1.3)
[2021-07-12 10:09] LABS: BILIRUBIN,TOTAL 0.4 mg/dL (0.2-1); TOT PROT 5.8 g/dl (6.4-8.2)
[2021-07-12] MEDS: DULoxetine HCL 30 MG CAPSULE.DR PO SCH (11:42)
[2021-07-12] MEDS: MINERAL OIL/PET HY-PHL TOPICAL OINTMENT 454 GM JAR TP SCH ×2 (11:43→21:11)
[2021-07-12] MEDS: LOSARTAN POTASSIUM 50 MG TABLET PO SCH (11:43)
[2021-07-12] MEDS: ASPIRIN COATED 81 MG TABLET.EC PO SCH (11:43)
[2021-07-12] MEDS: APIXABAN 5 MG TABLET PO SCH ×2 (11:43→21:11)
[2021-07-12] MEDS: POLYETHYLENE GLYCOL (HEALTHYLAX) 3350 17 GM PACKET PO SCH (11:44)
[2021-07-12] MEDS: NYSTATIN POWDER 100,000 UNITS/GM - 15 GM TOPICAL POWDER TP SCH ×2 (11:44→21:12)
[2021-07-12] MEDS ORDERED: OLANZapine 10 MG TABLET PO SCH (18:49)
[2021-07-12] MEDS ORDERED: OLANZapine 2.5 MG TABLET ONE (20:31)
[2021-07-12] MEDS ORDERED: OLANZapine 5 MG TABLET ONE (20:31)
[2021-07-12] MEDS: ROSUVASTATIN CA 20 MG TABLET PO SCH (21:11)
[2021-07-12] MEDS: INSULIN (LEVEMIR) 100 UNITS/ML UNITS SQ SCH (21:11)
[2021-07-12] MEDS: MELATONIN 5 MG TABLETS PO PRN (21:12)
[2021-07-12] MEDS: OLANZAPINE 2.5 MG, OLANZAPINE 5 MG PO SCH (21:12)
[2021-07-13] MEDS: GABAPENTIN 300 MG CAPSULE PO SCH ×3 (06:10→21:01)
[2021-07-13] MEDS: INSULIN SLIDING SCALE (NOVOLOG) 1 VIAL SQ SCH ×4 (06:14→21:01)
[2021-07-13] MEDS: TAMSULOSIN HCL 0.4 MG CAP PO SCH (08:17)
[2021-07-13] MEDS: DULoxetine HCL 30 MG CAPSULE.DR PO SCH (10:27)
[2021-07-13] MEDS: APIXABAN 5 MG TABLET PO SCH ×2 (10:27→21:01)
[2021-07-13] MEDS: POLYETHYLENE GLYCOL (HEALTHYLAX) 3350 17 GM PACKET PO SCH (10:27)
[2021-07-13] MEDS: ASPIRIN COATED 81 MG TABLET.EC PO SCH (10:27)
[2021-07-13] MEDS: LOSARTAN POTASSIUM 50 MG TABLET PO SCH (10:29)
[2021-07-13] MEDS: MINERAL OIL/PET HY-PHL TOPICAL OINTMENT 454 GM JAR TP SCH ×2 (10:29→21:02)
[2021-07-13] MEDS: NYSTATIN POWDER 100,000 UNITS/GM - 15 GM TOPICAL POWDER TP SCH ×2 (10:30→21:02)
[2021-07-13] MEDS ORDERED: OLANZapine 5 MG TABLET ONE (20:43)
[2021-07-13] MEDS ORDERED: OLANZapine 2.5 MG TABLET ONE (20:44)
[2021-07-13] MEDS: OLANZAPINE 2.5 MG, OLANZAPINE 5 MG PO SCH (21:01)
[2021-07-13] MEDS: ROSUVASTATIN CA 20 MG TABLET PO SCH (21:01)
[2021-07-13] MEDS: INSULIN (LEVEMIR) 100 UNITS/ML UNITS SQ SCH (21:02)
[2021-07-13] MEDS ORDERED: INSULIN (LEVEMIR) 100 UNITS/ML UNITS SQ SCH (22:00)
[2021-07-14] MEDS: GABAPENTIN 300 MG CAPSULE PO SCH ×3 (05:52→21:01)
[2021-07-14] MEDS: INSULIN (LEVEMIR) 100 UNITS/ML UNITS SQ SCH ×2 (06:10→21:02)
[2021-07-14] MEDS: INSULIN SLIDING SCALE (NOVOLOG) 1 VIAL SQ SCH ×4 (06:10→21:02)
[2021-07-14] MEDS: ASPIRIN COATED 81 MG TABLET.EC PO SCH (09:04)
[2021-07-14] MEDS: DULoxetine HCL 30 MG CAPSULE.DR PO SCH (09:04)
[2021-07-14] MEDS: APIXABAN 5 MG TABLET PO SCH ×2 (09:04→21:02)
[2021-07-14] MEDS: MINERAL OIL/PET HY-PHL TOPICAL OINTMENT 454 GM JAR TP SCH ×2 (09:05→21:02)
[2021-07-14] MEDS: POLYETHYLENE GLYCOL (HEALTHYLAX) 3350 17 GM PACKET PO SCH (09:05)
[2021-07-14] MEDS: LOSARTAN POTASSIUM 50 MG TABLET PO SCH (09:05)
[2021-07-14] MEDS: TAMSULOSIN HCL 0.4 MG CAP PO SCH (09:05)
[2021-07-14] MEDS: NYSTATIN POWDER 100,000 UNITS/GM - 15 GM TOPICAL POWDER TP SCH ×2 (09:05→21:03)
[2021-07-14] MEDS ORDERED: INSULIN (NOVOLOG) ASPART 100 UNITS/ML 10ML VIAL ONE (12:13)
[2021-07-14] MEDS ORDERED: OLANZapine 5 MG TABLET ONE (20:22)
[2021-07-14] MEDS ORDERED: OLANZapine 2.5 MG TABLET ONE (20:22)
[2021-07-14] MEDS: OLANZAPINE 2.5 MG, OLANZAPINE 5 MG PO SCH (21:01)
[2021-07-14] MEDS: ROSUVASTATIN CA 20 MG TABLET PO SCH (21:02)
[2021-07-14] MEDS: MELATONIN 5 MG TABLETS PO PRN (21:07)
[2021-07-15] MEDS: GABAPENTIN 300 MG CAPSULE PO SCH ×2 (05:58→14:54)
[2021-07-15] MEDS: INSULIN SLIDING SCALE (NOVOLOG) 1 VIAL SQ SCH ×2 (05:59→12:45)
[2021-07-15] MEDS: INSULIN (LEVEMIR) 100 UNITS/ML UNITS SQ SCH (05:59)
[2021-07-15] MEDS: TAMSULOSIN HCL 0.4 MG CAP PO SCH (09:05)
[2021-07-15] MEDS: DULoxetine HCL 30 MG CAPSULE.DR PO SCH (11:10)
[2021-07-15] MEDS: ASPIRIN COATED 81 MG TABLET.EC PO SCH (11:10)
[2021-07-15] MEDS: LOSARTAN POTASSIUM 50 MG TABLET PO SCH (11:10)
[2021-07-15] MEDS: MINERAL OIL/PET HY-PHL TOPICAL OINTMENT 454 GM JAR TP SCH (11:11)
[2021-07-15] MEDS: APIXABAN 5 MG TABLET PO SCH (11:11)
[2021-07-15] MEDS: NYSTATIN POWDER 100,000 UNITS/GM - 15 GM TOPICAL POWDER TP SCH (11:11)
[2021-07-15] MEDS: POLYETHYLENE GLYCOL (HEALTHYLAX) 3350 17 GM PACKET PO SCH (11:11)
[2021-07-15 15:51] VITALS: BP 138/85; PULSE 82; TEMP 97.6
[2021-07-15 19:06] LABS: SARS-CoV-2 NAA Not Detected (Not Detected)
== END 2021-07-15 16:58 ==
LOC: JER 11:29 → UNDOADMOB 12:23 → INTOOBSV 12:23 → JERBED 12:23 → J8W 18:14 → JERBED 07-12 10:23 → J8W 07-12 10:23
PROVIDERS: ADMIT Family Medicine; ATTEND Family Medicine
PROC: 3E0234Z Introduction of Serum, Toxoid and Vaccine into Muscle, Percutaneous Approach (ICD-10-PCS; principal; 2021-07-12)
PROC: 3E013VG Introduction of Insulin into Subcutaneous Tissue, Percutaneous Approach (ICD-10-PCS; 2021-07-12)
PROC: 3E0337Z Introduction of Electrolytic and Water Balance Substance into Peripheral Vein, Percutaneous Approach (ICD-10-PCS; 2021-07-12)
DX: E11.610 Type 2 diabetes mellitus with diabetic neuropathic arthropathy (principal); I25.10 Atherosclerotic heart disease of native coronary artery without angina pectoris; I11.0 Hypertensive heart disease with heart failure; F31.9 Bipolar disorder, unspecified; J44.1 Chronic obstructive pulmonary disease with (acute) exacerbation; F41.9 Anxiety disorder, unspecified; I48.91 Unspecified atrial fibrillation; R06.02 Shortness of breath; Z91.81 History of falling; Z88.8 Allergy status to other drugs, medicaments and biological substances; E66.9 Obesity, unspecified; Z68.35 Body mass index [BMI] 35.0-35.9, adult; M15.9 Polyosteoarthritis, unspecified; I25.2 Old myocardial infarction; Z74.2 Need for assistance at home and no other household member able to render care
CPT/HCPCS: 36415; 71045-TC-FY; 80053; 81003; 82550; 82607; 82962; 83880; 84443; 84484; 85025; 85027; 87086; 90686; 93005; 93010; 96372; 97116-GP; 97161-GP; 99285-25; C9803; G0378; U0003; U0005

== ENCOUNTER 2021-10-20 08:33 | Inpatient (IN) | payer MEDICARE, OTHER ==
[2021-10-20 08:37] VITALS: BMI 38.7
[2021-10-20] MEDS ORDERED: FUROSEMIDE 40 MG/4 ML INJECTABLE VIAL IVPUSH ONE (08:48)
[2021-10-20] MEDS ORDERED: FUROSEMIDE 40 MG/4 ML INJECTABLE VIAL ONE (08:59)
[2021-10-20 09:23] LABS: VENOUS BASE EXCESS -1.3 mmol/L (-2-2); VENOUS O2 SATURATION 69.1 % (70-80); VENOUS PCO2 42.6 mmHg (38-52); VENOUS PH 7.369 (7.310-7.410)
[2021-10-20 09:28] LABS: BASO % 1.1 % (0-2.0); EOS % 2.1 % (0-4.5); HEMATOCRIT 37.9 % (35.4-49); HEMOGLOBIN 12.3 GM/dL (11.7-16.9); LYMPH % 7.7 % (8-40); MCH 26.9 pg (25.7-33.7); MCHC 32.5 g/dl (32.0-35.9); MEAN CELL VOLUME 82.8 fl (80-96); MEAN PLT VOLUME 7.5 fl (7.5-11.1); MONO % 6.5 % (3.8-10.2); NEUT % 82.6 % (42.8-82.8); PLATELET COUNT 344 10^3/uL (134-434); RBC 4.58 M/mm3 (4.00-5.60); RDW 15.5 % (11.9-15.9); WHITE BLOOD COUNT 12.5 K/mm3 (4.0-10.0)
[2021-10-20 09:41] LABS: INR 1.56 (0.83-1.09)
[2021-10-20 09:44] LABS: ACTIVATED PTT 36.5 SECONDS (25.2-36.5); CHLORIDE 100 mmol/L (98-107); SODIUM 136 mmol/L (136-145)
[2021-10-20 09:46] LABS: CALCIUM 8.6 mg/dL (8.5-10.1)
[2021-10-20 09:47] LABS: ALBUMIN 2.7 g/dl (3.4-5.0); ANION GAP 8 MMOL/L (8-16); BLOOD UREA NITROGEN 17.3 mg/dL (7-18); CO2 29 mmol/L (21-32)
[2021-10-20 09:50] LABS: SGOT/AST 9 U/L (15-37); SGPT/ALT 18 U/L (13-61)
[2021-10-20 09:52] LABS: BILIRUBIN,TOTAL 0.6 mg/dL (0.2-1); TOT PROT 5.2 g/dl (6.4-8.2)
[2021-10-20 09:53] LABS: ALK PHOS 148 U/L (45-117)
[2021-10-20 09:55] LABS: GLUCOSE,RANDOM 504 mg/dL (74-106); N-TERMINAL BNP 483.1 pg/ml (5-125)
[2021-10-20] MEDS ORDERED: INSULIN REGULAR HUMAN 100 UNITS/ML *VIAL SQ ONE ×3 (10:13→13:10)
[2021-10-20] MEDS: MELATONIN 5 MG TABLETS PO PRN (23:59)
[2021-10-21] MEDS ORDERED: ALBUTEROL SO4 HFA INHALER IH PRN (00:18)
[2021-10-21] MEDS: INSULIN (LEVEMIR) 100 UNITS/ML UNITS SQ SCH ×4 (01:00→21:21)
[2021-10-21] MEDS: methylPREDNISolone NA SUCC 40 MG/1 ML VIAL IVPUSH SCH ×3 (01:26→17:49)
[2021-10-21] MEDS ORDERED: INSULIN (NOVOLOG) ASPART 100 UNITS/ML 10ML VIAL SQ ONE (01:30)
[2021-10-21] MEDS ORDERED: MELATONIN 5 MG TABLETS PO ONE (03:41)
[2021-10-21] MEDS: INSULIN SLIDING SCALE (NOVOLOG) 1 VIAL SQ SCH ×4 (06:04→21:22)
[2021-10-21] MEDS: CARVEDILOL 25 MG TABLET (FP) PO SCH ×3 (08:59→21:21)
[2021-10-21] MEDS: APIXABAN 5 MG TABLET PO SCH ×3 (08:59→21:21)
[2021-10-21] MEDS: DULoxetine HCL 30 MG CAPSULE.DR PO SCH ×2 (09:05→21:21)
[2021-10-21] MEDS: LOSARTAN POTASSIUM 50 MG TABLET PO SCH (09:06)
[2021-10-21] MEDS: GABAPENTIN 300 MG CAPSULE PO SCH ×2 (09:06→21:21)
[2021-10-21] MEDS ORDERED: FUROSEMIDE 40 MG/4 ML INJECTABLE VIAL IVPUSH SCH (10:00)
[2021-10-21] MEDS ORDERED: PATIENT'S OWN MEDICATION (NON-FORMULARY) (Gabapentin [Gabapentin] 600 MG Tablet) PO SCH (10:00)
[2021-10-21] MEDS ORDERED: INSULIN (NOVOLOG) ASPART 100 UNITS/ML 10ML VIAL ONE (11:54)
[2021-10-21] MEDS: ATORVASTATIN CA 10 MG TABLET (FP) PO SCH (21:21)
[2021-10-21] MEDS ORDERED: OLANZapine 2.5 MG TABLET PO SCH (22:00)
[2021-10-21] MEDS: OLANZAPINE 5 MG, OLANZAPINE 2.5 MG PO SCH (22:43)
[2021-10-21] MEDS: MELATONIN 5 MG TABLETS PO PRN (22:43)
[2021-10-22] MEDS: methylPREDNISolone NA SUCC 40 MG/1 ML VIAL IVPUSH SCH (01:54)
[2021-10-22] MEDS: INSULIN SLIDING SCALE (NOVOLOG) 1 VIAL SQ SCH ×5 (06:16→17:57)
[2021-10-22 07:48] LABS: BLOOD UREA NITROGEN 23.1 mg/dL (7-18); CALCIUM 9.1 mg/dL (8.5-10.1)
[2021-10-22 07:49] LABS: ALBUMIN 2.9 g/dl (3.4-5.0)
[2021-10-22 07:53] LABS: BILIRUBIN,TOTAL 0.8 mg/dL (0.2-1); TOT PROT 6.1 g/dl (6.4-8.2)
[2021-10-22 07:54] LABS: CREATININE 0.8 mg/dL (0.55-1.3)
[2021-10-22 07:55] LABS: HEMATOCRIT 38.3 % (35.4-49); MCH 27.2 pg (25.7-33.7); MCHC 33.8 g/dl (32.0-35.9); MEAN CELL VOLUME 80.2 fl (80-96); PLATELET COUNT 359 10^3/uL (134-434); RBC 4.78 M/mm3 (4.00-5.60); RDW 15.2 % (11.9-15.9); WHITE BLOOD COUNT 17.5 K/mm3 (4.0-10.0)
[2021-10-22] MEDS ORDERED: REGADENOSON 0.4 MG/5 ML PRE-FILLED SYRINGE IVPUSH ONE ×2 (09:35→10:00)
[2021-10-22 09:49] LABS: ANISOCYTOSIS 0; HELMET CELLS 0; HOWELL-JOLLY BODIES 0; MACROCYTOSIS 0; OVALOCYTE 0; ROULEAU 0; SICKELED CELLS 0; TARGET CELLS 0; TEAR DROP CELLS 0; TOXIC GRANULATION 0
[2021-10-22] MEDS: predniSONE 20 MG TABLET (UD) PO SCH ×3 (10:39→21:51)
[2021-10-22] MEDS: CARVEDILOL 25 MG TABLET (FP) PO SCH ×3 (10:39→21:51)
[2021-10-22] MEDS: INSULIN (LEVEMIR) 100 UNITS/ML UNITS SQ SCH ×3 (10:39→22:00)
[2021-10-22] MEDS: DULoxetine HCL 30 MG CAPSULE.DR PO SCH ×3 (10:39→21:51)
[2021-10-22] MEDS: LOSARTAN POTASSIUM 50 MG TABLET PO SCH ×2 (10:39→14:32)
[2021-10-22] MEDS: APIXABAN 5 MG TABLET PO SCH ×3 (10:39→21:51)
[2021-10-22] MEDS: GABAPENTIN 300 MG CAPSULE PO SCH ×3 (10:40→21:52)
[2021-10-22] MEDS ORDERED: INSULIN SLIDING SCALE (NOVOLOG) 1 VIAL SQ SCH (17:40)
[2021-10-22] MEDS: MELATONIN 5 MG TABLETS PO PRN (21:51)
[2021-10-22] MEDS: OLANZAPINE 5 MG, OLANZAPINE 2.5 MG PO SCH (21:52)
[2021-10-22] MEDS: ATORVASTATIN CA 10 MG TABLET (FP) PO SCH (21:52)
[2021-10-23 00:38] LABS: GLUCOSE,RANDOM 666 mg/dL (74-106)
[2021-10-23] MEDS ORDERED: Insulin (LOG) Aspart 100 UNITS/ML VIAL SQ ONE ×2 (00:55→05:43)
[2021-10-23] MEDS: INSULIN SLIDING SCALE (NOVOLOG) 1 VIAL SQ SCH ×5 (01:02→21:58)
[2021-10-23] MEDS: INSULIN (LEVEMIR) 100 UNITS/ML UNITS SQ SCH ×3 (01:05→21:58)
[2021-10-23] MEDS: INSULIN (NOVOLOG MIX 70/30) 100 UNITS/ML MDV SQ SCH ×2 (06:11→16:55)
[2021-10-23] MEDS: APIXABAN 5 MG TABLET PO SCH ×2 (09:34→21:41)
[2021-10-23] MEDS: GABAPENTIN 300 MG CAPSULE PO SCH ×2 (09:34→21:39)
[2021-10-23] MEDS: CARVEDILOL 25 MG TABLET (FP) PO SCH ×2 (09:34→21:39)
[2021-10-23] MEDS: LOSARTAN POTASSIUM 50 MG TABLET PO SCH (09:34)
[2021-10-23] MEDS: predniSONE 20 MG TABLET (UD) PO SCH ×2 (09:34→21:40)
[2021-10-23] MEDS: DULoxetine HCL 30 MG CAPSULE.DR PO SCH ×2 (09:35→21:39)
[2021-10-23] MEDS ORDERED: INSULIN (NOVOLOG MIX 70/30) 100 UNITS/ML MDV SQ SCH (19:46)
[2021-10-23] MEDS: ATORVASTATIN CA 10 MG TABLET (FP) PO SCH (21:39)
[2021-10-23] MEDS: MELATONIN 5 MG TABLETS PO PRN (21:40)
[2021-10-23] MEDS: OLANZAPINE 5 MG, OLANZAPINE 2.5 MG PO SCH (21:41)
[2021-10-24] MEDS: INSULIN SLIDING SCALE (NOVOLOG) 1 VIAL SQ SCH ×2 (06:38→12:39)
[2021-10-24] MEDS ORDERED: INSULIN (NOVOLOG MIX 70/30) 100 UNITS/ML MDV SQ SCH (06:39)
[2021-10-24 07:32] LABS: HEMATOCRIT 39.8 % (35.4-49); HEMOGLOBIN 12.6 GM/dL (11.7-16.9); MCH 26.4 pg (25.7-33.7); MCHC 31.8 g/dl (32.0-35.9); MEAN CELL VOLUME 82.9 fl (80-96); MEAN PLT VOLUME 7.4 fl (7.5-11.1); PLATELET COUNT 394 10^3/uL (134-434); RDW 15.5 % (11.9-15.9); WHITE BLOOD COUNT 13.1 K/mm3 (4.0-10.0)
[2021-10-24 07:55] LABS: ALBUMIN 2.9 g/dl (3.4-5.0); BLOOD UREA NITROGEN 27.1 mg/dL (7-18); CALCIUM 9.2 mg/dL (8.5-10.1)
[2021-10-24 07:59] LABS: CREATININE 0.8 mg/dL (0.55-1.3)
[2021-10-24 08:01] LABS: BILIRUBIN,TOTAL 0.8 mg/dL (0.2-1); TOT PROT 5.6 g/dl (6.4-8.2)
[2021-10-24] MEDS: INSULIN (LEVEMIR) 100 UNITS/ML UNITS SQ SCH (09:24)
[2021-10-24] MEDS: LOSARTAN POTASSIUM 50 MG TABLET PO SCH (09:25)
[2021-10-24] MEDS: GABAPENTIN 300 MG CAPSULE PO SCH (09:26)
[2021-10-24] MEDS: APIXABAN 5 MG TABLET PO SCH (09:26)
[2021-10-24] MEDS: predniSONE 20 MG TABLET (UD) PO SCH (09:26)
[2021-10-24] MEDS: DULoxetine HCL 30 MG CAPSULE.DR PO SCH (09:26)
[2021-10-24] MEDS: CARVEDILOL 25 MG TABLET (FP) PO SCH (09:26)
[2021-10-24] MEDS ORDERED: INSULIN (NOVOLOG) ASPART 100 UNITS/ML 10ML VIAL ONE (12:21)
[2021-10-24 14:09] VITALS: BP 126/62; PULSE 71; TEMP 97.5
== END 2021-10-24 17:00 | disposition home or self-care (01) | DRG 191 ==
LOC: JER 08:33 → JERBED 11:54 → J4W 16:42
PROVIDERS: ADMIT Family Medicine; ATTEND Family Medicine
DX: J44.1 Chronic obstructive pulmonary disease with (acute) exacerbation (principal); F31.89 Other bipolar disorder; I50.22 Chronic systolic (congestive) heart failure; I48.0 Paroxysmal atrial fibrillation; I35.0 Nonrheumatic aortic (valve) stenosis; I25.2 Old myocardial infarction; I25.10 Atherosclerotic heart disease of native coronary artery without angina pectoris; E78.5 Hyperlipidemia, unspecified; F20.9 Schizophrenia, unspecified; F41.9 Anxiety disorder, unspecified; E11.40 Type 2 diabetes mellitus with diabetic neuropathy, unspecified; K59.00 Constipation, unspecified; M25.562 Pain in left knee; I11.0 Hypertensive heart disease with heart failure; R07.89 Other chest pain; J20.9 Acute bronchitis, unspecified; J44.0 Chronic obstructive pulmonary disease with (acute) lower respiratory infection; E66.9 Obesity, unspecified; Z68.38 Body mass index [BMI] 38.0-38.9, adult
CPT/HCPCS: 0241U-QW; 36415; 71045-TC-FY; 78452-TC; 80053; 82803; 82947; 82962; 83880; 84484; 85025; 85379; 85610; 85730; 86850; 86900; 86901; 93005; 93010; 93017; 93306-TC; 94761; 99285-25; A9502; J2785

== ENCOUNTER 2022-02-12 08:38 | Inpatient (IN) | payer OTHER ==
[2022-02-12 08:46] VITALS: BMI 36.3
[2022-02-12] MEDS ORDERED: SODIUM CHLORIDE 1,000 ML IV STA (09:09)
[2022-02-12] MEDS ORDERED: ACETAMINOPHEN 1000 MG/100 ML BAG IVPB ONE (09:09)
[2022-02-12 09:32] LABS: URINE APPEARANCE CLEAR; URINE BILIRUBIN NEGATIVE (NEGATIVE); URINE COLOR YELLOW; URINE GLUCOSE (UA) 3+ (NEGATIVE); URINE KETONE NEGATIVE (NEGATIVE); URINE LEUK ESTERASE NEGATIVE (NEGATIVE); URINE NITRITE NEGATIVE (NEGATIVE); URINE PROTEIN NEGATIVE (NEGATIVE); URINE UROBILINOGEN 0.2 mg/dL (0.2-1.0)
[2022-02-12] MEDS ORDERED: ACETAMINOPHEN INJECTION 100 ML IVPB ONE (10:15)
[2022-02-12 11:20] LABS: BASO % 1.1 % (0-2.0); EOS % 2.8 % (0-4.5); HEMATOCRIT 43.3 % (35.4-49); HEMOGLOBIN 14.3 GM/dL (11.7-16.9); LYMPH % 14.9 % (8-40); MEAN CELL VOLUME 85.1 fl (80-96); MEAN PLT VOLUME 8.2 fl (7.5-11.1); MONO % 5.4 % (3.8-10.2); NEUT % 75.8 % (42.8-82.8); PLATELET COUNT 252 10^3/uL (134-434); RBC 5.09 M/mm3 (4.00-5.60); RDW 15.5 % (11.9-15.9)
[2022-02-12 11:24] LABS: INR 1.38 (0.83-1.09); PROTHROMBIN TIME (PATIENT) 15.9 SEC (9.7-13.0)
[2022-02-12] MEDS ORDERED: FLUCONAZOLE 200 MG/D5W 100 ML IVPB ONE (11:32)
[2022-02-12 11:34] LABS: ALBUMIN 3.3 g/dl (3.4-5.0); BLOOD UREA NITROGEN 14.9 mg/dL (7-18)
[2022-02-12 11:37] LABS: CREATININE 0.9 mg/dL (0.55-1.3)
[2022-02-12 11:39] LABS: BILIRUBIN,TOTAL 0.6 mg/dL (0.2-1); TOT PROT 6.1 g/dl (6.4-8.2)
[2022-02-12] MEDS ORDERED: FLUCONAZOLE 200 MG/NS 100 ML IVPB ONE (11:40)
[2022-02-12] MEDS ORDERED: SODIUM CHLORIDE 0.45% 1,000 ML IV SCH (13:30)
[2022-02-12] MEDS: GABAPENTIN 400 MG CAPSULE PO SCH ×2 (16:25→21:57)
[2022-02-12] MEDS ORDERED: INSULIN SLIDING SCALE (NOVOLOG) 1 VIAL SQ SCH (16:30)
[2022-02-12] MEDS ORDERED: INSULIN (NOVOLOG) ASPART 100 UNITS/ML 10ML VIAL ONE (21:54)
[2022-02-12] MEDS: ACETAMINOPHEN 325 MG TABLET (FP) PO PRN (21:57)
[2022-02-12] MEDS: CARVEDILOL 25 MG TABLET (FP) PO SCH (21:57)
[2022-02-12] MEDS: APIXABAN 5 MG TABLET PO SCH (21:57)
[2022-02-12] MEDS ORDERED: OLANZapine 7.5 MG TABLET PO SCH (22:00)
[2022-02-12] MEDS ORDERED: HEPARIN NA (PORCINE) 5,000 UNITS/ML 1ML VIAL SQ SCH (22:00)
[2022-02-12] MEDS: INSULIN (LEVEMIR) 100 UNITS/ML UNITS SQ SCH (22:28)
[2022-02-12] MEDS: INSULIN SLIDING SCALE (NOVOLOG) 1 VIAL SQ SCH (22:29)
[2022-02-13] MEDS: MELATONIN 5 MG TABLETS PO PRN (00:14)
[2022-02-13] MEDS: GABAPENTIN 400 MG CAPSULE PO SCH ×3 (06:59→21:21)
[2022-02-13] MEDS: INSULIN (LEVEMIR) 100 UNITS/ML UNITS SQ SCH ×2 (07:00→21:31)
[2022-02-13] MEDS: INSULIN SLIDING SCALE (NOVOLOG) 1 VIAL SQ SCH ×4 (07:00→21:32)
[2022-02-13] MEDS: TAMSULOSIN HCL 0.4 MG CAP PO SCH (09:33)
[2022-02-13] MEDS: CARVEDILOL 25 MG TABLET (FP) PO SCH ×2 (09:33→21:20)
[2022-02-13] MEDS: APIXABAN 5 MG TABLET PO SCH ×2 (09:33→21:21)
[2022-02-13] MEDS: LOSARTAN POTASSIUM 50 MG TABLET PO SCH (09:41)
[2022-02-13] MEDS: ASPIRIN COATED 81 MG TABLET.EC PO SCH (09:42)
[2022-02-13] MEDS ORDERED: DULoxetine HCL 30 MG CAPSULE.DR PO SCH (10:00)
[2022-02-13 11:38] LABS: ALBUMIN 2.9 g/dl (3.4-5.0); CALCIUM 9.1 mg/dL (8.5-10.1)
[2022-02-13 11:39] LABS: BLOOD UREA NITROGEN 14.6 mg/dL (7-18)
[2022-02-13 11:42] LABS: CREATININE 0.8 mg/dL (0.55-1.3)
[2022-02-13 11:43] LABS: BILIRUBIN,TOTAL 0.3 mg/dL (0.2-1); TOT PROT 5.3 g/dl (6.4-8.2)
[2022-02-13] MEDS: ACETAMINOPHEN 325 MG TABLET (FP) PO PRN (20:35)
[2022-02-13] MEDS: busPIRone HCL 10 MG TABLET (FP) PO SCH (21:20)
[2022-02-13] MEDS: OLANZapine 2.5 MG TABLET PO SCH (21:21)
[2022-02-14] MEDS: GABAPENTIN 400 MG CAPSULE PO SCH ×3 (06:41→22:09)
[2022-02-14] MEDS: INSULIN (LEVEMIR) 100 UNITS/ML UNITS SQ SCH ×2 (06:42→22:09)
[2022-02-14] MEDS: INSULIN SLIDING SCALE (NOVOLOG) 1 VIAL SQ SCH ×4 (06:43→22:18)
[2022-02-14] MEDS: TAMSULOSIN HCL 0.4 MG CAP PO SCH (08:12)
[2022-02-14] MEDS: APIXABAN 5 MG TABLET PO SCH ×2 (09:13→22:09)
[2022-02-14] MEDS: LOSARTAN POTASSIUM 50 MG TABLET PO SCH (09:13)
[2022-02-14] MEDS: ASPIRIN COATED 81 MG TABLET.EC PO SCH (09:13)
[2022-02-14] MEDS: CARVEDILOL 25 MG TABLET (FP) PO SCH ×2 (09:13→22:09)
[2022-02-14] MEDS: busPIRone HCL 10 MG TABLET (FP) PO SCH ×2 (09:14→22:09)
[2022-02-14] MEDS: DULoxetine HCL 20 MG CAPSULE.DR PO SCH (09:17)
[2022-02-14] MEDS: OLANZapine 2.5 MG TABLET PO SCH (22:09)
[2022-02-14] MEDS: MELATONIN 5 MG TABLETS PO PRN (22:22)
[2022-02-14] MEDS: METHYL SALICYLATE/MENTHOL OINT 30 GM TUBE TP SCH (22:24)
[2022-02-15] MEDS: GABAPENTIN 400 MG CAPSULE PO SCH ×3 (06:45→21:29)
[2022-02-15] MEDS: INSULIN (LEVEMIR) 100 UNITS/ML UNITS SQ SCH ×2 (06:45→21:27)
[2022-02-15] MEDS: INSULIN SLIDING SCALE (NOVOLOG) 1 VIAL SQ SCH ×4 (06:46→21:25)
[2022-02-15] MEDS: INSULIN (NOVOLOG MIX 70/30) 100 UNITS/ML MDV SQ SCH ×2 (06:47→16:41)
[2022-02-15] MEDS: LOSARTAN POTASSIUM 50 MG TABLET PO SCH (09:18)
[2022-02-15] MEDS: CARVEDILOL 25 MG TABLET (FP) PO SCH ×2 (09:18→21:29)
[2022-02-15] MEDS: TAMSULOSIN HCL 0.4 MG CAP PO SCH (09:18)
[2022-02-15] MEDS: ASPIRIN COATED 81 MG TABLET.EC PO SCH (09:18)
[2022-02-15] MEDS: DULoxetine HCL 20 MG CAPSULE.DR PO SCH (09:18)
[2022-02-15] MEDS: busPIRone HCL 10 MG TABLET (FP) PO SCH ×2 (09:18→21:30)
[2022-02-15] MEDS: APIXABAN 5 MG TABLET PO SCH ×2 (09:19→21:29)
[2022-02-15 09:55] LABS: CALCIUM 8.9 mg/dL (8.5-10.1)
[2022-02-15 09:56] LABS: BLOOD UREA NITROGEN 12.1 mg/dL (7-18); MAGNESIUM 1.9 mg/dL (1.8-2.4)
[2022-02-15 09:59] LABS: CREATININE 0.8 mg/dL (0.55-1.3); PHOSPHOROUS 3.3 mg/dL (2.5-4.9)
[2022-02-15] MEDS: METHYL SALICYLATE/MENTHOL OINT 30 GM TUBE TP SCH ×2 (10:33→21:33)
[2022-02-15] MEDS: OLANZapine 2.5 MG TABLET PO SCH (21:30)
[2022-02-15] MEDS: MELATONIN 5 MG TABLETS PO PRN (21:40)
[2022-02-16] MEDS: ACETAMINOPHEN 325 MG TABLET (FP) PO PRN ×2 (02:14→21:57)
[2022-02-16] MEDS ORDERED: INSULIN (NOVOLOG MIX 70/30) 100 UNITS/ML MDV SQ ONE (06:36)
[2022-02-16] MEDS: GABAPENTIN 400 MG CAPSULE PO SCH ×3 (06:55→21:49)
[2022-02-16] MEDS: INSULIN (LEVEMIR) 100 UNITS/ML UNITS SQ SCH ×2 (06:55→21:52)
[2022-02-16] MEDS: INSULIN (NOVOLOG MIX 70/30) 100 UNITS/ML MDV SQ SCH ×2 (06:57→16:30)
[2022-02-16] MEDS: INSULIN SLIDING SCALE (NOVOLOG) 1 VIAL SQ SCH ×4 (07:00→21:50)
[2022-02-16] MEDS: DULoxetine HCL 20 MG CAPSULE.DR PO SCH (09:38)
[2022-02-16] MEDS: busPIRone HCL 10 MG TABLET (FP) PO SCH ×2 (09:38→21:57)
[2022-02-16] MEDS: ASPIRIN COATED 81 MG TABLET.EC PO SCH (09:38)
[2022-02-16] MEDS: APIXABAN 5 MG TABLET PO SCH ×2 (09:38→21:49)
[2022-02-16] MEDS: LOSARTAN POTASSIUM 50 MG TABLET PO SCH (09:38)
[2022-02-16] MEDS: TAMSULOSIN HCL 0.4 MG CAP PO SCH (09:38)
[2022-02-16] MEDS: CARVEDILOL 25 MG TABLET (FP) PO SCH ×2 (09:39→21:49)
[2022-02-16] MEDS: METHYL SALICYLATE/MENTHOL OINT 30 GM TUBE TP SCH ×2 (09:54→22:11)
[2022-02-16] MEDS ORDERED: BISACODYL 5 MG TABLET.DR (FP) PO ONE (17:08)
[2022-02-16] MEDS ORDERED: POLYETHYLENE GLYCOL (HEALTHYLAX) 3350 17 GM PACKET PO SCH (17:15)
[2022-02-16] MEDS ORDERED: INSULIN (NOVOLOG) ASPART 100 UNITS/ML 10ML VIAL ONE (21:29)
[2022-02-16] MEDS: OLANZapine 2.5 MG TABLET PO SCH (21:49)
[2022-02-16] MEDS: MELATONIN 5 MG TABLETS PO PRN (22:11)
[2022-02-17] MEDS: GABAPENTIN 400 MG CAPSULE PO SCH ×3 (07:11→21:39)
[2022-02-17] MEDS: INSULIN (NOVOLOG MIX 70/30) 100 UNITS/ML MDV SQ SCH ×2 (07:11→16:42)
[2022-02-17] MEDS: INSULIN (LEVEMIR) 100 UNITS/ML UNITS SQ SCH ×2 (07:13→21:43)
[2022-02-17] MEDS: INSULIN SLIDING SCALE (NOVOLOG) 1 VIAL SQ SCH ×4 (07:15→21:44)
[2022-02-17] MEDS ORDERED: INSULIN (NOVOLOG) ASPART 100 UNITS/ML 10ML VIAL ONE (07:47)
[2022-02-17] MEDS ORDERED: INSULIN (NOVOLOG MIX 70/30) 100 UNITS/ML MDV SQ ONE (07:47)
[2022-02-17] MEDS: TAMSULOSIN HCL 0.4 MG CAP PO SCH (09:29)
[2022-02-17] MEDS: ASPIRIN COATED 81 MG TABLET.EC PO SCH (09:29)
[2022-02-17] MEDS: CARVEDILOL 25 MG TABLET (FP) PO SCH ×2 (09:30→21:38)
[2022-02-17] MEDS: METHYL SALICYLATE/MENTHOL OINT 30 GM TUBE TP SCH ×2 (09:30→21:21)
[2022-02-17] MEDS: busPIRone HCL 10 MG TABLET (FP) PO SCH ×2 (09:30→21:37)
[2022-02-17] MEDS: APIXABAN 5 MG TABLET PO SCH ×2 (09:30→21:38)
[2022-02-17] MEDS: DULoxetine HCL 20 MG CAPSULE.DR PO SCH (09:30)
[2022-02-17] MEDS: LOSARTAN POTASSIUM 50 MG TABLET PO SCH (09:31)
[2022-02-17 11:35] LABS: HEMATOCRIT 42.8 % (35.4-49); HEMOGLOBIN 14.5 GM/dL (11.7-16.9); MCH 28.8 pg (25.7-33.7); MCHC 33.8 g/dl (32.0-35.9); MEAN CELL VOLUME 85.2 fl (80-96); MEAN PLT VOLUME 7.8 fl (7.5-11.1); PLATELET COUNT 246 10^3/uL (134-434); RBC 5.02 M/mm3 (4.00-5.60); RDW 14.7 % (11.9-15.9); WHITE BLOOD COUNT 9.4 K/mm3 (4.0-10.0)
[2022-02-17 11:47] LABS: CALCIUM 8.9 mg/dL (8.5-10.1)
[2022-02-17 11:48] LABS: BLOOD UREA NITROGEN 14.4 mg/dL (7-18); MAGNESIUM 2.1 mg/dL (1.8-2.4)
[2022-02-17 11:51] LABS: CREATININE 0.7 mg/dL (0.55-1.3)
[2022-02-17] MEDS: OLANZapine 2.5 MG TABLET PO SCH (21:39)
[2022-02-17] MEDS: MELATONIN 5 MG TABLETS PO PRN (22:30)
[2022-02-18] MEDS: GABAPENTIN 400 MG CAPSULE PO SCH ×3 (06:08→22:01)
[2022-02-18] MEDS: INSULIN (LEVEMIR) 100 UNITS/ML UNITS SQ SCH ×2 (06:09→22:11)
[2022-02-18] MEDS: INSULIN SLIDING SCALE (NOVOLOG) 1 VIAL SQ SCH ×4 (06:13→20:35)
[2022-02-18] MEDS: INSULIN (NOVOLOG MIX 70/30) 100 UNITS/ML MDV SQ SCH ×2 (06:58→17:15)
[2022-02-18] MEDS: TAMSULOSIN HCL 0.4 MG CAP PO SCH (08:27)
[2022-02-18] MEDS: LOSARTAN POTASSIUM 50 MG TABLET PO SCH (10:47)
[2022-02-18] MEDS: CARVEDILOL 25 MG TABLET (FP) PO SCH ×2 (10:47→22:00)
[2022-02-18] MEDS: busPIRone HCL 10 MG TABLET (FP) PO SCH ×2 (10:48→21:59)
[2022-02-18] MEDS: ASPIRIN COATED 81 MG TABLET.EC PO SCH (10:48)
[2022-02-18] MEDS: DULoxetine HCL 20 MG CAPSULE.DR PO SCH (10:48)
[2022-02-18] MEDS: APIXABAN 5 MG TABLET PO SCH ×2 (10:49→22:00)
[2022-02-18] MEDS: METHYL SALICYLATE/MENTHOL OINT 30 GM TUBE TP SCH ×2 (10:52→21:59)
[2022-02-18 15:34] VITALS: RESP 20
[2022-02-18 19:16] LABS: GLUCOSE,RANDOM 433 mg/dL (74-106)
[2022-02-18] MEDS ORDERED: INSULIN (NOVOLOG) ASPART 100 UNITS/ML 10ML VIAL ONE (20:22)
[2022-02-18] MEDS ORDERED: INSULIN (NOVOLOG MIX 70/30) 100 UNITS/ML MDV SQ ONE (21:09)
[2022-02-18] MEDS: OLANZapine 2.5 MG TABLET PO SCH (22:01)
[2022-02-18] MEDS: MELATONIN 5 MG TABLETS PO PRN (23:50)
[2022-02-19] MEDS: GABAPENTIN 400 MG CAPSULE PO SCH ×3 (06:12→21:49)
[2022-02-19] MEDS: INSULIN (LEVEMIR) 100 UNITS/ML UNITS SQ SCH ×2 (06:17→21:54)
[2022-02-19] MEDS: INSULIN SLIDING SCALE (NOVOLOG) 1 VIAL SQ SCH ×4 (06:18→22:00)
[2022-02-19] MEDS: INSULIN (NOVOLOG MIX 70/30) 100 UNITS/ML MDV SQ SCH ×2 (06:58→17:26)
[2022-02-19] MEDS: DULoxetine HCL 20 MG CAPSULE.DR PO SCH (09:31)
[2022-02-19] MEDS: CARVEDILOL 25 MG TABLET (FP) PO SCH ×2 (09:31→21:50)
[2022-02-19] MEDS: ASPIRIN COATED 81 MG TABLET.EC PO SCH (09:31)
[2022-02-19] MEDS: LOSARTAN POTASSIUM 50 MG TABLET PO SCH (09:31)
[2022-02-19] MEDS: TAMSULOSIN HCL 0.4 MG CAP PO SCH (09:31)
[2022-02-19] MEDS: APIXABAN 5 MG TABLET PO SCH ×2 (09:31→21:50)
[2022-02-19] MEDS: METHYL SALICYLATE/MENTHOL OINT 30 GM TUBE TP SCH ×2 (09:32→21:48)
[2022-02-19] MEDS: busPIRone HCL 10 MG TABLET (FP) PO SCH ×2 (10:37→21:50)
[2022-02-19] MEDS: OLANZapine 2.5 MG TABLET PO SCH (21:49)
[2022-02-20] MEDS: ACETAMINOPHEN 325 MG TABLET (FP) PO PRN (01:31)
[2022-02-20] MEDS: GABAPENTIN 400 MG CAPSULE PO SCH ×2 (06:24→13:52)
[2022-02-20] MEDS: INSULIN (NOVOLOG MIX 70/30) 100 UNITS/ML MDV SQ SCH (06:24)
[2022-02-20] MEDS: INSULIN (LEVEMIR) 100 UNITS/ML UNITS SQ SCH (06:26)
[2022-02-20] MEDS: INSULIN SLIDING SCALE (NOVOLOG) 1 VIAL SQ SCH ×2 (06:28→12:37)
[2022-02-20] MEDS: LOSARTAN POTASSIUM 50 MG TABLET PO SCH (10:04)
[2022-02-20] MEDS: DULoxetine HCL 20 MG CAPSULE.DR PO SCH (10:04)
[2022-02-20] MEDS: TAMSULOSIN HCL 0.4 MG CAP PO SCH (10:04)
[2022-02-20] MEDS: busPIRone HCL 10 MG TABLET (FP) PO SCH (10:05)
[2022-02-20] MEDS: ASPIRIN COATED 81 MG TABLET.EC PO SCH (10:05)
[2022-02-20] MEDS: APIXABAN 5 MG TABLET PO SCH (10:05)
[2022-02-20] MEDS: CARVEDILOL 25 MG TABLET (FP) PO SCH (10:05)
[2022-02-20] MEDS: METHYL SALICYLATE/MENTHOL OINT 30 GM TUBE TP SCH (10:06)
[2022-02-20 14:04] VITALS: BP 153/84; PULSE 87; TEMP 98
== END 2022-02-20 17:18 | disposition home or self-care (01) | DRG 639 ==
LOC: JER 08:38 → JERBED 11:34 → J8W 14:40
PROVIDERS: ADMIT Family Medicine; ATTEND Family Medicine
DX: E11.65 Type 2 diabetes mellitus with hyperglycemia (principal); E11.40 Type 2 diabetes mellitus with diabetic neuropathy, unspecified; J44.9 Chronic obstructive pulmonary disease, unspecified; I25.2 Old myocardial infarction; I25.10 Atherosclerotic heart disease of native coronary artery without angina pectoris; I48.91 Unspecified atrial fibrillation; E78.5 Hyperlipidemia, unspecified; K59.00 Constipation, unspecified; F41.8 Other specified anxiety disorders; M25.562 Pain in left knee; N40.0 Benign prostatic hyperplasia without lower urinary tract symptoms; F20.9 Schizophrenia, unspecified; R80.9 Proteinuria, unspecified; G89.29 Other chronic pain; I11.0 Hypertensive heart disease with heart failure; I50.9 Heart failure, unspecified; N32.3 Diverticulum of bladder; F31.9 Bipolar disorder, unspecified; E66.9 Obesity, unspecified; Z68.36 Body mass index [BMI] 36.0-36.9, adult; Z91.19 Patient's noncompliance with other medical treatment and regimen; Z79.4 Long term (current) use of insulin; Z79.899 Other long term (current) drug therapy
CPT/HCPCS: 0241U-QW; 36415; 74018-TC-FY; 76775-TC; 76856-TC; 80048; 80053; 81003; 82947; 82962; 83036; 83735; 84100; 85025; 85027; 85610; 87086; 87186; 87491; 87591; 93005; 93010; 97116-GP; 97161-GP; 99285-25; C9803-CS; U0003; U0005

== ENCOUNTER 2022-07-16 10:21 | Inpatient (IN) | payer MEDICARE, OTHER ==
[2022-07-16] MEDS ORDERED: PIPERACILLIN/TAZOB 4.5 GM 4.5 GM in DEXTROSE 5%-WATER 100 ML IVPB ONE (10:55)
[2022-07-16] MEDS ORDERED: PIPERACILLIN/TAZOB 4.5 GM 4.5 GM/100 ML BAG IVPB ONE (11:10)
[2022-07-16 11:53] LABS: BASO % 0.7 % (0-2.0); EOS % 3.4 % (0-4.5); HEMATOCRIT 40.2 % (35.4-49); HEMOGLOBIN 13.4 GM/dL (11.7-16.9); LYMPH % 12.8 % (8-40); MCH 28.9 pg (25.7-33.7); MCHC 33.4 g/dl (32.0-35.9); MEAN CELL VOLUME 86.4 fl (80-96); MEAN PLT VOLUME 8.2 fl (7.5-11.1); MONO % 4.7 % (3.8-10.2); NEUT % 78.4 % (42.8-82.8); PLATELET COUNT 256 10^3/uL (134-434); RBC 4.65 M/mm3 (4.00-5.60); RDW 14.4 % (11.9-15.9); WHITE BLOOD COUNT 11.3 K/mm3 (4.0-10.0)
[2022-07-16 12:08] LABS: CHLORIDE 100 mmol/L (98-107); SODIUM 132 mmol/L (136-145)
[2022-07-16 12:11] LABS: ALBUMIN 3.2 g/dl (3.4-5.0); ANION GAP 6 MMOL/L (8-16); CALCIUM 8.8 mg/dL (8.5-10.1); CO2 26 mmol/L (21-32)
[2022-07-16 12:14] LABS: SGOT/AST 49 U/L (15-37); SGPT/ALT 25 U/L (13-61)
[2022-07-16 12:15] LABS: BILIRUBIN,TOTAL 0.8 mg/dL (0.2-1)
[2022-07-16 12:16] LABS: TOT PROT 6.2 g/dl (6.4-8.2)
[2022-07-16 12:17] LABS: ALK PHOS 90 U/L (45-117)
[2022-07-16 12:19] LABS: GLUCOSE,RANDOM 402 mg/dL (74-106)
[2022-07-16 12:36] LABS: ERYTHROCYTE SEDIMENTATION RATE 13 mm/hr (0-20)
[2022-07-16] MEDS ORDERED: SODIUM CHLORIDE 0.45% 1,000 ML IV SCH (13:45)
[2022-07-16] MEDS ORDERED: GABAPENTIN 300 MG CAPSULE ONE (14:32)
[2022-07-16] MEDS: GABAPENTIN 300 MG CAPSULE PO SCH ×2 (14:34→21:36)
[2022-07-16] MEDS ORDERED: INSULIN (NOVOLOG) ASPART 100 UNITS/ML 10ML VIAL ONE (17:04)
[2022-07-16] MEDS: INSULIN SLIDING SCALE (NOVOLOG) 1 VIAL SQ SCH ×2 (17:08→21:45)
[2022-07-16 18:18] VITALS: BMI 34.4
[2022-07-16] MEDS: AMPICILLIN NA/SULBACTAM NA 1.5 GM in SODIUM CHLORIDE 100 ML IVPB SCH (20:56)
[2022-07-16] MEDS: CARVEDILOL 25 MG TABLET (FP) PO SCH (21:36)
[2022-07-16] MEDS: INSULIN (LEVEMIR) 100 UNITS/ML UNITS SQ SCH (21:36)
[2022-07-16] MEDS: busPIRone HCL 10 MG TABLET (FP) PO SCH (21:36)
[2022-07-16] MEDS: ATORVASTATIN CA 40 MG TABLET (FP) PO SCH (21:36)
[2022-07-16] MEDS: OLANZapine 2.5 MG TABLET PO SCH (21:44)
[2022-07-16] MEDS: buPROPion HCL 75 MG TABLET PO SCH (21:44)
[2022-07-16] MEDS ORDERED: OLANZapine 7.5 MG TABLET PO SCH (22:00)
[2022-07-16] MEDS ORDERED: HEPARIN NA (PORCINE) 5,000 UNITS/ML 1ML VIAL SQ SCH (22:00)
[2022-07-17] MEDS: MELATONIN 5 MG TABLETS PO PRN ×2 (00:34→23:38)
[2022-07-17] MEDS: AMPICILLIN NA/SULBACTAM NA 1.5 GM in SODIUM CHLORIDE 100 ML IVPB SCH ×3 (01:47→17:44)
[2022-07-17] MEDS: GABAPENTIN 300 MG CAPSULE PO SCH ×3 (06:07→22:50)
[2022-07-17] MEDS: INSULIN (LEVEMIR) 100 UNITS/ML UNITS SQ SCH ×2 (06:08→22:50)
[2022-07-17] MEDS: INSULIN (NOVOLOG) ASPART 100 UNITS/ML 10ML VIAL SQ SCH ×3 (06:08→17:01)
[2022-07-17] MEDS: INSULIN SLIDING SCALE (NOVOLOG) 1 VIAL SQ SCH ×4 (06:08→22:54)
[2022-07-17 06:29] LABS: BASO % 0.6 % (0-2.0); EOS % 3.7 % (0-4.5); HEMATOCRIT 38.5 % (35.4-49); HEMOGLOBIN 12.8 GM/dL (11.7-16.9); LYMPH % 11.1 % (8-40); MCH 28.8 pg (25.7-33.7); MCHC 33.4 g/dl (32.0-35.9); MEAN CELL VOLUME 86.2 fl (80-96); MEAN PLT VOLUME 7.7 fl (7.5-11.1); MONO % 6.2 % (3.8-10.2); NEUT % 78.4 % (42.8-82.8); PLATELET COUNT 230 10^3/uL (134-434); RBC 4.46 M/mm3 (4.00-5.60); WHITE BLOOD COUNT 9.7 K/mm3 (4.0-10.0)
[2022-07-17 06:59] LABS: ALBUMIN 2.8 g/dl (3.4-5.0); BLOOD UREA NITROGEN 20.6 mg/dL (7-18); CALCIUM 8.5 mg/dL (8.5-10.1)
[2022-07-17 07:02] LABS: CREATININE 0.8 mg/dL (0.55-1.3)
[2022-07-17 07:03] LABS: TOT PROT 5.2 g/dl (6.4-8.2)
[2022-07-17 07:04] LABS: BILIRUBIN,TOTAL 0.5 mg/dL (0.2-1)
[2022-07-17] MEDS: TAMSULOSIN HCL 0.4 MG CAP PO SCH (08:30)
[2022-07-17] MEDS: buPROPion HCL 75 MG TABLET PO SCH ×2 (09:37→22:50)
[2022-07-17] MEDS: busPIRone HCL 10 MG TABLET (FP) PO SCH ×2 (09:37→22:49)
[2022-07-17] MEDS: CARVEDILOL 25 MG TABLET (FP) PO SCH ×2 (09:37→22:49)
[2022-07-17] MEDS: LOSARTAN POTASSIUM 50 MG TABLET PO SCH (09:37)
[2022-07-17] MEDS: DULoxetine HCL 30 MG CAPSULE.DR PO SCH (09:37)
[2022-07-17] MEDS: FUROSEMIDE 20 MG TABLET (FP) PO SCH (09:37)
[2022-07-17] MEDS: SOLIFENACIN SUCCINATE 5 MG TAB PO SCH (09:38)
[2022-07-17] MEDS ORDERED: SODIUM CHLORIDE 0.45% 1,000 ML IV SCH (15:45)
[2022-07-17] MEDS ORDERED: COLLAGENASE CLOSTRIDIUM HIST. 30 GRAMS TUBE TP SCH (16:15)
[2022-07-17] MEDS: COLLAGENASE CLOSTRIDIUM HIST. 30 GRAMS TUBE TP SCH (17:44)
[2022-07-17] MEDS: ATORVASTATIN CA 40 MG TABLET (FP) PO SCH (22:49)
[2022-07-17] MEDS: OLANZapine 2.5 MG TABLET PO SCH (22:50)
[2022-07-18] MEDS: INSULIN (LEVEMIR) 100 UNITS/ML UNITS SQ SCH ×2 (06:31→22:13)
[2022-07-18] MEDS: GABAPENTIN 300 MG CAPSULE PO SCH ×3 (06:31→22:13)
[2022-07-18] MEDS: INSULIN SLIDING SCALE (NOVOLOG) 1 VIAL SQ SCH ×4 (06:31→22:15)
[2022-07-18] MEDS: INSULIN (NOVOLOG) ASPART 100 UNITS/ML 10ML VIAL SQ SCH ×3 (06:31→16:56)
[2022-07-18] MEDS: TAMSULOSIN HCL 0.4 MG CAP PO SCH (08:16)
[2022-07-18 08:22] LABS: BLOOD UREA NITROGEN 16.3 mg/dL (7-18); CREATININE 0.7 mg/dL (0.55-1.3)
[2022-07-18 08:23] LABS: CALCIUM 9.1 mg/dL (8.5-10.1)
[2022-07-18 08:24] LABS: BILIRUBIN,TOTAL 0.4 mg/dL (0.2-1); TOT PROT 5.6 g/dl (6.4-8.2)
[2022-07-18] MEDS: CARVEDILOL 25 MG TABLET (FP) PO SCH ×2 (09:51→22:13)
[2022-07-18] MEDS: FUROSEMIDE 20 MG TABLET (FP) PO SCH (09:51)
[2022-07-18] MEDS: DULoxetine HCL 30 MG CAPSULE.DR PO SCH (09:51)
[2022-07-18] MEDS: busPIRone HCL 10 MG TABLET (FP) PO SCH ×2 (09:51→22:13)
[2022-07-18] MEDS: LOSARTAN POTASSIUM 50 MG TABLET PO SCH (09:51)
[2022-07-18] MEDS: SOLIFENACIN SUCCINATE 5 MG TAB PO SCH (09:52)
[2022-07-18] MEDS: buPROPion HCL 75 MG TABLET PO SCH ×2 (09:52→22:13)
[2022-07-18] MEDS ORDERED: AMOX TR/POT CLAV 875MG/125MG TABLETS (FP) PO ONE (10:30)
[2022-07-18] MEDS: COLLAGENASE CLOSTRIDIUM HIST. 30 GRAMS TUBE TP SCH (10:35)
[2022-07-18] MEDS: MELATONIN 5 MG TABLETS PO PRN (22:13)
[2022-07-18] MEDS: ATORVASTATIN CA 40 MG TABLET (FP) PO SCH (22:13)
[2022-07-18] MEDS: AMOX TR/POT CLAV 875MG/125MG TABLETS (FP) PO SCH (22:13)
[2022-07-18] MEDS: OLANZapine 2.5 MG TABLET PO SCH (22:13)
[2022-07-19] MEDS: INSULIN SLIDING SCALE (NOVOLOG) 1 VIAL SQ SCH ×4 (06:33→22:12)
[2022-07-19] MEDS: GABAPENTIN 300 MG CAPSULE PO SCH ×3 (06:33→22:09)
[2022-07-19] MEDS: INSULIN (LEVEMIR) 100 UNITS/ML UNITS SQ SCH ×2 (06:33→22:10)
[2022-07-19] MEDS: INSULIN (NOVOLOG) ASPART 100 UNITS/ML 10ML VIAL SQ SCH ×3 (06:33→16:05)
[2022-07-19] MEDS: TAMSULOSIN HCL 0.4 MG CAP PO SCH (09:30)
[2022-07-19] MEDS: AMOX TR/POT CLAV 875MG/125MG TABLETS (FP) PO SCH ×2 (09:30→17:00)
[2022-07-19] MEDS: CARVEDILOL 25 MG TABLET (FP) PO SCH ×2 (09:31→22:09)
[2022-07-19] MEDS: busPIRone HCL 10 MG TABLET (FP) PO SCH ×2 (09:32→22:09)
[2022-07-19] MEDS: FUROSEMIDE 20 MG TABLET (FP) PO SCH (09:32)
[2022-07-19] MEDS: DULoxetine HCL 30 MG CAPSULE.DR PO SCH (09:32)
[2022-07-19] MEDS: LOSARTAN POTASSIUM 50 MG TABLET PO SCH (09:33)
[2022-07-19] MEDS: COLLAGENASE CLOSTRIDIUM HIST. 30 GRAMS TUBE TP SCH (09:33)
[2022-07-19] MEDS: buPROPion HCL 75 MG TABLET PO SCH ×2 (09:34→22:09)
[2022-07-19] MEDS: SOLIFENACIN SUCCINATE 5 MG TAB PO SCH (09:34)
[2022-07-19] MEDS ORDERED: POLYETHYLENE GLYCOL (HEALTHYLAX) 3350 17 GM PACKET PO ONE (15:30)
[2022-07-19] MEDS ORDERED: ACETAMINOPHEN 1000 MG/100 ML BAG IVPB ONE (20:38)
[2022-07-19] MEDS ORDERED: INSULIN (NOVOLOG) ASPART 100 UNITS/ML 10ML VIAL ONE (21:49)
[2022-07-19] MEDS: OLANZapine 2.5 MG TABLET PO SCH (22:09)
[2022-07-19] MEDS: ATORVASTATIN CA 40 MG TABLET (FP) PO SCH (22:10)
[2022-07-20] MEDS: GABAPENTIN 300 MG CAPSULE PO SCH ×2 (06:37→13:35)
[2022-07-20] MEDS: INSULIN (LEVEMIR) 100 UNITS/ML UNITS SQ SCH (06:37)
[2022-07-20] MEDS: INSULIN (NOVOLOG) ASPART 100 UNITS/ML 10ML VIAL SQ SCH ×2 (06:37→11:28)
[2022-07-20] MEDS: INSULIN SLIDING SCALE (NOVOLOG) 1 VIAL SQ SCH ×2 (06:37→11:27)
[2022-07-20 08:35] VITALS: PULSE 70; RESP 18
[2022-07-20] MEDS: LOSARTAN POTASSIUM 50 MG TABLET PO SCH ×2 (09:23→09:24)
[2022-07-20] MEDS: FUROSEMIDE 20 MG TABLET (FP) PO SCH (09:24)
[2022-07-20] MEDS: AMOX TR/POT CLAV 875MG/125MG TABLETS (FP) PO SCH (09:25)
[2022-07-20] MEDS: busPIRone HCL 10 MG TABLET (FP) PO SCH (09:25)
[2022-07-20] MEDS: TAMSULOSIN HCL 0.4 MG CAP PO SCH (09:25)
[2022-07-20] MEDS: CARVEDILOL 25 MG TABLET (FP) PO SCH (09:25)
[2022-07-20] MEDS: DULoxetine HCL 30 MG CAPSULE.DR PO SCH (09:25)
[2022-07-20] MEDS: buPROPion HCL 75 MG TABLET PO SCH (09:26)
[2022-07-20] MEDS: SOLIFENACIN SUCCINATE 5 MG TAB PO SCH (09:26)
[2022-07-20] MEDS: COLLAGENASE CLOSTRIDIUM HIST. 30 GRAMS TUBE TP SCH (09:27)
[2022-07-20 13:29] VITALS: BP 131/72; TEMP 97.7
== END 2022-07-20 01:45 | disposition home or self-care (01) | DRG 603 ==
LOC: JER 10:21 → JERBED 12:14 → J7W 16:18
PROVIDERS: ADMIT Family Medicine; ATTEND Family Medicine
DX: L03.115 Cellulitis of right lower limb (principal); E11.621 Type 2 diabetes mellitus with foot ulcer; E11.65 Type 2 diabetes mellitus with hyperglycemia; E11.40 Type 2 diabetes mellitus with diabetic neuropathy, unspecified; I10 Essential (primary) hypertension; E78.5 Hyperlipidemia, unspecified; E66.9 Obesity, unspecified; Z68.34 Body mass index [BMI] 34.0-34.9, adult; Z91.199 Patient's noncompliance with other medical treatment and regimen due to unspecified reason; D72.829 Elevated white blood cell count, unspecified; I25.10 Atherosclerotic heart disease of native coronary artery without angina pectoris
CPT/HCPCS: 36415; 73630-TC-RT-FY; 73718-TC-RT; 80053; 82962; 83036; 83605; 85025; 85651; 86140; 87040; 93005; 93010; 93922; 93925-TC; 97116-GP; 97161-GP; 99285-25; C9803-CS; G0463-25; U0003; U0005

== ENCOUNTER 2022-09-28 22:50 | Inpatient (IN) | payer MEDICARE, OTHER ==
[2022-09-28] MEDS ORDERED: ACETAMINOPHEN 1000 MG/100 ML BAG IVPB ONE (23:35)
[2022-09-29] MEDS ORDERED: ACETAMINOPHEN INJECTION 100 ML IVPB ONE (00:56)
[2022-09-29 01:05] LABS: VENOUS BASE EXCESS -2.1 mmol/L (-2-2); VENOUS O2 SATURATION 78.5 % (70-80); VENOUS PCO2 23.9 mmHg (38-52); VENOUS PH 7.514 (7.310-7.410)
[2022-09-29 01:10] LABS: EPI CELLS 3 /uL (0-25.1); HYALINE CASTS 0 /uL (0-3.1); URINE APPEARANCE CLEAR; URINE BILIRUBIN NEGATIVE (NEGATIVE); URINE COLOR YELLOW; URINE GLUCOSE (UA) 3+ (NEGATIVE); URINE KETONE 2+ (NEGATIVE); URINE LEUK ESTERASE NEGATIVE (NEGATIVE); URINE NITRITE POSITIVE (NEGATIVE); URINE PROTEIN NEGATIVE (NEGATIVE); URINE RBC 10 /uL (0-23.9); URINE UROBILINOGEN 0.2 mg/dL (0.2-1.0); URINE WBC 18 /uL (0-25.8)
[2022-09-29 01:14] LABS: BASO % 0.9 % (0-2.0); EOS % 2.8 % (0-4.5); HEMATOCRIT 42.6 % (35.4-49); HEMOGLOBIN 14.1 GM/dL (11.7-16.9); LYMPH % 13.5 % (8-40); MCH 27.1 pg (25.7-33.7); MCHC 33.1 g/dl (32.0-35.9); MEAN CELL VOLUME 81.9 fl (80-96); MEAN PLT VOLUME 7.8 fl (7.5-11.1); MONO % 6.4 % (3.8-10.2); NEUT % 76.4 % (42.8-82.8); PLATELET COUNT 367 10^3/uL (134-434); RDW 15.5 % (11.9-15.9); WHITE BLOOD COUNT 12.9 K/mm3 (4.0-10.0)
[2022-09-29 01:33] LABS: CHLORIDE 102 mmol/L (98-107); POTASSIUM 4.4 mmol/L (3.5-5.1); SODIUM 135 mmol/L (136-145)
[2022-09-29 01:36] LABS: CALCIUM 9.6 mg/dL (8.5-10.1)
[2022-09-29 01:37] LABS: ALBUMIN 3.4 g/dl (3.4-5.0); ANION GAP 13 MMOL/L (8-16); BLOOD UREA NITROGEN 13.9 mg/dL (7-18); CO2 20 mmol/L (21-32); GLUCOSE,RANDOM 307 mg/dL (74-106)
[2022-09-29 01:40] LABS: CREATININE 0.9 mg/dL (0.55-1.3); SGOT/AST 25 U/L (15-37); SGPT/ALT 27 U/L (13-61)
[2022-09-29 01:41] LABS: TOT PROT 6.6 g/dl (6.4-8.2)
[2022-09-29 01:42] LABS: BILIRUBIN,TOTAL 0.8 mg/dL (0.2-1)
[2022-09-29 01:43] LABS: ALK PHOS 120 U/L (45-117)
[2022-09-29 01:45] LABS: LACTIC ACID 2.1 mmol/L (0.4-2.0)
[2022-09-29] MEDS ORDERED: HALOPERIDOL LACTATE 5 MG/ML IM ONE ×4 (02:02→03:30)
[2022-09-29 02:52] LABS: LIPASE 82 U/L (73-393)
[2022-09-29 03:39] LABS: ACTIVATED PTT 29.5 SECONDS (25.2-36.5); INR 1.23 (0.83-1.09); PROTHROMBIN TIME (PATIENT) 14.2 SEC (9.7-13.0)
[2022-09-29 03:41] LABS: METHADONE, UR NEGATIVE (NEGATIVE); URINE AMPHETAMINES NEGATIVE (NEGATIVE)
[2022-09-29] MEDS ORDERED: LORazepam 2 MG/ML SDV VIAL IVPUSH ONE (03:41)
[2022-09-29 03:42] LABS: COCAINE, UR NEGATIVE (NEGATIVE); OPIATES, URI NEGATIVE (NEGATIVE); PHENCYCLIDINE,URINE NEGATIVE (NEGATIVE); URINE BARBITURATES NEGATIVE (NEGATIVE); URINE BENZODIAZEPINES NEGATIVE (NEGATIVE)
[2022-09-29] MEDS ORDERED: LACTATED RINGERS SOLUTION 1000 ML INFUS.BAG IV ONE (05:18)
[2022-09-29] MEDS ORDERED: MELATONIN 5 MG TABLETS PO ONE (06:39)
[2022-09-29] MEDS ORDERED: TAMSULOSIN HCL 0.4 MG CAP ONE (07:27)
[2022-09-29] MEDS: TAMSULOSIN HCL 0.4 MG CAP PO SCH (07:47)
[2022-09-29] MEDS: APIXABAN 5 MG TABLET PO SCH ×2 (10:46→22:08)
[2022-09-29] MEDS: CARVEDILOL 25 MG TABLET (FP) PO SCH ×2 (10:46→22:08)
[2022-09-29] MEDS: LOSARTAN POTASSIUM 50 MG TABLET PO SCH (10:46)
[2022-09-29] MEDS ORDERED: KETOROLAC TROMETHAMINE 30 MG/1 ML VIAL IVPUSH PRN (12:56)
[2022-09-29] MEDS ORDERED: HALOPERIDOL LACTATE 5 MG/ML IM PRN (14:49)
[2022-09-29] MEDS: INSULIN SLIDING SCALE (NOVOLOG) 1 VIAL SQ SCH ×2 (16:47→22:09)
[2022-09-29] MEDS ORDERED: CEFTRIAXONE 1 GM in DEXTROSE 5%-WATER - 50 ML IVPB ONE (19:15)
[2022-09-29] MEDS ORDERED: INSULIN (NOVOLOG) ASPART 100 UNITS/ML 10ML VIAL ONE (21:19)
[2022-09-29] MEDS: OLANZapine 5 MG TABLET PO SCH (22:08)
[2022-09-29] MEDS: ATORVASTATIN CA 40 MG TABLET (FP) PO SCH (22:08)
[2022-09-30] MEDS: INSULIN SLIDING SCALE (NOVOLOG) 1 VIAL SQ SCH ×4 (06:35→22:35)
[2022-09-30 08:18] LABS: HEMOGLOBIN 13.5 GM/dL (11.7-16.9); MCH 27.7 pg (25.7-33.7); MCHC 33.9 g/dl (32.0-35.9); MEAN CELL VOLUME 81.8 fl (80-96); MEAN PLT VOLUME 7.9 fl (7.5-11.1); PLATELET COUNT 316 10^3/uL (134-434); RBC 4.88 M/mm3 (4.00-5.60); RDW 15.9 % (11.9-15.9); WHITE BLOOD COUNT 10.9 K/mm3 (4.0-10.0)
[2022-09-30] MEDS: TAMSULOSIN HCL 0.4 MG CAP PO SCH (08:31)
[2022-09-30 08:38] LABS: POTASSIUM 4.1 mmol/L (3.5-5.1)
[2022-09-30 08:43] LABS: BLOOD UREA NITROGEN 8.1 mg/dL (7-18); CALCIUM 9.2 mg/dL (8.5-10.1)
[2022-09-30 08:44] LABS: ALBUMIN 3.1 g/dl (3.4-5.0)
[2022-09-30 08:47] LABS: CREATININE 0.9 mg/dL (0.55-1.3)
[2022-09-30 08:48] LABS: BILIRUBIN,TOTAL 0.5 mg/dL (0.2-1)
[2022-09-30] MEDS: CARVEDILOL 25 MG TABLET (FP) PO SCH ×2 (09:57→22:34)
[2022-09-30] MEDS: APIXABAN 5 MG TABLET PO SCH ×2 (09:57→22:34)
[2022-09-30] MEDS: LOSARTAN POTASSIUM 50 MG TABLET PO SCH (09:57)
[2022-09-30] MEDS ORDERED: INSULIN (NOVOLOG) ASPART 100 UNITS/ML 10ML VIAL ONE ×3 (11:50→21:49)
[2022-09-30] MEDS: VANCOMYCIN/WATER 1250 MG 1,250 MG/250 ML BAG IVPB SCH ×2 (12:13→22:34)
[2022-09-30] MEDS ORDERED: INSULIN (LEVEMIR) 100 UNITS/ML UNITS SQ SCH (22:00)
[2022-09-30] MEDS: OLANZapine 5 MG TABLET PO SCH (22:34)
[2022-09-30] MEDS: ATORVASTATIN CA 40 MG TABLET (FP) PO SCH (22:34)
[2022-10-01] MEDS: MELATONIN 5 MG TABLETS PO PRN (00:30)
[2022-10-01] MEDS: INSULIN SLIDING SCALE (NOVOLOG) 1 VIAL SQ SCH ×4 (06:44→21:48)
[2022-10-01] MEDS ORDERED: INSULIN (NOVOLOG MIX 70/30) 100 UNITS/ML MDV SQ SCH (07:00)
[2022-10-01] MEDS: TAMSULOSIN HCL 0.4 MG CAP PO SCH (08:19)
[2022-10-01] MEDS: APIXABAN 5 MG TABLET PO SCH ×2 (09:02→21:43)
[2022-10-01] MEDS: LOSARTAN POTASSIUM 50 MG TABLET PO SCH (09:02)
[2022-10-01] MEDS: CARVEDILOL 25 MG TABLET (FP) PO SCH ×2 (09:02→21:43)
[2022-10-01] MEDS: INSULIN (LEVEMIR) 100 UNITS/ML UNITS SQ SCH ×2 (09:04→21:47)
[2022-10-01] MEDS: VANCOMYCIN/WATER 1250 MG 1,250 MG/250 ML BAG IVPB SCH (11:12)
[2022-10-01] MEDS ORDERED: INSULIN (NOVOLOG) ASPART 100 UNITS/ML 10ML VIAL ONE (11:26)
[2022-10-01 15:20] VITALS: BMI 45.4
[2022-10-01] MEDS: INSULIN (NOVOLOG MIX 70/30) 100 UNITS/ML MDV SQ SCH (16:48)
[2022-10-01] MEDS: ATORVASTATIN CA 40 MG TABLET (FP) PO SCH (21:43)
[2022-10-01] MEDS: OLANZapine 5 MG TABLET PO SCH (21:43)
[2022-10-02] MEDS: VANCOMYCIN/WATER 1250 MG 1,250 MG/250 ML BAG IVPB SCH ×3 (00:57→22:39)
[2022-10-02] MEDS: MELATONIN 5 MG TABLETS PO PRN ×2 (01:05→21:28)
[2022-10-02] MEDS: INSULIN (NOVOLOG MIX 70/30) 100 UNITS/ML MDV SQ SCH ×2 (06:25→17:21)
[2022-10-02] MEDS: INSULIN SLIDING SCALE (NOVOLOG) 1 VIAL SQ SCH ×4 (06:33→21:47)
[2022-10-02] MEDS: LOSARTAN POTASSIUM 50 MG TABLET PO SCH (10:40)
[2022-10-02] MEDS: TAMSULOSIN HCL 0.4 MG CAP PO SCH (10:40)
[2022-10-02] MEDS: CARVEDILOL 25 MG TABLET (FP) PO SCH ×2 (10:40→21:28)
[2022-10-02] MEDS: APIXABAN 5 MG TABLET PO SCH ×2 (10:40→21:28)
[2022-10-02] MEDS: INSULIN (LEVEMIR) 100 UNITS/ML UNITS SQ SCH ×2 (10:44→21:47)
[2022-10-02] MEDS ORDERED: INSULIN (NOVOLOG) ASPART 100 UNITS/ML 10ML VIAL ONE ×2 (17:38→21:45)
[2022-10-02] MEDS ORDERED: INSULIN (LEVEMIR) 100 UNITS/ML UNITS SQ ONE (17:38)
[2022-10-02] MEDS: ATORVASTATIN CA 40 MG TABLET (FP) PO SCH (21:28)
[2022-10-02] MEDS: OLANZapine 5 MG TABLET PO SCH (21:58)
[2022-10-03] MEDS: INSULIN (NOVOLOG MIX 70/30) 100 UNITS/ML MDV SQ SCH ×2 (06:01→18:02)
[2022-10-03] MEDS: INSULIN SLIDING SCALE (NOVOLOG) 1 VIAL SQ SCH ×4 (06:01→21:50)
[2022-10-03] MEDS: TAMSULOSIN HCL 0.4 MG CAP PO SCH (08:59)
[2022-10-03] MEDS ORDERED: ACETAMINOPHEN 325 MG TABLET (FP) PO ONE (09:15)
[2022-10-03] MEDS: INSULIN (LEVEMIR) 100 UNITS/ML UNITS SQ SCH ×2 (10:01→21:48)
[2022-10-03] MEDS: APIXABAN 5 MG TABLET PO SCH ×2 (10:02→21:44)
[2022-10-03] MEDS: LOSARTAN POTASSIUM 50 MG TABLET PO SCH (10:02)
[2022-10-03] MEDS: CARVEDILOL 25 MG TABLET (FP) PO SCH ×2 (10:02→21:44)
[2022-10-03] MEDS: VANCOMYCIN/WATER 1250 MG 1,250 MG/250 ML BAG IVPB SCH ×2 (11:51→23:11)
[2022-10-03] MEDS ORDERED: INSULIN (NOVOLOG) ASPART 100 UNITS/ML 10ML VIAL ONE (17:59)
[2022-10-03] MEDS: MELATONIN 5 MG TABLETS PO PRN (21:43)
[2022-10-03] MEDS: ATORVASTATIN CA 40 MG TABLET (FP) PO SCH (21:44)
[2022-10-03] MEDS: OLANZapine 5 MG TABLET PO SCH (21:44)
[2022-10-04] MEDS ORDERED: ACETAMINOPHEN 1000 MG/100 ML BAG IVPB ONE (04:08)
[2022-10-04] MEDS: ACETAMINOPHEN 325 MG TABLET (FP) PO PRN ×2 (05:03→09:00)
[2022-10-04] MEDS: INSULIN SLIDING SCALE (NOVOLOG) 1 VIAL SQ SCH (06:18)
[2022-10-04] MEDS: INSULIN (NOVOLOG MIX 70/30) 100 UNITS/ML MDV SQ SCH (06:55)
[2022-10-04] MEDS: TAMSULOSIN HCL 0.4 MG CAP PO SCH (08:31)
[2022-10-04] MEDS: LOSARTAN POTASSIUM 50 MG TABLET PO SCH (09:01)
[2022-10-04] MEDS: APIXABAN 5 MG TABLET PO SCH (09:01)
[2022-10-04] MEDS: CARVEDILOL 25 MG TABLET (FP) PO SCH (09:02)
[2022-10-04 09:19] VITALS: BP 126/74; PULSE 71; RESP 18; TEMP 97.8
[2022-10-04] MEDS: INSULIN (LEVEMIR) 100 UNITS/ML UNITS SQ SCH (09:27)
== END 2022-10-04 11:31 | DRG 872 ==
LOC: JER 22:50 → JERBED 09-29 05:47 → J7W 09-29 09:16
PROVIDERS: ADMIT Family Medicine; ATTEND Family Medicine
DX: R78.81 Bacteremia (principal); I25.10 Atherosclerotic heart disease of native coronary artery without angina pectoris; I48.91 Unspecified atrial fibrillation; Z79.01 Long term (current) use of anticoagulants; I25.2 Old myocardial infarction; E11.42 Type 2 diabetes mellitus with diabetic polyneuropathy; J44.9 Chronic obstructive pulmonary disease, unspecified; E78.5 Hyperlipidemia, unspecified; F31.9 Bipolar disorder, unspecified; G20 Parkinson's disease; R10.9 Unspecified abdominal pain; E11.65 Type 2 diabetes mellitus with hyperglycemia
CPT/HCPCS: 0241U-QW; 36415; 70450-TC; 71045-TC-FY; 71275-TC; 72125-TC; 74174-TC; 80053; 80307; 81003; 82010; 82550; 82553; 82607; 82803; 82962; 83036; 83605; 83690; 84439; 84443; 84484; 85025; 85027; 85610; 85730; 86850; 86900; 86901; 87040; 87086; 87186; 93005; 93010; 97116-GP; 97161-GP; 99285-25; C9803-CS; G0480; Q9967; U0003; U0005

== ENCOUNTER 2023-02-27 19:37 | Emergency (ER) | payer MEDICARE, OTHER ==
[2023-02-27 19:46] VITALS: BP 163/81; PULSE 71; RESP 22; TEMP 97.8; BMI 37.5
== END 2023-02-27 20:38 | disposition home or self-care (01) ==
LOC: JER 19:37 → JERFT 19:37
DX: H57.89 Other specified disorders of eye and adnexa (principal); H10.33 Unspecified acute conjunctivitis, bilateral
CPT/HCPCS: 99283-25

== ENCOUNTER 2023-05-10 18:10 | Emergency (ER) | payer MEDICARE, OTHER ==
[2023-05-10 18:18] VITALS: BP 123/73; PULSE 104; RESP 18; TEMP 97.3; BMI 37.5
[2023-05-10] MEDS ORDERED: ACETAMINOPHEN 500 MG TABLET (FP) PO ONE (21:57)
[2023-05-10] MEDS ORDERED: diphenhydrAMINE HCL 25 MG CAPSULE (FP) PO ONE ×2 (22:04→22:07)
[2023-05-10] MEDS ORDERED: ERYTHROMYCIN 0.5% OPHTHALMIC OINTMENT 3.5 GM TUBE OU STA (22:05)
[2023-05-10] MEDS ORDERED: ACETAMINOPHEN 500 MG TABLET (FP) ONE (22:07)
[2023-05-10] MEDS ORDERED: ERYTHROMYCIN 0.5% OPHTHALMIC OINTMENT 3.5 GM TUBE ONE (22:07)
== END 2023-05-10 22:12 | disposition home or self-care (01) ==
LOC: JERFT 18:10 → JER 18:10 → JERFT 22:12
DX: H57.89 Other specified disorders of eye and adnexa (principal); H10.9 Unspecified conjunctivitis
CPT/HCPCS: 99283-25

== ENCOUNTER 2023-05-11 13:58 | Emergency (ER) | payer MEDICARE, OTHER ==
[2023-05-11 14:18] VITALS: BP 150/90; PULSE 85; RESP 18; TEMP 98.3; BMI 37.5
[2023-05-11] MEDS ORDERED: FLUORESCEIN NA 1 EA STRIP OU ONE (15:30)
[2023-05-11] MEDS ORDERED: TETRACAINE 0.5% HCL 0.6ML DROPPER.BOTTLE OU ONE (15:30)
[2023-05-11] MEDS ORDERED: FLUORESCEIN NA 1 EA STRIP ONE (15:31)
[2023-05-11] MEDS ORDERED: TETRACAINE 0.5% OPHTH SOLN 2 ML BOTTLE ONE (15:32)
== END 2023-05-11 16:07 | disposition home or self-care (01) ==
LOC: JERFT 13:58
DX: S05.01XA Injury of conjunctiva and corneal abrasion without foreign body, right eye, initial encounter (principal); H10.11 Acute atopic conjunctivitis, right eye; H57.89 Other specified disorders of eye and adnexa; X58.XXXA Exposure to other specified factors, initial encounter
CPT/HCPCS: 99283-25

== ENCOUNTER 2023-05-22 13:25 | Inpatient (IN) | payer MEDICARE, OTHER ==
[2023-05-22] MEDS ORDERED: KETAMINE HCL 200 MG/20 ML VIAL ONE (14:45)
[2023-05-22] MEDS ORDERED: ROCURONIUM BROMIDE 50 MG/5 ML SYRINGE ONE (14:45)
[2023-05-22] MEDS ORDERED: methylPREDNISolone NA SUCC 125 MG/2 ML VIAL IVPB ONE (15:19)
[2023-05-22] MEDS ORDERED: methylPREDNISolone NA SUCC 125 MG/2 ML VIAL ONE (15:33)
[2023-05-22] MEDS ORDERED: ALBUTEROL SO4 2.5/IPRATROPIUM 0.5 INH SOL 3 ML VIAL.NEB. NEB ONE ×2 (15:33→15:56)
[2023-05-22] MEDS: ALBUTEROL SO4 2.5/IPRATROPIUM 0.5 INH SOL 3 ML VIAL.NEB. NEB SCH ×3 (15:53→16:40)
[2023-05-22 18:12] LABS: BASO % 0.9 % (0-2.0); EOS % 0.5 % (0-4.5); HEMATOCRIT 48.4 % (35.4-49); HEMOGLOBIN 15.7 GM/dL (11.7-16.9); LYMPH % 10.8 % (8-40); MCH 27.1 pg (25.7-33.7); MCHC 32.4 g/dl (32.0-35.9); MEAN CELL VOLUME 83.8 fl (80-96); MEAN PLT VOLUME 8.6 fl (7.5-11.1); NEUT % 79.8 % (42.8-82.8); PLATELET COUNT 279 10^3/uL (134-434); RBC 5.77 M/mm3 (4.00-5.60); RDW 16.9 % (11.9-15.9); WHITE BLOOD COUNT 12.8 K/mm3 (4.0-10.0)
[2023-05-22 18:16] LABS: VENOUS BASE EXCESS -2.2 mmol/L (-2-2); VENOUS O2 SATURATION 35.1 % (70-80); VENOUS PCO2 40.4 mmHg (38-52); VENOUS PH 7.371 (7.310-7.410)
[2023-05-22 18:28] LABS: INR 1.3 (0.83-1.09); POTASSIUM 4.5 mmol/L (3.5-5.1)
[2023-05-22 18:31] LABS: ACTIVATED PTT 28.6 SECONDS (25.2-36.5); ALBUMIN 3.7 g/dl (3.4-5.0); BLOOD UREA NITROGEN 12.3 mg/dL (7-18); CALCIUM 10.2 mg/dL (8.5-10.1)
[2023-05-22 18:34] LABS: CREATININE 1.1 mg/dL (0.55-1.3)
[2023-05-22 18:35] LABS: BILIRUBIN,TOTAL 3.6 mg/dL (0.2-1); TOT PROT 7.2 g/dl (6.4-8.2)
[2023-05-22] MEDS ORDERED: ALBUTEROL SO4 2.5/IPRATROPIUM 0.5 INH SOL 3 ML VIAL.NEB. NEB PRN (21:44)
[2023-05-23] MEDS ORDERED: MELATONIN 5 MG TABLETS PO PRN (01:24)
[2023-05-23] MEDS: APIXABAN 5 MG TABLET PO SCH ×2 (01:29→09:23)
[2023-05-23] MEDS: CARVEDILOL 25 MG TABLET (FP) PO SCH ×2 (01:29→09:24)
[2023-05-23] MEDS: DULoxetine HCL 30 MG CAPSULE.DR PO SCH ×2 (01:29→09:23)
[2023-05-23] MEDS: methylPREDNISolone NA SUCC 40 MG/1 ML VIAL IVPUSH SCH ×2 (03:55→08:39)
[2023-05-23 04:16] VITALS: BMI 31.3
[2023-05-23] MEDS ORDERED: dilTIAZem HCL 25 MG/5 ML - 5 ML VIAL IVPUSH ONE (05:39)
[2023-05-23 06:36] VITALS: RESP 20
[2023-05-23] MEDS ORDERED: TAMSULOSIN HCL 0.4 MG CAP PO SCH (08:30)
[2023-05-23 08:41] LABS: HEMATOCRIT 44.1 % (35.4-49); HEMOGLOBIN 14.7 GM/dL (11.7-16.9); MCH 28.1 pg (25.7-33.7); MCHC 33.4 g/dl (32.0-35.9); MEAN CELL VOLUME 84.3 fl (80-96); MEAN PLT VOLUME 8.7 fl (7.5-11.1); PLATELET COUNT 238 10^3/uL (134-434); RBC 5.23 M/mm3 (4.00-5.60); RDW 16.2 % (11.9-15.9)
[2023-05-23 08:46] LABS: POTASSIUM 4.3 mmol/L (3.5-5.1)
[2023-05-23 09:08] LABS: ALBUMIN 3.2 g/dl (3.4-5.0); BLOOD UREA NITROGEN 19.3 mg/dL (7-18); CALCIUM 9.1 mg/dL (8.5-10.1)
[2023-05-23 09:10] LABS: CREATININE 0.8 mg/dL (0.55-1.3)
[2023-05-23 09:11] LABS: BILIRUBIN,TOTAL 2.1 mg/dL (0.2-1); TOT PROT 6.2 g/dl (6.4-8.2)
[2023-05-23 09:26] VITALS: BP 114/80; PULSE 133; TEMP 98.4
[2023-05-23] MEDS ORDERED: ASPIRIN 81 MG CHEWABLE TABLETS PO SCH (10:00)
[2023-05-23] MEDS ORDERED: GABAPENTIN 300 MG CAPSULE PO SCH (10:00)
[2023-05-23 10:02] LABS: ANISOCYTOSIS 1+
[2023-05-23] MEDS ORDERED: INSULIN SLIDING SCALE (NOVOLOG) 1 VIAL SQ SCH (11:00)
[2023-05-23] MEDS ORDERED: ALBUTEROL SO4 0.083% IH SOL 2.5 MG/3 ML VIAL.NEB. NEB PRN (19:31)
[2023-05-23] MEDS ORDERED: ALBUTEROL SO4 2.5/IPRATROPIUM 0.5 INH SOL 3 ML VIAL.NEB. NEB SCH (20:00)
[2023-05-23] MEDS ORDERED: ATORVASTATIN CA 40 MG TABLET (FP) PO SCH (22:00)
[2023-05-24] MEDS ORDERED: methylPREDNISolone NA SUCC 40 MG/1 ML VIAL IVPUSH SCH (02:00)
== END 2023-05-23 14:59 | disposition left against medical advice (07) | DRG 191 ==
LOC: JER 13:25 → JERBED 19:02 → J4W 05-23 00:39
PROVIDERS: ADMIT Internal Medicine; ATTEND Family Medicine
DX: J44.1 Chronic obstructive pulmonary disease with (acute) exacerbation (principal); I24.89 Other forms of acute ischemic heart disease; I48.0 Paroxysmal atrial fibrillation; I11.0 Hypertensive heart disease with heart failure; I50.9 Heart failure, unspecified; F41.8 Other specified anxiety disorders; I25.10 Atherosclerotic heart disease of native coronary artery without angina pectoris; F31.9 Bipolar disorder, unspecified; I25.2 Old myocardial infarction; I45.10 Unspecified right bundle-branch block; K59.00 Constipation, unspecified; E11.610 Type 2 diabetes mellitus with diabetic neuropathic arthropathy; R77.8 Other specified abnormalities of plasma proteins; M25.562 Pain in left knee; I08.1 Rheumatic disorders of both mitral and tricuspid valves; E78.5 Hyperlipidemia, unspecified; Z95.5 Presence of coronary angioplasty implant and graft
CPT/HCPCS: 0241U-QW; 36415; 71045-TC-FY; 80053; 80061; 82803; 82962; 83880; 84484; 85025; 85610; 85730; 93005; 93010; 99285-25

== ENCOUNTER 2023-12-30 17:33 | Inpatient (IN) | payer MEDICARE, OTHER ==
[2023-12-30 17:47] VITALS: BMI 34.9
[2023-12-30] MEDS ORDERED: morphine SULFATE 4 MG/ML VIAL ONE (18:27)
[2023-12-30] MEDS ORDERED: PIPERACILLIN/TAZOB 4.5 GM 4.5 GM/100 ML BAG IVPB ONE (18:27)
[2023-12-30] MEDS: morphine SULFATE 4 MG/ML VIAL IVPUSH ONE (18:35)
[2023-12-30] MEDS: PIPERACILLIN/TAZOB 4.5 GM 4.5 GM in DEXTROSE 5%-WATER 100 ML IVPB ONE (18:35)
[2023-12-30 18:42] LABS: HEMATOCRIT 40.8 % (35.4-49); HEMOGLOBIN 13.4 GM/dL (11.7-16.9); MCHC 32.8 g/dl (32.0-35.9); MEAN CELL VOLUME 85.4 fl (80-96); MEAN PLT VOLUME 7.5 fl (7.5-11.1); PLATELET COUNT 401 10^3/uL (134-434); RBC 4.77 M/mm3 (4.00-5.60); RDW 15.6 % (11.9-15.9); WHITE BLOOD COUNT 18.1 K/mm3 (4.0-10.0)
[2023-12-30] MEDS ORDERED: ACETAMINOPHEN INJECTION 100 ML IVPB ONE (19:15)
[2023-12-30] MEDS: ACETAMINOPHEN 1000 MG/100 ML BAG IVPB ONE (19:19)
[2023-12-30 19:30] LABS: LACTIC ACID 4.5 mmol/L (0.4-2.0)
[2023-12-30 19:33] LABS: POTASSIUM 4.5 mmol/L (3.5-5.1)
[2023-12-30 19:36] LABS: ALBUMIN 2.4 g/dl (3.4-5.0); BLOOD UREA NITROGEN 13.4 mg/dL (7-18); CALCIUM 9.4 mg/dL (8.5-10.1)
[2023-12-30 19:40] LABS: CREATININE 0.9 mg/dL (0.55-1.3)
[2023-12-30 19:41] LABS: BILIRUBIN,TOTAL 0.4 mg/dL (0.2-1); TOT PROT 5.7 g/dl (6.4-8.2)
[2023-12-30 20:08] LABS: INR 1.23 (0.83-1.09); PROTHROMBIN TIME (PATIENT) 14.1 SEC (9.7-13.0)
[2023-12-30 20:10] LABS: ACTIVATED PTT 31.8 SECONDS (25.2-36.5)
[2023-12-30 20:24] LABS: ANISOCYTOSIS 2+; MACROCYTOSIS 0; OVALOCYTE 1+
[2023-12-30] MEDS: VANCOMYCIN HCL 1,500 MG in DEXTROSE 5%-WATER - 500 ML IVPB ONE (20:56)
[2023-12-31] MEDS ORDERED: ACETAMINOPHEN INJECTION 100 ML IVPB ONE ×2 (01:57→12:44)
[2023-12-31] MEDS: ACETAMINOPHEN 1000 MG/100 ML BAG IVPB PRN ×2 (02:00→19:43)
[2023-12-31] MEDS: IBUPROFEN 600 MG TABLET (FP) PO ONE (03:42)
[2023-12-31 06:29] LABS: HEMATOCRIT 37.9 % (35.4-49); HEMOGLOBIN 12.6 GM/dL (11.7-16.9); MCH 28.3 pg (25.7-33.7); MCHC 33.2 g/dl (32.0-35.9); MEAN CELL VOLUME 85.3 fl (80-96); MEAN PLT VOLUME 7.5 fl (7.5-11.1); PLATELET COUNT 337 10^3/uL (134-434); RBC 4.45 M/mm3 (4.00-5.60); RDW 15.4 % (11.9-15.9); WHITE BLOOD COUNT 15.3 K/mm3 (4.0-10.0)
[2023-12-31 06:49] LABS: POTASSIUM 3.7 mmol/L (3.5-5.1)
[2023-12-31 06:52] LABS: CALCIUM 8.7 mg/dL (8.5-10.1)
[2023-12-31 06:53] LABS: ALBUMIN 2.1 g/dl (3.4-5.0); BLOOD UREA NITROGEN 12.4 mg/dL (7-18); MAGNESIUM 1.8 mg/dL (1.8-2.4)
[2023-12-31 06:55] LABS: CHOLESTEROL 102 mg/dL (50-200)
[2023-12-31 06:56] LABS: CREATININE 0.9 mg/dL (0.55-1.3); LDL CHOLESTEROL (ONLY SJRH) 58 mg/dL (5-100); PHOSPHOROUS 2.6 mg/dL (2.5-4.9)
[2023-12-31 06:57] LABS: BILIRUBIN,TOTAL 0.2 mg/dL (0.2-1)
[2023-12-31 06:58] LABS: HDL CHOLESTEROL 24 mg/dL (40-60)
[2023-12-31] MEDS: morphine SULFATE 4 MG/ML VIAL IVPUSH ONE (07:13)
[2023-12-31 09:24] LABS: ANISOCYTOSIS 0; MACROCYTOSIS 0
[2023-12-31] MEDS: ASPIRIN COATED 81 MG TABLET.EC PO SCH (09:38)
[2023-12-31] MEDS: INSULIN ASPART SLIDING SCALE (NOVOLOG) 1 VIAL SQ SCH ×2 (09:39→18:02)
[2023-12-31] MEDS: GABAPENTIN 300 MG CAPSULE PO SCH ×2 (09:39→21:30)
[2023-12-31] MEDS: TAMSULOSIN HCL 0.4 MG CAP PO SCH (09:39)
[2023-12-31] MEDS: SACUBITRIL/VALSARTAN 49 MG-51 MG TABLET PO SCH ×2 (09:39→21:31)
[2023-12-31] MEDS: morphine CARPU-JECT 4 MG/1 ML DISP.SYRIN IVPUSH ONE (09:40)
[2023-12-31] MEDS: APIXABAN 5 MG TABLET PO SCH ×2 (09:40→21:30)
[2023-12-31] MEDS: FUROSEMIDE 20 MG TABLET (FP) PO SCH (09:40)
[2023-12-31] MEDS: LOSARTAN POTASSIUM 25 MG TABLET PO SCH (09:40)
[2023-12-31] MEDS ORDERED: PROPOFOL 20 ML ONE ×2 (10:42→11:09)
[2023-12-31] MEDS ORDERED: MIDAZOLAM HCL 2 MG/2 ML SINGLE DOSE VIAL ONE (11:07)
[2023-12-31] MEDS ORDERED: SUCCINYLCHOLINE CHLORIDE 200 MG/10 ML SYRINGE ONE (11:08)
[2023-12-31] MEDS: CLINDAMYCIN 900 MG PREMIX BAG IVPB ONE (11:35)
[2023-12-31] MEDS: EMPAGLIFLOZIN (JARDIANCE) 10 MG TABLET PO SCH (11:39)
[2023-12-31] MEDS ORDERED: ONDANSETRON 4 MG/2 ML VIAL IVPUSH PRN ×2 (12:24→13:21)
[2023-12-31] MEDS: ACETAMINOPHEN 1000 MG/100 ML BAG IVPB ONE (12:47)
[2023-12-31] MEDS: LACTATED RINGERS SOLUTION 1,000 ML IV SCH ×2 (13:47→13:48)
[2023-12-31] MEDS: PIPERACILLIN/TAZOB 3.375 GM 3.375 GM in DEXTROSE 5%-WATER - 50 ML IVPB SCH (14:00)
[2023-12-31] MEDS: VANCOMYCIN/WATER 1250 MG 1,250 MG/250 ML BAG IVPB SCH (14:01)
[2023-12-31] MEDS: SODIUM CHLORIDE 0.45%/POT 20 MEQ/1,000 ML INFUS.BAG IV SCH (16:51)
[2023-12-31] MEDS: OLANZapine 2.5 MG TABLET PO SCH (21:30)
[2023-12-31] MEDS: ATORVASTATIN CA 40 MG TABLET (FP) PO SCH (21:31)
[2023-12-31] MEDS ORDERED: OLANZapine 2.5 MG TABLET PO SCH (22:00)
[2023-12-31] MEDS ORDERED: ATORVASTATIN CA 40 MG TABLET (FP) PO SCH (22:00)
[2023-12-31] MEDS ORDERED: SULFAMETHOXAZOLE 80 MG/TRIMETHOPRIM 16 MG/ML VIAL IVPB SCH ×2 (22:00)
[2024-01-01] MEDS: EMPAGLIFLOZIN (JARDIANCE) 10 MG TABLET PO SCH (06:17)
[2024-01-01] MEDS: SODIUM CHLORIDE 500 ML IV STA (07:34)
[2024-01-01] MEDS: TAMSULOSIN HCL 0.4 MG CAP PO SCH (07:45)
[2024-01-01] MEDS: ACETAMINOPHEN 500 MG TABLET (FP) PO PRN (07:45)
[2024-01-01] MEDS: FUROSEMIDE 20 MG TABLET (FP) PO SCH (09:55)
[2024-01-01] MEDS: ASPIRIN COATED 81 MG TABLET.EC PO SCH (09:55)
[2024-01-01] MEDS ORDERED: LOSARTAN POTASSIUM 25 MG TABLET PO SCH ×2 (10:00)
[2024-01-01] MEDS: traMADol HCL 50 MG TABLET PO PRN (16:47)
[2024-01-02] MEDS: traMADol HCL 50 MG TABLET PO PRN (07:43)
[2024-01-02] MEDS: oxyCODONE HCL 5 MG TABLET PO PRN (11:06)
[2024-01-02] MEDS: CEFAZOLIN 1 GM in DEXTROSE 5%-WATER - 50 ML IVPB SCH (17:58)
[2024-01-03] MEDS ORDERED: ceFAZolin SODIUM 1 GM VIAL ONE (10:30)
[2024-01-03] MEDS: oxyCODONE HCL 5 MG TABLET PO PRN (12:21)
[2024-01-03] MEDS: CEPHALEXIN MONOHYDRATE 500 MG CAPSULE (UD) PO SCH (17:47)
[2024-01-03] MEDS: INSULIN (LEVEMIR) 100 UNITS/ML UNITS SQ SCH (22:44)
[2024-01-05 09:05] VITALS: PULSE 97; RESP 19; TEMP 98.5
[2024-01-05 10:10] LABS: POTASSIUM 4.2 mmol/L (3.5-5.1)
[2024-01-05 10:15] LABS: BLOOD UREA NITROGEN 14.4 mg/dL (7-18); CALCIUM 9.5 mg/dL (8.5-10.1)
[2024-01-05 10:17] LABS: HEMATOCRIT 40.8 % (35.4-49); HEMOGLOBIN 13.2 GM/dL (11.7-16.9); MCH 27.1 pg (25.7-33.7); MCHC 32.3 g/dl (32.0-35.9); MEAN PLT VOLUME 7.2 fl (7.5-11.1); PLATELET COUNT 328 10^3/uL (134-434); RBC 4.86 M/mm3 (4.00-5.60); RDW 15.6 % (11.9-15.9); WHITE BLOOD COUNT 12.5 K/mm3 (4.0-10.0)
[2024-01-05 10:23] LABS: BILIRUBIN,TOTAL 0.4 mg/dL (0.2-1)
[2024-01-05 10:44] LABS: ALBUMIN 2.7 g/dl (3.4-5.0); CREATININE 0.8 mg/dL (0.55-1.3)
[2024-01-05 15:13] VITALS: BP 110/75
== END 2024-01-05 16:26 | DRG 571 ==
LOC: JER 17:33 → JERBED 20:15 → J5S 12-31 07:01
PROVIDERS: ATTEND Family Medicine
PROC: 0J950ZZ Drainage of Left Neck Subcutaneous Tissue and Fascia, Open Approach (ICD-10-PCS; principal; 2023-12-31 12:00)
PROC: 0JB50ZZ Excision of Left Neck Subcutaneous Tissue and Fascia, Open Approach (ICD-10-PCS; 2023-12-31 12:00)
DX: L02.11 Cutaneous abscess of neck (principal); I13.0 Hypertensive heart and chronic kidney disease with heart failure and stage 1 through stage 4 chronic kidney disease, or unspecified chronic kidney disease; I50.22 Chronic systolic (congestive) heart failure; I48.91 Unspecified atrial fibrillation; E11.22 Type 2 diabetes mellitus with diabetic chronic kidney disease; N18.9 Chronic kidney disease, unspecified; I25.10 Atherosclerotic heart disease of native coronary artery without angina pectoris; I25.2 Old myocardial infarction; N40.0 Benign prostatic hyperplasia without lower urinary tract symptoms; F39 Unspecified mood [affective] disorder; Z95.5 Presence of coronary angioplasty implant and graft; D72.829 Elevated white blood cell count, unspecified
CPT/HCPCS: 36415; 70491-TC; 80053; 80061; 82962; 83036; 83605; 83735; 84100; 85025; 85027; 85610; 85651; 85730; 86140; 86850; 86900; 86901; 87040; 87070; 87186; 87205; 88304-TC; 94760; 97116-GP; 97161-GP; 99285-25; J0131; J3480; Q9967

== ENCOUNTER 2024-02-13 00:31 | Emergency (ER) | payer MEDICARE, OTHER ==
[2024-02-13 00:41] VITALS: BP 124/77; PULSE 80; RESP 18; TEMP 98; BMI 31.8
== END 2024-02-13 01:43 | disposition home or self-care (01) ==
LOC: JER 00:31
DX: S11.90XD Unspecified open wound of unspecified part of neck, subsequent encounter (principal); Z48.01 Encounter for change or removal of surgical wound dressing; X58.XXXD Exposure to other specified factors, subsequent encounter
CPT/HCPCS: 99283-25

== ENCOUNTER 2024-02-14 09:58 | Emergency (ER) | payer MEDICARE, OTHER ==
[2024-02-14 10:05] VITALS: BP 149/83; PULSE 89; RESP 18; TEMP 98; BMI 31.6
== END 2024-02-14 10:43 | disposition home or self-care (01) ==
LOC: JER 09:58 → JERFT 09:58
DX: Z48.01 Encounter for change or removal of surgical wound dressing (principal)
CPT/HCPCS: 99281-25

== ENCOUNTER 2024-02-15 12:19 | Observation (INO) | payer MEDICARE, OTHER ==
[2024-02-15] MEDS ORDERED: ACETAMINOPHEN INJECTION 100 ML ONE (14:06)
[2024-02-15] MEDS: ACETAMINOPHEN 1000 MG/100 ML BAG IVPB ONE (14:41)
[2024-02-15 14:46] LABS: HEMOGLOBIN 14.5 GM/dL (11.7-16.9); MCH 28.4 pg (25.7-33.7); MEAN PLT VOLUME 7.7 fl (7.5-11.1); PLATELET COUNT 296 10^3/uL (134-434); RBC 5.11 M/mm3 (4.00-5.60); RDW 15.5 % (11.9-15.9); WHITE BLOOD COUNT 10.5 K/mm3 (4.0-10.0)
[2024-02-15 15:07] LABS: ANISOCYTOSIS 0; MACROCYTOSIS 0
[2024-02-15] MEDS ORDERED: VANCOMYCIN/WATER 1250 MG 1,250 MG/250 ML BAG IVPB ONE (15:14)
[2024-02-15] MEDS ORDERED: PIPERACILLIN/TAZOB 3.375 GM 3.375 GM/50 ML BAG IVPB ONE (15:14)
[2024-02-15 15:21] LABS: POTASSIUM 4.4 mmol/L (3.5-5.1)
[2024-02-15] MEDS: PIPERACILLIN/TAZOB 3.375 GM 3.375 GM in DEXTROSE 5%-WATER - 50 ML IVPB ONE (15:24)
[2024-02-15 15:25] LABS: BLOOD UREA NITROGEN 12.8 mg/dL (7-18); CALCIUM 9.7 mg/dL (8.5-10.1)
[2024-02-15 15:26] LABS: ALBUMIN 3.3 g/dl (3.4-5.0)
[2024-02-15 15:30] LABS: TOT PROT 6.3 g/dl (6.4-8.2)
[2024-02-15 16:44] LABS: BILIRUBIN,DIRECT 0.2 mg/dL (0.0-0.2)
[2024-02-15] MEDS: VANCOMYCIN/WATER 1250 MG 1,250 MG/250 ML BAG IVPB ONE (17:01)
[2024-02-15] MEDS: ACETAMINOPHEN 325 MG TABLET (FP) PO ONE (17:22)
[2024-02-16] MEDS ORDERED: PIPERACILLIN/TAZOB 3.375 GM 3.375 GM/50 ML BAG IVPB ONE ×2 (01:06→12:13)
[2024-02-16] MEDS: MELATONIN 5 MG TABLETS PO PRN (01:30)
[2024-02-16] MEDS: PIPERACILLIN/TAZOB 3.375 GM 3.375 GM/50 ML BAG IVPB SCH (01:30)
[2024-02-16] MEDS: ACETAMINOPHEN 325 MG TABLET (FP) PO PRN (01:30)
[2024-02-16] MEDS ORDERED: PIPERACILLIN/TAZOB 3.375 GM 3.375 GM in DEXTROSE 5%-WATER - 50 ML IVPB SCH (02:00)
[2024-02-16] MEDS ORDERED: VANCOMYCIN HCL 1,500 MG in DEXTROSE 5%-WATER - 250 ML IVPB SCH (05:00)
[2024-02-16] MEDS ORDERED: GABAPENTIN 300 MG CAPSULE ONE (05:02)
[2024-02-16] MEDS: VANCOMYCIN PREMIX 1.5 GM 1,500 MG/300 ML BAG IVPB SCH (05:44)
[2024-02-16] MEDS: GABAPENTIN 300 MG CAPSULE PO SCH (05:44)
[2024-02-16 07:35] LABS: EOS % 8.3 % (0-4.5); HEMATOCRIT 41.8 % (35.4-49); HEMOGLOBIN 13.6 GM/dL (11.7-16.9); LYMPH % 11.9 % (8-40); MCH 28.5 pg (25.7-33.7); MCHC 32.5 g/dl (32.0-35.9); MEAN CELL VOLUME 87.6 fl (80-96); MONO % 8.3 % (3.8-10.2); NEUT % 70.5 % (42.8-82.8); PLATELET COUNT 283 10^3/uL (134-434); RBC 4.77 M/mm3 (4.00-5.60); RDW 15.6 % (11.9-15.9); WHITE BLOOD COUNT 7.4 K/mm3 (4.0-10.0)
[2024-02-16 07:59] LABS: POTASSIUM 4.4 mmol/L (3.5-5.1)
[2024-02-16 08:05] LABS: CALCIUM 8.9 mg/dL (8.5-10.1)
[2024-02-16 08:06] LABS: BLOOD UREA NITROGEN 13.2 mg/dL (7-18)
[2024-02-16 08:08] LABS: CREATININE 0.9 mg/dL (0.55-1.3)
[2024-02-16 08:10] LABS: BILIRUBIN,TOTAL 0.9 mg/dL (0.2-1); TOT PROT 5.6 g/dl (6.4-8.2)
[2024-02-16] MEDS: INSULIN ASPART SLIDING SCALE (NOVOLOG) 1 VIAL SQ SCH (08:13)
[2024-02-16] MEDS ORDERED: INSULIN REGULAR HUMAN 100 UNITS/ML *VIAL ONE (08:17)
[2024-02-16] MEDS ORDERED: TAMSULOSIN HCL 0.4 MG CAP ONE (08:31)
[2024-02-16] MEDS: TAMSULOSIN HCL 0.4 MG CAP PO SCH (08:46)
[2024-02-16] MEDS: LOSARTAN POTASSIUM 50 MG TABLET PO SCH (12:08)
[2024-02-16] MEDS: DULoxetine HCL 30 MG CAPSULE.DR PO SCH (12:18)
[2024-02-16] MEDS: APIXABAN 5 MG TABLET PO SCH (12:18)
[2024-02-16] MEDS ORDERED: ACETAMINOPHEN 325 MG TABLET (FP) ONE (12:25)
[2024-02-16 12:45] VITALS: RESP 18
[2024-02-16] MEDS ORDERED: INSULIN ASPART SLIDING SCALE (NOVOLOG) 1 VIAL SQ ONE (13:26)
[2024-02-16 15:07] VITALS: BMI 30.5
[2024-02-16] MEDS: AMOX TR/POT CLAV 875MG/125MG TABLETS (FP) PO SCH (16:45)
[2024-02-16] MEDS: LOPERAMIDE HCL 2 MG CAPSULE PO PRN (22:12)
[2024-02-16] MEDS: ATORVASTATIN CA 40 MG TABLET (FP) PO SCH (22:15)
[2024-02-18 15:46] VITALS: BP 107/57; PULSE 72; TEMP 98.1
== END 2024-02-18 19:00 | disposition home or self-care (01) ==
LOC: JER 12:19 → JERBED 17:11 → INTOOBSV 17:11 → UNDOADMOB 17:11 → J6S 02-16 14:20 → JERBED 02-16 14:20 → J6S 02-17 09:58 → JERBED 02-17 09:58
PROVIDERS: ADMIT Student in an Organized Health Care Education/Training Program; ATTEND Family Medicine
PROC: 3E033NZ Introduction of Analgesics, Hypnotics, Sedatives into Peripheral Vein, Percutaneous Approach (ICD-10-PCS; principal; 2024-02-17)
PROC: 3E013VG Introduction of Insulin into Subcutaneous Tissue, Percutaneous Approach (ICD-10-PCS; 2024-02-17)
PROC: 3E03329 Introduction of Other Anti-infective into Peripheral Vein, Percutaneous Approach (ICD-10-PCS; 2024-02-17)
DX: A41.9 Sepsis, unspecified organism (principal); S11.90XD Unspecified open wound of unspecified part of neck, subsequent encounter; X58.XXXD Exposure to other specified factors, subsequent encounter; J44.9 Chronic obstructive pulmonary disease, unspecified; E78.5 Hyperlipidemia, unspecified; I25.2 Old myocardial infarction; I48.91 Unspecified atrial fibrillation; Z79.01 Long term (current) use of anticoagulants; R41.82 Altered mental status, unspecified; I11.0 Hypertensive heart disease with heart failure; E11.9 Type 2 diabetes mellitus without complications; F32.A Depression, unspecified; Z87.738 Personal history of other specified (corrected) congenital malformations of digestive system; Z90.49 Acquired absence of other specified parts of digestive tract; Z88.1 Allergy status to other antibiotic agents; Z87.891 Personal history of nicotine dependence
CPT/HCPCS: 36415; 71045-TC-FY; 80053; 82248; 82550; 82607; 82728; 82746; 82962; 82977; 83540; 83550; 83605; 85025; 87040; 93005; 93010; 96365; 96366; 96367; 96372; 96375; 97116-GP; 97162-GP; 99285-25; G0378; J0131

== ENCOUNTER 2024-02-19 15:01 | Emergency (ER) | payer MEDICARE, OTHER ==
[2024-02-19 15:08] VITALS: BP 129/81; PULSE 85; RESP 18; TEMP 98.8; BMI 30.5
[2024-02-19] MEDS ORDERED: ACETAMINOPHEN 500 MG TABLET (FP) ONE (16:11)
[2024-02-19] MEDS: ACETAMINOPHEN 500 MG TABLET (FP) PO ONE (16:13)
== END 2024-02-19 16:52 | disposition home or self-care (01) ==
LOC: JER 15:01
DX: L98.499 Non-pressure chronic ulcer of skin of other sites with unspecified severity (principal)
CPT/HCPCS: 99283-25

== ENCOUNTER 2024-03-01 00:32 | Emergency (ER) | payer MEDICARE, OTHER ==
[2024-03-01 00:42] VITALS: BP 154/90; PULSE 83; RESP 18; TEMP 98.5; BMI 30.5
[2024-03-01] MEDS ORDERED: ACETAMINOPHEN 500 MG TABLET (FP) ONE (00:56)
[2024-03-01] MEDS ORDERED: diphenhydrAMINE HCL 25 MG CAPSULE (FP) PO ONE (00:57)
[2024-03-01] MEDS: ACETAMINOPHEN 500 MG TABLET (FP) PO ONE (01:06)
[2024-03-01] MEDS ORDERED: KETOROLAC TROMETHAMINE 15 MG/ML VIAL ONE (01:09)
[2024-03-01] MEDS: KETOROLAC TROMETHAMINE 15 MG/ML VIAL IM ONE (01:22)
[2024-03-01] MEDS: diphenhydrAMINE HCL 25 MG CAPSULE (FP) PO ONE (01:22)
== END 2024-03-01 01:23 | disposition home or self-care (01) ==
LOC: JER 00:32
PROC: 3E0133Z Introduction of Anti-inflammatory into Subcutaneous Tissue, Percutaneous Approach (ICD-10-PCS; principal; 2024-03-01)
DX: K14.6 Glossodynia (principal)
CPT/HCPCS: 96372; 99284-25

== ENCOUNTER 2024-03-16 01:41 | Emergency (ER) | payer MEDICARE, OTHER ==
[2024-03-16 01:49] VITALS: BP 109/67; PULSE 78; RESP 18; TEMP 97.7; BMI 30.5
[2024-03-16] MEDS ORDERED: AMOX TR/POT CLAV 875MG/125MG TABLETS (FP) ONE (02:19)
[2024-03-16] MEDS: AMOX TR/POT CLAV 875MG/125MG TABLETS (FP) PO ONE (02:20)
== END 2024-03-16 02:27 | disposition home or self-care (01) ==
LOC: JER 01:41
DX: L03.221 Cellulitis of neck (principal)
CPT/HCPCS: 99283-25

== ENCOUNTER 2024-06-18 00:04 | Emergency (ER) | payer MEDICARE, OTHER ==
[2024-06-18 00:14] VITALS: RESP 18; TEMP 98.6; BMI 31.3
[2024-06-18] MEDS ORDERED: morphine SULFATE 4 MG/ML VIAL ONE (00:45)
[2024-06-18] MEDS: morphine CARPU-JECT 2 MG/1 ML DISP.SYRIN SQ ONE (00:49)
[2024-06-18] MEDS ORDERED: KETOROLAC TROMETHAMINE 30 MG/1 ML VIAL ONE (02:23)
[2024-06-18] MEDS: KETOROLAC TROMETHAMINE 30 MG/1 ML VIAL IM ONE (02:28)
[2024-06-18 02:29] VITALS: BP 113/56; PULSE 85
== END 2024-06-18 02:48 | disposition home or self-care (01) ==
LOC: JER 00:04
PROC: 3E0233Z Introduction of Anti-inflammatory into Muscle, Percutaneous Approach (ICD-10-PCS; principal; 2024-06-18)
DX: M25.562 Pain in left knee (principal); M25.462 Effusion, left knee; W01.0XXA Fall on same level from slipping, tripping and stumbling without subsequent striking against object, initial encounter
CPT/HCPCS: 73562-TC-LT-FY; 99284-25

== ENCOUNTER 2025-03-09 10:24 | Emergency (ER) | payer MEDICARE, OTHER ==
[2025-03-09 10:39] VITALS: TEMP 97.5; BMI 33.5
[2025-03-09] MEDS ORDERED: DALBAVANCIN HCL 500 MG VIAL (RESTRICTED TO ID ONLY) IVPB ONE (11:12)
[2025-03-09] MEDS: DALBAVANCIN HCL 1,500 MG in DEXTROSE 5%-WATER - 500 ML IVPB ONE (11:39)
[2025-03-09 11:42] LABS: ABSOLUTE IMMATURE GRANULOCYTES 0.27 x10^3/uL (0.0-0.031); BASOPHILS # 0.11 x10^3/uL (0.01-0.08); EOSINOPHIL % 6.6 % (0.8-7.0); EOSINOPHILS # 0.82 x10^3/uL (0.04-0.54); MCHC 29.4 g/dl (32.3-36.5); MEAN CELL VOLUME 91.3 fl (79.0-92.2); MEAN PLT VOLUME 9.7 fl (9.4-12.4); MONOCYTE # 0.79 x10^3/uL (0.30-0.82); MONOCYTE % 6.3 % (5.3-12.2); RDW 16.6 % (12.2-16.4)
[2025-03-09 12:19] LABS: GLUCOSE,RANDOM 124.0 mg/dL (74-106)
[2025-03-09 12:20] LABS: TOT PROT 6.4 g/dl (6.4-8.2)
[2025-03-09 12:21] LABS: CO2 24.0 mmol/L (21-32)
[2025-03-09 12:22] LABS: ALK PHOS 109.0 U/L (40-150)
[2025-03-09 12:25] LABS: CREATININE 0.91 mg/dL (0.55-1.3); SGOT/AST 22.0 U/L (5-34); SGPT/ALT 15.0 U/L (0-55)
[2025-03-09] MEDS: SODIUM CHLORIDE 0.9% 500 ML INFUS.BAG IV ONE (13:55)
[2025-03-09 15:29] VITALS: BP 132/79; PULSE 70; RESP 17
[2025-03-09 15:38] LABS: GLUCOSE,RANDOM 104.0 mg/dL (74-106)
[2025-03-09 15:40] LABS: CO2 23.0 mmol/L (21-32)
[2025-03-09 15:44] LABS: CREATININE 0.77 mg/dL (0.55-1.3)
== END 2025-03-09 18:29 | disposition home or self-care (01) ==
LOC: JER 10:24
DX: E11.621 Type 2 diabetes mellitus with foot ulcer (principal); L97.519 Non-pressure chronic ulcer of other part of right foot with unspecified severity
CPT/HCPCS: 36415; 80048; 80053; 85025; 96365; 97597; 99284-25; A6022; A6260; J0875